=== PATIENT | female | born 1945 | race Native Hawaiian/Other Pacific Islander ===

== ENCOUNTER 2018-06-05 16:35 | Inpatient (IN) | payer MEDICARE, MEDICAID ==
[2018-06-05 16:35] VITALS: PULSE 109
--- NOTE | 2018-06-05 17:35 | ED PDOC ---
HPI: General Adult Time Seen by Provider: 06/05/18 17:33 Chief Complaint (Nursing): Upper Extremity Problem/Injury Chief Complaint (Provider): restless leg History Per: Patient Additional Complaint(s): 72 y/o female with history of left BKA presents with restless left leg ongoing for several days. Patient states she was told by her psychiatrist Dr. Villatoro to come to ED. Patient denies any trauma or injury, she denies fever or chills. PMD: Dr. Desire Catalan Past Medical History Reviewed: Historical Data, Nursing Documentation, Vital Signs Vital Signs: Last Vital Signs Temp 97.7 F 06/05/18 16:40 Pulse 98 H 06/05/18 16:40 Resp 19 06/05/18 16:40 BP 138/69 06/05/18 16:40 Pulse Ox 98 06/05/18 19:11 - Medical History PMH: Anxiety, Arthritis, Asthma, Atrial Fibrillation, Bronchitis, Cardia Arrhythmia (back in NSR), CHF, COPD, Depression, Diabetes, Gastritis, HTN, Hypercholesterolemia, Hypothyroidism, Paranoia, Post Traumatic Stress Disorder, Sleep Apnea - Surgical History Surgical History: Cholecystectomy - Family History Family History: States: No Known Family Hx - Living Arrangements Living Arrangements: Alone (has homemaker that comes to her home daily but does not live with her) - Social History Current smoker - smoking cessation education provided: No Alcohol: None Drugs: Denies - Home Medications Home Medications: Ambulatory Orders Medication Instructions Recorded Gabapentin [Neurontin] 800 mg PO TID 04/30/18 Levemir 8 unit SQ HS 04/30/18 Aspirin [Ecotrin] 81 mg PO DAILY tabec 05/11/18 Escitalopram [Lexapro] 5 mg PO DAILY 90 Days #90 tab 05/11/18 Furosemide [Lasix] 20 mg PO DAILY 30 Days #30 tab 05/11/18 Losartan [Cozaar] 50 mg PO DAILY tab 05/11/18 Rivaroxaban [Xarelto] 20 mg PO DAILY tab 05/11/18 ALPRAZolam [Xanax] 0.5 mg PO Q12 06/02/18 Ascorbic Acid [Vitamin C] 500 mg PO DAILY 06/02/18 Benztropine Mesylate 2 tab PO BID 06/02/18 Budesonide [Pulmicort Respules] 0.5 mg INH RQ12 PRN 06/02/18 Calcium Carbonate/Vitamin D3 1 each PO DAILY 06/02/18 [Calcium 500-Vit D3 400 Tablet] Digoxin 125 mcg PO DAILY@1800 06/02/18 Furosemide 40 mg PO MWF 06/02/18 Insulin Aspart Prot/Insuln Asp 0 unit SQ 5XD 06/02/18 [Novolog Mix 70-30 Vial] L.acid/L.casei/B.bif/B.kev/Fos 1 each PO DAILY 06/02/18 [Probiotic Blend Capsule] Magnesium Oxide [Magnesium] 400 mg PO DAILY 06/02/18 Mirtazapine 15 mg PO DAILY 06/02/18 Naproxen Sodium [Aleve] 220 mg PO TID PRN 06/02/18 Potassium Chloride [K-Dur 20] 20 meq PO DAILY 06/02/18 Zolpidem [Ambien] 10 mg PO HS PRN 06/02/18 - Allergies Allergies/Adverse Reactions: Allergies Allergy/AdvReac Type Severity Reaction Status Date / Time TUCKER Inhibitors Allergy Severe COUGH Verified 12/28/17 04:05 Thiazides Allergy RASH Verified 12/28/17 04:05 Review of Systems ROS Statement: Except As Marked, All Systems Reviewed And Found Negative Constitutional: Negative for: Fever Cardiovascular: Negative for: Chest Pain Respiratory: Negative for: Cough Gastrointestinal: Negative for: Nausea, Vomiting Musculoskeletal: Positive for: Other (left leg muscle spasms) Physical Exam - Reviewed Nursing Documentation Reviewed: Yes Vital Signs Reviewed: Yes - Physical Exam Appears: Positive for: Well, Non-toxic, No Acute Distress Skin: Positive for: Normal Color. Negative for: Rash Eye Exam: Positive for: Normal appearance Cardiovascular/Chest: Positive for: Regular Rate, Rhythm Respiratory: Positive for: Normal Breath Sounds. Negative for: Wheezing, Respiratory Distress Back: Positive for: Normal Inspection Extremity: Positive for: Other (Left BKA noted, involuntary muscle spasms noted to left thigh region) Neurologic/Psych: Positive for: Alert, Oriented - Laboratory Results Result Diagrams: 06/05/18 18:36 06/05/18 18:36 - ECG O2 Sat by Pulse Oximetry: 98 Pulse Ox Interpretation: Normal Medical Decision Making Medical Decision Makin72 year old with restless leg Plan: Crisis eval CBC CMP BAL UDS UA EKG CXR Case was discussed with Dr. Villatoro patient psychiatrist. He confirms that he did send patient to the ED for further evaluation and would like her to be admitted psychiatrically pending medical clearance. Crisis department is aware. Case was also d/w Dr. Catalan who called ED also stating patient should be admitted. As per Dr. Catalan, patient takes Levemir and Novolog 70/30 and he would like this continued while patient is admitted. Nurse made aware of this. Disposition - Clinical Impression Clinical Impression: Muscle spasms of lower extremity, Altered mental status - Patient ED Disposition Is Patient to be Admitted: Transfer of Care - Disposition Disposition: Transfer of Care Disposition Time: 20:00 Condition: FAIR Forms: [employer] (Cuban) Patient Signed Over To: Cali Garza Handoff Comments: Pending diagnostic testing results, crisis eval and final dispo
--- NOTE | 2018-06-05 18:32 | RAD ---
HISTORY: clearance COMPARISON: None available. TECHNIQUE: Chest, one view. FINDINGS: LUNGS: Evidence of bilateral calcified breast implants. Opacity involving the right mid to lower lobe may be related to this calcified implant however alternatives including infiltrates or neoplasm cannot be excluded. Please note that chest x-ray has limited sensitivity for the detection of pulmonary masses. PLEURA: No significant pleural effusion identified. No definite pneumothorax . CARDIOVASCULAR: Cardiomegaly. Dense atherosclerotic calcifications of the aorta. OSSEOUS STRUCTURES: Osseous demineralization. Degenerative changes. VISUALIZED UPPER ABDOMEN: Unremarkable. OTHER FINDINGS: None. IMPRESSION: Evidence of bilateral calcified breast implants. Opacity involving the right mid to lower lobe favored the results of calcified implant however alternatives including infiltrates or neoplasm cannot be excluded on the basis of this chest x-ray. Correlate clinically. Chest PA and lateral may be considered.
[2018-06-05 18:42] LABS: BASO # 0.1 K/uL (0.0-0.2); BASO % 1.4 % (0.0-2.0); EOS # 0.2 K/uL (0.0-0.7); EOS % 3.8 % (0.0-4.0); HEMOGLOBIN 12.5 g/dL (12.0-16.0); LYMPH # 2.1 K/uL (1.0-4.3); LYMPH % 32.7 % (20.0-40.0); MEAN CELL VOLUME 94.8 fl (81.0-99.0); MEAN CORPUSCULAR HEMOGLOBIN 31.2 pg (27.0-31.0); MEAN CORPUSCULAR HGB CONC 32.9 g/dL (33.0-37.0); MEAN PLATELET VOLUME 10.2 fl (7.2-11.7); MONO # 0.6 K/uL (0.0-0.8); MONO % 9.3 % (0.0-10.0); NEUT # 3.3 K/uL (1.8-7.0); NEUT % 52.8 % (50.0-75.0); RED CELL DISTRIBUTION WIDTH 15.7 % (11.5-14.5); WHITE BLOOD COUNT 6.3 K/uL (4.8-10.8)
[2018-06-05 18:58] LABS: ALBUMIN 3.2 g/dL (3.5-5.0); ALT/SGPT 32 U/L (9-52); AST/SGOT 34 U/L (14-36); BLOOD UREA NITROGEN 24 mg/dl (7-17); CALCIUM 8.7 mg/dL (8.4-10.2); GFR NON-AFRICAN AMERICAN > 60
[2018-06-05 19:36] LABS: INR 0.8
[2018-06-05 19:38] LABS: PROTHROMBIN TIME 9.2 Seconds (9.8-13.1)
[2018-06-05] MEDS ORDERED: Insulin Regular 100 units/ml SC STA (19:53)
[2018-06-05] MEDS ORDERED: Albuterol 0.042% Inhal Sol (1.25 mg/3 mL) UD INH STA (20:04)
[2018-06-05] MEDS ORDERED: Hum Prothrombin CPLX(PCC)4FACT 1 Unit Inj IV ONE (20:22)
--- NOTE | 2018-06-05 20:34 | ED PDOC ---
"- Laboratory Results Result Diagrams: 06/05/18 18:36 06/05/18 18:36 - ECG ECG: Positive for: Interpreted By Me ECG Rhythm: Positive for: Sinus Rhythm. Negative for: ST/T Changes O2 Sat by Pulse Oximetry: 98 - Radiology X-Ray: Read By Radiologist (CXR) X-Ray Interpretation: No Acute Disease - Progress ED Course And Treament: 1999 Case endorsed to me pending CT results and crisis eval. 2004 office technologist alerted me of possible ICH. On my initial evaluation, pt. states she fell out of her this afternoon but does not remember hitting her head. Denies headache, LOC, neck pain. AOx2 2013 CT head w/o contrast: 1. Intraparenchymal hyperattenuation conforming to the right lentiform nucleus, suggestive of acute intracranial hemorrhage. There is trace edema within the adjacent right external capsule. This may represent an early hypertensive hemorrhage. Recommend followup imaging in 6 hours. 2. Moderate cortical volume loss. 3. Sequela of chronic microvascular disease. SWAPNA MARSH | Preliminary Radiology Report FILE CLERK DATA ENTRY (QA) DISCREPANCY? If there is a discrepancy between the preliminary and final interpretation, please notify [facility] via [email or web address]. If you do not have access to our QA portal, call our QA team at [phone] CONFIDENTIALITY STATEMENT This report is intended only for the use of the referring physician, and only in accordance with law, If you received this in error, call [phone] Page 2 of 2 4. Small hyperattenuating focus in the right parotid gland, likely partially imaged intraparotid lymph node Dr. Miller made aware of results. Call placed to Dr. Nguyen. [facility] ordered. Case d/w Dr. Hernandez, pt.'s psychiatrist, and made aware of findings. States he will contact Dr. Reid tucker (pt.'s PMD) himself. Agrees with care. 2030 Case d/w Dr. Krueger, neurosurgery orthopedic nurse practitioner, and CT findings discussed who recommends calling neurology as this is a neurology case. Dr. Miller discussed case with Dr. Nichols and Dr. Puri and arrangements made for admission. Case d/w Dr. Fisher who agrees with care and states Kcentra is indicated. Also requests [address] w/o contrast tomorrow at 0100 and another one at 0600. Also states pt. should be started on Depakote 500mg PO BID. Disposition - Clinical Impression Clinical Impression: Intracranial hemorrhage - POA Present On Arrival: None - Disposition Disposition: Routine/Home Disposition Time: 20:30 Condition: FAIR"
[2018-06-05] MEDS ORDERED: Insulin Regular 100 units/ml ONE (21:06)
[2018-06-05] MEDS ORDERED: Albuterol 0.042% Inhal Sol (1.25 mg/3 mL) UD ONE (21:07)
--- NOTE | 2018-06-05 21:07 | CP.PCM.CON ---
"History of Present Illness - History of Present Illness History of Present Illness: CC/reason for ICU: ICH HPI: This is a 72 y/o female with MHx sig for A fib on Xarelto, CHF, COPD, DM2, HTN, and RLS. Apparently she had been put on a new medication for her RLS and that was making symptoms worse over past several days. She called her psychiatrist, and was told to come to the ER. Patient notes that she fell earlier today, but did not have LOC. Denies CP/SOB, denies f/c/n/v/d. ROS: 14 systems reviewed, negative other than HPI MHx: fib on Xarelto, CHF, COPD, DM2, HTN, RLS, depression/anxiety SHx: L BKA, cholecystectomy Allergies: TUCKER-i, Thiazides Medications: Per med rec Family Hx: Patient cannot provide Social Hx: Lives alone, but has home health for 8 hrs daily, no tobacco, no EtOH Surrogate: Patient cannot provide info at this time Past Patient History - Infectious Disease Hx of Infectious Diseases: None - Tetanus Immunizations Tetanus Immunization: Unknown - Past Medical History & Family History Past Medical History?: Yes - Past Social History Alcohol: None Drugs: Denies - CARDIAC Hx Atrial Fibrillation: Yes Hx Cardia Arrhythmia: Yes (back in NSR) Hx Congestive Heart Failure: Yes Hx Hypercholesterolemia: Yes Hx Hypertension: Yes - PULMONARY Hx Asthma: Yes Hx Bronchitis: Yes Hx Chronic Obstructive Pulmonary Disease (COPD): Yes Hx Sleep Apnea: Yes - HEENT Hx Difficulty Chewing: Yes - RENAL Hx Chronic Kidney Disease: No - ENDOCRINE/METABOLIC Hx Hypothyroidism: Yes - HEMATOLOGICAL/ONCOLOGICAL Hx Blood Disorders: No Hx Blood Transfusions: Yes - INTEGUMENTARY Hx Dermatological Problems: Yes Hx Cellulitis: Yes (current) Hx Eczema: Yes - MUSCULOSKELETAL/RHEUMATOLOGICAL Hx Arthritis: Yes - GASTROINTESTINAL Hx Gastritis: Yes - GENITOURINARY/GYNECOLOGICAL Hx Genitourinary Disorders: No - PSYCHIATRIC Hx Anxiety: Yes Hx Depression: Yes Hx Paranoia: Yes Hx Post Traumatic Stress Disorder: Yes - SURGICAL HISTORY Hx Cholecystectomy: Yes - ANESTHESIA Hx Anesthesia: Yes Hx Anesthesia Reactions: No Hx Malignant Hyperthermia: No Meds Allergies/Adverse Reactions: Allergies Allergy/AdvReac Type Severity Reaction Status Date / Time TUCKER Inhibitors Allergy Severe COUGH Verified 12/28/17 04:05 Thiazides Allergy RASH Verified 12/28/17 04:05 - Medications Medications: Current Medications Acetaminophen (Tylenol 325mg Tab) 650 mg PO Q6H PRN PRN Reason: Pain, Mild (1-3) Acetaminophen (Tylenol 325mg Tab) 650 mg PO Q6H PRN PRN Reason: Fever >100.4 F Benztropine Mesylate (Cogentin) 2 mg PO BID [facility] Budesonide (Pulmicort Respules) 0.5 mg INH RQ12 PRN PRN Reason: Shortness of Breath Digoxin (Digoxin) 0.125 mg PO DAILY@1800 [facility] Divalproex Sodium (Depakote Dr(*Bid*)) 500 mg PO BID [facility] Escitalopram Oxalate (Lexapro) 5 mg PO DAILY [facility] Furosemide (Lasix) 20 mg PO DAILY [facility] Home Med (Gabapentin [Neurontin]) 800 mg PO TID [facility] Home Med (Levemir) 8 unit SQ HS [facility] Insulin Human Lispro (Humalog) 0 units SC ACHS JULIETA PRN Reason: Protocol Losartan Potassium (Cozaar) 50 mg PO DAILY [facility] Ondansetron HCl (Zofran Inj) 4 mg IVP Q6H PRN PRN Reason: Nausea/Vomiting Prothrombin Complex Concent (Human) (Kcentra) 1,100 unit IV ONCE ONE Stop: 06/05/18 20:23 Physical Exam - Constitutional Appears: No Acute Distress - Head Exam Head Exam: ATRAUMATIC, NORMOCEPHALIC - Eye Exam Eye Exam: EOMI, PERRL - ENT Exam ENT Exam: Mucous Membranes Moist - Neck Exam Neck exam: Positive for: Full Rom - Respiratory Exam Respiratory Exam: Clear to Auscultation Bilateral, NORMAL BREATHING PATTERN - Cardiovascular Exam Cardiovascular Exam: REGULAR RHYTHM, +S1, +S2 - GI/Abdominal Exam GI & Abdominal Exam: Normal Bowel Sounds, Soft - Extremities Exam Extremities exam: Positive for: full ROM, normal inspection - Neurological Exam Neurological exam: Alert, CN II-XII Intact, Oriented x3 - Psychiatric Exam Additional comments: constricted affect - Skin Skin Exam: Dry, Warm Results - Vital Signs Recent Vital Signs: Last Vital Signs Temp 97.7 F 06/05/18 16:40 Pulse 98 H 06/05/18 16:40 Resp 19 06/05/18 16:40 BP 138/69 06/05/18 16:40 Pulse Ox 98 06/05/18 21:05 - Labs Result Diagrams: 06/05/18 18:36 06/05/18 18:36 Labs: Laboratory Results - last 24 hr 06/05/18 06/05/18 06/05/18 18:36 18:36 19:25 WBC 6.3 RBC 4.00 Hgb 12.5 Hct 37.9 MCV 94.8 MCH 31.2 H MCHC 32.9 L RDW 15.7 H Plt Count 266 MPV 10.2 Neut % (Auto) 52.8 Lymph % (Auto) 32.7 [place] % (Auto) 9.3 Eos % (Auto) 3.8 Baso % (Auto) 1.4 Neut # (Auto) 3.3 Lymph # (Auto) 2.1 [place] # (Auto) 0.6 Eos # (Auto) 0.2 Baso # (Auto) 0.1 PT 9.2 L INR 0.8 APTT 27.0 Sodium 138 Potassium 4.1 Chloride 108 H Carbon Dioxide 27 Anion Gap 7 L BUN 24 H Creatinine 0.9 Est GFR ( Amer) > 60 Est GFR (Non-Af Amer) > 60 POC Glucose (mg/dL) Random Glucose 293 H Calcium 8.7 Total Bilirubin 0.2 AST 34 ALT 32 Alkaline Phosphatase 86 Total Protein 6.4 Albumin 3.2 L Globulin 3.2 Albumin/Globulin Ratio 1.0 Alcohol, Quantitative < 10 06/05/18 19:45 WBC RBC Hgb Hct MCV MCH MCHC RDW Plt Count MPV Neut % (Auto) Lymph % (Auto) [place] % (Auto) Eos % (Auto) Baso % (Auto) Neut # (Auto) Lymph # (Auto) [place] # (Auto) Eos # (Auto) Baso # (Auto) PT INR APTT Sodium Potassium Chloride Carbon Dioxide Anion Gap BUN Creatinine Est GFR ( Amer) Est GFR (Non-Af Amer) POC Glucose (mg/dL) 300 H Random Glucose Calcium Total Bilirubin AST ALT Alkaline Phosphatase Total Protein Albumin Globulin Albumin/Globulin Ratio Alcohol, Quantitative - Imaging and Cardiology CT scan - head Status: Report reviewed by me Additional comment: CT head w/o contrast: 1. Intraparenchymal hyperattenuation conforming to the right lentiform nucleus, suggestive of acute intracranial hemorrhage. There is trace edema within the adjacent right external capsule. This may represent an early hypertensive hemorrhage. Recommend followup imaging in 6 hours. 2. Moderate cortical volume loss. 3. Sequela of chronic microvascular disease. SWAPNA MARSH | Preliminary Radiology Report MALL PLANT CARETAKER (QA) DISCREPANCY? If there is a discrepancy between the preliminary and final interpretation, please notify [facility] via [email or web address]. If you do not have access to our QA portal, call our QA team at [phone] CONFIDENTIALITY STATEMENT This report is intended only for the use of the referring physician, and only in accordance with law, If you received this in error, call [phone] Page 2 of 2 4. Small hyperattenuating focus in the right parotid gland, likely partially imaged intraparotid lymph node Assessment & Plan (1) Intracranial hemorrhage Assessment and Plan: 72 y/o female with ICH s/p fall in setting of being on Xarelto. Received Kcentra in ER. -Admit ICU -Repeat NCHCT q6h -q4h neuro checks -Control BP -Hold all antiplatelet agents and blood thinners -Neurology consult -Neurosurgery consult -- no surgery required per neurosurg after viewing images -Cont LA insulin, SSI, for DM2; accucheck ACHS -Cont home BP medications -Only SCDs for DVT PPx Status: Acute (2) Uncontrolled diabetes mellitus Status: Chronic Priority: Medium"
[2018-06-05] MEDS ORDERED: Insulin Detemir 100 Units/ml Inj SC SCH (22:00)
[2018-06-05] MEDS: Divalproex 500 mg DR(BID formulation) PO SCH (22:52)
[2018-06-05] MEDS ORDERED: Dextrose 50% SYRINGE Inj (50 ml) IVP ONE (23:42)
[2018-06-05] MEDS: Insulin Lispro (humaLOG) 100 Units/ml Inj SC SCH (23:52)
[2018-06-06 05:51] LABS: HEMOGLOBIN 11.8 g/dL (12.0-16.0); MEAN CELL VOLUME 94.6 fl (81.0-99.0); MEAN CORPUSCULAR HEMOGLOBIN 31.3 pg (27.0-31.0); MEAN CORPUSCULAR HGB CONC 33.1 g/dL (33.0-37.0); RBC 3.78 Mil/uL (3.80-5.20); RED CELL DISTRIBUTION WIDTH 15.5 % (11.5-14.5); WHITE BLOOD COUNT 7.9 K/uL (4.8-10.8)
[2018-06-06 06:06] LABS: BLOOD UREA NITROGEN 19 mg/dl (7-17); CALCIUM 8.8 mg/dL (8.4-10.2); GFR NON-AFRICAN AMERICAN > 60
--- NOTE | 2018-06-06 07:29 | CT ---
Date of service: 06/06/2018 PROCEDURE: CT HEAD WITHOUT CONTRAST. HISTORY: repeat [address] due to HTN ICH COMPARISON: 06/05/2018 TECHNIQUE: Axial computed tomography images were obtained through the head/brain without intravenous contrast. Radiation dose: Total exam DLP = mGy-cm. This CT exam was performed using one or more of the following dose reduction techniques: Automated exposure control, adjustment of the mA and/or kV according to patient size, and/or use of iterative reconstruction technique. FINDINGS: HEMORRHAGE: Evolving hyperdense parenchymal hemorrhage in the right lentiform nucleus with surrounding edema. No interval change. BRAIN: No mass effect or edema. No atrophy or chronic microvascular ischemic changes. VENTRICLES: Unremarkable. No hydrocephalus. CALVARIUM: Unremarkable. PARANASAL SINUSES: Unremarkable as visualized. No significant inflammatory changes. MASTOID AIR CELLS: Unremarkable as visualized. No inflammatory changes. OTHER FINDINGS: None. IMPRESSION: Evolving hyperdense parenchymal hemorrhage in the right lentiform nucleus with surrounding edema. No interval change.
--- NOTE | 2018-06-06 07:35 | CT ---
Date of service: 06/05/2018 PROCEDURE: CT HEAD WITHOUT CONTRAST. HISTORY: AMS COMPARISON: None available. TECHNIQUE: Axial computed tomography images were obtained through the head/brain without intravenous contrast. Radiation dose: Total exam DLP = mGy-cm. This CT exam was performed using one or more of the following dose reduction techniques: Automated exposure control, adjustment of the mA and/or kV according to patient size, and/or use of iterative reconstruction technique. FINDINGS: HEMORRHAGE: Intraparenchymal hyperdensity in the right lentiform nucleus possibly presenting intracranial hemorrhage. BRAIN: No mass effect or edema. Cortical volume loss and microvascular ischemic disease. VENTRICLES: Unremarkable. No hydrocephalus. CALVARIUM: Unremarkable. PARANASAL SINUSES: Unremarkable as visualized. No significant inflammatory changes. MASTOID AIR CELLS: Unremarkable as visualized. No inflammatory changes. OTHER FINDINGS: None. IMPRESSION: Intraparenchymal hyperdensity in the right lentiform nucleus possibly presenting intracranial hemorrhage. Cortical volume loss and microvascular ischemic disease.
--- NOTE | 2018-06-06 07:59 | CT ---
Date of service: 06/06/2018 PROCEDURE: CT HEAD WITHOUT CONTRAST. HISTORY: 2nd repeat CT head COMPARISON: 06/05/2018 TECHNIQUE: Axial computed tomography images were obtained through the head/brain without intravenous contrast. Radiation dose: Total exam DLP = mGy-cm. This CT exam was performed using one or more of the following dose reduction techniques: Automated exposure control, adjustment of the mA and/or kV according to patient size, and/or use of iterative reconstruction technique. FINDINGS: HEMORRHAGE: No intracranial hemorrhage. BRAIN: No mass effect or edema. Chronic white matter ischemic disease. Mild atrophy. VENTRICLES: Unremarkable. No hydrocephalus. CALVARIUM: Unremarkable. PARANASAL SINUSES: Unremarkable as visualized. No significant inflammatory changes. MASTOID AIR CELLS: Unremarkable as visualized. No inflammatory changes. OTHER FINDINGS: None. IMPRESSION: No change in hyperdense material in the right lentiform nucleus. This possibly represents petechial hemorrhage though calcification is also consideration.
--- NOTE | 2018-06-06 08:05 | RAD ---
Date of service: 06/05/2018 HISTORY: ecchymosis COMPARISON: No prior FINDINGS: BONES: Normal. No fracture. JOINTS: Normal. No osteoarthritis. SOFT TISSUE: Normal. OTHER FINDINGS: None . IMPRESSION: Normal Bone Xray.
[2018-06-06] MEDS: Divalproex 500 mg DR(BID formulation) PO SCH (08:26)
[2018-06-06] MEDS: Insulin Lispro (humaLOG) 100 Units/ml Inj SC SCH ×4 (08:27→22:07)
[2018-06-06] MEDS: Budesonide 0.5 mg/2 ml Inhal Susp UD INH PRN (08:46)
[2018-06-06] MEDS ORDERED: Patient's Own Med (Gabapentin [Neurontin] 800 MG) PO SCH (09:00)
--- NOTE | 2018-06-06 09:26 | CARD ---
APPROVED REPORT Date of service: 06/05/2018 EKG Measurement Heart [id number] <Conclusion> Sinus rhythm with premature supraventricular complexes Nonspecific ST abnormality Abnormal ECG
--- NOTE | 2018-06-06 10:44 | CP.PCM.PN ---
Subjective - Date & Time of Evaluation Date of Evaluation: 06/06/18 Time of Evaluation: 09:45 - Subjective Subjective: Patient well known to ICU team at [facility] and [facility]. Patient has been admitted multiple times at both hospitals. Patient admitted to [facility] for ICH while on AC 2nd A-fib. Today Patient denies any chest pain. Patient c/o left lower leg pain with myotonic movements Objective - Vital Signs/Intake and Output Vital Signs (last 24 hours): Temp Pulse Resp BP Pulse Ox 97.6 F 84 13 151/74 H 100 06/06/18 08:00 06/06/18 08:26 06/06/18 08:00 06/06/18 08:28 06/06/18 08:00 Intake and Output: 06/06/18 06/06/18 06:59 18:59 Intake Total 30 300 Output Total 350 Balance -320 300 - Medications Medications: Current Medications Acetaminophen (Tylenol 325mg Tab) 650 mg PO Q6H PRN PRN Reason: Pain, Mild (1-3) Acetaminophen (Tylenol 325mg Tab) 650 mg PO Q6H PRN PRN Reason: Fever >100.4 F Benztropine Mesylate (Cogentin) 2 mg PO BID [facility] Last Admin: 06/06/18 08:26 Dose: 2 mg Budesonide (Pulmicort Respules) 0.5 mg INH RBID PRN PRN Reason: Shortness of Breath Last Admin: 06/06/18 08:46 Dose: 0.5 mg Diltiazem HCl (Cardizem Cd) 180 mg PO DAILY [facility] Divalproex Sodium (Depakote Dr(*Bid*)) 750 mg PO BID [facility] Escitalopram Oxalate (Lexapro) 5 mg PO DAILY [facility] Last Admin: 06/06/18 08:28 Dose: 5 mg Furosemide (Lasix) 20 mg PO DAILY [facility] Last Admin: 06/06/18 08:28 Dose: 20 mg Gabapentin (Neurontin) 800 mg PO TID [facility] Last Admin: 06/06/18 08:28 Dose: 800 mg Insulin Human Lispro (Humalog) 0 units SC ACHS [facility] PRN Reason: Protocol Last Admin: 06/06/18 08:27 Dose: Not Given Losartan Potassium (Cozaar) 50 mg PO DAILY [facility] Last Admin: 06/06/18 08:26 Dose: 50 mg Ondansetron HCl (Zofran Inj) 4 mg IVP Q6H PRN PRN Reason: Nausea/Vomiting - Labs Labs: 06/06/18 04:45 06/06/18 04:45 PT 9.2 Seconds (9.8-13.1) L 06/05/18 19:25 INR 0.8 06/05/18 19:25 APTT 27.0 Seconds (25.6-37.1) 06/05/18 19:25 Assessment and Plan - Assessment and Plan (Free Text) Assessment: 72 yo F w/ PMHx of HTN, HLD, DM2, A.fib, COPD, CHF, diverticulitis, left BKA(2/ 2 to thrombosis) admitted to ICU with ICH while on NOAC -HTN/Chronic diastolic heart failure (EF >55%)/A-fib:HR controlled with oral Cardizem, not on AC 2nd ICH, no ASA 2nd ICH -COPD-in no acut distress, contineu LABA/spiriva -DM: was on levamir 10 untis and 3 unit premeals, continue diabetic diet -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 continue to monitor
[2018-06-06] MEDS: diltiaZEM 180 mg/24 Hours CD Cap PO SCH (12:46)
--- NOTE | 2018-06-06 14:26 | CP.PCM.CON ---
History of Present Illness - History of Present Illness History of Present Illness: Neurology Consultation Note: The patient is a 72-year-old woman with a past medical history of atrial fibrillation (on Xarelto), CHF, COPD, DM2, HTN, right BKA and RLS, who was brought in for tonic/clonic movements of her lower extremities and falling off the bed. She was initially confused, but seems to be back to baseline now. CT scan of the head showed a possible right basal ganglia hemorrhage. Xarelto was held. Repeat CT head showed stability. No mass effect. The patient is in the ICU and there were no acute events overnight. When she is asleep, there are no abnormal movements in her right stump, but when she is awake, she seems to be moving it ceaselessly. Review of Systems - Review of Systems All systems: reviewed and no additional remarkable complaints except Past Patient History - Infectious Disease Hx of Infectious Diseases: None - Tetanus Immunizations Tetanus Immunization: Unknown - Past Medical History & Family History Past Medical History?: Yes - Past Social History Smoking Status: Light Smoker < 10 Cigarettes Daily - CARDIAC Hx Atrial Fibrillation: Yes Hx Cardia Arrhythmia: Yes Hx Congestive Heart Failure: Yes Hx Hypercholesterolemia: Yes Hx Hypertension: Yes - PULMONARY Hx Asthma: Yes Hx Bronchitis: Yes Hx Chronic Obstructive Pulmonary Disease (COPD): Yes Hx Sleep Apnea: Yes - HEENT Hx Difficulty Chewing: Yes - RENAL Hx Chronic Kidney Disease: No Other/Comment: INCONTINENT - ENDOCRINE/METABOLIC Hx Diabetes Mellitus Type 2: Yes Hx Hypothyroidism: Yes - HEMATOLOGICAL/ONCOLOGICAL Hx Blood Disorders: No - INTEGUMENTARY Hx Eczema: Yes - MUSCULOSKELETAL/RHEUMATOLOGICAL Hx Falls: Yes - GASTROINTESTINAL Hx Gastritis: Yes - GENITOURINARY/GYNECOLOGICAL Hx Genitourinary Disorders: No - PSYCHIATRIC Hx Anxiety: Yes Hx Depression: Yes Hx Paranoia: Yes Hx Post Traumatic Stress Disorder: Yes Hx Substance Use: No - SURGICAL HISTORY Hx Cholecystectomy: Yes Other/Comment: LEFT BKA - ANESTHESIA Hx Anesthesia: Yes Hx Anesthesia Reactions: No Hx Malignant Hyperthermia: No Meds Allergies/Adverse Reactions: Allergies Allergy/AdvReac Type Severity Reaction Status Date / Time TUCKER Inhibitors Allergy Severe COUGH Verified 12/28/17 04:05 Thiazides Allergy RASH Verified 12/28/17 04:05 - Medications Medications: Current Medications Acetaminophen (Tylenol 325mg Tab) 650 mg PO Q6H PRN PRN Reason: Pain, Mild (1-3) Acetaminophen (Tylenol 325mg Tab) 650 mg PO Q6H PRN PRN Reason: Fever >100.4 F Acetaminophen/Codeine Phosphate (Tylenol/Codeine 300 Mg/30 Mg) 1 tab PO Q8 PRN PRN Reason: Pain, moderate (4-7) Atorvastatin Calcium (Lipitor) 20 mg PO DAILY [facility] Last Admin: 06/06/18 12:49 Dose: 20 mg Benztropine Mesylate (Cogentin) 2 mg PO BID [facility] Last Admin: 06/06/18 08:26 Dose: 2 mg Budesonide (Pulmicort Respules) 0.5 mg INH RBID PRN PRN Reason: Shortness of Breath Last Admin: 06/06/18 08:46 Dose: 0.5 mg Diltiazem HCl (Cardizem Cd) 180 mg PO DAILY [facility] Last Admin: 06/06/18 12:46 Dose: 180 mg Divalproex Sodium (Depakote Dr(*Bid*)) 750 mg PO BID [facility] Escitalopram Oxalate (Lexapro) 5 mg PO DAILY [facility] Last Admin: 06/06/18 08:28 Dose: 5 mg Furosemide (Lasix) 20 mg PO DAILY [facility] Last Admin: 06/06/18 08:28 Dose: 20 mg Gabapentin (Neurontin) 800 mg PO TID [facility] Last Admin: 06/06/18 12:49 Dose: 800 mg Insulin Human Lispro (Humalog) 0 units SC ACHS [facility] PRN Reason: Protocol Last Admin: 06/06/18 12:48 Dose: 4 units Losartan Potassium (Cozaar) 50 mg PO DAILY [facility] Last Admin: 06/06/18 08:26 Dose: 50 mg Metformin HCl (Glucophage) 500 mg PO BIDWM [facility] Ondansetron HCl (Zofran Inj) 4 mg IVP Q6H PRN PRN Reason: Nausea/Vomiting Sitagliptin Phosphate (Januvia) 100 mg PO DAILY [facility] Last Admin: 06/06/18 12:49 Dose: 100 mg Physical Exam - Neurological Exam Neurological exam: Alert, CN II-XII Intact, Oriented x3, Reflexes Normal Additional comments: CN 2-12 intact, strength is symmetrical, LLE BKA with constant non-rhythmic movement, sensation is intact, reflexes are normal. Results - Vital Signs Recent Vital Signs: Last Vital Signs Temp 97.6 F 06/06/18 08:00 Pulse 105 H 06/06/18 12:46 Resp 20 06/06/18 12:00 BP 134/66 06/06/18 12:46 Pulse Ox 98 06/06/18 12:00 - Labs Result Diagrams: 06/06/18 04:45 06/06/18 04:45 Labs: Laboratory Results - last 24 hr 06/05/18 06/05/18 06/05/18 18:36 18:36 19:25 WBC 6.3 RBC 4.00 Hgb 12.5 Hct 37.9 MCV 94.8 MCH 31.2 H MCHC 32.9 L RDW 15.7 H Plt Count 266 MPV 10.2 Neut % (Auto) 52.8 Lymph % (Auto) 32.7 [place] % (Auto) 9.3 Eos % (Auto) 3.8 Baso % (Auto) 1.4 Neut # (Auto) 3.3 Lymph # (Auto) 2.1 [place] # (Auto) 0.6 Eos # (Auto) 0.2 Baso # (Auto) 0.1 PT 9.2 L INR 0.8 APTT 27.0 Sodium 138 Potassium 4.1 Chloride 108 H Carbon Dioxide 27 Anion Gap 7 L BUN 24 H Creatinine 0.9 Est GFR ( Amer) > 60 Est GFR (Non-Af Amer) > 60 POC Glucose (mg/dL) Random Glucose 293 H Calcium 8.7 Total Bilirubin 0.2 AST 34 ALT 32 Alkaline Phosphatase 86 Total Protein 6.4 Albumin 3.2 L Globulin 3.2 Albumin/Globulin Ratio 1.0 Triglycerides Cholesterol LDL Cholesterol Direct HDL Cholesterol TSH 3rd Generation Alcohol, Quantitative < 10 06/05/18 06/05/18 06/06/18 19:45 23:39 00:34 WBC RBC Hgb Hct MCV MCH MCHC RDW Plt Count MPV Neut % (Auto) Lymph % (Auto) [place] % (Auto) Eos % (Auto) Baso % (Auto) Neut # (Auto) Lymph # (Auto) [place] # (Auto) Eos # (Auto) Baso # (Auto) PT INR APTT Sodium Potassium Chloride Carbon Dioxide Anion Gap BUN Creatinine Est GFR ( Amer) Est GFR (Non-Af Amer) POC Glucose (mg/dL) 300 H 41 L 99 Random Glucose Calcium Total Bilirubin AST ALT Alkaline Phosphatase Total Protein Albumin Globulin Albumin/Globulin Ratio Triglycerides Cholesterol LDL Cholesterol Direct HDL Cholesterol TSH 3rd Generation Alcohol, Quantitative 06/06/18 06/06/18 06/06/18 04:45 04:45 05:48 WBC 7.9 RBC 3.78 L Hgb 11.8 L Hct 35.7 MCV 94.6 MCH 31.3 H MCHC 33.1 RDW 15.5 H Plt Count 273 MPV Neut % (Auto) Lymph % (Auto) [place] % (Auto) Eos % (Auto) Baso % (Auto) Neut # (Auto) Lymph # (Auto) [place] # (Auto) Eos # (Auto) Baso # (Auto) PT INR APTT Sodium 139 Potassium 4.4 Chloride 114 H Carbon Dioxide 24 Anion Gap 5 L BUN 19 H Creatinine 0.7 Est GFR ( Amer) > 60 Est GFR (Non-Af Amer) > 60 POC Glucose (mg/dL) 141 H Random Glucose 166 H Calcium 8.8 Total Bilirubin AST ALT Alkaline Phosphatase Total Protein Albumin Globulin Albumin/Globulin Ratio Triglycerides Cholesterol LDL Cholesterol Direct HDL Cholesterol TSH 3rd Generation Alcohol, Quantitative 06/06/18 06/06/18 11:20 12:20 WBC RBC Hgb Hct MCV MCH MCHC RDW Plt Count MPV Neut % (Auto) Lymph % (Auto) [place] % (Auto) Eos % (Auto) Baso % (Auto) Neut # (Auto) Lymph # (Auto) [place] # (Auto) Eos # (Auto) Baso # (Auto) PT INR APTT Sodium Potassium Chloride Carbon Dioxide Anion Gap BUN Creatinine Est GFR ( Amer) Est GFR (Non-Af Amer) POC Glucose (mg/dL) 335 H Random Glucose Calcium Total Bilirubin AST ALT Alkaline Phosphatase Total Protein Albumin Globulin Albumin/Globulin Ratio Triglycerides 192 H Cholesterol 165 LDL Cholesterol Direct 63 HDL Cholesterol 63 TSH 3rd Generation 0.26 L Alcohol, Quantitative Assessment & Plan (1) Intracranial hemorrhage Assessment and Plan: Hold Xarelto for now. I recommend the followin. May transfer to telemetry 2. MRI brain without contrast 3. MRA head/neck without contrast 4. PT/OT eval and treatment 5. Keep HOB elevated to 30-40 degrees 6. Control BP for nomrotension 7. Fluids with NS at 100 mL/hr 8. EEG awake and drowsy for 30 mins 9. Will start neurontin 300 mg TID for abnormal movements/RLS 10. Case management consult Thank you. Status: Acute Priority: High
[2018-06-06] MEDS: Acetaminophen-Codeine 300/30 mg Tab PO PRN (16:29)
[2018-06-06] MEDS: Divalproex 250 mg DR(BID formulation) PO SCH (16:32)
[2018-06-06] MEDS ORDERED: Digoxin 125 mcg (0.125 mg) Tab PO SCH (18:00)
[2018-06-07 06:58] LABS: MEAN CORPUSCULAR HEMOGLOBIN 30.8 pg (27.0-31.0); MEAN CORPUSCULAR HGB CONC 32.5 g/dL (33.0-37.0); RBC 3.89 Mil/uL (3.80-5.20); RED CELL DISTRIBUTION WIDTH 15.7 % (11.5-14.5)
[2018-06-07 07:21] LABS: BLOOD UREA NITROGEN 26 mg/dl (7-17); CALCIUM 8.9 mg/dL (8.4-10.2); GFR NON-AFRICAN AMERICAN > 60
[2018-06-07] MEDS: diltiaZEM 180 mg/24 Hours CD Cap PO SCH (08:32)
[2018-06-07] MEDS: Divalproex 250 mg DR(BID formulation) PO SCH ×2 (08:33→17:29)
[2018-06-07] MEDS: Insulin Lispro (humaLOG) 100 Units/ml Inj SC SCH ×4 (08:34→23:00)
--- NOTE | 2018-06-07 09:19 | RAD ---
Date of service: 06/07/2018 PROCEDURE: CHEST RADIOGRAPH, 1 VIEW HISTORY: decreased breath sounds bilat COMPARISON: None available. FINDINGS: LUNGS: Question right lower lobe infiltrate versus overlying density from right breast implant. . PLEURA: No pneumothorax or pleural fluid seen. CARDIOVASCULAR: Normal. OSSEOUS STRUCTURES: No significant abnormalities. VISUALIZED UPPER ABDOMEN: Normal. OTHER FINDINGS: None. IMPRESSION: Question right lower lobe infiltrate versus overlying density from right breast implant. .
[2018-06-07] MEDS: Acetaminophen-Codeine 300/30 mg Tab PO PRN (12:10)
--- NOTE | 2018-06-07 13:14 | CP.PCM.PN ---
Subjective - Date & Time of Evaluation Date of Evaluation: 06/07/18 Time of Evaluation: 10:00 - Subjective Subjective: Patient feeling better. no dizzines, no blurry vision, no headaches Objective - Vital Signs/Intake and Output Vital Signs (last 24 hours): Temp Pulse Resp BP Pulse Ox 97.9 F 70 23 115/50 L 95 06/07/18 12:00 06/07/18 10:00 06/07/18 10:00 06/07/18 10:00 06/07/18 10:00 Intake and Output: 06/07/18 06/07/18 06:59 18:59 Intake Total 0 637 Output Total 0 100 Balance 0 537 - Medications Medications: Current Medications Acetaminophen (Tylenol 325mg Tab) 650 mg PO Q6H PRN PRN Reason: Pain, Mild (1-3) Acetaminophen (Tylenol 325mg Tab) 650 mg PO Q6H PRN PRN Reason: Fever >100.4 F Acetaminophen/Codeine Phosphate (Tylenol/Codeine 300 Mg/30 Mg) 1 tab PO Q8 PRN PRN Reason: Pain, moderate (4-7) Last Admin: 06/07/18 12:10 Dose: 1 tab Atorvastatin Calcium (Lipitor) 20 mg PO DAILY [facility] Last Admin: 06/07/18 08:35 Dose: 20 mg Benztropine Mesylate (Cogentin) 2 mg PO BID [facility] Last Admin: 06/07/18 08:32 Dose: 2 mg Budesonide (Pulmicort Respules) 0.5 mg INH RBID PRN PRN Reason: Shortness of Breath Last Admin: 06/06/18 08:46 Dose: 0.5 mg Clonidine HCl (Catapres) 0.1 mg PO BID [facility] Last Admin: 06/07/18 08:32 Dose: 0.1 mg Diltiazem HCl (Cardizem Cd) 180 mg PO DAILY [facility] Last Admin: 06/07/18 08:32 Dose: 180 mg Divalproex Sodium (Depakote Dr(*Bid*)) 750 mg PO BID [facility] Last Admin: 06/07/18 08:33 Dose: 750 mg Escitalopram Oxalate (Lexapro) 5 mg PO DAILY [facility] Last Admin: 06/06/18 08:28 Dose: 5 mg Furosemide (Lasix) 20 mg PO DAILY [facility] Last Admin: 06/07/18 08:34 Dose: 20 mg Gabapentin (Neurontin) 800 mg PO TID [facility] Last Admin: 06/07/18 12:11 Dose: 800 mg Glipizide (Glucotrol Xl) 5 mg PO BRK [facility] Insulin Human Lispro (Humalog) 0 units SC ACHS [facility] PRN Reason: Protocol Last Admin: 06/07/18 12:10 Dose: 4 units Losartan Potassium (Cozaar) 50 mg PO DAILY [facility] Last Admin: 06/07/18 08:33 Dose: 50 mg Metformin HCl (Glucophage) 500 mg PO BIDWM [facility] Last Admin: 06/07/18 08:33 Dose: 500 mg Ondansetron HCl (Zofran Inj) 4 mg IVP Q6H PRN PRN Reason: Nausea/Vomiting Sitagliptin Phosphate (Januvia) 100 mg PO DAILY [facility] Last Admin: 06/07/18 08:34 Dose: 100 mg - Labs Labs: 06/07/18 05:00 06/07/18 05:00 PT 9.2 Seconds (9.8-13.1) L 06/05/18 19:25 INR 0.8 06/05/18 19:25 APTT 27.0 Seconds (25.6-37.1) 06/05/18 19:25 - Head Exam Head Exam: ATRAUMATIC, NORMAL INSPECTION, NORMOCEPHALIC - Eye Exam Pupil Exam: NORMAL ACCOMODATION - Respiratory Exam Respiratory Exam: Clear to Ausculation Bilateral, NORMAL BREATHING PATTERN - Cardiovascular Exam Cardiovascular Exam: +S1, +S2, +S4 - GI/Abdominal Exam GI & Abdominal Exam: Normal Bowel Sounds - Extremities Exam Additional comments: amputation - Neurological Exam Neurological Exam: Alert, Awake, Oriented x3 - Psychiatric Exam Psychiatric exam: Normal Affect Assessment and Plan - Assessment and Plan (Free Text) Assessment: 72 yo F w/ PMHx of HTN, HLD, DM2, A.fib, COPD, CHF, diverticulitis, left 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
[2018-06-07] MEDS: Budesonide 0.5 mg/2 ml Inhal Susp UD INH PRN (15:36)
[2018-06-07] MEDS ORDERED: Albuterol-Ipratrop 3 mg / 0.5 (3 ml) UD INH STA (15:38)
[2018-06-07] MEDS: GlipiZIDE 5 mg SR Tab PO SCH (19:00)
[2018-06-07] MEDS: Albuterol-Ipratrop 3 mg / 0.5 (3 ml) UD INH SCH (19:07)
[2018-06-08] MEDS: Albuterol-Ipratrop 3 mg / 0.5 (3 ml) UD INH SCH ×4 (02:08→19:13)
[2018-06-08 05:35] LABS: BASO # 0.1 K/uL (0.0-0.2); BASO % 1.2 % (0.0-2.0); EOS # 0.1 K/uL (0.0-0.7); EOS % 2.4 % (0.0-4.0); HEMOGLOBIN 12.6 g/dL (12.0-16.0); LYMPH # 1.8 K/uL (1.0-4.3); LYMPH % 33.8 % (20.0-40.0); MEAN CELL VOLUME 94.3 fl (81.0-99.0); MEAN CORPUSCULAR HEMOGLOBIN 31.3 pg (27.0-31.0); MEAN CORPUSCULAR HGB CONC 33.2 g/dL (33.0-37.0); MEAN PLATELET VOLUME 10.9 fl (7.2-11.7); MONO # 0.4 K/uL (0.0-0.8); NEUT # 2.9 K/uL (1.8-7.0); NEUT % 55.6 % (50.0-75.0); NRBC % 0.1 % (0.0-0.0); RBC 4.02 Mil/uL (3.80-5.20); RED CELL DISTRIBUTION WIDTH 15.5 % (11.5-14.5); WHITE BLOOD COUNT 5.2 K/uL (4.8-10.8)
[2018-06-08 05:45] LABS: ALB/GLOB RATIO 0.9 (1.0-2.1); ALBUMIN 3.1 g/dL (3.5-5.0); ALT/SGPT 25 U/L (9-52); AST/SGOT 38 U/L (14-36); BLOOD UREA NITROGEN 25 mg/dl (7-17); CALCIUM 8.9 mg/dL (8.4-10.2); GFR NON-AFRICAN AMERICAN > 60
[2018-06-08] MEDS: Insulin Lispro (humaLOG) 100 Units/ml Inj SC SCH ×4 (06:31→23:04)
[2018-06-08] MEDS: diltiaZEM 180 mg/24 Hours CD Cap PO SCH (10:13)
[2018-06-08] MEDS: Divalproex 250 mg DR(BID formulation) PO SCH ×2 (10:36→17:12)
[2018-06-08] MEDS: GlipiZIDE 5 mg SR Tab PO SCH ×3 (10:37→19:55)
[2018-06-08] MEDS ORDERED: Albuterol-Ipratrop 3 mg / 0.5 (3 ml) UD INH STA (11:14)
[2018-06-08] MEDS: Budesonide 0.5 mg/2 ml Inhal Susp UD INH PRN (11:21)
[2018-06-08 11:37] LABS: ABG ALLEN TEST YES; ARTERIAL BLOOD GAS HCO3 25.3 mmol/L (21-28); ARTERIAL BLOOD GAS O2 SAT 96.5 % (95-98); ARTERIAL BLOOD GAS PCO2 47 mm/Hg (35-45); ARTERIAL BLOOD GAS PH 7.36 (7.35-7.45); ARTERIAL BLOOD GAS PO2 70 mm/Hg (80-100)
[2018-06-08] MEDS: Insulin Detemir 100 Units/ml Inj SC SCH (13:00)
--- NOTE | 2018-06-08 15:59 | CP.PCM.PN ---
Subjective - Date & Time of Evaluation Date of Evaluation: 06/08/18 Time of Evaluation: 15:57 - Subjective Subjective: Mrs. Arreaga was seen and examined today at bedside. She had no new complaints. There were no acute events overnight. The patient was taken to [facility] for the MRI, but the study was relatively non-diagnostic due to the patient's agitation and motion. Objective - Vital Signs/Intake and Output Vital Signs (last 24 hours): Temp Pulse Resp BP Pulse Ox 98.2 F 107 H 21 143/71 98 06/08/18 08:00 06/08/18 10:32 06/08/18 08:00 06/08/18 10:39 06/08/18 08:00 Intake and Output: 06/08/18 06/08/18 06:59 18:59 Intake Total 20 Balance 20 - Medications Medications: Current Medications Acetaminophen (Tylenol 325mg Tab) 650 mg PO Q6H PRN PRN Reason: Pain, Mild (1-3) Acetaminophen (Tylenol 325mg Tab) 650 mg PO Q6H PRN PRN Reason: Fever >100.4 F Albuterol/Ipratropium (Duoneb 3 Mg/0.5 Mg (3 Ml) Ud) 3 ml INH RQ6 [facility] Last Admin: 06/08/18 11:22 Dose: 3 ml Atorvastatin Calcium (Lipitor) 20 mg PO DAILY [facility] Last Admin: 06/08/18 10:40 Dose: 20 mg Benztropine Mesylate (Cogentin) 2 mg PO BID [facility] Last Admin: 06/08/18 10:31 Dose: 2 mg Budesonide (Pulmicort Respules) 0.5 mg INH RBID PRN PRN Reason: Shortness of Breath Last Admin: 06/08/18 11:21 Dose: 0.5 mg Clonidine HCl (Catapres) 0.1 mg PO BID [facility] Last Admin: 06/08/18 10:19 Dose: 0.1 mg Diltiazem HCl (Cardizem Cd) 180 mg PO DAILY [facility] Last Admin: 06/08/18 10:13 Dose: 180 mg Divalproex Sodium (Depakote Dr(*Bid*)) 750 mg PO BID [facility] Last Admin: 06/08/18 10:36 Dose: 750 mg Escitalopram Oxalate (Lexapro) 5 mg PO DAILY [facility] Last Admin: 06/06/18 08:28 Dose: 5 mg Furosemide (Lasix) 20 mg PO DAILY [facility] Last Admin: 06/08/18 10:39 Dose: 20 mg Gabapentin (Neurontin) 800 mg PO TID [facility] Last Admin: 06/08/18 15:25 Dose: 800 mg Glipizide (Glucotrol Xl) 5 mg PO BRK [facility] Last Admin: 06/08/18 10:37 Dose: 5 mg Insulin Detemir (Levemir) 8 units SC DAILY [facility] Insulin Human Lispro (Humalog) 0 units SC ACHS [facility] PRN Reason: Protocol Last Admin: 06/08/18 06:31 Dose: 1 units Losartan Potassium (Cozaar) 50 mg PO DAILY [facility] Last Admin: 06/08/18 10:32 Dose: 50 mg Metformin HCl (Glucophage) 500 mg PO BIDWM [facility] Last Admin: 06/08/18 10:37 Dose: 500 mg Ondansetron HCl (Zofran Inj) 4 mg IVP Q6H PRN PRN Reason: Nausea/Vomiting Sitagliptin Phosphate (Januvia) 100 mg PO DAILY [facility] Last Admin: 06/08/18 10:38 Dose: 100 mg Tramadol HCl (Ultram) 50 mg PO Q6H PRN PRN Reason: Pain, moderate (4-7) Last Admin: 06/08/18 10:32 Dose: 50 mg - Labs Labs: 06/08/18 04:30 06/08/18 04:30 PT 9.2 Seconds (9.8-13.1) L 06/05/18 19:25 INR 0.8 06/05/18 19:25 APTT 27.0 Seconds (25.6-37.1) 06/05/18 19:25 - Neurological Exam Additional comments: Neurologically unchanged compared to prior exam Assessment and Plan (1) Intracranial hemorrhage Assessment & Plan: This may be calcification or artifact. MRI of the brain would be helpful. Will attempt it tomorrow. The patient may be given Ativan 1 mg IV prior to the MRI. Status: Acute
--- NOTE | 2018-06-08 17:53 | CP.PCM.HP ---
History of Present Illness - History of Present Illness History of Present Illness: This is a 72 y/o female , admitted for restless leg sx and intracranial hemorrhage noted on CT scan of the brain. She has a hx of parox atrial fib and has been on xarelto, hx of HTN , DM 2, Hyperlipidemia, COPD, anxiety depression, RLS. She claims that she was recently started on Lexapro by her Psychiatrist and since then her sx of RLS has gotten worst. She was advised by Dr Beyer( Psychiatrist) to be evaluated at the ER. She denies having any headaches or other sx such as arthalgia, extremitiy weakness. Present on Admission - Present on Admission Any Indicators Present on Admission: No History of DVT/PE: No History of Uncontrolled Diabetes: Yes Urinary Catheter: No Decubitus Ulcer Present: No Review of Systems - Respiratory Respiratory: Cough, Dyspnea - Neurological Neurological: Dizziness, Paresthesias, Restless Legs Past Patient History - Infectious Disease Hx of Infectious Diseases: None - Tetanus Immunizations Tetanus Immunization: Unknown - Past Medical History & Family History Past Medical History?: Yes - Past Social History Smoking Status: Light Smoker < 10 Cigarettes Daily - CARDIAC Hx Atrial Fibrillation: Yes Hx Cardia Arrhythmia: Yes Hx Congestive Heart Failure: Yes Hx Hypercholesterolemia: Yes Hx Hypertension: Yes - PULMONARY Hx Asthma: Yes Hx Bronchitis: Yes Hx Chronic Obstructive Pulmonary Disease (COPD): Yes Hx Sleep Apnea: Yes - HEENT Hx Difficulty Chewing: Yes - RENAL Hx Chronic Kidney Disease: No Other/Comment: INCONTINENT - ENDOCRINE/METABOLIC Hx Diabetes Mellitus Type 2: Yes Hx Hypothyroidism: Yes - HEMATOLOGICAL/ONCOLOGICAL Hx Blood Disorders: No - INTEGUMENTARY Hx Eczema: Yes - MUSCULOSKELETAL/RHEUMATOLOGICAL Hx Falls: Yes - GASTROINTESTINAL Hx Gastritis: Yes - GENITOURINARY/GYNECOLOGICAL Hx Genitourinary Disorders: No - PSYCHIATRIC Hx Anxiety: Yes Hx Depression: Yes Hx Paranoia: Yes Hx Post Traumatic Stress Disorder: Yes Hx Substance Use: No - SURGICAL HISTORY Hx Cholecystectomy: Yes Other/Comment: LEFT BKA - ANESTHESIA Hx Anesthesia: Yes Hx Anesthesia Reactions: No Hx Malignant Hyperthermia: No Meds Allergies/Adverse Reactions: Allergies Allergy/AdvReac Type Severity Reaction Status Date / Time TUCKER Inhibitors Allergy Severe COUGH Verified 12/28/17 04:05 Thiazides Allergy RASH Verified 12/28/17 04:05 Physical Exam - Head Exam Head Exam: NORMAL INSPECTION - Eye Exam Eye Exam: Normal appearance - Respiratory Exam Respiratory Exam: Clear to Auscultation Bilateral - Cardiovascular Exam Cardiovascular Exam: REGULAR RHYTHM - GI/Abdominal Exam GI & Abdominal Exam: Normal Bowel Sounds - Neurological Exam Neurological exam: CN II-XII Intact Additional comments: uncontrollable involuntary movement of legs. - Psychiatric Exam Psychiatric exam: Anxious, Depressed Results - Vital Signs Recent Vital Signs: Last Vital Signs Temp 97.8 F 06/08/18 16:00 Pulse 75 06/08/18 16:00 Resp 14 06/08/18 16:00 BP 138/63 06/08/18 16:00 Pulse Ox 100 06/08/18 16:00 - Labs Result Diagrams: 06/08/18 04:30 06/08/18 04:30 Labs: Laboratory Results - last 24 hr 06/07/18 06/08/18 06/08/18 23:34 04:30 04:30 WBC 5.2 D RBC 4.02 Hgb 12.6 Hct 37.9 MCV 94.3 MCH 31.3 H MCHC 33.2 RDW 15.5 H Plt Count 230 MPV 10.9 Neut % (Auto) 55.6 Lymph % (Auto) 33.8 [place] % (Auto) 7.0 Eos % (Auto) 2.4 Baso % (Auto) 1.2 Neut # (Auto) 2.9 Lymph # (Auto) 1.8 [place] # (Auto) 0.4 Eos # (Auto) 0.1 Baso # (Auto) 0.1 pCO2 pO2 HCO3 ABG pH ABG Total CO2 ABG O2 Saturation ABG Base Excess Sincere Test ABG Potassium A-a O2 Difference Glucose Lactate FiO2 Sodium 138 Potassium 4.6 Chloride 109 H Carbon Dioxide 25 Anion Gap 9 L BUN 25 H Creatinine 0.9 Est GFR ( Amer) > 60 Est GFR (Non-Af Amer) > 60 POC Glucose (mg/dL) 115 H Random Glucose 173 H Calcium 8.9 Phosphorus 4.2 Magnesium 1.4 L Total Bilirubin 0.2 AST 38 H ALT 25 Alkaline Phosphatase 86 Total Protein 6.4 Albumin 3.1 L Globulin 3.3 Albumin/Globulin Ratio 0.9 L Arterial Blood Potassium 06/08/18 06/08/18 06/08/18 04:37 10:56 11:31 WBC RBC Hgb Hct MCV MCH MCHC RDW Plt Count MPV Neut % (Auto) Lymph % (Auto) [place] % (Auto) Eos % (Auto) Baso % (Auto) Neut # (Auto) Lymph # (Auto) [place] # (Auto) Eos # (Auto) Baso # (Auto) pCO2 47 H pO2 70 L HCO3 25.3 ABG pH 7.36 ABG Total CO2 28.0 ABG O2 Saturation 96.5 ABG Base Excess 0.6 Sincere Test Yes ABG Potassium 4.4 A-a O2 Difference 71.0 Glucose 360 H Lactate 1.8 FiO2 28.0 Sodium 135.0 Potassium Chloride 104.0 Carbon Dioxide Anion Gap BUN Creatinine Est GFR ( Amer) Est GFR (Non-Af Amer) POC Glucose (mg/dL) 174 H 296 H Random Glucose Calcium Phosphorus Magnesium Total Bilirubin AST ALT Alkaline Phosphatase Total Protein Albumin Globulin Albumin/Globulin Ratio Arterial Blood Potassium 4.4 06/08/18 16:55 WBC RBC Hgb Hct MCV MCH MCHC RDW Plt Count MPV Neut % (Auto) Lymph % (Auto) [place] % (Auto) Eos % (Auto) Baso % (Auto) Neut # (Auto) Lymph # (Auto) [place] # (Auto) Eos # (Auto) Baso # (Auto) pCO2 pO2 HCO3 ABG pH ABG Total CO2 ABG O2 Saturation ABG Base Excess Sincere Test ABG Potassium A-a O2 Difference Glucose Lactate FiO2 Sodium Potassium Chloride Carbon Dioxide Anion Gap BUN Creatinine Est GFR ( Amer) Est GFR (Non-Af Amer) POC Glucose (mg/dL) 209 H Random Glucose Calcium Phosphorus Magnesium Total Bilirubin AST ALT Alkaline Phosphatase Total Protein Albumin Globulin Albumin/Globulin Ratio Arterial Blood Potassium Assessment & Plan (1) Intracranial hemorrhage Status: Acute Priority: High (2) COPD (chronic obstructive pulmonary disease) Status: Acute (3) Restless leg syndrome Status: Acute (4) Diabetes mellitus type 2, uncontrolled Status: Chronic Priority: Medium (5) Hypertension Status: Chronic Priority: Medium (6) Atrial fibrillation Status: Resolved (7) Anxiety Status: Acute (8) Depression Status: Acute - Assessment and Plan (Free Text) Plan: Cont meds Cont tx ICu will order for MRI Neuro eval Neuro check. Cont all meds. Hold xarelto till MRI is available.
--- NOTE | 2018-06-08 18:11 | CP.PCM.PN ---
Subjective - Date & Time of Evaluation Date of Evaluation: 06/07/18 Time of Evaluation: 12:00 - Subjective Subjective: . Has no chest pain or SOB Continues to have episodes of RLS On divalproic Noted BP to be slightly low. Denies headaches. Objective - Vital Signs/Intake and Output Vital Signs (last 24 hours): Temp Pulse Resp BP Pulse Ox 97.8 F 75 14 138/63 100 06/08/18 16:00 06/08/18 16:00 06/08/18 16:00 06/08/18 16:00 06/08/18 16:00 Intake and Output: 06/08/18 06/08/18 06:59 18:59 Intake Total 20 360 Balance 20 360 - Medications Medications: Current Medications Acetaminophen (Tylenol 325mg Tab) 650 mg PO Q6H PRN PRN Reason: Pain, Mild (1-3) Acetaminophen (Tylenol 325mg Tab) 650 mg PO Q6H PRN PRN Reason: Fever >100.4 F Albuterol/Ipratropium (Duoneb 3 Mg/0.5 Mg (3 Ml) Ud) 3 ml INH RQ6 [facility] Last Admin: 06/08/18 11:22 Dose: 3 ml Atorvastatin Calcium (Lipitor) 20 mg PO DAILY [facility] Last Admin: 06/08/18 10:40 Dose: 20 mg Benztropine Mesylate (Cogentin) 2 mg PO BID [facility] Last Admin: 06/08/18 17:07 Dose: 2 mg Budesonide (Pulmicort Respules) 0.5 mg INH RBID PRN PRN Reason: Shortness of Breath Last Admin: 06/08/18 11:21 Dose: 0.5 mg Clonidine HCl (Catapres) 0.1 mg PO BID [facility] Last Admin: 06/08/18 10:19 Dose: 0.1 mg Diltiazem HCl (Cardizem Cd) 180 mg PO DAILY [facility] Last Admin: 06/08/18 10:13 Dose: 180 mg Divalproex Sodium (Depakote Dr(*Bid*)) 750 mg PO BID [facility] Last Admin: 06/08/18 17:12 Dose: 750 mg Escitalopram Oxalate (Lexapro) 5 mg PO DAILY [facility] Last Admin: 06/06/18 08:28 Dose: 5 mg Furosemide (Lasix) 20 mg PO DAILY [facility] Last Admin: 06/08/18 10:39 Dose: 20 mg Gabapentin (Neurontin) 800 mg PO TID [facility] Last Admin: 06/08/18 17:10 Dose: 800 mg Glipizide (Glucotrol Xl) 5 mg PO BRK [facility] Last Admin: 06/08/18 10:37 Dose: 5 mg Insulin Detemir (Levemir) 8 units SC DAILY [facility] Last Admin: 06/08/18 13:00 Dose: 8 unit Insulin Human Lispro (Humalog) 0 units SC ACHS [facility] PRN Reason: Protocol Last Admin: 06/08/18 17:09 Dose: 2 units Lorazepam (Ativan) 1 mg IVP ONCE PRN PRN Reason: Agitation Losartan Potassium (Cozaar) 50 mg PO DAILY [facility] Last Admin: 06/08/18 10:32 Dose: 50 mg Metformin HCl (Glucophage) 500 mg PO BIDWM [facility] Last Admin: 06/08/18 17:07 Dose: 500 mg Ondansetron HCl (Zofran Inj) 4 mg IVP Q6H PRN PRN Reason: Nausea/Vomiting Sitagliptin Phosphate (Januvia) 100 mg PO DAILY [facility] Last Admin: 06/08/18 10:38 Dose: 100 mg Tramadol HCl (Ultram) 50 mg PO Q6H PRN PRN Reason: Pain, moderate (4-7) Last Admin: 06/08/18 10:32 Dose: 50 mg - Labs Labs: 06/08/18 04:30 06/08/18 04:30 PT 9.2 Seconds (9.8-13.1) L 06/05/18 19:25 INR 0.8 06/05/18 19:25 APTT 27.0 Seconds (25.6-37.1) 06/05/18 19:25 - Head Exam Head Exam: NORMAL INSPECTION - Eye Exam Eye Exam: Normal appearance - ENT Exam ENT Exam: Mucous Membranes Moist - Respiratory Exam Respiratory Exam: Clear to Ausculation Bilateral, NORMAL BREATHING PATTERN - Cardiovascular Exam Cardiovascular Exam: REGULAR RHYTHM - GI/Abdominal Exam GI & Abdominal Exam: Normal Bowel Sounds - Neurological Exam Neurological Exam: Awake, Oriented x3 Additional comments: involuntary movement of lower ext Assessment and Plan (1) Intracranial hemorrhage Status: Acute (2) COPD (chronic obstructive pulmonary disease) Status: Acute (3) Restless leg syndrome Status: Acute (4) Diabetes mellitus type 2, uncontrolled Status: Chronic (5) Hypertension Status: Chronic (6) Atrial fibrillation Status: Resolved (7) Anxiety Status: Acute (8) Depression Status: Acute - Assessment and Plan (Free Text) Plan: Cont meds follow up MRI of the brain cont tx. phys therapy
--- NOTE | 2018-06-08 18:14 | CP.PCM.PN ---
Subjective - Date & Time of Evaluation Date of Evaluation: 06/08/18 Time of Evaluation: 11:30 - Subjective Subjective: Patient continues to do well. Still no MRI of the brain Has no headaches Accuchecks are elevated. Currently on januvia metformin and glipizide Objective - Vital Signs/Intake and Output Vital Signs (last 24 hours): Temp Pulse Resp BP Pulse Ox 97.8 F 75 14 138/63 100 06/08/18 16:00 06/08/18 16:00 06/08/18 16:00 06/08/18 16:00 06/08/18 16:00 Intake and Output: 06/08/18 06/08/18 06:59 18:59 Intake Total 20 360 Balance 20 360 - Medications Medications: Current Medications Acetaminophen (Tylenol 325mg Tab) 650 mg PO Q6H PRN PRN Reason: Pain, Mild (1-3) Acetaminophen (Tylenol 325mg Tab) 650 mg PO Q6H PRN PRN Reason: Fever >100.4 F Albuterol/Ipratropium (Duoneb 3 Mg/0.5 Mg (3 Ml) Ud) 3 ml INH RQ6 [facility] Last Admin: 06/08/18 11:22 Dose: 3 ml Atorvastatin Calcium (Lipitor) 20 mg PO DAILY [facility] Last Admin: 06/08/18 10:40 Dose: 20 mg Benztropine Mesylate (Cogentin) 2 mg PO BID [facility] Last Admin: 06/08/18 17:07 Dose: 2 mg Budesonide (Pulmicort Respules) 0.5 mg INH RBID PRN PRN Reason: Shortness of Breath Last Admin: 06/08/18 11:21 Dose: 0.5 mg Clonidine HCl (Catapres) 0.1 mg PO BID [facility] Last Admin: 06/08/18 10:19 Dose: 0.1 mg Diltiazem HCl (Cardizem Cd) 180 mg PO DAILY [facility] Last Admin: 06/08/18 10:13 Dose: 180 mg Divalproex Sodium (Depakote Dr(*Bid*)) 750 mg PO BID [facility] Last Admin: 06/08/18 17:12 Dose: 750 mg Escitalopram Oxalate (Lexapro) 5 mg PO DAILY [facility] Last Admin: 06/06/18 08:28 Dose: 5 mg Furosemide (Lasix) 20 mg PO DAILY [facility] Last Admin: 06/08/18 10:39 Dose: 20 mg Gabapentin (Neurontin) 800 mg PO TID [facility] Last Admin: 06/08/18 17:10 Dose: 800 mg Glipizide (Glucotrol Xl) 5 mg PO BRK [facility] Last Admin: 06/08/18 10:37 Dose: 5 mg Insulin Detemir (Levemir) 8 units SC DAILY [facility] Last Admin: 06/08/18 13:00 Dose: 8 unit Insulin Human Lispro (Humalog) 0 units SC ACHS [facility] PRN Reason: Protocol Last Admin: 06/08/18 17:09 Dose: 2 units Lorazepam (Ativan) 1 mg IVP ONCE PRN PRN Reason: Agitation Losartan Potassium (Cozaar) 50 mg PO DAILY [facility] Last Admin: 06/08/18 10:32 Dose: 50 mg Metformin HCl (Glucophage) 500 mg PO BIDWM [facility] Last Admin: 06/08/18 17:07 Dose: 500 mg Ondansetron HCl (Zofran Inj) 4 mg IVP Q6H PRN PRN Reason: Nausea/Vomiting Sitagliptin Phosphate (Januvia) 100 mg PO DAILY [facility] Last Admin: 06/08/18 10:38 Dose: 100 mg Tramadol HCl (Ultram) 50 mg PO Q6H PRN PRN Reason: Pain, moderate (4-7) Last Admin: 06/08/18 10:32 Dose: 50 mg - Labs Labs: 06/08/18 04:30 06/08/18 04:30 PT 9.2 Seconds (9.8-13.1) L 06/05/18 19:25 INR 0.8 06/05/18 19:25 APTT 27.0 Seconds (25.6-37.1) 06/05/18 19:25 - Head Exam Head Exam: NORMAL INSPECTION - Eye Exam Eye Exam: Normal appearance - Respiratory Exam Respiratory Exam: Clear to Ausculation Bilateral - Cardiovascular Exam Cardiovascular Exam: REGULAR RHYTHM - GI/Abdominal Exam GI & Abdominal Exam: Normal Bowel Sounds - Neurological Exam Neurological Exam: Awake, Oriented x3 Assessment and Plan (1) Intracranial hemorrhage Status: Acute (2) COPD (chronic obstructive pulmonary disease) Status: Acute (3) Restless leg syndrome Status: Acute (4) Diabetes mellitus type 2, uncontrolled Status: Chronic (5) Hypertension Status: Chronic (6) Atrial fibrillation Status: Resolved (7) Anxiety Status: Acute (8) Depression Status: Acute - Assessment and Plan (Free Text) Plan: Cont meds Cont tx adjust meds increase metformin and glipizide.
[2018-06-08] MEDS ORDERED: Dextrose 50% SYRINGE Inj (50 ml) IVP ONE (19:53)
[2018-06-08] MEDS: Sodium Chloride 0.9% 1,000 ML IV SCH ×3 (20:20→22:20)
[2018-06-08] MEDS ORDERED: Dextrose 50% SYRINGE Inj (50 ml) ONE (20:21)
[2018-06-08] MEDS ORDERED: Sodium Chloride 0.9% 1,000 ML IV SCH ×2 (21:00→22:15)
--- NOTE | 2018-06-08 21:53 | CP.PCM.PN ---
Subjective - Date & Time of Evaluation Date of Evaluation: 06/08/18 Time of Evaluation: 21:53 - Subjective Subjective: Called to evaluate this patient with BP 75/38mmHg and HR 60s The Blood Glucose 10minutes prior was <20mg/dl and the patient was ordered 2 Amps of D50(100mls) EXam: The patient is very lethargic , responding to painful stimuli. Resp: Clear lung franco CVS: S1 S2 regular No S3 S4 Abdomen: Soft, decreased bowel sound Ext: no Edema Neuro: Lethargic, responding to pain, no facial droop, Planter reflex is withdrawal. A&P #. Hypotension. Probably due to antihypertensive medication with patient being dehydrated - IV Fluids Normal Saline- Total of 3 liters boluses given in one hour Systolic Blood pressure increased to high 90s - IV NS continued at 125mls/hr - The Patient became more awake to be able to answer questions, an dmove all extremities - She remained on 2 liters of Oxygen with SpO2 98-100% Critical care time 65 minutes Tom Bey MD Objective - Vital Signs/Intake and Output Vital Signs (last 24 hours): Temp Pulse Resp BP Pulse Ox 97.8 F 85 17 116/58 L 99 06/08/18 16:00 06/08/18 18:42 06/08/18 18:00 06/08/18 18:42 06/08/18 18:00 Intake and Output: 06/08/18 06/09/18 18:59 06:59 Intake Total 460 Balance 460 - Medications Medications: Current Medications Acetaminophen (Tylenol 325mg Tab) 650 mg PO Q6H PRN PRN Reason: Pain, Mild (1-3) Acetaminophen (Tylenol 325mg Tab) 650 mg PO Q6H PRN PRN Reason: Fever >100.4 F Albuterol/Ipratropium (Duoneb 3 Mg/0.5 Mg (3 Ml) Ud) 3 ml INH RQ6 [facility] Last Admin: 06/08/18 19:13 Dose: 3 ml Atorvastatin Calcium (Lipitor) 20 mg PO DAILY [facility] Last Admin: 06/08/18 10:40 Dose: 20 mg Benztropine Mesylate (Cogentin) 2 mg PO BID [facility] Last Admin: 06/08/18 17:07 Dose: 2 mg Budesonide (Pulmicort Respules) 0.5 mg INH RBID PRN PRN Reason: Shortness of Breath Last Admin: 06/08/18 11:21 Dose: 0.5 mg Clonidine HCl (Catapres) 0.1 mg PO BID [facility] Last Admin: 06/08/18 18:42 Dose: 0.1 mg Diltiazem HCl (Cardizem Cd) 180 mg PO DAILY [facility] Last Admin: 06/08/18 10:13 Dose: 180 mg Divalproex Sodium (Depakote Dr(*Bid*)) 750 mg PO BID [facility] Last Admin: 06/08/18 17:12 Dose: 750 mg Escitalopram Oxalate (Lexapro) 5 mg PO DAILY [facility] Last Admin: 06/06/18 08:28 Dose: 5 mg Furosemide (Lasix) 20 mg PO DAILY [facility] Last Admin: 06/08/18 10:39 Dose: 20 mg Gabapentin (Neurontin) 800 mg PO TID [facility] Last Admin: 06/08/18 17:10 Dose: 800 mg Glipizide (Glucotrol Xl) 5 mg PO BID [facility] Last Admin: 06/08/18 19:55 Dose: Not Given Insulin Detemir (Levemir) 8 units SC DAILY [facility] Last Admin: 06/08/18 13:00 Dose: 8 unit Insulin Human Lispro (Humalog) 0 units SC ACHS [facility] PRN Reason: Protocol Last Admin: 06/08/18 17:09 Dose: 2 units Lorazepam (Ativan) 1 mg IVP ONCE PRN PRN Reason: Agitation Losartan Potassium (Cozaar) 50 mg PO DAILY [facility] Last Admin: 06/08/18 10:32 Dose: 50 mg Metformin HCl (Glucophage) 1,000 mg PO BIDWM [facility] Last Admin: 06/08/18 19:55 Dose: Not Given Ondansetron HCl (Zofran Inj) 4 mg IVP Q6H PRN PRN Reason: Nausea/Vomiting Sitagliptin Phosphate (Januvia) 100 mg PO DAILY [facility] Last Admin: 06/08/18 10:38 Dose: 100 mg Tramadol HCl (Ultram) 50 mg PO Q6H PRN PRN Reason: Pain, moderate (4-7) Last Admin: 06/08/18 19:44 Dose: 50 mg - Labs Labs: 06/08/18 04:30 06/08/18 04:30 PT 9.2 Seconds (9.8-13.1) L 06/05/18 19:25 INR 0.8 06/05/18 19:25 APTT 27.0 Seconds (25.6-37.1) 06/05/18 19:25
[2018-06-08] MEDS: Dextrose 5%/0.9% NS 1,000 ML IV SCH (23:04)
[2018-06-09] MEDS: Albuterol-Ipratrop 3 mg / 0.5 (3 ml) UD INH SCH ×4 (01:14→19:28)
[2018-06-09 02:52] LABS: BENZODIAZEPINES, UR NEGATIVE (NEGATIVE)
[2018-06-09 02:53] LABS: BARBITURATES, UR NEGATIVE (NEGATIVE); OPIATES, UR POSITIVE (NEGATIVE); PHENCYCLIDINE, UR NEGATIVE (NEGATIVE)
[2018-06-09 02:55] LABS: SQUAMOUS EPITHIAL < 1 /hpf (0-5); URINE BACTERIA RARE (<OCC); URINE BILIRUBIN NEGATIVE (NEGATIVE); URINE BLOOD SMALL (NEGATIVE); URINE CLARITY SLIGHTY-CLOUDY (Clear); URINE COLOR YELLOW (YELLOW); URINE GLUCOSE (UA) 150 mg/dL (Normal); URINE LEUKOCYTE ESTERASE NEG Leu/uL (Negative); URINE PROTEIN >=500 mg/dL (NEGATIVE); URINE UROBILINOGEN 0.2-1.0 mg/dL (0.2-1.0)
[2018-06-09] MEDS: Dextrose 5%/0.9% NS 1,000 ML IV SCH ×2 (04:40→13:00)
[2018-06-09 05:43] LABS: BASO % 0.7 % (0.0-2.0); EOS # 0.1 K/uL (0.0-0.7); EOS % 1.1 % (0.0-4.0); HEMOGLOBIN 10.1 g/dL (12.0-16.0); LYMPH # 1.5 K/uL (1.0-4.3); MEAN CELL VOLUME 95.5 fl (81.0-99.0); MEAN CORPUSCULAR HEMOGLOBIN 31.1 pg (27.0-31.0); MEAN CORPUSCULAR HGB CONC 32.5 g/dL (33.0-37.0); MEAN PLATELET VOLUME 10.6 fl (7.2-11.7); MONO # 0.4 K/uL (0.0-0.8); MONO % 8.3 % (0.0-10.0); NEUT # 2.9 K/uL (1.8-7.0); NEUT % 59.9 % (50.0-75.0); RBC 3.26 Mil/uL (3.80-5.20); RED CELL DISTRIBUTION WIDTH 15.5 % (11.5-14.5); WHITE BLOOD COUNT 4.9 K/uL (4.8-10.8)
[2018-06-09 06:03] LABS: ALB/GLOB RATIO 0.8 (1.0-2.1); ALBUMIN 2.2 g/dL (3.5-5.0); ALT/SGPT 20 U/L (9-52); AST/SGOT 30 U/L (14-36); BLOOD UREA NITROGEN 21 mg/dl (7-17); CALCIUM 7.6 mg/dL (8.4-10.2); GFR NON-AFRICAN AMERICAN > 60
[2018-06-09] MEDS: Insulin Lispro (humaLOG) 100 Units/ml Inj SC SCH ×4 (06:53→22:02)
--- NOTE | 2018-06-09 09:13 | CP.PCM.CON ---
History of Present Illness - History of Present Illness History of Present Illness: Psychiatry consult Beverage Server attempted to see patient, but patient unable to engage in interview due to acute sedation. Will attempt to reevaluate the patient tomorrow. Past Patient History - Infectious Disease Hx of Infectious Diseases: None - Tetanus Immunizations Tetanus Immunization: Unknown - Past Medical History & Family History Past Medical History?: Yes - Past Social History Smoking Status: Light Smoker < 10 Cigarettes Daily - CARDIAC Hx Atrial Fibrillation: Yes Hx Cardia Arrhythmia: Yes Hx Congestive Heart Failure: Yes Hx Hypercholesterolemia: Yes Hx Hypertension: Yes - PULMONARY Hx Asthma: Yes Hx Bronchitis: Yes Hx Chronic Obstructive Pulmonary Disease (COPD): Yes Hx Sleep Apnea: Yes - HEENT Hx Difficulty Chewing: Yes - RENAL Hx Chronic Kidney Disease: No Other/Comment: INCONTINENT - ENDOCRINE/METABOLIC Hx Diabetes Mellitus Type 2: Yes Hx Hypothyroidism: Yes - HEMATOLOGICAL/ONCOLOGICAL Hx Blood Disorders: No - INTEGUMENTARY Hx Eczema: Yes - MUSCULOSKELETAL/RHEUMATOLOGICAL Hx Falls: Yes - GASTROINTESTINAL Hx Gastritis: Yes - GENITOURINARY/GYNECOLOGICAL Hx Genitourinary Disorders: No - PSYCHIATRIC Hx Anxiety: Yes Hx Depression: Yes Hx Paranoia: Yes Hx Post Traumatic Stress Disorder: Yes Hx Substance Use: No - SURGICAL HISTORY Hx Cholecystectomy: Yes Other/Comment: LEFT BKA - ANESTHESIA Hx Anesthesia: Yes Hx Anesthesia Reactions: No Hx Malignant Hyperthermia: No Meds Allergies/Adverse Reactions: Allergies Allergy/AdvReac Type Severity Reaction Status Date / Time TUCKER Inhibitors Allergy Severe COUGH Verified 12/28/17 04:05 Thiazides Allergy RASH Verified 12/28/17 04:05 - Medications Medications: Current Medications Acetaminophen (Tylenol 325mg Tab) 650 mg PO Q6H PRN PRN Reason: Pain, Mild (1-3) Acetaminophen (Tylenol 325mg Tab) 650 mg PO Q6H PRN PRN Reason: Fever >100.4 F Albuterol/Ipratropium (Duoneb 3 Mg/0.5 Mg (3 Ml) Ud) 3 ml INH RQ6 [facility] Last Admin: 06/09/18 07:47 Dose: 3 ml Atorvastatin Calcium (Lipitor) 20 mg PO DAILY [facility] Last Admin: 06/08/18 10:40 Dose: 20 mg Benztropine Mesylate (Cogentin) 2 mg PO BID [facility] Last Admin: 06/08/18 17:07 Dose: 2 mg Budesonide (Pulmicort Respules) 0.5 mg INH RBID PRN PRN Reason: Shortness of Breath Last Admin: 06/08/18 11:21 Dose: 0.5 mg Clonidine HCl (Catapres) 0.1 mg PO BID [facility] Last Admin: 06/08/18 18:42 Dose: 0.1 mg Diltiazem HCl (Cardizem Cd) 180 mg PO DAILY [facility] Last Admin: 06/08/18 10:13 Dose: 180 mg Divalproex Sodium (Depakote Dr(*Bid*)) 750 mg PO BID [facility] Last Admin: 06/08/18 17:12 Dose: 750 mg Escitalopram Oxalate (Lexapro) 5 mg PO DAILY [facility] Last Admin: 06/06/18 08:28 Dose: 5 mg Furosemide (Lasix) 20 mg PO DAILY [facility] Last Admin: 06/08/18 10:39 Dose: 20 mg Gabapentin (Neurontin) 800 mg PO TID [facility] Last Admin: 06/08/18 17:10 Dose: 800 mg Glipizide (Glucotrol Xl) 5 mg PO BID [facility] Last Admin: 06/08/18 19:55 Dose: Not Given Dextrose/Sodium Chloride (Dextrose 5%/0.9% Ns 1000 Ml) 1,000 mls @ 150 mls/hr IV .Q6H40M [facility] Stop: 06/09/18 22:42 Last Admin: 06/09/18 04:40 Dose: 150 mls/hr Insulin Detemir (Levemir) 8 units SC DAILY [facility] Last Admin: 06/08/18 13:00 Dose: 8 unit Insulin Human Lispro (Humalog) 0 units SC ACHS [facility] PRN Reason: Protocol Last Admin: 06/09/18 06:53 Dose: Not Given Lorazepam (Ativan) 1 mg IVP ONCE PRN PRN Reason: Agitation Losartan Potassium (Cozaar) 50 mg PO DAILY [facility] Last Admin: 06/08/18 10:32 Dose: 50 mg Metformin HCl (Glucophage) 1,000 mg PO BIDWM [facility] Last Admin: 06/08/18 19:55 Dose: Not Given Ondansetron HCl (Zofran Inj) 4 mg IVP Q6H PRN PRN Reason: Nausea/Vomiting Sitagliptin Phosphate (Januvia) 100 mg PO DAILY [facility] Last Admin: 06/08/18 10:38 Dose: 100 mg Tramadol HCl (Ultram) 50 mg PO Q6H PRN PRN Reason: Pain, moderate (4-7) Last Admin: 06/08/18 19:44 Dose: 50 mg Results - Vital Signs Recent Vital Signs: Last Vital Signs Temp 97.7 F 06/09/18 08:00 Pulse 71 06/09/18 08:00 Resp 14 06/09/18 08:00 BP 123/61 06/09/18 08:00 Pulse Ox 100 06/09/18 08:00 - Labs Result Diagrams: 06/09/18 04:20 06/09/18 04:20 Labs: Laboratory Results - last 24 hr 06/08/18 06/08/18 06/08/18 10:56 11:31 16:55 WBC RBC Hgb Hct MCV MCH MCHC RDW Plt Count MPV Neut % (Auto) Lymph % (Auto) [place] % (Auto) Eos % (Auto) Baso % (Auto) Neut # (Auto) Lymph # (Auto) [place] # (Auto) Eos # (Auto) Baso # (Auto) pCO2 47 H pO2 70 L HCO3 25.3 ABG pH 7.36 ABG Total CO2 28.0 ABG O2 Saturation 96.5 ABG Base Excess 0.6 Sincere Test Yes ABG Potassium 4.4 A-a O2 Difference 71.0 Sodium 135.0 Chloride 104.0 Glucose 360 H Lactate 1.8 FiO2 28.0 Potassium Carbon Dioxide Anion Gap BUN Creatinine Est GFR ( Amer) Est GFR (Non-Af Amer) POC Glucose (mg/dL) 296 H 209 H Random Glucose Calcium Phosphorus Magnesium Total Bilirubin AST ALT Alkaline Phosphatase Total Protein Albumin Globulin Albumin/Globulin Ratio Arterial Blood Potassium 4.4 Urine Color Urine Clarity Urine pH Ur Specific [place] Urine Protein Urine Glucose (UA) Urine Ketones Urine Blood Urine Nitrate Urine Bilirubin Urine Urobilinogen Ur Leukocyte Esterase Urine RBC (Auto) Urine Microscopic WBC Ur Squamous Epith Cells Urine Bacteria Hyaline Casts Urine Yeast (Budding) Urine Opiates Screen Urine Methadone Screen Ur Barbiturates Screen Ur Phencyclidine Scrn Ur Amphetamines Screen U Benzodiazepines Scrn U Oth Cocaine Metabols U Cannabinoids Screen 06/08/18 06/08/18 06/08/18 19:49 19:51 20:19 WBC RBC Hgb Hct MCV MCH MCHC RDW Plt Count MPV Neut % (Auto) Lymph % (Auto) [place] % (Auto) Eos % (Auto) Baso % (Auto) Neut # (Auto) Lymph # (Auto) [place] # (Auto) Eos # (Auto) Baso # (Auto) pCO2 pO2 HCO3 ABG pH ABG Total CO2 ABG O2 Saturation ABG Base Excess Sincere Test ABG Potassium A-a O2 Difference Sodium Chloride Glucose Lactate FiO2 Potassium Carbon Dioxide Anion Gap BUN Creatinine Est GFR ( Amer) Est GFR (Non-Af Amer) POC Glucose (mg/dL) < 20 L* < 20 L* 157 H Random Glucose Calcium Phosphorus Magnesium Total Bilirubin AST ALT Alkaline Phosphatase Total Protein Albumin Globulin Albumin/Globulin Ratio Arterial Blood Potassium Urine Color Urine Clarity Urine pH Ur Specific [place] Urine Protein Urine Glucose (UA) Urine Ketones Urine Blood Urine Nitrate Urine Bilirubin Urine Urobilinogen Ur Leukocyte Esterase Urine RBC (Auto) Urine Microscopic WBC Ur Squamous Epith Cells Urine Bacteria Hyaline Casts Urine Yeast (Budding) Urine Opiates Screen Urine Methadone Screen Ur Barbiturates Screen Ur Phencyclidine Scrn Ur Amphetamines Screen U Benzodiazepines Scrn U Oth Cocaine Metabols U Cannabinoids Screen 06/08/18 06/08/18 06/08/18 20:45 21:24 22:18 WBC RBC Hgb Hct MCV MCH MCHC RDW Plt Count MPV Neut % (Auto) Lymph % (Auto) [place] % (Auto) Eos % (Auto) Baso % (Auto) Neut # (Auto) Lymph # (Auto) [place] # (Auto) Eos # (Auto) Baso # (Auto) pCO2 pO2 HCO3 ABG pH ABG Total CO2 ABG O2 Saturation ABG Base Excess Sincere Test ABG Potassium A-a O2 Difference Sodium Chloride Glucose Lactate FiO2 Potassium Carbon Dioxide Anion Gap BUN Creatinine Est GFR ( Amer) Est GFR (Non-Af Amer) POC Glucose (mg/dL) 272 H 159 H 132 H Random Glucose Calcium Phosphorus Magnesium Total Bilirubin AST ALT Alkaline Phosphatase Total Protein Albumin Globulin Albumin/Globulin Ratio Arterial Blood Potassium Urine Color Urine Clarity Urine pH Ur Specific [place] Urine Protein Urine Glucose (UA) Urine Ketones Urine Blood Urine Nitrate Urine Bilirubin Urine Urobilinogen Ur Leukocyte Esterase Urine RBC (Auto) Urine Microscopic WBC Ur Squamous Epith Cells Urine Bacteria Hyaline Casts Urine Yeast (Budding) Urine Opiates Screen Urine Methadone Screen Ur Barbiturates Screen Ur Phencyclidine Scrn Ur Amphetamines Screen U Benzodiazepines Scrn U Oth Cocaine Metabols U Cannabinoids Screen 06/08/18 06/09/18 06/09/18 23:01 00:01 01:00 WBC RBC Hgb Hct MCV MCH MCHC RDW Plt Count MPV Neut % (Auto) Lymph % (Auto) [place] % (Auto) Eos % (Auto) Baso % (Auto) Neut # (Auto) Lymph # (Auto) [place] # (Auto) Eos # (Auto) Baso # (Auto) pCO2 pO2 HCO3 ABG pH ABG Total CO2 ABG O2 Saturation ABG Base Excess Sincere Test ABG Potassium A-a O2 Difference Sodium Chloride Glucose Lactate FiO2 Potassium Carbon Dioxide Anion Gap BUN Creatinine Est GFR ( Amer) Est GFR (Non-Af Amer) POC Glucose (mg/dL) 128 H 139 H 130 H Random Glucose Calcium Phosphorus Magnesium Total Bilirubin AST ALT Alkaline Phosphatase Total Protein Albumin Globulin Albumin/Globulin Ratio Arterial Blood Potassium Urine Color Urine Clarity Urine pH Ur Specific [place] Urine Protein Urine Glucose (UA) Urine Ketones Urine Blood Urine Nitrate Urine Bilirubin Urine Urobilinogen Ur Leukocyte Esterase Urine RBC (Auto) Urine Microscopic WBC Ur Squamous Epith Cells Urine Bacteria Hyaline Casts Urine Yeast (Budding) Urine Opiates Screen Urine Methadone Screen Ur Barbiturates Screen Ur Phencyclidine Scrn Ur Amphetamines Screen U Benzodiazepines Scrn U Oth Cocaine Metabols U Cannabinoids Screen 06/09/18 06/09/18 06/09/18 02:32 02:32 04:20 WBC 4.9 RBC 3.26 L Hgb 10.1 L D Hct 31.2 L MCV 95.5 MCH 31.1 H MCHC 32.5 L RDW 15.5 H Plt Count 186 MPV 10.6 Neut % (Auto) 59.9 Lymph % (Auto) 30.0 [place] % (Auto) 8.3 Eos % (Auto) 1.1 Baso % (Auto) 0.7 Neut # (Auto) 2.9 Lymph # (Auto) 1.5 [place] # (Auto) 0.4 Eos # (Auto) 0.1 Baso # (Auto) 0.0 pCO2 pO2 HCO3 ABG pH ABG Total CO2 ABG O2 Saturation ABG Base Excess Sincere Test ABG Potassium A-a O2 Difference Sodium Chloride Glucose Lactate FiO2 Potassium Carbon Dioxide Anion Gap BUN Creatinine Est GFR ( Amer) Est GFR (Non-Af Amer) POC Glucose (mg/dL) Random Glucose Calcium Phosphorus Magnesium Total Bilirubin AST ALT Alkaline Phosphatase Total Protein Albumin Globulin Albumin/Globulin Ratio Arterial Blood Potassium Urine Color Yellow Urine Clarity Slighty-cloudy Urine pH 5.0 Ur Specific [place] 1.011 Urine Protein >=500 Urine Glucose (UA) 150 Urine Ketones Negative Urine Blood Small Urine Nitrate Negative Urine Bilirubin Negative Urine Urobilinogen 0.2-1.0 Ur Leukocyte Esterase Neg Urine RBC (Auto) 1 Urine Microscopic WBC 2 Ur Squamous Epith Cells < 1 Urine Bacteria Rare Hyaline Casts 6-10 H Urine Yeast (Budding) Occ H Urine Opiates Screen Positive H Urine Methadone Screen Negative Ur Barbiturates Screen Negative Ur Phencyclidine Scrn Negative Ur Amphetamines Screen Negative U Benzodiazepines Scrn Negative U Oth Cocaine Metabols Negative U Cannabinoids Screen Negative 06/09/18 04:20 WBC RBC Hgb Hct MCV MCH MCHC RDW Plt Count MPV Neut % (Auto) Lymph % (Auto) [place] % (Auto) Eos % (Auto) Baso % (Auto) Neut # (Auto) Lymph # (Auto) [place] # (Auto) Eos # (Auto) Baso # (Auto) pCO2 pO2 HCO3 ABG pH ABG Total CO2 ABG O2 Saturation ABG Base Excess Sincere Test ABG Potassium A-a O2 Difference Sodium 142 Chloride 113 H Glucose Lactate FiO2 Potassium 4.2 Carbon Dioxide 27 Anion Gap 6 L BUN 21 H Creatinine 0.7 Est GFR ( Amer) > 60 Est GFR (Non-Af Amer) > 60 POC Glucose (mg/dL) Random Glucose 144 H Calcium 7.6 L Phosphorus 3.8 Magnesium 1.2 L Total Bilirubin < 0.1 L AST 30 ALT 20 Alkaline Phosphatase 59 Total Protein 5.0 L Albumin 2.2 L D Globulin 2.8 Albumin/Globulin Ratio 0.8 L Arterial Blood Potassium Urine Color Urine Clarity Urine pH Ur Specific [place] Urine Protein Urine Glucose (UA) Urine Ketones Urine Blood Urine Nitrate Urine Bilirubin Urine Urobilinogen Ur Leukocyte Esterase Urine RBC (Auto) Urine Microscopic WBC Ur Squamous Epith Cells Urine Bacteria Hyaline Casts Urine Yeast (Budding) Urine Opiates Screen Urine Methadone Screen Ur Barbiturates Screen Ur Phencyclidine Scrn Ur Amphetamines Screen U Benzodiazepines Scrn U Oth Cocaine Metabols U Cannabinoids Screen
[2018-06-09] MEDS: diltiaZEM 180 mg/24 Hours CD Cap PO SCH (09:30)
[2018-06-09] MEDS: Divalproex 250 mg DR(BID formulation) PO SCH ×2 (09:34→17:04)
[2018-06-09] MEDS: GlipiZIDE 5 mg SR Tab PO SCH (09:36)
[2018-06-09] MEDS: Insulin Detemir 100 Units/ml Inj SC SCH ×3 (09:37→22:11)
--- NOTE | 2018-06-09 10:48 | CT ---
Date of service: 06/09/2018 PROCEDURE: CT HEAD WITHOUT CONTRAST. HISTORY: Worse change in mental status/Difficult to arouse COMPARISON: Noncontrast head CT performed 06/06/18 TECHNIQUE: Axial computed tomography images were obtained through the head/brain without intravenous contrast. Radiation dose: Total exam DLP = 796.41 mGy-cm. This CT exam was performed using one or more of the following dose reduction techniques: Automated exposure control, adjustment of the mA and/or kV according to patient size, and/or use of iterative reconstruction technique. FINDINGS: HEMORRHAGE: No intracranial hemorrhage. BRAIN: Diffuse atrophy with prominence of the ventricles and sulci noted. Persistent hyperdensity noted in the right basal ganglia similar to prior study. No mass effect or edema. Intracranial vascular calcifications. Scattered periventricular and subcortical white matter hypodensities, which are nonspecific, but often seen with chronic microvascular ischemic disease. Please note that MRI with diffusion imaging is more sensitive in the detection of acute ischemic event. VENTRICLES: No hydrocephalus. CALVARIUM: Unremarkable. PARANASAL SINUSES: Unremarkable as visualized. No significant inflammatory changes. MASTOID AIR CELLS: Unremarkable as visualized. No inflammatory changes. OTHER FINDINGS: None. IMPRESSION: Nonspecific white matter changes. Re- identified persistent hyperdensity within the right basal ganglia similar prior study, indeterminate. Preliminary impression was provided by virtual radiologic.
--- NOTE | 2018-06-09 13:52 | MRI ---
Date of service: 06/09/2018 PROCEDURE: MRI BRAIN WITHOUT CONTRAST HISTORY: Evaluate ICH COMPARISON: None available. TECHNIQUE: Limited axial diffusion sequences performed. Patient terminated the exam and the remaining sequences were not obtained. FINDINGS: HEMORRHAGE: Previously described hyperdense focus in the right lentiform nucleus is poorly seen on this exam DWI: Small acute left thalamic infarct BRAIN PARENCHYMA: Diffuse periventricular white matter ischemic changes of less well seen on diffusion imaging Previously described hyperdense focus right lentiform nucleus (questionable microcalcification -mineralization deposit) poorly seen on this exam. VENTRICLES: No gross obstructive hydrocephalus. CRANIUM: Poorly delineated ORBITS: Poorly delineated PARANASAL SINUSES/MASTOIDS: Poorly delineated VASCULAR SYSTEM: Not visualized OTHER FINDINGS: None. IMPRESSION: Limited study with incomplete diffusion imaging obtained. . Patient terminated the exam and no other sequences were performed Small acute left thalamic infarct. . Previously described hyperdense focus right lentiform nucleus (questionable microcalcification -mineralization deposit) poorly seen on this exam. Note these findings were discussed with Nurse Ruth
--- NOTE | 2018-06-09 16:24 | CP.CCUPN ---
CCU Subjective - Physician Review Events Since Last Encounter (Free Text): 06/09/18 18:26 The patient was Seen/interviewed and examined by me at the bedside during ICU round, Events reviewed Patient feeling better this morning. Altered mental status overnight due to hypoglycemia Scheduled for MRI of the brain today Denies headaches, dizziness, blurry vision CCU Objective - Vital Signs / Intake & Output Vital Signs (Last 4 hours): Vital Signs Temp Pulse Resp BP Pulse Ox 06/09/18 16:00 97.7 F 71 16 127/59 L 100 Intake and Output (Last 8hrs): Intake & Output 06/09/18 06/09/18 06/09/18 06:59 14:59 22:59 Intake Total 2050 500 Output Total 600 Balance 1450 500 Weight 93 lb 12.8 oz Intake: IV 1050 300 Intake, Piggyback 1000 Oral 200 Output: Urine 600 Urethral (Suggs) 600 - Physical Exam Physical Exam Limitations: Positive for: Altered Mental Status Head: Positive for: Atraumatic, Normocephalic Pupils: Positive for: PERRL Extroacular Muscles: Positive for: EOMI Conjunctiva: Positive for: Normal Mouth: Positive for: Moist Mucous Membranes Nose (Internal): Positive for: Normal Inspection Neck: Positive for: Normal Range of Motion, Trachea Midline. Negative for: Meningeal Signs, MIDLINE TENDERNESS, Paraspinal Tenderness, JVD, Lymphadenopathy , Bruit, Other Respiratory/Chest: Positive for: Clear to Auscultation, Good Air Exchange. Negative for: Respiratory Distress, Accessory Muscle Use Cardiovascular: Positive for: Regular Rate and Rhythm, Normal S1, S2, Peripheal Pulses Present Abdomen: Positive for: Normal Bowel Sounds. Negative for: Tenderness, Distention Upper Extremity: Positive for: Normal Inspection Lower Extremity: Positive for: Normal Inspection Psychiatric: Positive for: Alert, Oriented x 3 - Medications Active Medications: Active Medications Generic Name Dose Route Start Last Admin Trade Name Freq PRN Reason Stop Dose Admin Acetaminophen 650 mg 06/05/18 21:00 Tylenol 325mg Tab PO Q6H PRN Pain, Mild (1-3) Acetaminophen 650 mg 06/05/18 21:00 Tylenol 325mg Tab PO Q6H PRN Fever >100.4 F Albuterol/Ipratropium 3 ml 06/07/18 20:00 06/09/18 13:18 Duoneb 3 Mg/0.5 Mg (3 Ml) Ud INH 3 ml RQ6 JULIETA Administration Atorvastatin Calcium 20 mg 06/06/18 11:30 06/09/18 15:28 Lipitor PO Not Given DAILY JULIETA Benztropine Mesylate 2 mg 06/06/18 09:00 06/09/18 09:31 Cogentin PO 2 mg BID JULIETA Administration Budesonide 0.5 mg 06/05/18 20:56 06/08/18 11:21 Pulmicort Respules INH 0.5 mg RBID PRN Administration Shortness of Breath Clonidine HCl 0.1 mg 06/06/18 17:00 06/09/18 09:31 Catapres PO Not Given BID JULIETA Diltiazem HCl 180 mg 06/06/18 09:00 06/09/18 09:30 Cardizem Cd PO Not Given DAILY JULIETA Divalproex Sodium 750 mg 06/06/18 10:39 06/09/18 09:[address](*Bid*) PO 750 mg BID JULIETA Administration Escitalopram Oxalate 5 mg 06/06/18 09:00 06/06/18 08:28 Lexapro PO 5 mg DAILY JULIETA Administration Furosemide 20 mg 06/06/18 09:00 06/09/18 09:36 Lasix PO 20 mg DAILY JULIETA Administration Gabapentin 800 mg 06/06/18 09:00 06/09/18 15:27 Neurontin PO Not Given TID JULIETA Dextrose/Sodium Chloride 1,000 mls @ 150 mls/hr 06/08/18 22:45 06/09/18 13:00 Dextrose 5%/0.9% Ns 1000 Ml IV 06/09/18 22:42 150 mls/hr .[id number] JULIETA Administration Insulin Detemir 5 units 06/09/18 22:00 Levemir SC HS JULIETA Insulin Human Lispro 0 units 06/05/18 22:00 06/09/18 12:10 Humalog SC Not Given ACHS [facility] Protocol Lorazepam 1 mg 06/08/18 15:58 06/09/18 10:00 Ativan IVP 1 mg ONCE PRN Administration Agitation Losartan Potassium 50 mg 06/06/18 09:00 06/09/18 09:34 Cozaar PO Not Given DAILY JULIETA Metformin HCl 1,000 mg 06/08/18 18:30 06/09/18 09:16 Glucophage PO Not Given BIDWM JULIETA Ondansetron HCl 4 mg 06/05/18 21:00 Zofran Inj IVP Q6H PRN Nausea/Vomiting Sitagliptin Phosphate 100 mg 06/06/18 11:30 06/09/18 09:36 Januvia PO Not Given DAILY JULIETA Tramadol HCl 50 mg 06/07/18 15:28 06/08/18 19:44 Ultram PO 50 mg Q6H PRN Administration Pain, moderate (4-7) - Patient Studies Lab Studies: Lab Studies 06/09/18 06/09/18 06/09/18 Range/Units 12:38 06:33 04:20 WBC (4.8-10.8) K/uL RBC (3.80-5.20) Mil/uL Hgb (12.0-16.0) g/dL Hct (34.0-47.0) % MCV (81.0-99.0) fl MCH (27.0-31.0) pg MCHC (33.0-37.0) g/dL RDW (11.5-14.5) % Plt Count (130-400) K/uL MPV (7.2-11.7) fl Neut % (Auto) (50.0-75.0) % Lymph % (Auto) (20.0-40.0) % Hubbard % (Auto) (0.0-10.0) % Eos % (Auto) (0.0-4.0) % Baso % (Auto) (0.0-2.0) % Neut # (Auto) (1.8-7.0) K/uL Lymph # (Auto) (1.0-4.3) K/uL Hubbard # (Auto) (0.0-0.8) K/uL Eos # (Auto) (0.0-0.7) K/uL Baso # (Auto) (0.0-0.2) K/uL Sodium 142 (132-148) mmol/l Potassium 4.2 (3.6-5.0) MMOL/L Chloride 113 H (98-107) mmol/L Carbon Dioxide 27 (22-30) mmol/L Anion Gap 6 L (10-20) BUN 21 H (7-17) mg/dl Creatinine 0.7 (0.7-1.2) mg/dl Est GFR ( Amer) > 60 Est GFR (Non-Af Amer) > 60 POC Glucose (mg/dL) 244 H 172 H (65-110) mg/dL Random Glucose 144 H (65-105) mg/dL Calcium 7.6 L (8.4-10.2) mg/dL Phosphorus 3.8 (2.5-4.5) mg/dl Magnesium 1.2 L (1.6-2.3) MG/DL Total Bilirubin < 0.1 L (0.2-1.3) mg/dl AST 30 (14-36) U/L ALT 20 (9-52) U/L Alkaline Phosphatase 59 (38-126) U/L Total Protein 5.0 L (6.3-8.2) G/DL Albumin 2.2 L D (3.5-5.0) g/dL Globulin 2.8 (2.2-3.9) gm/dL Albumin/Globulin Ratio 0.8 L (1.0-2.1) Urine Color (YELLOW) Urine Clarity (Clear) Urine pH (5.0-8.0) Ur Specific [place] (1.003-1.030) Urine Protein (NEGATIVE) mg/dL Urine Glucose (UA) (Normal) mg/dL Urine Ketones (NEGATIVE) mg/dL Urine Blood (NEGATIVE) Urine Nitrate (NEGATIVE) Urine Bilirubin (NEGATIVE) Urine Urobilinogen (0.2-1.0) mg/dL Ur Leukocyte Esterase (Negative) Aundrea/uL Urine RBC (Auto) (0-3) /hpf Urine Microscopic WBC (0-5) /hpf Ur Squamous Epith Cells (0-5) /hpf Urine Bacteria (<OCC) Hyaline Casts (0-2) /hpf Urine Yeast (Budding) (NEGATIVE) /hpf Urine Opiates Screen (NEGATIVE) Urine Methadone Screen (NEGATIVE) Ur Barbiturates Screen (NEGATIVE) Ur Phencyclidine Scrn (NEGATIVE) Ur Amphetamines Screen (NEGATIVE) U Benzodiazepines Scrn (NEGATIVE) U Oth Cocaine Metabols (NEGATIVE) U Cannabinoids Screen (NEGATIVE) 06/09/18 06/09/18 06/09/18 Range/Units 04:20 04:01 03:13 WBC 4.9 (4.8-10.8) K/uL RBC 3.26 L (3.80-5.20) Mil/uL Hgb 10.1 L D (12.0-16.0) g/dL Hct 31.2 L (34.0-47.0) % MCV 95.5 (81.0-99.0) fl MCH 31.1 H (27.0-31.0) pg MCHC 32.5 L (33.0-37.0) g/dL RDW 15.5 H (11.5-14.5) % Plt Count 186 (130-400) K/uL MPV 10.6 (7.2-11.7) fl Neut % (Auto) 59.9 (50.0-75.0) % Lymph % (Auto) 30.0 (20.0-40.0) % Hubbard % (Auto) 8.3 (0.0-10.0) % Eos % (Auto) 1.1 (0.0-4.0) % Baso % (Auto) 0.7 (0.0-2.0) % Neut # (Auto) 2.9 (1.8-7.0) K/uL Lymph # (Auto) 1.5 (1.0-4.3) K/uL Hubbard # (Auto) 0.4 (0.0-0.8) K/uL Eos # (Auto) 0.1 (0.0-0.7) K/uL Baso # (Auto) 0.0 (0.0-0.2) K/uL Sodium (132-148) mmol/l Potassium (3.6-5.0) MMOL/L Chloride (98-107) mmol/L Carbon Dioxide (22-30) mmol/L Anion Gap (10-20) BUN (7-17) mg/dl Creatinine (0.7-1.2) mg/dl Est GFR ( Amer) Est GFR (Non-Af Amer) POC Glucose (mg/dL) 152 H 142 H (65-110) mg/dL Random Glucose (65-105) mg/dL Calcium (8.4-10.2) mg/dL Phosphorus (2.5-4.5) mg/dl Magnesium (1.6-2.3) MG/DL Total Bilirubin (0.2-1.3) mg/dl AST (14-36) U/L ALT (9-52) U/L Alkaline Phosphatase (38-126) U/L Total Protein (6.3-8.2) G/DL Albumin (3.5-5.0) g/dL Globulin (2.2-3.9) gm/dL Albumin/Globulin Ratio (1.0-2.1) Urine Color (YELLOW) Urine Clarity (Clear) Urine pH (5.0-8.0) Ur Specific [place] (1.003-1.030) Urine Protein (NEGATIVE) mg/dL Urine Glucose (UA) (Normal) mg/dL Urine Ketones (NEGATIVE) mg/dL Urine Blood (NEGATIVE) Urine Nitrate (NEGATIVE) Urine Bilirubin (NEGATIVE) Urine Urobilinogen (0.2-1.0) mg/dL Ur Leukocyte Esterase (Negative) Aundrea/uL Urine RBC (Auto) (0-3) /hpf Urine Microscopic WBC (0-5) /hpf Ur Squamous Epith Cells (0-5) /hpf Urine Bacteria (<OCC) Hyaline Casts (0-2) /hpf Urine Yeast (Budding) (NEGATIVE) /hpf Urine Opiates Screen (NEGATIVE) Urine Methadone Screen (NEGATIVE) Ur Barbiturates Screen (NEGATIVE) Ur Phencyclidine Scrn (NEGATIVE) Ur Amphetamines Screen (NEGATIVE) U Benzodiazepines Scrn (NEGATIVE) U Oth Cocaine Metabols (NEGATIVE) U Cannabinoids Screen (NEGATIVE) 06/09/18 06/09/18 06/09/18 Range/Units 02:32 02:32 01:00 WBC (4.8-10.8) K/uL RBC (3.80-5.20) Mil/uL Hgb (12.0-16.0) g/dL Hct (34.0-47.0) % MCV (81.0-99.0) fl MCH (27.0-31.0) pg MCHC (33.0-37.0) g/dL RDW (11.5-14.5) % Plt Count (130-400) K/uL MPV (7.2-11.7) fl Neut % (Auto) (50.0-75.0) % Lymph % (Auto) (20.0-40.0) % Hubbard % (Auto) (0.0-10.0) % Eos % (Auto) (0.0-4.0) % Baso % (Auto) (0.0-2.0) % Neut # (Auto) (1.8-7.0) K/uL Lymph # (Auto) (1.0-4.3) K/uL Hubbard # (Auto) (0.0-0.8) K/uL Eos # (Auto) (0.0-0.7) K/uL Baso # (Auto) (0.0-0.2) K/uL Sodium (132-148) mmol/l Potassium (3.6-5.0) MMOL/L Chloride (98-107) mmol/L Carbon Dioxide (22-30) mmol/L Anion Gap (10-20) BUN (7-17) mg/dl Creatinine (0.7-1.2) mg/dl Est GFR ( Amer) Est GFR (Non-Af Amer) POC Glucose (mg/dL) 130 H (65-110) mg/dL Random Glucose (65-105) mg/dL Calcium (8.4-10.2) mg/dL Phosphorus (2.5-4.5) mg/dl Magnesium (1.6-2.3) MG/DL Total Bilirubin (0.2-1.3) mg/dl AST (14-36) U/L ALT (9-52) U/L Alkaline Phosphatase (38-126) U/L Total Protein (6.3-8.2) G/DL Albumin (3.5-5.0) g/dL Globulin (2.2-3.9) gm/dL Albumin/Globulin Ratio (1.0-2.1) Urine Color Yellow (YELLOW) Urine Clarity Slighty-cloudy (Clear) Urine pH 5.0 (5.0-8.0) Ur Specific [place] 1.011 (1.003-1.030) Urine Protein >=500 (NEGATIVE) mg/dL Urine Glucose (UA) 150 (Normal) mg/dL Urine Ketones Negative (NEGATIVE) mg/dL Urine Blood Small (NEGATIVE) Urine Nitrate Negative (NEGATIVE) Urine Bilirubin Negative (NEGATIVE) Urine Urobilinogen 0.2-1.0 (0.2-1.0) mg/dL Ur Leukocyte Esterase Neg (Negative) Aundrea/uL Urine RBC (Auto) 1 (0-3) /hpf Urine Microscopic WBC 2 (0-5) /hpf Ur Squamous Epith Cells < 1 (0-5) /hpf Urine Bacteria Rare (<OCC) Hyaline Casts 6-10 H (0-2) /hpf Urine Yeast (Budding) Occ H (NEGATIVE) /hpf Urine Opiates Screen Positive H (NEGATIVE) Urine Methadone Screen Negative (NEGATIVE) Ur Barbiturates Screen Negative (NEGATIVE) Ur Phencyclidine Scrn Negative (NEGATIVE) Ur Amphetamines Screen Negative (NEGATIVE) U Benzodiazepines Scrn Negative (NEGATIVE) U Oth Cocaine Metabols Negative (NEGATIVE) U Cannabinoids Screen Negative (NEGATIVE) 06/09/18 06/08/18 06/08/18 Range/Units 00:01 23:01 22:18 WBC (4.8-10.8) K/uL RBC (3.80-5.20) Mil/uL Hgb (12.0-16.0) g/dL Hct (34.0-47.0) % MCV (81.0-99.0) fl MCH (27.0-31.0) pg MCHC (33.0-37.0) g/dL RDW (11.5-14.5) % Plt Count (130-400) K/uL MPV (7.2-11.7) fl Neut % (Auto) (50.0-75.0) % Lymph % (Auto) (20.0-40.0) % Hubbard % (Auto) (0.0-10.0) % Eos % (Auto) (0.0-4.0) % Baso % (Auto) (0.0-2.0) % Neut # (Auto) (1.8-7.0) K/uL Lymph # (Auto) (1.0-4.3) K/uL [place] # (Auto) (0.0-0.8) K/uL Eos # (Auto) (0.0-0.7) K/uL Baso # (Auto) (0.0-0.2) K/uL Sodium (132-148) mmol/l Potassium (3.6-5.0) MMOL/L Chloride (98-107) mmol/L Carbon Dioxide (22-30) mmol/L Anion Gap (10-20) BUN (7-17) mg/dl Creatinine (0.7-1.2) mg/dl Est GFR ( Amer) Est GFR (Non-Af Amer) POC Glucose (mg/dL) 139 H 128 H 132 H (65-110) mg/dL Random Glucose (65-105) mg/dL Calcium (8.4-10.2) mg/dL Phosphorus (2.5-4.5) mg/dl Magnesium (1.6-2.3) MG/DL Total Bilirubin (0.2-1.3) mg/dl AST (14-36) U/L ALT (9-52) U/L Alkaline Phosphatase (38-126) U/L Total Protein (6.3-8.2) G/DL Albumin (3.5-5.0) g/dL Globulin (2.2-3.9) gm/dL Albumin/Globulin Ratio (1.0-2.1) Urine Color (YELLOW) Urine Clarity (Clear) Urine pH (5.0-8.0) Ur Specific [place] (1.003-1.030) Urine Protein (NEGATIVE) mg/dL Urine Glucose (UA) (Normal) mg/dL Urine Ketones (NEGATIVE) mg/dL Urine Blood (NEGATIVE) Urine Nitrate (NEGATIVE) Urine Bilirubin (NEGATIVE) Urine Urobilinogen (0.2-1.0) mg/dL Ur Leukocyte Esterase (Negative) Aundrea/uL Urine RBC (Auto) (0-3) /hpf Urine Microscopic WBC (0-5) /hpf Ur Squamous Epith Cells (0-5) /hpf Urine Bacteria (<OCC) Hyaline Casts (0-2) /hpf Urine Yeast (Budding) (NEGATIVE) /hpf Urine Opiates Screen (NEGATIVE) Urine Methadone Screen (NEGATIVE) Ur Barbiturates Screen (NEGATIVE) Ur Phencyclidine Scrn (NEGATIVE) Ur Amphetamines Screen (NEGATIVE) U Benzodiazepines Scrn (NEGATIVE) U Oth Cocaine Metabols (NEGATIVE) U Cannabinoids Screen (NEGATIVE) 06/08/18 06/08/18 06/08/18 Range/Units 21:24 20:45 20:19 WBC (4.8-10.8) K/uL RBC (3.80-5.20) Mil/uL Hgb (12.0-16.0) g/dL Hct (34.0-47.0) % MCV (81.0-99.0) fl MCH (27.0-31.0) pg MCHC (33.0-37.0) g/dL RDW (11.5-14.5) % Plt Count (130-400) K/uL MPV (7.2-11.7) fl Neut % (Auto) (50.0-75.0) % Lymph % (Auto) (20.0-40.0) % [place] % (Auto) (0.0-10.0) % Eos % (Auto) (0.0-4.0) % Baso % (Auto) (0.0-2.0) % Neut # (Auto) (1.8-7.0) K/uL Lymph # (Auto) (1.0-4.3) K/uL [place] # (Auto) (0.0-0.8) K/uL Eos # (Auto) (0.0-0.7) K/uL Baso # (Auto) (0.0-0.2) K/uL Sodium (132-148) mmol/l Potassium (3.6-5.0) MMOL/L Chloride (98-107) mmol/L Carbon Dioxide (22-30) mmol/L Anion Gap (10-20) BUN (7-17) mg/dl Creatinine (0.7-1.2) mg/dl Est GFR ( Amer) Est GFR (Non-Af Amer) POC Glucose (mg/dL) 159 H 272 H 157 H (65-110) mg/dL Random Glucose (65-105) mg/dL Calcium (8.4-10.2) mg/dL Phosphorus (2.5-4.5) mg/dl Magnesium (1.6-2.3) MG/DL Total Bilirubin (0.2-1.3) mg/dl AST (14-36) U/L ALT (9-52) U/L Alkaline Phosphatase (38-126) U/L Total Protein (6.3-8.2) G/DL Albumin (3.5-5.0) g/dL Globulin (2.2-3.9) gm/dL Albumin/Globulin Ratio (1.0-2.1) Urine Color (YELLOW) Urine Clarity (Clear) Urine pH (5.0-8.0) Ur Specific [place] (1.003-1.030) Urine Protein (NEGATIVE) mg/dL Urine Glucose (UA) (Normal) mg/dL Urine Ketones (NEGATIVE) mg/dL Urine Blood (NEGATIVE) Urine Nitrate (NEGATIVE) Urine Bilirubin (NEGATIVE) Urine Urobilinogen (0.2-1.0) mg/dL Ur Leukocyte Esterase (Negative) Aundrea/uL Urine RBC (Auto) (0-3) /hpf Urine Microscopic WBC (0-5) /hpf Ur Squamous Epith Cells (0-5) /hpf Urine Bacteria (<OCC) Hyaline Casts (0-2) /hpf Urine Yeast (Budding) (NEGATIVE) /hpf Urine Opiates Screen (NEGATIVE) Urine Methadone Screen (NEGATIVE) Ur Barbiturates Screen (NEGATIVE) Ur Phencyclidine Scrn (NEGATIVE) Ur Amphetamines Screen (NEGATIVE) U Benzodiazepines Scrn (NEGATIVE) U Oth Cocaine Metabols (NEGATIVE) U Cannabinoids Screen (NEGATIVE) 06/08/18 06/08/18 06/08/18 Range/Units 19:51 19:49 16:55 WBC (4.8-10.8) K/uL RBC (3.80-5.20) Mil/uL Hgb (12.0-16.0) g/dL Hct (34.0-47.0) % MCV (81.0-99.0) fl MCH (27.0-31.0) pg MCHC (33.0-37.0) g/dL RDW (11.5-14.5) % Plt Count (130-400) K/uL MPV (7.2-11.7) fl Neut % (Auto) (50.0-75.0) % Lymph % (Auto) (20.0-40.0) % [place] % (Auto) (0.0-10.0) % Eos % (Auto) (0.0-4.0) % Baso % (Auto) (0.0-2.0) % Neut # (Auto) (1.8-7.0) K/uL Lymph # (Auto) (1.0-4.3) K/uL [place] # (Auto) (0.0-0.8) K/uL Eos # (Auto) (0.0-0.7) K/uL Baso # (Auto) (0.0-0.2) K/uL Sodium (132-148) mmol/l Potassium (3.6-5.0) MMOL/L Chloride (98-107) mmol/L Carbon Dioxide (22-30) mmol/L Anion Gap (10-20) BUN (7-17) mg/dl Creatinine (0.7-1.2) mg/dl Est GFR ( Amer) Est GFR (Non-Af Amer) POC Glucose (mg/dL) < 20 L* < 20 L* 209 H (65-110) mg/dL Random Glucose (65-105) mg/dL Calcium (8.4-10.2) mg/dL Phosphorus (2.5-4.5) mg/dl Magnesium (1.6-2.3) MG/DL Total Bilirubin (0.2-1.3) mg/dl AST (14-36) U/L ALT (9-52) U/L Alkaline Phosphatase (38-126) U/L Total Protein (6.3-8.2) G/DL Albumin (3.5-5.0) g/dL Globulin (2.2-3.9) gm/dL Albumin/Globulin Ratio (1.0-2.1) Urine Color (YELLOW) Urine Clarity (Clear) Urine pH (5.0-8.0) Ur Specific [place] (1.003-1.030) Urine Protein (NEGATIVE) mg/dL Urine Glucose (UA) (Normal) mg/dL Urine Ketones (NEGATIVE) mg/dL Urine Blood (NEGATIVE) Urine Nitrate (NEGATIVE) Urine Bilirubin (NEGATIVE) Urine Urobilinogen (0.2-1.0) mg/dL Ur Leukocyte Esterase (Negative) Aundrea/uL Urine RBC (Auto) (0-3) /hpf Urine Microscopic WBC (0-5) /hpf Ur Squamous Epith Cells (0-5) /hpf Urine Bacteria (<OCC) Hyaline Casts (0-2) /hpf Urine Yeast (Budding) (NEGATIVE) /hpf Urine Opiates Screen (NEGATIVE) Urine Methadone Screen (NEGATIVE) Ur Barbiturates Screen (NEGATIVE) Ur Phencyclidine Scrn (NEGATIVE) Ur Amphetamines Screen (NEGATIVE) U Benzodiazepines Scrn (NEGATIVE) U Oth Cocaine Metabols (NEGATIVE) U Cannabinoids Screen (NEGATIVE) 06/08/18 Range/Units 10:56 WBC (4.8-10.8) K/uL RBC (3.80-5.20) Mil/uL Hgb (12.0-16.0) g/dL Hct (34.0-47.0) % MCV (81.0-99.0) fl MCH (27.0-31.0) pg MCHC (33.0-37.0) g/dL RDW (11.5-14.5) % Plt Count (130-400) K/uL MPV (7.2-11.7) fl Neut % (Auto) (50.0-75.0) % Lymph % (Auto) (20.0-40.0) % [place] % (Auto) (0.0-10.0) % Eos % (Auto) (0.0-4.0) % Baso % (Auto) (0.0-2.0) % Neut # (Auto) (1.8-7.0) K/uL Lymph # (Auto) (1.0-4.3) K/uL [place] # (Auto) (0.0-0.8) K/uL Eos # (Auto) (0.0-0.7) K/uL Baso # (Auto) (0.0-0.2) K/uL Sodium (132-148) mmol/l Potassium (3.6-5.0) MMOL/L Chloride (98-107) mmol/L Carbon Dioxide (22-30) mmol/L Anion Gap (10-20) BUN (7-17) mg/dl Creatinine (0.7-1.2) mg/dl Est GFR ( Amer) Est GFR (Non-Af Amer) POC Glucose (mg/dL) 296 H (65-110) mg/dL Random Glucose (65-105) mg/dL Calcium (8.4-10.2) mg/dL Phosphorus (2.5-4.5) mg/dl Magnesium (1.6-2.3) MG/DL Total Bilirubin (0.2-1.3) mg/dl AST (14-36) U/L ALT (9-52) U/L Alkaline Phosphatase (38-126) U/L Total Protein (6.3-8.2) G/DL Albumin (3.5-5.0) g/dL Globulin (2.2-3.9) gm/dL Albumin/Globulin Ratio (1.0-2.1) Urine Color (YELLOW) Urine Clarity (Clear) Urine pH (5.0-8.0) Ur Specific [place] (1.003-1.030) Urine Protein (NEGATIVE) mg/dL Urine Glucose (UA) (Normal) mg/dL Urine Ketones (NEGATIVE) mg/dL Urine Blood (NEGATIVE) Urine Nitrate (NEGATIVE) Urine Bilirubin (NEGATIVE) Urine Urobilinogen (0.2-1.0) mg/dL Ur Leukocyte Esterase (Negative) Aundrea/uL Urine RBC (Auto) (0-3) /hpf Urine Microscopic WBC (0-5) /hpf Ur Squamous Epith Cells (0-5) /hpf Urine Bacteria (<OCC) Hyaline Casts (0-2) /hpf Urine Yeast (Budding) (NEGATIVE) /hpf Urine Opiates Screen (NEGATIVE) Urine Methadone Screen (NEGATIVE) Ur Barbiturates Screen (NEGATIVE) Ur Phencyclidine Scrn (NEGATIVE) Ur Amphetamines Screen (NEGATIVE) U Benzodiazepines Scrn (NEGATIVE) U Oth Cocaine Metabols (NEGATIVE) U Cannabinoids Screen (NEGATIVE) Laboratory Results - last 24 hr 06/08/18 06/08/18 06/08/18 10:56 16:55 19:49 WBC RBC Hgb Hct MCV MCH MCHC RDW Plt Count MPV Neut % (Auto) Lymph % (Auto) [place] % (Auto) Eos % (Auto) Baso % (Auto) Neut # (Auto) Lymph # (Auto) [place] # (Auto) Eos # (Auto) Baso # (Auto) Sodium Potassium Chloride Carbon Dioxide Anion Gap BUN Creatinine Est GFR ( Amer) Est GFR (Non-Af Amer) POC Glucose (mg/dL) 296 H 209 H < 20 L* Random Glucose Calcium Phosphorus Magnesium Total Bilirubin AST ALT Alkaline Phosphatase Total Protein Albumin Globulin Albumin/Globulin Ratio Urine Color Urine Clarity Urine pH Ur Specific [place] Urine Protein Urine Glucose (UA) Urine Ketones Urine Blood Urine Nitrate Urine Bilirubin Urine Urobilinogen Ur Leukocyte Esterase Urine RBC (Auto) Urine Microscopic WBC Ur Squamous Epith Cells Urine Bacteria Hyaline Casts Urine Yeast (Budding) Urine Opiates Screen Urine Methadone Screen Ur Barbiturates Screen Ur Phencyclidine Scrn Ur Amphetamines Screen U Benzodiazepines Scrn U Oth Cocaine Metabols U Cannabinoids Screen 06/08/18 06/08/18 06/08/18 19:51 20:19 20:45 WBC RBC Hgb Hct MCV MCH MCHC RDW Plt Count MPV Neut % (Auto) Lymph % (Auto) [place] % (Auto) Eos % (Auto) Baso % (Auto) Neut # (Auto) Lymph # (Auto) Hubbard # (Auto) Eos # (Auto) Baso # (Auto) Sodium Potassium Chloride Carbon Dioxide Anion Gap BUN Creatinine Est GFR ( Amer) Est GFR (Non-Af Amer) POC Glucose (mg/dL) < 20 L* 157 H 272 H Random Glucose Calcium Phosphorus Magnesium Total Bilirubin AST ALT Alkaline Phosphatase Total Protein Albumin Globulin Albumin/Globulin Ratio Urine Color Urine Clarity Urine pH Ur Specific [place] Urine Protein Urine Glucose (UA) Urine Ketones Urine Blood Urine Nitrate Urine Bilirubin Urine Urobilinogen Ur Leukocyte Esterase Urine RBC (Auto) Urine Microscopic WBC Ur Squamous Epith Cells Urine Bacteria Hyaline Casts Urine Yeast (Budding) Urine Opiates Screen Urine Methadone Screen Ur Barbiturates Screen Ur Phencyclidine Scrn Ur Amphetamines Screen U Benzodiazepines Scrn U Oth Cocaine Metabols U Cannabinoids Screen 06/08/18 06/08/18 06/08/18 21:24 22:18 23:01 WBC RBC Hgb Hct MCV MCH MCHC RDW Plt Count MPV Neut % (Auto) Lymph % (Auto) [place] % (Auto) Eos % (Auto) Baso % (Auto) Neut # (Auto) Lymph # (Auto) [place] # (Auto) Eos # (Auto) Baso # (Auto) Sodium Potassium Chloride Carbon Dioxide Anion Gap BUN Creatinine Est GFR ( Amer) Est GFR (Non-Af Amer) POC Glucose (mg/dL) 159 H 132 H 128 H Random Glucose Calcium Phosphorus Magnesium Total Bilirubin AST ALT Alkaline Phosphatase Total Protein Albumin Globulin Albumin/Globulin Ratio Urine Color Urine Clarity Urine pH Ur Specific [place] Urine Protein Urine Glucose (UA) Urine Ketones Urine Blood Urine Nitrate Urine Bilirubin Urine Urobilinogen Ur Leukocyte Esterase Urine RBC (Auto) Urine Microscopic WBC Ur Squamous Epith Cells Urine Bacteria Hyaline Casts Urine Yeast (Budding) Urine Opiates Screen Urine Methadone Screen Ur Barbiturates Screen Ur Phencyclidine Scrn Ur Amphetamines Screen U Benzodiazepines Scrn U Oth Cocaine Metabols U Cannabinoids Screen 06/09/18 06/09/18 06/09/18 00:01 01:00 02:32 WBC RBC Hgb Hct MCV MCH MCHC RDW Plt Count MPV Neut % (Auto) Lymph % (Auto) [place] % (Auto) Eos % (Auto) Baso % (Auto) Neut # (Auto) Lymph # (Auto) [place] # (Auto) Eos # (Auto) Baso # (Auto) Sodium Potassium Chloride Carbon Dioxide Anion Gap BUN Creatinine Est GFR ( Amer) Est GFR (Non-Af Amer) POC Glucose (mg/dL) 139 H 130 H Random Glucose Calcium Phosphorus Magnesium Total Bilirubin AST ALT Alkaline Phosphatase Total Protein Albumin Globulin Albumin/Globulin Ratio Urine Color Urine Clarity Urine pH Ur Specific [place] Urine Protein Urine Glucose (UA) Urine Ketones Urine Blood Urine Nitrate Urine Bilirubin Urine Urobilinogen Ur Leukocyte Esterase Urine RBC (Auto) Urine Microscopic WBC Ur Squamous Epith Cells Urine Bacteria Hyaline Casts Urine Yeast (Budding) Urine Opiates Screen Positive H Urine Methadone Screen Negative Ur Barbiturates Screen Negative Ur Phencyclidine Scrn Negative Ur Amphetamines Screen Negative U Benzodiazepines Scrn Negative U Oth Cocaine Metabols Negative U Cannabinoids Screen Negative 06/09/18 06/09/18 06/09/18 02:32 03:13 04:01 WBC RBC Hgb Hct MCV MCH MCHC RDW Plt Count MPV Neut % (Auto) Lymph % (Auto) [place] % (Auto) Eos % (Auto) Baso % (Auto) Neut # (Auto) Lymph # (Auto) [place] # (Auto) Eos # (Auto) Baso # (Auto) Sodium Potassium Chloride Carbon Dioxide Anion Gap BUN Creatinine Est GFR ( Amer) Est GFR (Non-Af Amer) POC Glucose (mg/dL) 142 H 152 H Random Glucose Calcium Phosphorus Magnesium Total Bilirubin AST ALT Alkaline Phosphatase Total Protein Albumin Globulin Albumin/Globulin Ratio Urine Color Yellow Urine Clarity Slighty-cloudy Urine pH 5.0 Ur Specific [place] 1.011 Urine Protein >=500 Urine Glucose (UA) 150 Urine Ketones Negative Urine Blood Small Urine Nitrate Negative Urine Bilirubin Negative Urine Urobilinogen 0.2-1.0 Ur Leukocyte Esterase Neg Urine RBC (Auto) 1 Urine Microscopic WBC 2 Ur Squamous Epith Cells < 1 Urine Bacteria Rare Hyaline Casts 6-10 H Urine Yeast (Budding) Occ H Urine Opiates Screen Urine Methadone Screen Ur Barbiturates Screen Ur Phencyclidine Scrn Ur Amphetamines Screen U Benzodiazepines Scrn U Oth Cocaine Metabols U Cannabinoids Screen 06/09/18 06/09/1818 04:20 04:20 06:33 WBC 4.9 RBC 3.26 L Hgb 10.1 L D Hct 31.2 L MCV 95.5 MCH 31.1 H MCHC 32.5 L RDW 15.5 H Plt Count 186 MPV 10.6 Neut % (Auto) 59.9 Lymph % (Auto) 30.0 [place] % (Auto) 8.3 Eos % (Auto) 1.1 Baso % (Auto) 0.7 Neut # (Auto) 2.9 Lymph # (Auto) 1.5 [place] # (Auto) 0.4 Eos # (Auto) 0.1 Baso # (Auto) 0.0 Sodium 142 Potassium 4.2 Chloride 113 H Carbon Dioxide 27 Anion Gap 6 L BUN 21 H Creatinine 0.7 Est GFR ( Amer) > 60 Est GFR (Non-Af Amer) > 60 POC Glucose (mg/dL) 172 H Random Glucose 144 H Calcium 7.6 L Phosphorus 3.8 Magnesium 1.2 L Total Bilirubin < 0.1 L AST 30 ALT 20 Alkaline Phosphatase 59 Total Protein 5.0 L Albumin 2.2 L D Globulin 2.8 Albumin/Globulin Ratio 0.8 L Urine Color Urine Clarity Urine pH Ur Specific [place] Urine Protein Urine Glucose (UA) Urine Ketones Urine Blood Urine Nitrate Urine Bilirubin Urine Urobilinogen Ur Leukocyte Esterase Urine RBC (Auto) Urine Microscopic WBC Ur Squamous Epith Cells Urine Bacteria Hyaline Casts Urine Yeast (Budding) Urine Opiates Screen Urine Methadone Screen Ur Barbiturates Screen Ur Phencyclidine Scrn Ur Amphetamines Screen U Benzodiazepines Scrn U Oth Cocaine Metabols U Cannabinoids Screen 06/09/18 12:38 WBC RBC Hgb Hct MCV MCH MCHC RDW Plt Count MPV Neut % (Auto) Lymph % (Auto) [place] % (Auto) Eos % (Auto) Baso % (Auto) Neut # (Auto) Lymph # (Auto) [place] # (Auto) Eos # (Auto) Baso # (Auto) Sodium Potassium Chloride Carbon Dioxide Anion Gap BUN Creatinine Est GFR ( Amer) Est GFR (Non-Af Amer) POC Glucose (mg/dL) 244 H Random Glucose Calcium Phosphorus Magnesium Total Bilirubin AST ALT Alkaline Phosphatase Total Protein Albumin Globulin Albumin/Globulin Ratio Urine Color Urine Clarity Urine pH Ur Specific [place] Urine Protein Urine Glucose (UA) Urine Ketones Urine Blood Urine Nitrate Urine Bilirubin Urine Urobilinogen Ur Leukocyte Esterase Urine RBC (Auto) Urine Microscopic WBC Ur Squamous Epith Cells Urine Bacteria Hyaline Casts Urine Yeast (Budding) Urine Opiates Screen Urine Methadone Screen Ur Barbiturates Screen Ur Phencyclidine Scrn Ur Amphetamines Screen U Benzodiazepines Scrn U Oth Cocaine Metabols U Cannabinoids Screen Fingerstick Blood Sugar Results: 244 Review of Systems - Constitutional Constitutional: absent: Fever, Chills - Cardiovascular Cardiovascular: absent: Chest Pain, Chest Pain at Rest, Chest Pain with Activity - Respiratory Respiratory: absent: Cough, Dyspnea, Hemoptysis, Dyspnea on Exertion, Wheezing Critical Care Progress Note - Extremities/Vascular Does the Patient have a Central Venous Catheter?: No Does the Patient need a Central Venous Catheter?: No Does the Patient have a Suggs Catheter?: No Does the Patient need a Suggs Catheter?: No - Nutrition Nutrition: Nutrition Category Date Time Status Consistent Carbohydrate [DIET] Diets 06/05/18 Breakfast Active Assessment/Plan (1) Intracranial hemorrhage Current Visit: Yes Status: Acute Priority: High Comment: MRI of the brain today (2) Altered mental status Current Visit: Yes Status: Acute Comment: frequent acchu check monitoring (3) COPD (chronic obstructive pulmonary disease) Current Visit: Yes Status: Acute Priority: Medium Comment: Continue bronchodilators q6hr (4) CHF (congestive heart failure) Current Visit: Yes Status: Chronic Priority: Medium Comment: Chronic diastolic heart failure (EF >55%) A-Fib HR controlled with oral Cardizem, not on AC or ASA sec to ICH. Pt allergic to ACEI
[2018-06-09] MEDS ORDERED: Dextrose 5%/0.9% NS 1,000 ML IV SCH (20:40)
--- NOTE | 2018-06-09 22:41 | CP.PCM.PN ---
Subjective - Date & Time of Evaluation Date of Evaluation: 06/09/18 Time of Evaluation: 11:45 - Subjective Subjective: Patient had an episode of hypoglycemia last night and became very lethargic. On glipizide and levemir. No headaches No chest pain or SOB. Objective - Vital Signs/Intake and Output Vital Signs (last 24 hours): Temp Pulse Resp BP Pulse Ox 97.7 F 73 16 124/55 L 100 06/09/18 16:00 06/09/18 20:00 06/09/18 20:00 06/09/18 20:00 06/09/18 20:00 Intake and Output: 06/09/18 06/10/18 18:59 06:59 Intake Total 2290 100 Output Total 400 Balance 1890 100 - Medications Medications: Current Medications Acetaminophen (Tylenol 325mg Tab) 650 mg PO Q6H PRN PRN Reason: Pain, Mild (1-3) Acetaminophen (Tylenol 325mg Tab) 650 mg PO Q6H PRN PRN Reason: Fever >100.4 F Albuterol/Ipratropium (Duoneb 3 Mg/0.5 Mg (3 Ml) Ud) 3 ml INH RQ6 [facility] Last Admin: 06/09/18 19:28 Dose: 3 ml Aspirin (Aspirin Chewable) 81 mg PO DAILY [facility] Atorvastatin Calcium (Lipitor) 20 mg PO DAILY [facility] Last Admin: 06/09/18 15:28 Dose: Not Given Benztropine Mesylate (Cogentin) 2 mg PO BID [facility] Last Admin: 06/09/18 17:20 Dose: Not Given Budesonide (Pulmicort Respules) 0.5 mg INH RBID PRN PRN Reason: Shortness of Breath Last Admin: 06/08/18 11:21 Dose: 0.5 mg Clonidine HCl (Catapres) 0.1 mg PO BID [facility] Last Admin: 06/09/18 17:03 Dose: Not Given Diltiazem HCl (Cardizem Cd) 180 mg PO DAILY [facility] Last Admin: 06/09/18 09:30 Dose: Not Given Divalproex Sodium (Depakote Dr(*Bid*)) 750 mg PO BID [facility] Last Admin: 06/09/18 17:04 Dose: 750 mg Escitalopram Oxalate (Lexapro) 5 mg PO DAILY [facility] Last Admin: 06/06/18 08:28 Dose: 5 mg Furosemide (Lasix) 20 mg PO DAILY [facility] Last Admin: 06/09/18 09:36 Dose: 20 mg Gabapentin (Neurontin) 800 mg PO TID [facility] Last Admin: 06/09/18 17:19 Dose: Not Given Dextrose/Sodium Chloride (Dextrose 5%/0.9% Ns 1000 Ml) 1,000 mls @ 100 mls/hr IV .Q10H [facility] Stop: 06/09/18 22:42 Last Admin: 06/09/18 22:00 Dose: 100 mls/hr Insulin Detemir (Levemir) 5 units SC HS [facility] Last Admin: 06/09/18 22:11 Dose: Not Given Insulin Human Lispro (Humalog) 0 units SC [facility] PRN Reason: Protocol Last Admin: 06/09/18 22:02 Dose: Not Given Lorazepam (Ativan) 1 mg IVP ONCE PRN PRN Reason: Agitation Last Admin: 06/09/18 10:00 Dose: 1 mg Losartan Potassium (Cozaar) 50 mg PO DAILY [facility] Last Admin: 06/09/18 09:34 Dose: Not Given Metformin HCl (Glucophage) 1,000 mg PO BIDWM [facility] Last Admin: 06/09/18 17:05 Dose: Not Given Ondansetron HCl (Zofran Inj) 4 mg IVP Q6H PRN PRN Reason: Nausea/Vomiting Sitagliptin Phosphate (Januvia) 100 mg PO DAILY [facility] Last Admin: 06/09/18 09:36 Dose: Not Given Tramadol HCl (Ultram) 50 mg PO Q6H PRN PRN Reason: Pain, moderate (4-7) Last Admin: 06/08/18 19:44 Dose: 50 mg - Labs Labs: 06/09/18 04:20 06/09/18 04:20 PT 9.2 Seconds (9.8-13.1) L 06/05/18 19:25 INR 0.8 06/05/18 19:25 APTT 27.0 Seconds (25.6-37.1) 06/05/18 19:25 - Head Exam Head Exam: NORMAL INSPECTION - Eye Exam Eye Exam: Normal appearance - Respiratory Exam Respiratory Exam: Clear to Ausculation Bilateral - Cardiovascular Exam Cardiovascular Exam: Irregular Rhythm - GI/Abdominal Exam GI & Abdominal Exam: Normal Bowel Sounds - Neurological Exam Neurological Exam: Awake, Oriented x3 Assessment and Plan (1) Intracranial hemorrhage Status: Acute (2) COPD (chronic obstructive pulmonary disease) Status: Acute (3) Restless leg syndrome Status: Acute (4) Diabetes mellitus type 2, uncontrolled Status: Chronic (5) Hypertension Status: Chronic (6) Atrial fibrillation Status: Resolved (7) Anxiety Status: Acute (8) Depression Status: Acute (9) Hypoglycemia Status: Acute - Assessment and Plan (Free Text) Plan: Dc Glipizide decrease levemir continue Januvia and metformin For MRI Cont all meds Phys therapy
[2018-06-10] MEDS: Albuterol-Ipratrop 3 mg / 0.5 (3 ml) UD INH SCH ×4 (01:10→19:38)
[2018-06-10 05:22] LABS: HEMOGLOBIN 12.4 g/dL (12.0-16.0); MEAN CORPUSCULAR HEMOGLOBIN 30.8 pg (27.0-31.0); MEAN CORPUSCULAR HGB CONC 32.4 g/dL (33.0-37.0); RBC 4.01 Mil/uL (3.80-5.20); RED CELL DISTRIBUTION WIDTH 16.4 % (11.5-14.5); WHITE BLOOD COUNT 11.9 K/uL (4.8-10.8)
[2018-06-10 05:39] LABS: ALB/GLOB RATIO 0.9 (1.0-2.1); ALT/SGPT 23 U/L (9-52); AST/SGOT 31 U/L (14-36); BLOOD UREA NITROGEN 16 mg/dl (7-17); CALCIUM 8.4 mg/dL (8.4-10.2); GFR NON-AFRICAN AMERICAN > 60
[2018-06-10] MEDS: Insulin Lispro (humaLOG) 100 Units/ml Inj SC SCH ×4 (06:42→22:42)
--- NOTE | 2018-06-10 08:36 | RAD ---
Date of service: 06/10/2018 HISTORY: rule olut cva COMPARISON: 06/07/2018 an 06/05/2018 FINDINGS: LUNGS: No active pulmonary disease. No consolidation. PLEURA: No significant pleural effusion identified, no pneumothorax apparent. CARDIOVASCULAR: No cardiomegaly. Atherosclerotic vascular calcifications present. OSSEOUS STRUCTURES: Generalized osteopenia. Bilateral shoulder arthrosis VISUALIZED UPPER ABDOMEN: Normal. OTHER FINDINGS: Bilateral breast implants heavily calcified. -similar IMPRESSION: No active disease. Other findings as above.
[2018-06-10] MEDS: Divalproex 250 mg DR(BID formulation) PO SCH ×2 (08:43→16:31)
[2018-06-10] MEDS: diltiaZEM 180 mg/24 Hours CD Cap PO SCH (10:09)
--- NOTE | 2018-06-10 11:04 | CP.PCM.PN ---
Subjective - Date & Time of Evaluation Date of Evaluation: 06/10/18 Time of Evaluation: 11:03 - Subjective Subjective: Ms. Arreaga was seen and examined at the bedside in ICU. She is awake, conversant , but unable to state place, person, and time. She denies any headache, dizziness, restless in bed especially her left BKA. She has excellent PO intake. Pupils equal both reactive to light , skin warm and dry, sinus tachycardia. She is able to follow commands. Repeat CYH yesterday showed Nonspecific white matter changes. Re- identified persistent hyperdensity within the right basal ganglia similar prior study, indeterminate. Objective - Vital Signs/Intake and Output Vital Signs (last 24 hours): Temp Pulse Resp BP Pulse Ox 98.3 F 117 H 20 188/89 H 96 06/10/18 08:00 06/10/18 10:52 06/10/18 10:00 06/10/18 10:52 06/10/18 10:00 Intake and Output: 06/10/18 06/10/18 06:59 18:59 Intake Total 785 120 Output Total 550 Balance 235 120 - Medications Medications: Current Medications Acetaminophen (Tylenol 325mg Tab) 650 mg PO Q6H PRN PRN Reason: Pain, Mild (1-3) Acetaminophen (Tylenol 325mg Tab) 650 mg PO Q6H PRN PRN Reason: Fever >100.4 F Albuterol/Ipratropium (Duoneb 3 Mg/0.5 Mg (3 Ml) Ud) 3 ml INH RQ6 [facility] Last Admin: 06/10/18 07:52 Dose: 3 ml Aspirin (Aspirin Chewable) 81 mg PO DAILY [facility] Last Admin: 06/10/18 08:42 Dose: 81 mg Atorvastatin Calcium (Lipitor) 20 mg PO HS [facility] Benztropine Mesylate (Cogentin) 2 mg PO BID [facility] Last Admin: 06/10/18 08:41 Dose: 2 mg Budesonide (Pulmicort Respules) 0.5 mg INH RBID PRN PRN Reason: Shortness of Breath Last Admin: 06/08/18 11:21 Dose: 0.5 mg Clonidine HCl (Catapres) 0.1 mg PO BID [facility] Last Admin: 06/10/18 08:40 Dose: 0.1 mg Diltiazem HCl (Cardizem Cd) 180 mg PO DAILY [facility] Last Admin: 06/10/18 10:09 Dose: 180 mg Divalproex Sodium (Depakote Dr(*Bid*)) 750 mg PO BID [facility] Last Admin: 06/10/18 08:43 Dose: 750 mg Furosemide (Lasix) 20 mg PO DAILY [facility] Last Admin: 06/10/18 10:09 Dose: 20 mg Gabapentin (Neurontin) 800 mg PO TID [facility] Last Admin: 06/10/18 08:39 Dose: 800 mg Insulin Detemir (Levemir) 10 units SC [facility] Insulin Human Lispro (Humalog) [address] [facility] PRN Reason: Protocol Last Admin: 06/10/18 06:42 Dose: 2 units Lorazepam (Ativan) 1 mg IVP ONCE PRN PRN Reason: Agitation Last Admin: 06/09/18 10:00 Dose: 1 mg Losartan Potassium (Cozaar) 50 mg PO DAILY [facility] Last Admin: 06/10/18 08:41 Dose: 50 mg Metformin HCl (Glucophage) 1,000 mg PO BIDWM [facility] Last Admin: 06/10/18 08:41 Dose: 1,000 mg Metoprolol Tartrate (Lopressor) 25 mg PO Q12 [facility] Last Admin: 06/10/18 10:52 Dose: 25 mg Ondansetron HCl (Zofran Inj) 4 mg IVP Q6H PRN PRN Reason: Nausea/Vomiting Sitagliptin Phosphate (Januvia) 100 mg PO DAILY [facility] Last Admin: 06/10/18 08:42 Dose: 100 mg Tramadol HCl (Ultram) 50 mg PO Q6H PRN PRN Reason: Pain, moderate (4-7) Last Admin: 06/10/18 02:24 Dose: 50 mg - Labs Labs: 06/10/18 04:20 06/10/18 04:20 PT 9.2 Seconds (9.8-13.1) L 06/05/18 19:25 INR 0.8 06/05/18 19:25 APTT 27.0 Seconds (25.6-37.1) 06/05/18 19:25 - Constitutional Appears: No Acute Distress - Head Exam Head Exam: NORMAL INSPECTION - Eye Exam Pupil Exam: PERRL - Neurological Exam Neurological Exam: Awake Neuro motor strength exam: Left Upper Extremity: 4, Right Upper Extremity: 3, Left Lower Extremity: 4, Right Lower Extremity: 3 Additional comments: awake, follows commands, with episode of restlessness, sensation is intact. Assessment and Plan (1) Intracranial hemorrhage Assessment & Plan: Continue all current medical regimen. Recommend blood pressure and glycemic control, keep head of bed elevated at least 30 degrees, repeat CTH without contrast in am to monitor bleeding. Status: Acute
--- NOTE | 2018-06-10 11:42 | CP.CCUPN ---
CCU Subjective - Physician Review Subjective (Free Text): Under 1:1 supervision for patients safety. Confused and disoriented to place and time, no other distress noted. Denies any dizziness, headaches, nor new focal weakness. Off BiPAP now. Other vitals and I/O's reviewed. Urine output approx. 600ml total, PEG output 200ml, and overall fluid balance positive at 3.9L. Afebrile, BP 140-80, HR 112 , sinus, RR 19, SPO2 99% on nasal cannula oxygen. ROS: No other pertinent negs or positives on 10+ system review. PMSFH: All other Nursing and physician documentation reviewed to date; no new pertinent info noted relevant to current medical problems. EXAM- HEENT: no icterus, no gaze preference, pupils equal and reactive NECK: No JVD visible, supple, carotids equal upstroke bilat/no bruits CHEST: decreased BS bases, no wheezes audible HEART: regular, distant, Tachy S1S2, no rubs ABD: soft, no increased distention, no tympany, no focal tenderness, BS hypoactive, no rebound. EXT: no peripheral/ digital cyanosis, no calf tenderness or palpable cords, distal pulses intact and symmetrical. Left BKA intact, stump wound well healed. NEURO: increased tone present in LUE only. SKIN: fungal rash perineal and bilat inframammary areas; otherwise warm and dry. LABS: WBC= 11.9 HGB= 12.4 PLTs= 203K Im=724 K= 4.0 CL= 116 HCO3= 21 BUN/Cr= 16/0.7 BS= 254 CXR: mild bibasilar interstitial/possibly congestive changes. No gross consolidation (my interp). CT Brain reviewed: possible increased hyperdensity tissue changes R >> L. MRI Brain: no hemorrhage, +Acute Left thalamic CVA, no midline shift. IMPRESSION / MAJOR PROBLEMS NOW: 1. Acute Stroke, L Thalamic area. 2. Acute resp insuff 2 Acute Pulm edema 3. Mild Delirium- unclear mental status baseline. 4. Chronic A Fib on AC with Xarelto 5. DM II-uncontrolled PLAN: 1. AC on hold. 2. ECHO (Diastolic Dysfx) vs neurogenic etiology, 3. Hold on BiPAP for now, stable on nasal cannula oxygen therapy. 4. Lasix IV PRN, off IVFs now. 5. Maintain normoglycemia. 6. Get OOB to chair as tolerated, PT/OT eval and assistance. CCU Objective - Vital Signs / Intake & Output Vital Signs (Last 4 hours): Vital Signs Temp Pulse Resp BP Pulse Ox 06/10/18 10:52 117 H 188/89 H 06/10/18 10:09 117 H 148/86 06/10/18 10:00 127 H 20 148/86 96 06/10/18 08:41 115 H 141/87 06/10/18 08:40 115 H 141/87 06/10/18 08:00 98.3 F 113 H 17 166/32 H 100 Intake and Output (Last 8hrs): Intake & Output 06/09/18 06/10/18 06/10/18 22:59 06:59 14:59 Intake Total 1140 485 120 Output Total 400 550 Balance 740 -65 120 Weight 99 lb 6.4 oz Intake: IV 900 400 Oral 240 85 120 Output: Urine 400 550 Urethral (Suggs) 400 550 Other: # Bowel Movements 1
--- NOTE | 2018-06-10 13:13 | CP.PCM.CON ---
History of Present Illness - History of Present Illness History of Present Illness: Psychiatry consult note CC: Restlessness/AMS HPI: 72 yo female w/ acute stroke, Afib, DMII, current A + O x 1; alert, but unable to appropriately engage in interview. Denies feeling acutely depressed/ anxious/AH/VH, but patient is a poor historian. CXR: mild bibasilar interstitial/possibly congestive changes. No gross consolidation (my interp). CT Brain reviewed: possible increased hyperdensity tissue changes R >> L. MRI Brain: no hemorrhage, +Acute Left thalamic CVA, no midline shift. Impression: 72 yo female w/ acute stroke, Afib, DMII, w/ acute delirium secondary to acute medical issues and likely chronic dementia. -Recommend to avoid benzos as they are likely to cause increase confusion and agitation -If not medically contraindicated; can give Haldol 0.5 mg PO/IM Q8HR PRN agitation or Risperdal 0.25 mg PO Q12 hr PRN agitation Past Patient History - Infectious Disease Hx of Infectious Diseases: None - Tetanus Immunizations Tetanus Immunization: Unknown - Past Medical History & Family History Past Medical History?: Yes - Past Social History Smoking Status: Light Smoker < 10 Cigarettes Daily - CARDIAC Hx Atrial Fibrillation: Yes Hx Cardia Arrhythmia: Yes Hx Congestive Heart Failure: Yes Hx Hypercholesterolemia: Yes Hx Hypertension: Yes - PULMONARY Hx Asthma: Yes Hx Bronchitis: Yes Hx Chronic Obstructive Pulmonary Disease (COPD): Yes Hx Sleep Apnea: Yes - HEENT Hx Difficulty Chewing: Yes - RENAL Hx Chronic Kidney Disease: No Other/Comment: INCONTINENT - ENDOCRINE/METABOLIC Hx Diabetes Mellitus Type 2: Yes Hx Hypothyroidism: Yes - HEMATOLOGICAL/ONCOLOGICAL Hx Blood Disorders: No - INTEGUMENTARY Hx Eczema: Yes - MUSCULOSKELETAL/RHEUMATOLOGICAL Hx Falls: Yes - GASTROINTESTINAL Hx Gastritis: Yes - GENITOURINARY/GYNECOLOGICAL Hx Genitourinary Disorders: No - PSYCHIATRIC Hx Anxiety: Yes Hx Depression: Yes Hx Paranoia: Yes Hx Post Traumatic Stress Disorder: Yes Hx Substance Use: No - SURGICAL HISTORY Hx Cholecystectomy: Yes Other/Comment: LEFT BKA - ANESTHESIA Hx Anesthesia: Yes Hx Anesthesia Reactions: No Hx Malignant Hyperthermia: No Meds Allergies/Adverse Reactions: Allergies Allergy/AdvReac Type Severity Reaction Status Date / Time TUCKER Inhibitors Allergy Severe COUGH Verified 12/28/17 04:05 Thiazides Allergy RASH Verified 12/28/17 04:05 - Medications Medications: Current Medications Acetaminophen (Tylenol 325mg Tab) 650 mg PO Q6H PRN PRN Reason: Pain, Mild (1-3) Acetaminophen (Tylenol 325mg Tab) 650 mg PO Q6H PRN PRN Reason: Fever >100.4 F Albuterol/Ipratropium (Duoneb 3 Mg/0.5 Mg (3 Ml) Ud) 3 ml INH RQ6 [facility] Last Admin: 06/10/18 07:52 Dose: 3 ml Aspirin (Aspirin Chewable) 81 mg PO DAILY [facility] Last Admin: 06/10/18 08:42 Dose: 81 mg Atorvastatin Calcium (Lipitor) 20 mg PO HS [facility] Benztropine Mesylate (Cogentin) 2 mg PO BID [facility] Last Admin: 06/10/18 08:41 Dose: 2 mg Budesonide (Pulmicort Respules) 0.5 mg INH RBID PRN PRN Reason: Shortness of Breath Last Admin: 06/08/18 11:21 Dose: 0.5 mg Clonidine HCl (Catapres) 0.1 mg PO BID [facility] Last Admin: 06/10/18 08:40 Dose: 0.1 mg Diltiazem HCl (Cardizem Cd) 180 mg PO DAILY [facility] Last Admin: 06/10/18 10:09 Dose: 180 mg Divalproex Sodium (Depakote Dr(*Bid*)) 750 mg PO BID [facility] Last Admin: 06/10/18 08:43 Dose: 750 mg Furosemide (Lasix) 20 mg PO DAILY [facility] Last Admin: 06/10/18 10:09 Dose: 20 mg Gabapentin (Neurontin) 800 mg PO TID [facility] Last Admin: 06/10/18 12:10 Dose: 800 mg Insulin Detemir (Levemir) 10 units SC HS [facility] Insulin Human Lispro (Humalog) 0 units SC [facility] PRN Reason: Protocol Last Admin: 06/10/18 11:55 Dose: 2 units Lorazepam (Ativan) 1 mg IVP ONCE PRN PRN Reason: Agitation Last Admin: 06/09/18 10:00 Dose: 1 mg Losartan Potassium (Cozaar) 50 mg PO DAILY [facility] Last Admin: 06/10/18 08:41 Dose: 50 mg Metformin HCl (Glucophage) 1,000 mg PO BIDWM [facility] Last Admin: 06/10/18 08:41 Dose: 1,000 mg Metoprolol Tartrate (Lopressor) 25 mg PO Q12 [facility] Last Admin: 06/10/18 10:52 Dose: 25 mg Nystatin (Nystop Topical Powder) 1 applic TOP TID [facility] Last Admin: 06/10/18 12:09 Dose: 1 applic Ondansetron HCl (Zofran Inj) 4 mg IVP Q6H PRN PRN Reason: Nausea/Vomiting Sitagliptin Phosphate (Januvia) 100 mg PO DAILY [facility] Last Admin: 06/10/18 08:42 Dose: 100 mg Tramadol HCl (Ultram) 50 mg PO Q6H PRN PRN Reason: Pain, moderate (4-7) Last Admin: 06/10/18 02:24 Dose: 50 mg Results - Vital Signs Recent Vital Signs: Last Vital Signs Temp 98.3 F 06/10/18 08:00 Pulse 117 H 06/10/18 10:52 Resp 20 06/10/18 10:00 BP 188/89 H 06/10/18 10:52 Pulse Ox 96 06/10/18 10:00 - Labs Result Diagrams: 06/10/18 04:20 06/10/18 04:20 Labs: Laboratory Results - last 24 hr 06/09/18 06/09/18 06/10/18 16:29 20:53 03:52 WBC RBC Hgb Hct MCV MCH MCHC RDW Plt Count Sodium Potassium Chloride Carbon Dioxide Anion Gap BUN Creatinine Est GFR ( Amer) Est GFR (Non-Af Amer) POC Glucose (mg/dL) 303 H 148 H 200 H Random Glucose Calcium Total Bilirubin AST ALT Alkaline Phosphatase Total Protein Albumin Globulin Albumin/Globulin Ratio 06/10/18 06/10/18 06/10/18 04:20 04:20 11:20 WBC 11.9 H D RBC 4.01 Hgb 12.4 D Hct 38.1 MCV 95.0 MCH 30.8 MCHC 32.4 L RDW 16.4 H Plt Count 203 Sodium 142 Potassium 4.0 Chloride 116 H Carbon Dioxide 21 L Anion Gap 9 L BUN 16 Creatinine 0.7 Est GFR ( Amer) > 60 Est GFR (Non-Af Amer) > 60 POC Glucose (mg/dL) 242 H Random Glucose 254 H Calcium 8.4 Total Bilirubin 0.2 AST 31 ALT 23 Alkaline Phosphatase 88 Total Protein 6.2 L Albumin 3.0 L D Globulin 3.2 Albumin/Globulin Ratio 0.9 L
[2018-06-10] MEDS ORDERED: Insulin Detemir 100 Units/ml Inj SC SCH (22:00)
[2018-06-11] MEDS: Albuterol-Ipratrop 3 mg / 0.5 (3 ml) UD INH SCH ×4 (01:00→19:06)
[2018-06-11 06:03] LABS: HEMOGLOBIN 12.9 g/dL (12.0-16.0); MEAN CELL VOLUME 93.6 fl (81.0-99.0); MEAN CORPUSCULAR HEMOGLOBIN 31.5 pg (27.0-31.0); MEAN CORPUSCULAR HGB CONC 33.7 g/dL (33.0-37.0); RBC 4.08 Mil/uL (3.80-5.20); RED CELL DISTRIBUTION WIDTH 16.1 % (11.5-14.5); WHITE BLOOD COUNT 7.3 K/uL (4.8-10.8)
[2018-06-11] MEDS ORDERED: Dextrose 50% SYRINGE Inj (50 ml) ONE ×3 (06:39→12:11)
[2018-06-11] MEDS ORDERED: Dextrose 50% SYRINGE Inj (50 ml) IVP ONE ×3 (06:43→12:11)
[2018-06-11 06:53] LABS: BLOOD UREA NITROGEN 15 mg/dl (7-17); CALCIUM 9.4 mg/dL (8.4-10.2); GFR NON-AFRICAN AMERICAN > 60
[2018-06-11] MEDS: Insulin Lispro (humaLOG) 100 Units/ml Inj SC SCH ×4 (07:02→21:59)
[2018-06-11] MEDS: Divalproex 250 mg DR(BID formulation) PO SCH ×2 (08:27→18:47)
[2018-06-11] MEDS: diltiaZEM 180 mg/24 Hours CD Cap PO SCH (08:29)
--- NOTE | 2018-06-11 09:13 | CP.PCM.PN ---
Subjective - Date & Time of Evaluation Date of Evaluation: 06/11/18 Time of Evaluation: 09:10 - Subjective Subjective: Ms. Arreaga was seen and examined at the bedside in ICU. She is lethargic, unable to keep her eyes open, no mumbling of words noted which is a deterioration from yesterday. Her pupils are mydriatic, sluggish to react with 5 mm in size, bradycardic, and blood pressure is in the low 100's. She remains with episode of restlessness especially with her left BKA. According to staff, she is able to tolerate breakfast and medication this am. She has also an episode of hypoglycemia BS< 20, Dextrose 50 was given. Currently her BS- 116, remains bradycardic, heart rate in the 40-50's. Objective - Vital Signs/Intake and Output Vital Signs (last 24 hours): Temp Pulse Resp BP Pulse Ox 98.3 F 52 L 12 102/48 L 100 06/10/18 20:00 06/11/18 08:35 06/10/18 22:00 06/11/18 08:35 06/10/18 22:00 Intake and Output: 06/11/18 06/11/18 06:59 18:59 Intake Total 50 Balance 50 - Medications Medications: Current Medications Acetaminophen (Tylenol 325mg Tab) 650 mg PO Q6H PRN PRN Reason: Pain, Mild (1-3) Acetaminophen (Tylenol 325mg Tab) 650 mg PO Q6H PRN PRN Reason: Fever >100.4 F Albuterol/Ipratropium (Duoneb 3 Mg/0.5 Mg (3 Ml) Ud) 3 ml INH RQ6 [facility]A Last Admin: 06/11/18 07:58 Dose: 3 ml Aspirin (Aspirin Chewable) 81 mg PO DAILY [facility] Last Admin: 06/11/18 08:27 Dose: 81 mg Atorvastatin Calcium (Lipitor) 20 mg PO HS [facility] Last Admin: 06/10/18 22:43 Dose: 20 mg Benztropine Mesylate (Cogentin) 2 mg PO BID [facility] Last Admin: 06/11/18 08:27 Dose: 2 mg Budesonide (Pulmicort Respules) 0.5 mg INH RBID PRN PRN Reason: Shortness of Breath Last Admin: 06/08/18 11:21 Dose: 0.5 mg Clonidine HCl (Catapres) 0.1 mg PO BID [facility] Last Admin: 06/10/18 16:31 Dose: 0.1 mg Diltiazem HCl (Cardizem Cd) 180 mg PO DAILY [facility] Last Admin: 06/11/18 08:29 Dose: Not Given Divalproex Sodium (Depakote Dr(*Bid*)) 750 mg PO BID [facility] Last Admin: 06/11/18 08:27 Dose: 750 mg Furosemide (Lasix) 20 mg PO DAILY [facility] Last Admin: 06/10/18 10:09 Dose: 20 mg Gabapentin (Neurontin) 800 mg PO TID [facility] Last Admin: 06/10/18 16:32 Dose: 800 mg Sodium Chloride (Sodium Chloride 0.9%) 1,000 mls @ 100 mls/hr IV .Q10H [facility] Stop: 06/12/18 09:04 Insulin Detemir (Levemir) [address] [facility] Last Admin: 06/10/18 22:41 Dose: 10 units Insulin Human Lispro (Humalog) 0 units SC [facility] PRN Reason: Protocol Last Admin: 06/11/18 07:02 Dose: Not Given Lorazepam (Ativan) 1 mg IVP ONCE PRN PRN Reason: Agitation Last Admin: 06/09/18 10:00 Dose: 1 mg Losartan Potassium (Cozaar) 50 mg PO DAILY [facility] Last Admin: 06/11/18 08:35 Dose: Not Given Metformin HCl (Glucophage) 1,000 mg PO BIDWM [facility] Last Admin: 06/11/18 08:27 Dose: Not Given Metoprolol Tartrate (Lopressor) 25 mg PO Q12 [facility] Last Admin: 06/10/18 20:20 Dose: 25 mg Nicotine (Nicoderm Cq) 1 patch TD DAILY [facility] Nystatin (Nystop Topical Powder) 1 applic TOP TID [facility] Last Admin: 06/10/18 16:31 Dose: 1 applic Ondansetron HCl (Zofran Inj) 4 mg IVP Q6H PRN PRN Reason: Nausea/Vomiting Sitagliptin Phosphate (Januvia) 100 mg PO DAILY [facility] Last Admin: 06/11/18 08:28 Dose: Not Given Tramadol HCl (Ultram) 50 mg PO Q6H PRN PRN Reason: Pain, moderate (4-7) Last Admin: 06/10/18 02:24 Dose: 50 mg - Labs Labs: 06/11/18 04:20 06/11/18 04:20 PT 9.2 Seconds (9.8-13.1) L 06/05/18 19:25 INR 0.8 06/05/18 19:25 APTT 27.0 Seconds (25.6-37.1) 06/05/18 19:25 - Constitutional Appears: Confused - Eye Exam Pupil Exam: Mydriatic Additional comments: 5 mm - Neurological Exam Neuro motor strength exam: Left Upper Extremity: 2/1, Right Upper Extremity: 2/1 , Left Lower Extremity: 3, Right Lower Extremity: 2/1 Additional comments: mental state declined from previous examination, pupils mydriatic, lethargic, but with episode of restlessness in bed. Assessment and Plan (1) Intracranial hemorrhage Assessment & Plan: Continue all current medical regimen. Recommend stat CT of the head without contrast, IVF normal saline 100 ml/hr, keep head of bed elevated at least 30 degrees, monitor blood sugar, re-evaluation of swallowing, treat any electrolyte abnormalities. Status: Acute
[2018-06-11] MEDS ORDERED: Sodium Chloride 0.9% 1,000 ML IV SCH (09:15)
--- NOTE | 2018-06-11 10:13 | CT ---
Date of service: 06/11/2018 PROCEDURE: CT HEAD WITHOUT CONTRAST. HISTORY: change of mental status COMPARISON: None available. TECHNIQUE: Axial computed tomography images were obtained through the head/brain without intravenous contrast. Radiation dose: Total exam DLP = mGy-cm. This CT exam was performed using one or more of the following dose reduction techniques: Automated exposure control, adjustment of the mA and/or kV according to patient size, and/or use of iterative reconstruction technique. FINDINGS: HEMORRHAGE: No intracranial hemorrhage. BRAIN: Diffuse cerebral atrophy chronic microangiopathy pattern is reiterated and remains [id number] severity but age-appropriate. No mass effect or acute intracranial hemorrhage is appreciable. Chronic lacune is seen the left thalamus/ posterior limb internal triangle. No cortical lucency appreciated. A tiny chronic lacune is seen at the left cerebellar base. VENTRICLES: Unremarkable. No hydrocephalus. CALVARIUM: Unremarkable. PARANASAL SINUSES: Unremarkable as visualized. No significant inflammatory changes. MASTOID AIR CELLS: Unremarkable as visualized. No inflammatory changes. OTHER FINDINGS: None. IMPRESSION: Stable age related neuro degenerative changes as well as chronic lacunes left thalamus and left cerebellum. No definite acute intracranial findings by standard CT criteria. Follow-up CT or MRI are available if clinically warranted.
--- NOTE | 2018-06-11 10:45 | CP.CCUPN ---
CCU Subjective - Physician Review Subjective (Free Text): Has not required return to BiPAP support, nor should she if she had developed any resp distress due to occasional lethargy, most likely due to hypoglycemia this AM with BS below 20, and given 2 amps of D50W. More responsive now and tolerated PO feeding assistance. Otherwise, SPO2 99% on nasal cannula oxygen 3 LPM. Bradycardia noted as well on tele monitoring with HR as low as 49/min in sinus. No effect on BP level noted. Other vitals and I/O's reviewed. ROS: No other pertinent negs or positives on 10+ system review. PMSFH: All other Nursing and physician documentation reviewed to date; no new pertinent info noted relevant to current medical problems. EXAM- HEENT: no icterus, no gaze preference, pupils equal and reactive NECK: No JVD visible, supple, carotids equal upstroke bilat/no bruits CHEST: decreased BS bases, no wheezes audible HEART: regular, distant, Tachy S1S2, no rubs ABD: soft, no increased distention, no tympany, no focal tenderness, BS hypoactive, no rebound. EXT: no peripheral/ digital cyanosis, no calf tenderness or palpable cords, distal pulses intact and symmetrical. Left BKA intact, stump wound well healed. NEURO: increased tone present in LUE only. SKIN: fungal rash perineal and bilat inframammary areas; otherwise warm and dry. LABS: WBC= 7.3 HGB= 12.9 PLTs= 202K Rk=233 K= 3.6 CL= 110 HCO3= 30 BUN/Cr= 15/0.6 BS= below 20 IMPRESSION / MAJOR PROBLEMS NOW: 1. Acute Stroke, L Thalamic area. 2. Acute resp insuff 2 Acute Pulm edema 3. Mild Delirium- unclear mental status baseline. 4. Chronic A Fib on AC with Xarelto 5. DM II-uncontrolled PLAN: 1. Metformin and Januvia on hold. Consoder resuming after observing BS trends with current PO intake. 2. Hold Gabapentin and Clonidine. 3. Neurology has ordere repeat CT Brain for today. 4. Lasix IV prn, has been off IVFs. If hypoglycemia persists, may need low rate supplemental IV dextrose infusion. 5. Get OOB to chair as tolerated, PT/OT eval and assistance. CCU Objective - Vital Signs / Intake & Output Vital Signs (Last 4 hours): Vital Signs Temp Pulse Resp BP Pulse Ox 06/11/18 08:35 52 L 102/48 L 06/11/18 08:29 53 L 102/49 L 06/11/18 08:00 93.9 F L 45 L 19 95/46 L 100 Intake and Output (Last 8hrs): Intake & Output 06/10/18 06/11/18 06/11/18 22:59 06:59 14:59 Intake Total 290 Output Total 1800 Balance -1510 Intake: IV 0 Oral 290 Output: Urine 1800 Urethral (Suggs) 1800
[2018-06-11] MEDS ORDERED: Dextrose 5%/0.9% NS 1,000 ML IV SCH (12:15)
[2018-06-11 17:46] LABS: ABG ALLEN TEST YES; ARTERIAL BLOOD GAS HCO3 25.5 mmol/L (21-28); ARTERIAL BLOOD GAS O2 SAT 97.9 % (95-98); ARTERIAL BLOOD GAS PCO2 39 mm/Hg (35-45); ARTERIAL BLOOD GAS PH 7.42 (7.35-7.45); ARTERIAL BLOOD GAS PO2 84 mm/Hg (80-100); ARTERIAL BLOOD GAS TCO2 26.5 mmol/L (22-28)
[2018-06-11] MEDS ORDERED: Chlorhexidine Gluconate 1 APPL/PKT TP ONE (22:32)
[2018-06-12] MEDS: Albuterol-Ipratrop 3 mg / 0.5 (3 ml) UD INH SCH ×4 (01:58→19:17)
--- NOTE | 2018-06-12 01:59 | CON ---
DATE: 06/11/2018 ENDOCRINOLOGY CONSULTATION LOCATION: Room 425, ICU. HISTORY OF PRESENT ILLNESS: This is a 72-year-old female with known history of type 2 insulin-requiring diabetes, presenting here with adverse reactions to her recent medications given for restless legs syndrome and is now being referred for diabetic evaluation because of supervening marked hypoglycemic episodes, currently on dextrose infusion as given thereof. PAST MEDICAL HISTORY: History of type 2 insulin-requiring diabetes, on a combination of NovoLog 70/30 given as 14 units before breakfast and 10 units before dinner with Levemir given at a variable dose of 6-10 units at bedtime; history of hypertensive cardiovascular disease and dyslipidemia; history of diabetic retinopathy, polyneuropathy and also significant history of coronary artery disease with cardiac tachyarrhythmias and chronic atrial fibrillation, currently on Xarelto medication as given; history of peripheral arterial disease and vasculopathy with a previous left below-knee amputation as noted; history of history of generalized anxiety and depression, currently on psychotropic medications, being followed closely by a psychiatry, Dr. Matthew Rodríguez; history of chronic obstructive lung disease and obstructive sleep apnea, using a CPAP at home; history of previous admissions for congestive heart failure as noted. History of hypothyroidism, currently off thyroid medications at this time. History of a recent syncopal and near syncopal episodes with generalized tonic-clonic movements of her lower extremities to be adverse reactions to the medications given for restless legs syndrome. History of recent intracranial hemorrhage noted by CT scan of brain localized in the right basal ganglia as noted. FAMILY HISTORY: Positive for diabetes and hypertension. SOCIAL HISTORY: The patient is a and lives alone with adequate home health support and care for about 8 hours a day as noted. She smokes half a pack a day for many years now. REVIEW OF SYSTEMS: As mentioned above, admits to generalized body weakness with easy fatigability and tiredness and suboptimal energy level. Also admits to episodic bouts of dizziness and lightheadedness with frequent near syncopal and syncopal episodes, worse in the last week or so prior to admission. No chest pains, palpitations, or PNDs. Her oral intake has been variable with nausea, dyspepsia, and suboptimal meal portions at this time. Also admits to habitual constipation. Moreover admits to lower extremity paresthesias, especially nocturnally. PHYSICAL EXAMINATION: GENERAL: This is an average-built female in no apparent distress. VITAL SIGNS: With a blood pressure of 150/90, pulse of 70 beats per minute and regular, temperature 98, respirations 20. Height is 5 feet 4 inches. Weight is 99 pounds. HEENT: Head is normocephalic. Eyes anicteric with pink conjunctivae. Funduscopy is not possible at this time. Ears, nose, and throat otherwise normal. NECK: Supple. Thyroid gland is normal in size. No carotid bruits or cervical adenopathy. CARDIOPULMONARY: Adynamic precordium. S1, S2 are rapid and regular. LUNGS: Clear to auscultation. ABDOMEN: Flat, soft with positive bowel sounds. EXTREMITIES: No peripheral edema. Pulses are +2 bilaterally. Her left below-knee amputation stump healed with no active ulceration for dermatosis noted. LABORATORY DATA: Her chemistry showed a BUN of 15, sodium 142, potassium 3.6, chloride 110, CO2 of 30, glucose less than 20 and creatinine 0.6. Her subsequent glucose levels have ranged from 57 and 113 mg/dL. ASSESSMENT: This is a 72-year-old female with uncontrolled and decompensated type 2 insulin-requiring diabetes, presenting here with apparent generalized tonic-clonic movements with near syncopal and syncopal episodes and currently undergoing neurological workup at this time. She also has recent symptomatic hypoglycemia with overt hyperadrenergic and neuroglycopenic manifestations of the same. She also has diabetic microvascular complications of retinopathy and polyneuropathy with diabetic macrovascular complications of coronary artery disease and peripheral arterial disease and vasculopathy with a previous left below-knee amputation as noted. PLAN OF MANAGEMENT: As discussed with the patient and staff, we will modify her current insulin coverage to obviate hypoglycemia and detailed orders have been given. We will obtain serial chemistries and supplement accordingly as needed. We will follow. We will obtain a hemoglobin A1c to confirm her prior glycemic control and baseline thyroid function studies will be ordered. We will follow and advise accordingly. Nevin Chen MD
[2018-06-12 06:20] LABS: BLOOD UREA NITROGEN 19 mg/dl (7-17); CALCIUM 9.3 mg/dL (8.4-10.2); GFR NON-AFRICAN AMERICAN > 60
[2018-06-12 06:21] LABS: ALB/GLOB RATIO 0.9 (1.0-2.1); ALT/SGPT 30 U/L (9-52); AST/SGOT 59 U/L (14-36)
[2018-06-12 06:22] LABS: T4 7.17 ug/dl (5.5-11.0)
[2018-06-12] MEDS: Insulin Lispro (humaLOG) 100 Units/ml Inj SC SCH ×4 (07:36→21:11)
[2018-06-12] MEDS: diltiaZEM 180 mg/24 Hours CD Cap PO SCH (08:18)
[2018-06-12] MEDS: Divalproex 250 mg DR(BID formulation) PO SCH ×2 (08:20→16:00)
--- NOTE | 2018-06-12 08:46 | RAD ---
Date of service: 06/11/2018 HISTORY: SOB COMPARISON: Frontal chest radiograph 06/10/2018. FINDINGS: LUNGS: Linear Risser fibrosis again seen at the medial left base. No alveolitis bilaterally. PLEURA: No significant pleural effusion identified, no pneumothorax apparent. CARDIOVASCULAR: Normal. OSSEOUS STRUCTURES: No significant abnormalities. VISUALIZED UPPER ABDOMEN: Normal. OTHER FINDINGS: Bilateral breast implantation reiterated. IMPRESSION: No interval acute cardiopulmonary is with fibrosis or linear atelectasis medial left base and remaining lung franco clear. No pulmonary vascular congestion.
--- NOTE | 2018-06-12 09:59 | CP.PCM.PN ---
Subjective - Date & Time of Evaluation Date of Evaluation: 06/12/18 Time of Evaluation: 09:53 - Subjective Subjective: Ms. Arreaga was seen and examined at the bedside in ICU. She is more alert, able to answer some questions, but confused to time and place. She is able to state what she consume breakfast. She is SOB with exertion with Nasal cannula on saturating at 94%, but with restless leg syndrome. She remains on 1:1 sitter for patient safety. Repeat CTH showed Stable age related neuro degenerative changes as well as chronic lacunes left thalamus and left cerebellum. No definite acute intracranial findings by standard CT criteria. There was no untoward events overnight. Objective - Vital Signs/Intake and Output Vital Signs (last 24 hours): Temp Pulse Resp BP Pulse Ox 98.7 F 113 H 28 H 147/49 L 100 06/12/18 08:00 06/12/18 08:18 06/12/18 08:00 06/12/18 08:19 06/12/18 08:00 Intake and Output: 06/12/18 06/12/18 06:59 18:59 Intake Total 0 0 Output Total 1000 Balance -1000 0 - Medications Medications: Current Medications Acetaminophen (Tylenol 325mg Tab) 650 mg PO Q6H PRN PRN Reason: Pain, Mild (1-3) Acetaminophen (Tylenol 325mg Tab) 650 mg PO Q6H PRN PRN Reason: Fever >100.4 F Albuterol/Ipratropium (Duoneb 3 Mg/0.5 Mg (3 Ml) Ud) 3 ml INH RQ6 [facility] Last Admin: 06/12/18 07:25 Dose: 3 ml Aspirin (Aspirin Chewable) 81 mg PO DAILY [facility] Last Admin: 06/12/18 08:18 Dose: 81 mg Atorvastatin Calcium (Lipitor) 20 mg PO HS [facility] Last Admin: 06/11/18 21:06 Dose: 20 mg Benztropine Mesylate (Cogentin) 2 mg PO BID [facility] Last Admin: 06/12/18 08:19 Dose: 2 mg Budesonide (Pulmicort Respules) 0.5 mg INH RBID PRN PRN Reason: Shortness of Breath Last Admin: 06/08/18 11:21 Dose: 0.5 mg Clonidine HCl (Catapres) 0.1 mg PO BID [facility] Last Admin: 06/10/18 16:31 Dose: 0.1 mg Diltiazem HCl (Cardizem Cd) 180 mg PO DAILY [facility] Last Admin: 06/12/18 08:18 Dose: 180 mg Divalproex Sodium (Depakote Dr(*Bid*)) 750 mg PO BID [facility] Last Admin: 06/12/18 08:20 Dose: 750 mg Gabapentin (Neurontin) 800 mg PO TID [facility] Last Admin: 06/10/18 16:32 Dose: 800 mg Haloperidol (Haldol) 1 mg PO TID [facility] Last Admin: 06/12/18 08:55 Dose: 1 mg Dextrose/Sodium Chloride (Dextrose 5%/0.9% Ns 1000 Ml) 1,000 mls @ 75 mls/hr IV .[id number] [facility] Stop: 06/12/18 12:10 Last Admin: 06/11/18 12:26 Dose: 75 mls/hr Insulin Human Lispro (Humalog) 0 units SC [facility] PRN Reason: Protocol Last Admin: 06/12/18 07:36 Dose: Not Given Losartan Potassium (Cozaar) 50 mg PO DAILY [facility] Last Admin: 06/12/18 08:19 Dose: 50 mg Metformin HCl (Glucophage) 1,000 mg PO BIDWM [facility] Last Admin: 06/11/18 08:27 Dose: Not Given Metoprolol Tartrate (Lopressor) 25 mg PO Q12 [facility] Last Admin: 06/10/18 20:20 Dose: 25 mg Nicotine (Nicoderm Cq) 1 patch TD DAILY [facility] Last Admin: 06/12/18 08:20 Dose: 1 patch Nystatin (Nystop Topical Powder) 1 applic TOP TID [facility] Last Admin: 06/12/18 08:20 Dose: 1 applic Ondansetron HCl (Zofran Inj) 4 mg IVP Q6H PRN PRN Reason: Nausea/Vomiting Sitagliptin Phosphate (Januvia) 100 mg PO DAILY [facility] Last Admin: 06/11/18 08:28 Dose: Not Given - Labs Labs: 06/11/18 04:20 06/12/18 04:20 PT 9.2 Seconds (9.8-13.1) L 06/05/18 19:25 INR 0.8 06/05/18 19:25 APTT 27.0 Seconds (25.6-37.1) 06/05/18 19:25 - Constitutional Appears: No Acute Distress - Head Exam Head Exam: NORMAL INSPECTION - Eye Exam Pupil Exam: Mydriatic Additional comments: 4 mm sluggish - Neurological Exam Neurological Exam: Alert, Awake Neuro motor strength exam: Left Upper Extremity: 5, Right Upper Extremity: 5, Left Lower Extremity: 5, Right Lower Extremity: 3 Additional comments: neurological improved from previous examination. She is awake, participates in a conversation.moves all extremities. Assessment and Plan (1) Intracranial hemorrhage Assessment & Plan: Continue all current medical regimen. Recommend keep head of bed elevated at least 30 degrees, monitor blood sugar, treat any electrolyte abnormalities. Status: Acute
--- NOTE | 2018-06-12 16:53 | CP.CCUPN ---
CCU Subjective - Physician Review Subjective (Free Text): Extremely agitated today, more so than yesterday, moving and swinging LLE in bed and against the bed railings, taking ventimask off, but no real desaturation. No other distress noted. Empiric Haldol given this Am without appreciable effect, but no increase in agitation nor abnormal movements noted. Outpatient / home meds re-reviewed and possible BZDP withdrawal given consideration. Xanax ordered, but other antipsychotics not resumed which include Lexapro and Remeron. No further bradycardic episodes noted, nor hypoglycemia as evident yesterday. Other vitals and I/O's reviewed. ROS: No other pertinent negs or positives on 10+ system review. PMSFH: All other Nursing and physician documentation reviewed to date; no new pertinent info noted relevant to current medical problems. EXAM- HEENT: no icterus, no gaze preference, pupils equal and reactive NECK: No JVD visible, supple, carotids equal upstroke bilat/no bruits CHEST: decreased BS bases, no wheezes audible HEART: regular, distant, Tachy S1S2, no rubs ABD: soft, no increased distention, no tympany, no focal tenderness, BS hypoactive, no rebound. EXT: no peripheral/ digital cyanosis, no calf tenderness or palpable cords, distal pulses intact and symmetrical. Left BKA intact, stump wound well healed. NEURO: increased tone present in LUE only. SKIN: fungal rash perineal and bilat inframammary areas; otherwise warm and dry. LABS: Yesterdays WBC= 7.3 HGB= 12.9 PLTs= 202K Od=502 K= 4.3 CL= 108 HCO3= 26 BUN/Cr= 19/0.8 BS= 173 IMPRESSION / MAJOR PROBLEMS NOW: 1. Acute Stroke, L Thalamic area. 2. Acute resp insuff 2 Acute Pulm edema 3. Mild Delirium- unclear mental status baseline. 4. Chronic A Fib on AC with Xarelto 5. DM II-uncontrolled PLAN: 1. Xanax resumed, will reserve Ativan IV prn for severe agitation, still on 1: 1 supervision, 2. Consider alternative therapy ofr restless leg syndrome. 3. Gabapentin and Clonidine remain on hold for now. 4. Repeat CT Brain done yesterday as per Neuro shows no new acute changes. 5. Lasix IV prn, has been off IVFs. 6. Get OOB to chair as tolerated, PT/OT eval and assistance. CCU Objective - Vital Signs / Intake & Output Vital Signs (Last 4 hours): Vital Signs Temp Pulse Resp BP Pulse Ox 06/12/18 16:00 98.3 F 98 H 25 H 140/72 97 06/12/18 14:03 100 H 97 06/12/18 14:00 97 H 22 138/72 99 Intake and Output (Last 8hrs): Intake & Output 06/12/18 06/12/18 06/12/18 06:59 14:59 22:59 Intake Total 0 195 0 Output Total 1000 Balance -1000 195 0 Weight 98 lb Intake: IV 0 Oral 195 0 Output: Urine 1000 Urethral (Suggs) 1000 Other: # Bowel Movements 1
[2018-06-13] MEDS: Albuterol-Ipratrop 3 mg / 0.5 (3 ml) UD INH SCH ×4 (01:00→19:08)
--- NOTE | 2018-06-13 01:44 | PN ---
DATE: 06/12/2018 ENDO FOLLOWUP NOTE LOCATION: In ICU, room 425. SUBJECTIVE: This is a 72-year-old female with recent acute CVA and also with extremes of glycemic fluctuations and is now being followed closely for metabolic management. She was quite agitated last night as noted and has not received her full insulin regimen, which is being given on the outpatient at this time. Her oral intake is quite variable with need for feeding assistance thereof. Her glycemic levels today have are fluctuating, but improved and have ranged from 197 to 236 mg/dL. LABORATORY DATA: Her latest chemistry showed a BUN of 19, sodium 141, potassium 4.3, chloride 108, CO2 of 26, glucose 173, and creatinine 0.3. Her thyroid studies showed a T4 of 7.17 with a TSH of 0.36 and a free T4 of 1.13. ASSESSMENT: This is a 72-year-old female with uncontrolled and decompensated type 2 insulin-requiring diabetes with extremes of glycemic fluctuations ranging from extremes of symptomatic hypoglycemia to supervening marked hyperglycemic accelerations as noted thereof. She also has diabetic microvascular complications of retinopathy, polyneuropathy and nephropathy with overt proteinuria. Moreover, she also has diabetic macrovascular complications of cerebrovascular disease with coronary artery disease and peripheral arterial disease and vasculopathy with a previous left below-knee amputation as noted thereof. PLAN OF MANAGEMENT: We will restart a very low dose of her premixed insulin regimen at this time with NovoLog 70/30 to be given as 6 units before breakfast and 4 units before dinner to start today. We will titrate incrementally as indicated to optimize metabolic control. We will obtain serial chemistries and supplement accordingly as needed. We will follow. Nevin Chen MD
[2018-06-13 06:13] LABS: HEMOGLOBIN 11.8 g/dL (12.0-16.0); MEAN CORPUSCULAR HEMOGLOBIN 31.2 pg (27.0-31.0); MEAN CORPUSCULAR HGB CONC 33.2 g/dL (33.0-37.0); RBC 3.78 Mil/uL (3.80-5.20); WHITE BLOOD COUNT 4.2 K/uL (4.8-10.8)
[2018-06-13 06:54] LABS: ALB/GLOB RATIO 0.8 (1.0-2.1); ALBUMIN 2.5 g/dL (3.5-5.0); ALT/SGPT 35 U/L (9-52); AST/SGOT 57 U/L (14-36); BLOOD UREA NITROGEN 24 mg/dl (7-17); CALCIUM 8.7 mg/dL (8.4-10.2); GFR NON-AFRICAN AMERICAN > 60
[2018-06-13] MEDS: Insulin Lispro (humaLOG) 100 Units/ml Inj SC SCH ×4 (07:02→21:28)
[2018-06-13] MEDS: diltiaZEM 180 mg/24 Hours CD Cap PO SCH (08:55)
[2018-06-13] MEDS: Divalproex 250 mg DR(BID formulation) PO SCH ×2 (08:56→16:16)
--- NOTE | 2018-06-13 19:35 | PN ---
DATE: 06/12/2018 LOCATION: Room 425, ICU. SUBJECTIVE: This is a 72-year-old female with recent uncontrolled type 2 insulin-requiring diabetes, initially presenting with hyperglycemic accelerations with supervening symptomatic hypoglycemia and has now improved clinically and metabolically as noted thereof. She also presented here with an acute CVA with an initial CAT scan showing an intraparenchymal bleed and subsequent MRI testing showed a left thalamic infarct as noted thereof. She has ongoing close hemodynamic monitoring and neurological workup at this time. Her glycemic levels, however, are fluctuating but much improved, also with the variability of her oral intake as noted. Her glucose levels today have ranged from 168 to 172 mg/dL. Her latest chemistry showed a BUN of 24, sodium 143, potassium 3.6, chloride 108, CO2 of 32, glucose 175, and creatinine is 0.7. ASSESSMENT AND PLAN: At this time, the patient actually has been restarted back on metformin 1 g b.i.d. by the primary physician but because of the very undernourished and asystemic and very frail physique of the patient, we will discontinue the metformin which will promote further weight loss and neurasthenia at this point in time, especially that her weight is only 98 pounds as noted. We will switch over to Januvia at 50 mg once daily as ordered to start today. We will continue the low-dose correction scale using Humalog insulin as ordered. We will obtain serial chemistries and supplement accordingly as needed. We will follow. Nevin Chen MD
[2018-06-14] MEDS: Albuterol-Ipratrop 3 mg / 0.5 (3 ml) UD INH SCH ×4 (01:00→19:09)
[2018-06-14] MEDS ORDERED: Insulin Lispro Mix 75/25 100 units/ml (HumaLog) 10ml SC SCH ×2 (07:30→16:30)
[2018-06-14] MEDS: Insulin Lispro (humaLOG) 100 Units/ml Inj SC SCH ×3 (08:30→16:00)
[2018-06-14] MEDS: Divalproex 250 mg DR(BID formulation) PO SCH ×2 (08:39→16:24)
[2018-06-14] MEDS: diltiaZEM 180 mg/24 Hours CD Cap PO SCH (08:40)
--- NOTE | 2018-06-14 11:09 | PN ---
DATE: 06/14/2018 LOCATION: Room 416 SUBJECTIVE: This is a 72-year-old female with recent uncontrolled type 2 insulin-requiring diabetes being evaluated here for a recent intracranial hemorrhage and is being followed closely by Neurology and also from the metabolic view point is being followed closely for recent glycemic fluctuations as noted thereof. Her oral intake has been variable and needs feeding assistance at this time as noted. Her glucose levels are fluctuating as noted overnight and have ranged from 238 to 291 and 334 mg/dL. Her latest chemistry showed a BUN of 24, sodium 1143, potassium 3.6, chloride 108, CO2 of 32, glucose 175, and creatinine 0.7. PLAN OF MANAGEMENT: At this time, we have decided to resume her premixed insulin regimen which she was actually using on the outpatient for over 20 years now as noted. We will restart her on a lower dose of the Humalog 75/25 given as 12 units before breakfast and 8 units before dinner to start today. We will titrate incrementally as indicated to optimize metabolic control. We will follow and advise accordingly. Nevin Chen MD
[2018-06-14] MEDS ORDERED: Dextrose 50% SYRINGE Inj (50 ml) ONE ×2 (15:46→15:49)
[2018-06-14] MEDS ORDERED: Dextrose 50% SYRINGE Inj (50 ml) IVP ONE ×2 (15:48)
--- NOTE | 2018-06-14 15:49 | CP.PCM.PN ---
Subjective - Date & Time of Evaluation Date of Evaluation: 06/14/18 Time of Evaluation: 11:00 - Subjective Subjective: patient seen and examined at bedside. Patient had restless night, currently sleeping. as per supply chain director, patient has trouble swallowing liquids at times. no other complaints offered at this time. Objective - Vital Signs/Intake and Output Vital Signs (last 24 hours): Temp Pulse Resp BP Pulse Ox 98.2 F 50 L 18 93/48 L 96 06/14/18 12:19 06/14/18 12:19 06/14/18 12:19 06/14/18 12:19 06/14/18 12:19 Intake and Output: 06/14/18 06/14/18 06:59 18:59 Intake Total 150 Output Total 150 Balance 0 - Medications Medications: Current Medications Acetaminophen (Tylenol 325mg Tab) 650 mg PO Q6H PRN PRN Reason: Pain, Mild (1-3) Acetaminophen (Tylenol 325mg Tab) 650 mg PO Q6H PRN PRN Reason: Fever >100.4 F Albuterol/Ipratropium (Duoneb 3 Mg/0.5 Mg (3 Ml) Ud) 3 ml INH RQ6 [facility] Last Admin: 06/14/18 14:00 Dose: Not Given Alprazolam (Xanax) 0.25 mg PO Q12 PRN PRN Reason: Agitation Stop: 06/19/18 12:09 Last Admin: 06/12/18 12:17 Dose: 0.25 mg Aspirin (Aspirin Chewable) 81 mg PO DAILY [facility] Last Admin: 06/14/18 08:39 Dose: 81 mg Atorvastatin Calcium (Lipitor) 20 mg PO HS [facility] Last Admin: 06/13/18 21:28 Dose: 20 mg Benztropine Mesylate (Cogentin) 2 mg PO BID [facility] Last Admin: 06/14/18 08:39 Dose: 2 mg Clonidine HCl (Catapres) 0.1 mg PO BID [facility] Last Admin: 06/10/18 16:31 Dose: 0.1 mg Diltiazem HCl (Cardizem Cd) 120 mg PO DAILY [facility] Divalproex Sodium (Depakote Dr(*Bid*)) 750 mg PO BID [facility] Last Admin: 06/14/18 08:39 Dose: 750 mg Gabapentin (Neurontin) 800 mg PO TID [facility] Last Admin: 06/10/18 16:32 Dose: 800 mg Gabapentin (Neurontin) 600 mg PO HS [facility] Last Admin: 06/13/18 21:28 Dose: 600 mg Haloperidol Lactate (Haldol) 3 mg IVP Q6 PRN PRN Reason: Agitation Last Admin: 06/12/18 10:10 Dose: 3 mg Insulin Human Lispro (Humalog) 0 units SC ACHS [facility] PRN Reason: Protocol Last Admin: 06/14/18 12:41 Dose: Not Given Insulin Lispro Protam/Lispro Human (Humalog Mix 75/25) 12 units SC ACB [facility] Last Admin: 06/14/18 08:41 Dose: 12 units Insulin Lispro Protam/Lispro Human (Humalog Mix 75/25) 8 units SC ACD [facility] Losartan Potassium (Cozaar) 50 mg PO DAILY [facility] Last Admin: 06/14/18 08:41 Dose: 50 mg Metoprolol Tartrate (Lopressor) 25 mg PO Q12 [facility] Nicotine (Nicoderm Cq) 1 patch TD DAILY [facility] Last Admin: 06/14/18 08:42 Dose: 1 patch Nystatin (Nystop Topical Powder) 1 applic TOP TID [facility] Last Admin: 06/14/18 08:43 Dose: 1 applic Ondansetron HCl (Zofran Inj) 4 mg IVP Q6H PRN PRN Reason: Nausea/Vomiting Quetiapine Fumarate (Seroquel) 25 mg PO [facility] Last Admin: 06/13/18 21:28 Dose: 25 mg Sitagliptin Phosphate (Januvia) 50 mg PO DAILY [facility] Last Admin: 06/14/18 08:39 Dose: 50 mg - Labs Labs: 06/13/18 05:30 06/13/18 05:30 PT 9.2 Seconds (9.8-13.1) L 06/05/18 19:25 INR 0.8 06/05/18 19:25 APTT 27.0 Seconds (25.6-37.1) 06/05/18 19:25 - Constitutional Appears: Non-toxic, No Acute Distress - Head Exam Head Exam: ATRAUMATIC, NORMAL INSPECTION, NORMOCEPHALIC - Neck Exam Neck Exam: Normal Inspection - Respiratory Exam Respiratory Exam: Clear to Ausculation Bilateral, NORMAL BREATHING PATTERN - Cardiovascular Exam Cardiovascular Exam: REGULAR RHYTHM, +S1, +S2. absent: Murmur - GI/Abdominal Exam GI & Abdominal Exam: Soft - Extremities Exam Extremities Exam: Normal Inspection - Back Exam Back Exam: NORMAL INSPECTION - Skin Skin Exam: Dry, Intact, Normal Color, Warm Assessment and Plan - Assessment and Plan (Free Text) Assessment: 72 yo female admitted due to cva, L thalamic area continues to be agitated at times with restless leg syndrome LLE plan swallow eval ordered c/w meds as prescribed avoid overly sedating medications if possible patient was transferred from ICU to telemetry unit yesterday continues to be 1:1 for patient safety
[2018-06-14] MEDS ORDERED: Dextrose 50% SYRINGE Inj (50 ml) IV PRN (15:52)
[2018-06-14] MEDS ORDERED: Glucagon Recombinant 1 mg Inj IM PRN ×2 (15:52→22:30)
[2018-06-14] MEDS ORDERED: Sodium Chloride 0.45% 1,000 ML IV SCH ×2 (16:00→22:30)
[2018-06-14 16:10] LABS: ABG ALLEN TEST YES; ARTERIAL BLOOD GAS HCO3 31.6 mmol/L (21-28); ARTERIAL BLOOD GAS O2 SAT 99.5 % (95-98); ARTERIAL BLOOD GAS PCO2 57 mm/Hg (35-45); ARTERIAL BLOOD GAS PO2 149 mm/Hg (80-100)
--- NOTE | 2018-06-14 16:27 | PCM.RRT ---
[employer] Nurse Assessment - Situation [employer] Responder Arrival Time: 15:41 Location: 4 Telemetry [employer] Reason for Call: Change in Mental Status - IV IV Inserted during [employer]?: Yes IV Fluids Initiated During [employer]?: 0.45 NS @ 80 mls - Respiratory Oxygen Delivery Method: Nasal Cannula (3L), BiPAP - Ventilator Settings FIO2 (% Oxygen): 35 - Stat Labs Ordered [employer] Stat Labs Ordered: ABG [employer] Other Labs Ordered: D50 (x2), Valrpoic Acid level - Vital Signs Vital Signs: -Accucheck: 20 -BP: 110/53 -HR: 53 -RR: 16 -T: 97.3 -SPO2 97% (O2 NC @ 3L) - Vital Signs at end of [employer] Vital Signs at end of [employer]: -Accucheck: 303 -BP: 101/56 -HR: 53 -RR 18 -T98 -O2 Sat 99% - Recommendations [employer] Level of Care Recommendations: Remain in current setting Notifications: Attending Physician (Martin) I.Reason for [employer] - A) Acute Change in Patient: (Select all that apply): Acute change in mental status (Accucheck 20) Subjective: [employer] was called for 72 year old female with PMH of acute stroke, Afib and DMII for an alteration in mental status likely secondary to hypoglycemia (Accucheck 20). Upon arrival patient was unresponsive to verbal stimuli (responsive to tactile). - Neurological Status (Select all that apply): Lethargic (unable to arouse ) - Respiratory Oxygen Delivery Method: Nasal Cannula @L/min Oxygen Flow Rate: 3 - Constitutional Appears: Non-toxic, Cachectic - Head Head Exam: ATRAUMATIC - Eyes Additional Comments: pupils bilaterally dilated - Respiratory Exam Respiratory Exam: NORMAL BREATHING PATTERN - Cardiovascular Exam Cardiovascular Exam: REGULAR RHYTHM - Neurological Exam Neurological Exam: absent: Alert, Awake Plan - Assessment of Findings&Treatment Plan Location: Telemetry Room: [facility] Reason for [employer]: AMS/hypoglycemia (Accucheck 20) Time at start of [employer]: 15:41 Time at end of [employer]: 16:04 Vitals at start of [employer]: -Accucheck: 20 -BP: 110/53 -HR: 53 -RR: 16 -T: 97.3 -SPO2 97% (O2 NC @ 3L) Stat meds given: D50 (2 ampules), 0.45NS @ 80 mls, trial of BiPAP (09/10, rate 14 , 35% FiO2) Medications held: Insulin premix 75/25 12 units before breakfast, insulin premix 75/25 8 units before dinner Labs ordered: ABG, Valproic Acid Level Vitals at end of [employer]: -Accucheck: 303 -BP: 101/56 -HR: 53 -RR 18 -T98 -O2 Sat 99% [employer] was called by nurse for a 72 year old female with PMH of acute stroke, Afib and DMII for an alteration in mental status likely secondary to hypoglycemia ( Accucheck 20). Patient was unresponsive to verbal stimuli (responsive to tactile ) upon arrival and immediately given 2 ampules of D50 and started on IVF (0.45 NS @ 80 mls). Bedside glucose reading status-post D50 (x2) was 303, however patient remained lethargic. Insulin orders held for now (premix 75/25 12 units before breakfast, premix 75/25 8 units before dinner). ABG and valproic acid levels ordered. ABG warranted a trial of BiPAP (09/09, rate 14, 35% FiO2) due to hypercapnia (pCO2 57) and ABG ordered for one hour after BiPAP was started. Patient remained lethargic, PCP (Dr. Salazar) notified.
[2018-06-14 17:36] LABS: ABG ALLEN TEST YES; ARTERIAL BLOOD GAS HCO3 31.5 mmol/L (21-28); ARTERIAL BLOOD GAS O2 SAT 97.3 % (95-98); ARTERIAL BLOOD GAS PCO2 52 mm/Hg (35-45); ARTERIAL BLOOD GAS PH 7.43 (7.35-7.45); ARTERIAL BLOOD GAS PO2 75 mm/Hg (80-100); ARTERIAL BLOOD GAS TCO2 36.1 mmol/L (22-28)
[2018-06-14 20:53] LABS: ABG ALLEN TEST YES; ARTERIAL BLOOD GAS HCO3 31.7 mmol/L (21-28); ARTERIAL BLOOD GAS O2 CAPACITY 17.7 mL/dL (16-24); ARTERIAL BLOOD GAS O2 CONTENT 17.2 ML/dL (15-23); ARTERIAL BLOOD GAS O2 SAT 97.1 % (95-98); ARTERIAL BLOOD GAS PCO2 54 mm/Hg (35-45); ARTERIAL BLOOD GAS PH 7.42 (7.35-7.45); ARTERIAL BLOOD GAS PO2 75 mm/Hg (80-100); ARTERIAL BLOOD GAS TCO2 36.7 mmol/L (22-28)
--- NOTE | 2018-06-14 21:52 | CP.PCM.PN ---
Subjective - Date & Time of Evaluation Date of Evaluation: 06/10/18 Time of Evaluation: 11:00 - Subjective Subjective: Patient has episodes of confusion. Had an episode of hypoglycemia the other day MRI showed acute left thalamic infarct. Continues to have uncontrollable left lower ext involuntary movements. Objective - Vital Signs/Intake and Output Vital Signs (last 24 hours): Temp Pulse Resp BP Pulse Ox 97.6 F 49 L 16 118/58 L 95 06/14/18 19:54 06/14/18 19:54 06/14/18 19:54 06/14/18 19:54 06/14/18 19:54 Intake and Output: 06/14/18 06/15/18 18:59 06:59 Intake Total 450 Output Total 250 Balance 200 - Medications Medications: Current Medications Acetaminophen (Tylenol 325mg Tab) 650 mg PO Q6H PRN PRN Reason: Pain, Mild (1-3) Acetaminophen (Tylenol 325mg Tab) 650 mg PO Q6H PRN PRN Reason: Fever >100.4 F Albuterol/Ipratropium (Duoneb 3 Mg/0.5 Mg (3 Ml) Ud) 3 ml INH RQ6 [facility] Last Admin: 06/14/18 19:09 Dose: 3 ml Aspirin (Aspirin Chewable) 81 mg PO DAILY [facility] Last Admin: 06/14/18 08:39 Dose: 81 mg Atorvastatin Calcium (Lipitor) 20 mg PO HS [facility] Last Admin: 06/13/18 21:28 Dose: 20 mg Benztropine Mesylate (Cogentin) 2 mg PO BID [facility] Last Admin: 06/14/18 16:24 Dose: Not Given Clonidine HCl (Catapres) 0.1 mg PO BID [facility] Last Admin: 06/10/18 16:31 Dose: 0.1 mg Dextrose (Dextrose 50% Inj) 0 ml IV STAT PRN; Protocol PRN Reason: Hypoglycemia Protocol Dextrose (Glutose 15) 0 gm PO ONCE PRN; Protocol PRN Reason: Hypoglycemia Protocol Diltiazem HCl (Cardizem Cd) 120 mg PO DAILY [facility] Divalproex Sodium (Depakote Dr(*Bid*)) 750 mg PO BID [facility] Last Admin: 06/14/18 16:24 Dose: Not Given Gabapentin (Neurontin) 800 mg PO TID [facility] Last Admin: 06/10/18 16:32 Dose: 800 mg Gabapentin (Neurontin) 600 mg PO HS [facility] Last Admin: 06/13/18 21:28 Dose: 600 mg Glucagon (Glucagen Diagnostic Kit) 0 mg IM STAT PRN; Protocol PRN Reason: Hypoglycemia Protocol Haloperidol Lactate (Haldol) 3 mg IVP Q6 PRN PRN Reason: Agitation Last Admin: 06/12/18 10:10 Dose: 3 mg Sodium Chloride (Sodium Chloride 0.45%) 1,000 mls @ 80 mls/hr IV .[id number] [facility] Stop: 06/15/18 15:59 Last Admin: 06/14/18 16:19 Dose: 80 mls/hr Insulin Human Lispro (Humalog) 0 units SC ACHS [facility] PRN Reason: Protocol Last Admin: 06/14/18 16:00 Dose: Not Given Losartan Potassium (Cozaar) 50 mg PO DAILY [facility] Last Admin: 06/14/18 08:41 Dose: 50 mg Metoprolol Tartrate (Lopressor) 12.5 mg PO Q12 [facility] Nicotine (Nicoderm Cq) 1 patch TD DAILY [facility] Last Admin: 06/14/18 08:42 Dose: 1 patch Nystatin (Nystop Topical Powder) 1 applic TOP TID [facility] Last Admin: 06/14/18 16:23 Dose: 1 applic Ondansetron HCl (Zofran Inj) 4 mg IVP Q6H PRN PRN Reason: Nausea/Vomiting Quetiapine Fumarate (Seroquel) 25 mg PO HS [facility] Last Admin: 06/13/18 21:28 Dose: 25 mg Sitagliptin Phosphate (Januvia) 50 mg PO DAILY [facility] Last Admin: 06/14/18 08:39 Dose: 50 mg - Labs Labs: 06/13/18 05:30 06/13/18 05:30 PT 9.2 Seconds (9.8-13.1) L 06/05/18 19:25 INR 0.8 06/05/18 19:25 APTT 27.0 Seconds (25.6-37.1) 06/05/18 19:25 - Head Exam Head Exam: NORMAL INSPECTION - Eye Exam Eye Exam: Normal appearance - ENT Exam ENT Exam: Mucous Membranes Moist - Respiratory Exam Respiratory Exam: Clear to Ausculation Bilateral - Cardiovascular Exam Cardiovascular Exam: Irregular Rhythm - GI/Abdominal Exam GI & Abdominal Exam: Normal Bowel Sounds - Neurological Exam Neurological Exam: Awake Assessment and Plan (1) COPD (chronic obstructive pulmonary disease) Status: Acute (2) Restless leg syndrome Status: Acute (3) Diabetes mellitus type 2, uncontrolled Status: Chronic (4) Hypertension Status: Chronic (5) Atrial fibrillation Status: Resolved (6) Anxiety Status: Acute (7) Depression Status: Acute (8) Hypoglycemia Status: Acute (9) Thalamic infarct, acute Status: Acute - Assessment and Plan (Free Text) Plan: Cont meds Cont tx Cont PT Follow up with Neuro
--- NOTE | 2018-06-14 21:59 | CP.PCM.PN ---
Subjective - Date & Time of Evaluation Date of Evaluation: 06/11/18 Time of Evaluation: 11:00 - Subjective Subjective: Patient continues to exhibit severe restless leg left lower leg Has no fever Has episodes of confusion. Objective - Vital Signs/Intake and Output Vital Signs (last 24 hours): Temp Pulse Resp BP Pulse Ox 97.6 F 49 L 16 118/58 L 95 06/14/18 19:54 06/14/18 19:54 06/14/18 19:54 06/14/18 19:54 06/14/18 19:54 Intake and Output: 06/14/18 06/15/18 18:59 06:59 Intake Total 450 Output Total 250 Balance 200 - Medications Medications: Current Medications Acetaminophen (Tylenol 325mg Tab) 650 mg PO Q6H PRN PRN Reason: Pain, Mild (1-3) Acetaminophen (Tylenol 325mg Tab) 650 mg PO Q6H PRN PRN Reason: Fever >100.4 F Albuterol/Ipratropium (Duoneb 3 Mg/0.5 Mg (3 Ml) Ud) 3 ml INH RQ6 [facility] Last Admin: 06/14/18 19:09 Dose: 3 ml Aspirin (Aspirin Chewable) 81 mg PO DAILY [facility] Last Admin: 06/14/18 08:39 Dose: 81 mg Atorvastatin Calcium (Lipitor) 20 mg PO HS [facility] Last Admin: 06/13/18 21:28 Dose: 20 mg Benztropine Mesylate (Cogentin) 2 mg PO BID [facility] Last Admin: 06/14/18 16:24 Dose: Not Given Clonidine HCl (Catapres) 0.1 mg PO BID [facility] Last Admin: 06/10/18 16:31 Dose: 0.1 mg Dextrose (Dextrose 50% Inj) 0 ml IV STAT PRN; Protocol PRN Reason: Hypoglycemia Protocol Dextrose (Glutose 15) 0 gm PO ONCE PRN; Protocol PRN Reason: Hypoglycemia Protocol Diltiazem HCl (Cardizem Cd) 120 mg PO DAILY [facility] Divalproex Sodium (Depakote Dr(*Bid*)) 750 mg PO BID [facility] Last Admin: 06/14/18 16:24 Dose: Not Given Gabapentin (Neurontin) 800 mg PO TID [facility] Last Admin: 06/10/18 16:32 Dose: 800 mg Gabapentin (Neurontin) 600 mg PO HS [facility] Last Admin: 06/13/18 21:28 Dose: 600 mg Glucagon (Glucagen Diagnostic Kit) 0 mg IM STAT PRN; Protocol PRN Reason: Hypoglycemia Protocol Haloperidol Lactate (Haldol) 3 mg IVP Q6 PRN PRN Reason: Agitation Last Admin: 06/12/18 10:10 Dose: 3 mg Sodium Chloride (Sodium Chloride 0.45%) 1,000 mls @ 80 mls/hr IV .[id number] [facility] Stop: 06/15/18 15:59 Last Admin: 06/14/18 16:19 Dose: 80 mls/hr Insulin Human Lispro (Humalog) 0 units SC ACHS [facility] PRN Reason: Protocol Last Admin: 06/14/18 16:00 Dose: Not Given Losartan Potassium (Cozaar) 50 mg PO DAILY [facility] Last Admin: 06/14/18 08:41 Dose: 50 mg Metoprolol Tartrate (Lopressor) 12.5 mg PO Q12 [facility] Nicotine (Nicoderm Cq) 1 patch TD DAILY [facility] Last Admin: 06/14/18 08:42 Dose: 1 patch Nystatin (Nystop Topical Powder) 1 applic TOP TID [facility] Last Admin: 06/14/18 16:23 Dose: 1 applic Ondansetron HCl (Zofran Inj) 4 mg IVP Q6H PRN PRN Reason: Nausea/Vomiting Quetiapine Fumarate (Seroquel) 25 mg PO HS [facility] Last Admin: 06/13/18 21:28 Dose: 25 mg Sitagliptin Phosphate (Januvia) 50 mg PO DAILY [facility] Last Admin: 06/14/18 08:39 Dose: 50 mg - Labs Labs: 06/13/18 05:30 06/13/18 05:30 PT 9.2 Seconds (9.8-13.1) L 06/05/18 19:25 INR 0.8 06/05/18 19:25 APTT 27.0 Seconds (25.6-37.1) 06/05/18 19:25 - Head Exam Head Exam: NORMAL INSPECTION - Eye Exam Eye Exam: Normal appearance - Respiratory Exam Respiratory Exam: Clear to Ausculation Bilateral - Cardiovascular Exam Cardiovascular Exam: Irregular Rhythm - GI/Abdominal Exam GI & Abdominal Exam: Normal Bowel Sounds - Neurological Exam Neurological Exam: Awake - Psychiatric Exam Psychiatric exam: Anxious, Depressed Assessment and Plan (1) COPD (chronic obstructive pulmonary disease) Status: Acute (2) Restless leg syndrome Status: Acute (3) Diabetes mellitus type 2, uncontrolled Status: Chronic (4) Hypertension Status: Chronic (5) Atrial fibrillation Status: Resolved (6) Anxiety Status: Acute (7) Depression Status: Acute (8) Hypoglycemia Status: Acute (9) Thalamic infarct, acute Status: Acute - Assessment and Plan (Free Text) Plan: Cont meds Cont tx Cont PT will try to add requip
--- NOTE | 2018-06-14 22:08 | CP.PCM.PN ---
Subjective - Date & Time of Evaluation Date of Evaluation: 06/12/18 Time of Evaluation: 11:00 - Subjective Subjective: Patient continues to have excessive restless leg left lower ext Has no fever has episodes of increased anxiety. at times gets confused. Objective - Vital Signs/Intake and Output Vital Signs (last 24 hours): Temp Pulse Resp BP Pulse Ox 97.6 F 49 L 16 118/58 L 95 06/14/18 19:54 06/14/18 19:54 06/14/18 19:54 06/14/18 19:54 06/14/18 19:54 Intake and Output: 06/14/18 06/15/18 18:59 06:59 Intake Total 450 Output Total 250 Balance 200 - Medications Medications: Current Medications Acetaminophen (Tylenol 325mg Tab) 650 mg PO Q6H PRN PRN Reason: Pain, Mild (1-3) Acetaminophen (Tylenol 325mg Tab) 650 mg PO Q6H PRN PRN Reason: Fever >100.4 F Albuterol/Ipratropium (Duoneb 3 Mg/0.5 Mg (3 Ml) Ud) 3 ml INH RQ6 [facility] Last Admin: 06/14/18 19:09 Dose: 3 ml Aspirin (Aspirin Chewable) 81 mg PO DAILY [facility] Last Admin: 06/14/18 08:39 Dose: 81 mg Atorvastatin Calcium (Lipitor) 20 mg PO HS [facility] Last Admin: 06/13/18 21:28 Dose: 20 mg Benztropine Mesylate (Cogentin) 2 mg PO BID [facility] Last Admin: 06/14/18 16:24 Dose: Not Given Clonidine HCl (Catapres) 0.1 mg PO BID [facility] Last Admin: 06/10/18 16:31 Dose: 0.1 mg Dextrose (Dextrose 50% Inj) 0 ml IV STAT PRN; Protocol PRN Reason: Hypoglycemia Protocol Dextrose (Glutose 15) 0 gm PO ONCE PRN; Protocol PRN Reason: Hypoglycemia Protocol Diltiazem HCl (Cardizem Cd) 120 mg PO DAILY [facility] Divalproex Sodium (Depakote Dr(*Bid*)) 750 mg PO BID [facility] Last Admin: 06/14/18 16:24 Dose: Not Given Gabapentin (Neurontin) 800 mg PO TID [facility] Last Admin: 06/10/18 16:32 Dose: 800 mg Gabapentin (Neurontin) 600 mg PO HS [facility] Last Admin: 06/13/18 21:28 Dose: 600 mg Glucagon (Glucagen Diagnostic Kit) 0 mg IM STAT PRN; Protocol PRN Reason: Hypoglycemia Protocol Haloperidol Lactate (Haldol) 3 mg IVP Q6 PRN PRN Reason: Agitation Last Admin: 06/12/18 10:10 Dose: 3 mg Sodium Chloride (Sodium Chloride 0.45%) 1,000 mls @ 80 mls/hr IV .[id number] [facility] Stop: 06/15/18 15:59 Last Admin: 06/14/18 16:19 Dose: 80 mls/hr Insulin Human Lispro (Humalog) 0 units SC ACHS [facility] PRN Reason: Protocol Last Admin: 06/14/18 16:00 Dose: Not Given Losartan Potassium (Cozaar) 50 mg PO DAILY [facility] Last Admin: 06/14/18 08:41 Dose: 50 mg Metoprolol Tartrate (Lopressor) 12.5 mg PO Q12 [facility] Nicotine (Nicoderm Cq) 1 patch TD DAILY [facility] Last Admin: 06/14/18 08:42 Dose: 1 patch Nystatin (Nystop Topical Powder) 1 applic TOP TID [facility] Last Admin: 06/14/18 16:23 Dose: 1 applic Ondansetron HCl (Zofran Inj) 4 mg IVP Q6H PRN PRN Reason: Nausea/Vomiting Quetiapine Fumarate (Seroquel) 25 mg PO HS [facility] Last Admin: 06/13/18 21:28 Dose: 25 mg Sitagliptin Phosphate (Januvia) 50 mg PO DAILY [facility] Last Admin: 06/14/18 08:39 Dose: 50 mg - Labs Labs: 06/13/18 05:30 06/13/18 05:30 PT 9.2 Seconds (9.8-13.1) L 06/05/18 19:25 INR 0.8 06/05/18 19:25 APTT 27.0 Seconds (25.6-37.1) 06/05/18 19:25 - Head Exam Head Exam: NORMAL INSPECTION - Eye Exam Eye Exam: Normal appearance - ENT Exam ENT Exam: Mucous Membranes Moist - Respiratory Exam Respiratory Exam: Clear to Ausculation Bilateral - Cardiovascular Exam Cardiovascular Exam: Irregular Rhythm - GI/Abdominal Exam GI & Abdominal Exam: Normal Bowel Sounds - Psychiatric Exam Psychiatric exam: Anxious Assessment and Plan (1) COPD (chronic obstructive pulmonary disease) Status: Acute (2) Restless leg syndrome Status: Acute (3) Diabetes mellitus type 2, uncontrolled Status: Chronic (4) Hypertension Status: Chronic (5) Atrial fibrillation Status: Resolved (6) Anxiety Status: Acute (7) Depression Status: Acute (8) Hypoglycemia Status: Acute (9) Thalamic infarct, acute Status: Acute - Assessment and Plan (Free Text) Plan: Cont meds Cont tx Cont PT suggest LT[facility] admission
[2018-06-14] MEDS ORDERED: Propofol 10 mg/ml 1,000 MG/100 ML VIAL ONE (22:12)
--- NOTE | 2018-06-14 22:13 | CP.PCM.PN ---
Subjective - Date & Time of Evaluation Date of Evaluation: 06/13/18 Time of Evaluation: 10:00 - Subjective Subjective: Patient had not had any sleep for the past two days due to restless leg. Has no fever Has poor intake Objective - Vital Signs/Intake and Output Vital Signs (last 24 hours): Temp Pulse Resp BP Pulse Ox 97.6 F 49 L 16 118/58 L 95 06/14/18 19:54 06/14/18 19:54 06/14/18 19:54 06/14/18 19:54 06/14/18 19:54 Intake and Output: 06/14/18 06/15/18 18:59 06:59 Intake Total 450 Output Total 250 Balance 200 - Medications Medications: Current Medications Acetaminophen (Tylenol 325mg Tab) 650 mg PO Q6H PRN PRN Reason: Pain, Mild (1-3) Acetaminophen (Tylenol 325mg Tab) 650 mg PO Q6H PRN PRN Reason: Fever >100.4 F Albuterol/Ipratropium (Duoneb 3 Mg/0.5 Mg (3 Ml) Ud) 3 ml INH RQ6 [facility] Last Admin: 06/14/18 19:09 Dose: 3 ml Aspirin (Aspirin Chewable) 81 mg PO DAILY [facility] Last Admin: 06/14/18 08:39 Dose: 81 mg Atorvastatin Calcium (Lipitor) 20 mg PO HS [facility] Last Admin: 06/13/18 21:28 Dose: 20 mg Benztropine Mesylate (Cogentin) 2 mg PO BID [facility] Last Admin: 06/14/18 16:24 Dose: Not Given Clonidine HCl (Catapres) 0.1 mg PO BID [facility] Last Admin: 06/10/18 16:31 Dose: 0.1 mg Dextrose (Dextrose 50% Inj) 0 ml IV STAT PRN; Protocol PRN Reason: Hypoglycemia Protocol Dextrose (Glutose 15) 0 gm PO ONCE PRN; Protocol PRN Reason: Hypoglycemia Protocol Diltiazem HCl (Cardizem Cd) 120 mg PO DAILY [facility] Divalproex Sodium (Depakote Dr(*Bid*)) 750 mg PO BID [facility] Last Admin: 06/14/18 16:24 Dose: Not Given Gabapentin (Neurontin) 800 mg PO TID [facility] Last Admin: 06/10/18 16:32 Dose: 800 mg Gabapentin (Neurontin) 600 mg PO HS [facility] Last Admin: 06/13/18 21:28 Dose: 600 mg Glucagon (Glucagen Diagnostic Kit) 0 mg IM STAT PRN; Protocol PRN Reason: Hypoglycemia Protocol Haloperidol Lactate (Haldol) 3 mg IVP Q6 PRN PRN Reason: Agitation Last Admin: 06/12/18 10:10 Dose: 3 mg Sodium Chloride (Sodium Chloride 0.45%) 1,000 mls @ 80 mls/hr IV .[id number] [facility] Stop: 06/15/18 15:59 Last Admin: 06/14/18 16:19 Dose: 80 mls/hr Insulin Human Lispro (Humalog) 0 units SC ACHS JULIETA PRN Reason: Protocol Last Admin: 06/14/18 16:00 Dose: Not Given Losartan Potassium (Cozaar) 50 mg PO DAILY [facility] Last Admin: 06/14/18 08:41 Dose: 50 mg Metoprolol Tartrate (Lopressor) 12.5 mg PO Q12 [facility] Nicotine (Nicoderm Cq) 1 patch TD DAILY [facility] Last Admin: 06/14/18 08:42 Dose: 1 patch Nystatin (Nystop Topical Powder) 1 applic TOP TID [facility] Last Admin: 06/14/18 16:23 Dose: 1 applic Ondansetron HCl (Zofran Inj) 4 mg IVP Q6H PRN PRN Reason: Nausea/Vomiting Quetiapine Fumarate (Seroquel) 25 mg PO HS [facility] Last Admin: 06/13/18 21:28 Dose: 25 mg Sitagliptin Phosphate (Januvia) 50 mg PO DAILY [facility] Last Admin: 06/14/18 08:39 Dose: 50 mg - Labs Labs: 06/13/18 05:30 06/13/18 05:30 PT 9.2 Seconds (9.8-13.1) L 06/05/18 19:25 INR 0.8 06/05/18 19:25 APTT 27.0 Seconds (25.6-37.1) 06/05/18 19:25 - Head Exam Head Exam: NORMAL INSPECTION - ENT Exam ENT Exam: Mucous Membranes Moist - Respiratory Exam Respiratory Exam: Clear to Ausculation Bilateral - Cardiovascular Exam Cardiovascular Exam: Irregular Rhythm - GI/Abdominal Exam GI & Abdominal Exam: Normal Bowel Sounds - Neurological Exam Neurological Exam: Awake Assessment and Plan (1) COPD (chronic obstructive pulmonary disease) Status: Acute (2) Restless leg syndrome Status: Acute (3) Diabetes mellitus type 2, uncontrolled Status: Chronic (4) Hypertension Status: Chronic (5) Atrial fibrillation Status: Resolved (6) Anxiety Status: Acute (7) Depression Status: Acute (8) Hypoglycemia Status: Acute (9) Thalamic infarct, acute Status: Acute - Assessment and Plan (Free Text) Plan: Cont meds Cont tx Cont PT suggest subacute or LTAC hospitalization.
--- NOTE | 2018-06-14 22:41 | PCM.ANES ---
Anesthesia Emergent Intubation - Diagnosis Working Diagnosis:: decreased mental status - Consult Reason for Consult:: need intubation - Intubation Attempts Previous Number of Intubation Attempts:: 0 - Pre-Intubation Vital Signs Oxygen Delivery Method: Face Mask Level Of Consciousness: Lethargic, Somnolent Intubation Meds Given: Propofol (100mg) - Method of Intubation Intubation Method: Oral ETT ETT Size: 7.5 - Intubation Devices [place] Scope Used: Yes - Placement Confirmation Positive EtCO2: Yes Recommendations: Ventilator - Post-Intubation Vital Signs Blood Pressure: 126/71
--- NOTE | 2018-06-14 22:48 | CP.PCM.PCO ---
Physician Communication Note - Physician Communication Note Physician Communication Note: informed by prior team and nurse:pt remains somnolent Assessment/Plan - Assessment and Plan (Free Text) Assessment: Patient seen and examined at bedside. Not awake/alert or oriented. Minimally responsive to sternal rub. Repeat ABG done at 20:41 showed worsened CO2 retention of 54 s/p BIPAP setting adjustment. -repeat CT head: no acute intracranial hemorrhage, no change from prior -patient was transferred to ICU and intubated -stat CXR ordered -patient son Joseph Arreaga was contacted; informed of above. Son states he will come tomorrow at 12pm and would speak to the team at that rtime about cide status. - Date & Time Date: 06/14/18 Time: 22:38
[2018-06-14] MEDS ORDERED: Sodium Chloride 3% for Inhalation 4 ML VIAL.NEB IH PRN (23:34)
[2018-06-14] MEDS ORDERED: Dextrose 5%/0.45% NS 1,000 ML IV SCH (23:45)
[2018-06-15] MEDS: Albuterol-Ipratrop 3 mg / 0.5 (3 ml) UD INH SCH ×4 (01:33→19:14)
[2018-06-15 01:50] LABS: ABG ALLEN TEST YES; ARTERIAL BLOOD GAS HCO3 32.4 mmol/L (21-28); ARTERIAL BLOOD GAS O2 CAPACITY 16.5 mL/dL (16-24); ARTERIAL BLOOD GAS O2 CONTENT 16.3 ML/dL (15-23); ARTERIAL BLOOD GAS PCO2 46 mm/Hg (35-45); ARTERIAL BLOOD GAS PH 7.48 (7.35-7.45); ARTERIAL BLOOD GAS PO2 99 mm/Hg (80-100); ARTERIAL BLOOD GAS TCO2 35.7 mmol/L (22-28)
[2018-06-15] MEDS ORDERED: Dextrose 50% SYRINGE Inj (50 ml) IVP ONE (02:24)
[2018-06-15 05:50] LABS: BASO % 0.4 % (0.0-2.0); HEMOGLOBIN 12.5 g/dL (12.0-16.0); LYMPH # 1.1 K/uL (1.0-4.3); LYMPH % 9.4 % (20.0-40.0); MEAN CELL VOLUME 95.8 fl (81.0-99.0); MEAN CORPUSCULAR HEMOGLOBIN 31.6 pg (27.0-31.0); MEAN PLATELET VOLUME 11.2 fl (7.2-11.7); MONO # 0.8 K/uL (0.0-0.8); MONO % 6.3 % (0.0-10.0); NEUT # 10.2 K/uL (1.8-7.0); NEUT % 83.9 % (50.0-75.0); PLATELET COUNT 113 K/uL (130-400); RBC 3.95 Mil/uL (3.80-5.20); RED CELL DISTRIBUTION WIDTH 16.4 % (11.5-14.5); WHITE BLOOD COUNT 12.1 K/uL (4.8-10.8)
[2018-06-15 06:29] LABS: ALB/GLOB RATIO 0.8 (1.0-2.1); ALBUMIN 2.5 g/dL (3.5-5.0); ALT/SGPT 32 U/L (9-52); AST/SGOT 31 U/L (14-36); BLOOD UREA NITROGEN 37 mg/dl (7-17); CALCIUM 8.3 mg/dL (8.4-10.2); GFR NON-AFRICAN AMERICAN > 60
--- NOTE | 2018-06-15 08:02 | CP.CCUPN ---
CCU Subjective - Physician Review Events Since Last Encounter (Free Text): 06/15/18 The patient was Seen and examined by me at the bedside during ICU round, Medical records reviewed and Management issues were discussed and formulated with the house staff. Events reviewed 72 Years old Female with PMHx of HTN, Hypercholesterolemia, Diabetes, left BKA, Anxiety, Arthritis, Asthma, Sleep Apnea, Bronchitis, chronic Atrial Fibrillation , CHF, COPD, Depression, Gastritis, Hypothyroidism, Paranoia, depression and Post-Traumatic Stress Disorder Patient presents to the Emergency department 06/05 with restless left leg ongoing for several days, Patient states she had been put on a new medication for her RLS and that was making symptoms worse over past several days, She called her psychiatrist Dr. Villatoro, and was told to come to the ER. Pt. also states she fell out this afternoon but does not remember hitting her head. Denies headache, LOC, neck pain. She was admitted to the ICU with Intraparenchymal hyperattenuation conforming to the right lentiform nucleus, suggestive of acute intracranial hemorrhage. Also management of left thalamic stroke Condition stabilized and was transferred out of ICU. Patient returned back to ICU yesterday 05/14 after [employer] called for altered mental , unresponsive and accucheck 20 (2 amp of D50 given) BP 110/53 Hr 53 RR 16 t 96.3 o2Sat 97 5 on 3 L O2 via NC ABG showed PCO2 57 PO 149 ph 7.4 HCO3 31 on 3 L O2 via NC Placed on BIPAP 12/5/35%/14 and ordered repeat ABG in 1 hour On the telemetry, she was noted with worsening mental status, continued to be lethargic after dextrose administration, So she was transferred to the ICU and orally intuibated. This morning she is comfortable, NAD Orally intubated and started on fentanyl drip for sedation Afebrile, NSR on the monitor Last 24H I&O 530/250 CXR revealed Left LL infilterate/effusion, I will start patient on Emperic coverage with IV Vanco and zosyn BG better today, S/P hypoglycemic episode Conrtinue Dextrose 5%/0.45% Ns @ 80 mls/hr All insulin orders held for now (premix 75/25 12 units before breakfast, premix 75/25 8 units before dinner) Critical Care Time Spent (in minutes): 45 CCU Objective - Vital Signs / Intake & Output Vital Signs (Last 4 hours): Vital Signs Pulse Resp BP Pulse Ox 06/15/18 06:00 64 14 126/57 L 100 Intake and Output (Last 8hrs): Intake & Output 06/14/18 06/15/18 06/15/18 22:59 06:59 14:59 Intake Total 530 Output Total 250 Balance 280 Intake: IV 380 Oral 150 Output: Urine 250 Urine, Voided 250 Other: # Bowel Movements 1 - Physical Exam Physical Exam Limitations: Positive for: Clinical Condition Head: Positive for: Atraumatic, Normocephalic Pupils: Positive for: PERRL Extroacular Muscles: Positive for: EOMI Conjunctiva: Positive for: Normal Mouth: Positive for: Moist Mucous Membranes Nose (Internal): Positive for: Normal Inspection Neck: Positive for: Normal Range of Motion, Trachea Midline. Negative for: Meningeal Signs, MIDLINE TENDERNESS, Paraspinal Tenderness, JVD, Lymphadenopathy , Bruit, Other Respiratory/Chest: Positive for: Clear to Auscultation, Good Air Exchange. Negative for: Respiratory Distress, Accessory Muscle Use Cardiovascular: Positive for: Regular Rate and Rhythm, Normal S1, S2, Peripheal Pulses Present Abdomen: Positive for: Normal Bowel Sounds. Negative for: Tenderness, Distention Upper Extremity: Positive for: Normal Inspection Lower Extremity: Positive for: Normal Inspection Psychiatric: Positive for: Alert, Oriented x 3 - Medications Active Medications: Active Medications Generic Name Dose Route Start Last Admin Trade Name Freq PRN Reason Stop Dose Admin Acetaminophen 650 mg 06/14/18 22:30 Tylenol 325mg Tab PO Q6H PRN Pain, Mild (1-3) Acetaminophen 650 mg 06/14/18 22:30 Tylenol 325mg Tab PO Q6H PRN Fever >100.4 F Albuterol/Ipratropium 3 ml 06/15/18 02:00 06/15/18 01:33 Duoneb 3 Mg/0.5 Mg (3 Ml) Ud INH 3 ml RQ6 JULIETA Administration Aspirin 81 mg 06/15/18 09:00 Aspirin Chewable PO DAILY [facility] Atorvastatin Calcium 20 mg 06/15/18 22:00 Lipitor PO HS JULIETA Benztropine Mesylate 2 mg 06/15/18 09:00 Cogentin PO BID [facility] Clonidine HCl 0.1 mg 06/15/18 09:00 Catapres PO BID [facility] Dextrose 0 ml 06/14/18 22:30 Dextrose 50% Inj IV STAT PRN Hypoglycemia Protocol Protocol Dextrose 0 gm 06/14/18 22:30 Glutose 15 PO ONCE PRN Hypoglycemia Protocol Protocol Diltiazem HCl 120 mg 06/15/18 09:00 Cardizem Cd PO DAILY [facility] Divalproex Sodium 750 mg 06/15/18 09:00 Rodo Santana(*Bid*) PO BID JULIETA Gabapentin 800 mg 06/15/18 09:00 Neurontin PO TID JUILETA Gabapentin 600 mg 06/15/18 22:00 Neurontin PO HS JULIETA Glucagon 0 mg 06/14/18 22:30 Glucagen Diagnostic Kit IM STAT PRN Hypoglycemia Protocol Protocol Haloperidol Lactate 3 mg 06/14/18 22:30 Haldol IVP Q6 PRN Agitation Dextrose/Sodium Chloride 1,000 mls @ 80 mls/hr 06/14/18 23:45 06/15/18 00:06 Dextrose 5%/0.45% Ns 1000 Ml IV 06/15/18 23:46 80 mls/hr .[id number] JULIETA Administration Insulin Human Lispro 0 units 06/15/18 07:30 Humalog SC ACHS [facility] Protocol Losartan Potassium 50 mg 06/15/18 09:00 Cozaar PO DAILY [facility] Metoprolol Tartrate 12.5 mg 06/15/18 09:00 Lopressor PO Q12 [facility] Morphine Sulfate 2 mg 06/14/18 22:52 06/14/18 23:11 Morphine IVP 2 mg Q4 PRN Administration Pain, moderate (4-7) Nicotine 1 patch 06/15/18 09:00 Nicoderm Cq TD DAILY [facility] Nystatin 1 applic 06/15/18 09:00 Nystop Topical Powder TOP TID [facility] Ondansetron HCl 4 mg 06/14/18 22:30 Zofran Inj IVP Q6H PRN Nausea/Vomiting Quetiapine Fumarate 25 mg 06/15/18 22:00 Seroquel PO [facility] - Patient Studies Lab Studies: Microbiology Studies 06/13/18 15:20 MRSA Culture (Admit) - Final Nose MRSA NOT DETECTED Lab Studies 06/15/18 06/15/18 06/15/18 Range/Units 06:00 05:40 05:40 WBC 12.1 H D (4.8-10.8) K/uL RBC 3.95 (3.80-5.20) Mil/uL Hgb 12.5 (12.0-16.0) g/dL Hct 37.9 (34.0-47.0) % MCV 95.8 (81.0-99.0) fl MCH 31.6 H (27.0-31.0) pg MCHC 33.0 (33.0-37.0) g/dL RDW 16.4 H (11.5-14.5) % Plt Count 113 L (130-400) K/uL MPV 11.2 (7.2-11.7) fl Neut % (Auto) 83.9 H (50.0-75.0) % Lymph % (Auto) 9.4 L (20.0-40.0) % [place] % (Auto) 6.3 (0.0-10.0) % Eos % (Auto) 0.0 (0.0-4.0) % Baso % (Auto) 0.4 (0.0-2.0) % Neut # (Auto) 10.2 H (1.8-7.0) K/uL Lymph # (Auto) 1.1 (1.0-4.3) K/uL [place] # (Auto) 0.8 (0.0-0.8) K/uL Eos # (Auto) 0.0 (0.0-0.7) K/uL Baso # (Auto) 0.0 (0.0-0.2) K/uL pCO2 (35-45) mm/Hg pO2 (80-100) mm/Hg HCO3 (21-28) mmol/L ABG pH (7.35-7.45) ABG Total CO2 (22-28) mmol/L ABG O2 Saturation (95-98) % ABG O2 Content (15-23) ML/dL ABG Base Excess (-2.0-3.0) mmol/L ABG Hemoglobin (11.7-17.4) g/dL ABG Carboxyhemoglobin (0.5-1.5) % POC ABG HHb (Measured) (0.0-5.0) % ABG Methemoglobin (0.0-3.0) % ABG O2 Capacity (16-24) mL/dL Sincere Test ABG Potassium (3.6-5.2) mmol/L A-a O2 Difference mm/Hg Hgb O2 Saturation (95.0-98.0) % Sodium 143 (132-148) mmol/L Chloride 111 H (98-107) mmol/L Glucose (65-105) mg/dL Lactate (0.7-2.1) mmol/L Vent Mode Mechanical Rate FiO2 % Tidal Volume PEEP Inspiratory BiPAP Expiratory BiPAP Potassium 4.0 (3.6-5.0) MMOL/L Carbon Dioxide 31 H (22-30) mmol/L Anion Gap 5 L (10-20) BUN 37 H (7-17) mg/dl Creatinine 0.8 (0.7-1.2) mg/dl Est GFR ( Amer) > 60 Est GFR (Non-Af Amer) > 60 POC Glucose (mg/dL) 220 H (65-110) mg/dL Random Glucose 303 H (65-105) mg/dL Calcium 8.3 L (8.4-10.2) mg/dL Total Bilirubin 0.3 (0.2-1.3) mg/dl AST 31 (14-36) U/L ALT 32 (9-52) U/L Alkaline Phosphatase 76 (38-126) U/L Total Protein 5.7 L (6.3-8.2) G/DL Albumin 2.5 L (3.5-5.0) g/dL Globulin 3.2 (2.2-3.9) gm/dL Albumin/Globulin Ratio 0.8 L (1.0-2.1) Arterial Blood Potassium (3.6-5.2) mmol/L Valproic Acid (50.0-100.0) ug/mL 06/15/18 06/15/18 06/14/18 Range/Units 02:13 01:45 21:18 WBC (4.8-10.8) K/uL RBC (3.80-5.20) Mil/uL Hgb (12.0-16.0) g/dL Hct (34.0-47.0) % MCV (81.0-99.0) fl MCH (27.0-31.0) pg MCHC (33.0-37.0) g/dL RDW (11.5-14.5) % Plt Count (130-400) K/uL MPV (7.2-11.7) fl Neut % (Auto) (50.0-75.0) % Lymph % (Auto) (20.0-40.0) % [place] % (Auto) (0.0-10.0) % Eos % (Auto) (0.0-4.0) % Baso % (Auto) (0.0-2.0) % Neut # (Auto) (1.8-7.0) K/uL Lymph # (Auto) (1.0-4.3) K/uL [place] # (Auto) (0.0-0.8) K/uL Eos # (Auto) (0.0-0.7) K/uL Baso # (Auto) (0.0-0.2) K/uL pCO2 46 H (35-45) mm/Hg pO2 99 (80-100) mm/Hg HCO3 32.4 H (21-28) mmol/L ABG pH 7.48 H (7.35-7.45) ABG Total CO2 35.7 H (22-28) mmol/L ABG O2 Saturation 99.0 H (95-98) % ABG O2 Content 16.3 (15-23) ML/dL ABG Base Excess 9.6 H (-2.0-3.0) mmol/L ABG Hemoglobin 12.0 (11.7-17.4) g/dL ABG Carboxyhemoglobin 1.6 H (0.5-1.5) % POC ABG HHb (Measured) 1.0 (0.0-5.0) % ABG Methemoglobin 1.4 (0.0-3.0) % ABG O2 Capacity 16.5 (16-24) mL/dL Sincere Test Yes ABG Potassium (3.6-5.2) mmol/L A-a O2 Difference 200.0 mm/Hg Hgb O2 Saturation 96.0 (95.0-98.0) % Sodium (132-148) mmol/L Chloride (98-107) mmol/L Glucose (65-105) mg/dL Lactate (0.7-2.1) mmol/L Vent Mode A/c Mechanical Rate 14 FiO2 50.0 % Tidal Volume 400 PEEP 5 Inspiratory BiPAP Expiratory BiPAP Potassium (3.6-5.0) MMOL/L Carbon Dioxide (22-30) mmol/L Anion Gap (10-20) BUN (7-17) mg/dl Creatinine (0.7-1.2) mg/dl Est GFR ( Amer) Est GFR (Non-Af Amer) POC Glucose (mg/dL) 65 148 H (65-110) mg/dL Random Glucose (65-105) mg/dL Calcium (8.4-10.2) mg/dL Total Bilirubin (0.2-1.3) mg/dl AST (14-36) U/L ALT (9-52) U/L Alkaline Phosphatase (38-126) U/L Total Protein (6.3-8.2) G/DL Albumin (3.5-5.0) g/dL Globulin (2.2-3.9) gm/dL Albumin/Globulin Ratio (1.0-2.1) Arterial Blood Potassium (3.6-5.2) mmol/L Valproic Acid (50.0-100.0) ug/mL 06/14/18 06/14/18 06/14/18 Range/Units 20:41 17:33 17:02 WBC (4.8-10.8) K/uL RBC (3.80-5.20) Mil/uL Hgb (12.0-16.0) g/dL Hct (34.0-47.0) % MCV (81.0-99.0) fl MCH (27.0-31.0) pg MCHC (33.0-37.0) g/dL RDW (11.5-14.5) % Plt Count (130-400) K/uL MPV (7.2-11.7) fl Neut % (Auto) (50.0-75.0) % Lymph % (Auto) (20.0-40.0) % [place] % (Auto) (0.0-10.0) % Eos % (Auto) (0.0-4.0) % Baso % (Auto) (0.0-2.0) % Neut # (Auto) (1.8-7.0) K/uL Lymph # (Auto) (1.0-4.3) K/uL [place] # (Auto) (0.0-0.8) K/uL Eos # (Auto) (0.0-0.7) K/uL Baso # (Auto) (0.0-0.2) K/uL pCO2 54 H 52 H (35-45) mm/Hg pO2 75 L 75 L (80-100) mm/Hg HCO3 31.7 H 31.5 H (21-28) mmol/L ABG pH 7.42 7.43 (7.35-7.45) ABG Total CO2 36.7 H 36.1 H (22-28) mmol/L ABG O2 Saturation 97.1 97.3 (95-98) % ABG O2 Content 17.2 (15-23) ML/dL ABG Base Excess 8.8 H 8.5 H (-2.0-3.0) mmol/L ABG Hemoglobin 13.0 (11.7-17.4) g/dL ABG Carboxyhemoglobin 1.7 H (0.5-1.5) % POC ABG HHb (Measured) 2.8 (0.0-5.0) % ABG Methemoglobin 1.5 (0.0-3.0) % ABG O2 Capacity 17.7 (16-24) mL/dL Sincere Test Yes Yes ABG Potassium 3.4 L (3.6-5.2) mmol/L A-a O2 Difference 214.0 110.0 mm/Hg Hgb O2 Saturation 93.9 L (95.0-98.0) % Sodium 147.0 (132-148) mmol/L Chloride 113.0 H (98-107) mmol/L Glucose 152 H (65-105) mg/dL Lactate 1.7 (0.7-2.1) mmol/L Vent Mode Bipap Bipap Mechanical Rate 14 14 FiO2 50.0 35.0 % Tidal Volume PEEP Inspiratory BiPAP 12 12 Expiratory BiPAP 5 5 Potassium (3.6-5.0) MMOL/L Carbon Dioxide (22-30) mmol/L Anion Gap (10-20) BUN (7-17) mg/dl Creatinine (0.7-1.2) mg/dl Est GFR ( Amer) Est GFR (Non-Af Amer) POC Glucose (mg/dL) (65-110) mg/dL Random Glucose (65-105) mg/dL Calcium (8.4-10.2) mg/dL Total Bilirubin (0.2-1.3) mg/dl AST (14-36) U/L ALT (9-52) U/L Alkaline Phosphatase (38-126) U/L Total Protein (6.3-8.2) G/DL Albumin (3.5-5.0) g/dL Globulin (2.2-3.9) gm/dL Albumin/Globulin Ratio (1.0-2.1) Arterial Blood Potassium 3.4 L (3.6-5.2) mmol/L Valproic Acid 73.2 (50.0-100.0) ug/mL 06/14/18 06/14/18 06/14/18 Range/Units 16:07 15:55 15:42 WBC (4.8-10.8) K/uL RBC (3.80-5.20) Mil/uL Hgb (12.0-16.0) g/dL Hct (34.0-47.0) % MCV (81.0-99.0) fl MCH (27.0-31.0) pg MCHC (33.0-37.0) g/dL RDW (11.5-14.5) % Plt Count (130-400) K/uL MPV (7.2-11.7) fl Neut % (Auto) (50.0-75.0) % Lymph % (Auto) (20.0-40.0) % [place] % (Auto) (0.0-10.0) % Eos % (Auto) (0.0-4.0) % Baso % (Auto) (0.0-2.0) % Neut # (Auto) (1.8-7.0) K/uL Lymph # (Auto) (1.0-4.3) K/uL [place] # (Auto) (0.0-0.8) K/uL Eos # (Auto) (0.0-0.7) K/uL Baso # (Auto) (0.0-0.2) K/uL pCO2 57 H (35-45) mm/Hg pO2 149 H (80-100) mm/Hg HCO3 31.6 H (21-28) mmol/L ABG pH 7.40 (7.35-7.45) ABG Total CO2 37.0 H (22-28) mmol/L ABG O2 Saturation 99.5 H (95-98) % ABG O2 Content (15-23) ML/dL ABG Base Excess 8.5 H (-2.0-3.0) mmol/L ABG Hemoglobin (11.7-17.4) g/dL ABG Carboxyhemoglobin (0.5-1.5) % POC ABG HHb (Measured) (0.0-5.0) % ABG Methemoglobin (0.0-3.0) % ABG O2 Capacity (16-24) mL/dL Sincere Test Yes ABG Potassium 3.4 L (3.6-5.2) mmol/L A-a O2 Difference 36.0 mm/Hg Hgb O2 Saturation (95.0-98.0) % Sodium 146.0 (132-148) mmol/L Chloride 112.0 H (98-107) mmol/L Glucose 300 H (65-105) mg/dL Lactate 1.5 (0.7-2.1) mmol/L Vent Mode N/c Mechanical Rate FiO2 36.0 % Tidal Volume PEEP Inspiratory BiPAP Expiratory BiPAP Potassium (3.6-5.0) MMOL/L Carbon Dioxide (22-30) mmol/L Anion Gap (10-20) BUN (7-17) mg/dl Creatinine (0.7-1.2) mg/dl Est GFR ( Amer) Est GFR (Non-Af Amer) POC Glucose (mg/dL) 303 H 20 L* (65-110) mg/dL Random Glucose (65-105) mg/dL Calcium (8.4-10.2) mg/dL Total Bilirubin (0.2-1.3) mg/dl AST (14-36) U/L ALT (9-52) U/L Alkaline Phosphatase (38-126) U/L Total Protein (6.3-8.2) G/DL Albumin (3.5-5.0) g/dL Globulin (2.2-3.9) gm/dL Albumin/Globulin Ratio (1.0-2.1) Arterial Blood Potassium 3.4 L (3.6-5.2) mmol/L Valproic Acid (50.0-100.0) ug/mL 06/14/18 06/14/18 Range/Units 11:29 04:58 WBC (4.8-10.8) K/uL RBC (3.80-5.20) Mil/uL Hgb (12.0-16.0) g/dL Hct (34.0-47.0) % MCV (81.0-99.0) fl MCH (27.0-31.0) pg MCHC (33.0-37.0) g/dL RDW (11.5-14.5) % Plt Count (130-400) K/uL MPV (7.2-11.7) fl Neut % (Auto) (50.0-75.0) % Lymph % (Auto) (20.0-40.0) % [place] % (Auto) (0.0-10.0) % Eos % (Auto) (0.0-4.0) % Baso % (Auto) (0.0-2.0) % Neut # (Auto) (1.8-7.0) K/uL Lymph # (Auto) (1.0-4.3) K/uL [place] # (Auto) (0.0-0.8) K/uL Eos # (Auto) (0.0-0.7) K/uL Baso # (Auto) (0.0-0.2) K/uL pCO2 (35-45) mm/Hg pO2 (80-100) mm/Hg HCO3 (21-28) mmol/L ABG pH (7.35-7.45) ABG Total CO2 (22-28) mmol/L ABG O2 Saturation (95-98) % ABG O2 Content (15-23) ML/dL ABG Base Excess (-2.0-3.0) mmol/L ABG Hemoglobin (11.7-17.4) g/dL ABG Carboxyhemoglobin (0.5-1.5) % POC ABG HHb (Measured) (0.0-5.0) % ABG Methemoglobin (0.0-3.0) % ABG O2 Capacity (16-24) mL/dL Sincere Test ABG Potassium (3.6-5.2) mmol/L A-a O2 Difference mm/Hg Hgb O2 Saturation (95.0-98.0) % Sodium (132-148) mmol/L Chloride (98-107) mmol/L Glucose (65-105) mg/dL Lactate (0.7-2.1) mmol/L Vent Mode Mechanical Rate FiO2 % Tidal Volume PEEP Inspiratory BiPAP Expiratory BiPAP Potassium (3.6-5.0) MMOL/L Carbon Dioxide (22-30) mmol/L Anion Gap (10-20) BUN (7-17) mg/dl Creatinine (0.7-1.2) mg/dl Est GFR ( Amer) Est GFR (Non-Af Amer) POC Glucose (mg/dL) 147 H 291 H (65-110) mg/dL Random Glucose (65-105) mg/dL Calcium (8.4-10.2) mg/dL Total Bilirubin (0.2-1.3) mg/dl AST (14-36) U/L ALT (9-52) U/L Alkaline Phosphatase (38-126) U/L Total Protein (6.3-8.2) G/DL Albumin (3.5-5.0) g/dL Globulin (2.2-3.9) gm/dL Albumin/Globulin Ratio (1.0-2.1) Arterial Blood Potassium (3.6-5.2) mmol/L Valproic Acid (50.0-100.0) ug/mL Laboratory Results - last 24 hr 06/14/18 06/14/18 06/14/18 04:58 11:29 15:42 WBC RBC Hgb Hct MCV MCH MCHC RDW Plt Count MPV Neut % (Auto) Lymph % (Auto) [place] % (Auto) Eos % (Auto) Baso % (Auto) Neut # (Auto) Lymph # (Auto) [place] # (Auto) Eos # (Auto) Baso # (Auto) pCO2 pO2 HCO3 ABG pH ABG Total CO2 ABG O2 Saturation ABG O2 Content ABG Base Excess ABG Hemoglobin ABG Carboxyhemoglobin POC ABG HHb (Measured) ABG Methemoglobin ABG O2 Capacity Sincere Test ABG Potassium A-a O2 Difference Hgb O2 Saturation Sodium Chloride Glucose Lactate Vent Mode Mechanical Rate FiO2 Tidal Volume PEEP Inspiratory BiPAP Expiratory BiPAP Potassium Carbon Dioxide Anion Gap BUN Creatinine Est GFR ( Amer) Est GFR (Non-Af Amer) POC Glucose (mg/dL) 291 H 147 H 20 L* Random Glucose Calcium Total Bilirubin AST ALT Alkaline Phosphatase Total Protein Albumin Globulin Albumin/Globulin Ratio Arterial Blood Potassium Valproic Acid 06/14/18 06/14/18 06/14/18 15:55 16:07 17:02 WBC RBC Hgb Hct MCV MCH MCHC RDW Plt Count MPV Neut % (Auto) Lymph % (Auto) [place] % (Auto) Eos % (Auto) Baso % (Auto) Neut # (Auto) Lymph # (Auto) [place] # (Auto) Eos # (Auto) Baso # (Auto) pCO2 57 H pO2 149 H HCO3 31.6 H ABG pH 7.40 ABG Total CO2 37.0 H ABG O2 Saturation 99.5 H ABG O2 Content ABG Base Excess 8.5 H ABG Hemoglobin ABG Carboxyhemoglobin POC ABG HHb (Measured) ABG Methemoglobin ABG O2 Capacity Sincere Test Yes ABG Potassium 3.4 L A-a O2 Difference 36.0 Hgb O2 Saturation Sodium 146.0 Chloride 112.0 H Glucose 300 H Lactate 1.5 Vent Mode N/c Mechanical Rate FiO2 36.0 Tidal Volume PEEP Inspiratory BiPAP Expiratory BiPAP Potassium Carbon Dioxide Anion Gap BUN Creatinine Est GFR ( Amer) Est GFR (Non-Af Amer) POC Glucose (mg/dL) 303 H Random Glucose Calcium Total Bilirubin AST ALT Alkaline Phosphatase Total Protein Albumin Globulin Albumin/Globulin Ratio Arterial Blood Potassium 3.4 L Valproic Acid 73.2 06/14/18 06/14/18 06/14/18 17:33 20:41 21:18 WBC RBC Hgb Hct MCV MCH MCHC RDW Plt Count MPV Neut % (Auto) Lymph % (Auto) [place] % (Auto) Eos % (Auto) Baso % (Auto) Neut # (Auto) Lymph # (Auto) [place] # (Auto) Eos # (Auto) Baso # (Auto) pCO2 52 H 54 H pO2 75 L 75 L HCO3 31.5 H 31.7 H ABG pH 7.43 7.42 ABG Total CO2 36.1 H 36.7 H ABG O2 Saturation 97.3 97.1 ABG O2 Content 17.2 ABG Base Excess 8.5 H 8.8 H ABG Hemoglobin 13.0 ABG Carboxyhemoglobin 1.7 H POC ABG HHb (Measured) 2.8 ABG Methemoglobin 1.5 ABG O2 Capacity 17.7 Sincere Test Yes Yes ABG Potassium 3.4 L A-a O2 Difference 110.0 214.0 Hgb O2 Saturation 93.9 L Sodium 147.0 Chloride 113.0 H Glucose 152 H Lactate 1.7 Vent Mode Bipap Bipap Mechanical Rate 14 14 FiO2 35.0 50.0 Tidal Volume PEEP Inspiratory BiPAP 12 12 Expiratory BiPAP 5 5 Potassium Carbon Dioxide Anion Gap BUN Creatinine Est GFR ( Amer) Est GFR (Non-Af Amer) POC Glucose (mg/dL) 148 H Random Glucose Calcium Total Bilirubin AST ALT Alkaline Phosphatase Total Protein Albumin Globulin Albumin/Globulin Ratio Arterial Blood Potassium 3.4 L Valproic Acid 06/15/18 06/15/18 06/15/18 01:45 02:13 05:40 WBC 12.1 H D RBC 3.95 Hgb 12.5 Hct 37.9 MCV 95.8 MCH 31.6 H MCHC 33.0 RDW 16.4 H Plt Count 113 L MPV 11.2 Neut % (Auto) 83.9 H Lymph % (Auto) 9.4 L [place] % (Auto) 6.3 Eos % (Auto) 0.0 Baso % (Auto) 0.4 Neut # (Auto) 10.2 H Lymph # (Auto) 1.1 [place] # (Auto) 0.8 Eos # (Auto) 0.0 Baso # (Auto) 0.0 pCO2 46 H pO2 99 HCO3 32.4 H ABG pH 7.48 H ABG Total CO2 35.7 H ABG O2 Saturation 99.0 H ABG O2 Content 16.3 ABG Base Excess 9.6 H ABG Hemoglobin 12.0 ABG Carboxyhemoglobin 1.6 H POC ABG HHb (Measured) 1.0 ABG Methemoglobin 1.4 ABG O2 Capacity 16.5 Sincere Test Yes ABG Potassium A-a O2 Difference 200.0 Hgb O2 Saturation 96.0 Sodium Chloride Glucose Lactate Vent Mode A/c Mechanical Rate 14 FiO2 50.0 Tidal Volume 400 PEEP 5 Inspiratory BiPAP Expiratory BiPAP Potassium Carbon Dioxide Anion Gap BUN Creatinine Est GFR ( Amer) Est GFR (Non-Af Amer) POC Glucose (mg/dL) 65 Random Glucose Calcium Total Bilirubin AST ALT Alkaline Phosphatase Total Protein Albumin Globulin Albumin/Globulin Ratio Arterial Blood Potassium Valproic Acid 06/15/18 06/15/18 05:40 06:00 WBC RBC Hgb Hct MCV MCH MCHC RDW Plt Count MPV Neut % (Auto) Lymph % (Auto) [place] % (Auto) Eos % (Auto) Baso % (Auto) Neut # (Auto) Lymph # (Auto) [place] # (Auto) Eos # (Auto) Baso # (Auto) pCO2 pO2 HCO3 ABG pH ABG Total CO2 ABG O2 Saturation ABG O2 Content ABG Base Excess ABG Hemoglobin ABG Carboxyhemoglobin POC ABG HHb (Measured) ABG Methemoglobin ABG O2 Capacity Sincere Test ABG Potassium A-a O2 Difference Hgb O2 Saturation Sodium 143 Chloride 111 H Glucose Lactate Vent Mode Mechanical Rate FiO2 Tidal Volume PEEP Inspiratory BiPAP Expiratory BiPAP Potassium 4.0 Carbon Dioxide 31 H Anion Gap 5 L BUN 37 H Creatinine 0.8 Est GFR ( Amer) > 60 Est GFR (Non-Af Amer) > 60 POC Glucose (mg/dL) 220 H Random Glucose 303 H Calcium 8.3 L Total Bilirubin 0.3 AST 31 ALT 32 Alkaline Phosphatase 76 Total Protein 5.7 L Albumin 2.5 L Globulin 3.2 Albumin/Globulin Ratio 0.8 L Arterial Blood Potassium Valproic Acid Fingerstick Blood Sugar Results: 148 Critical Care Progress Note - Ventilator Checklist Head of Bed 30 Degrees: Yes Daily Sedation Vacation: Yes Daily Assessment of Readiness to Wean: Yes Daily Spontaneous Breathing Trial: Yes PUD Prophalyxis: Yes DVT Prophylaxis: Yes Oral Care with Chlorhexidine Gluconate {CHG}: Yes - Extremities/Vascular Does the Patient have a Central Venous Catheter?: No Does the Patient need a Central Venous Catheter?: No Does the Patient have a Suggs Catheter?: No Does the Patient need a Suggs Catheter?: No - Nutrition Nutrition: Nutrition Category Date Time Status Dysphagia/Modified Consistency Diet [DIET] Diets 06/11/18 Dinner Active Assessment/Plan (1) Acute respiratory failure with hypoxia Current Visit: Yes Status: Acute Priority: High Comment: CXR revealed Left LL infilterate/effusion, I will start patient on Emperic coverage with IV Vanco and zosyn Aggressive pulmonary toilet, chest PT, suctioning Vent weaning in progress Daily CAT/SBT IV antibiotics Albuterol/Ipratropium (Duoneb) INH RQ6 JULIETA (2) Intracranial hemorrhage Current Visit: Yes Status: Acute Priority: High Comment: Stable on repeat CT Brain 06/11 (3) Altered mental status Current Visit: Yes Status: Acute Priority: High Comment: S/P hypoglycemic episode Conrtinue Dextrose 5%/0.45% Ns @ 80 mls/hr All insulin orders held for now (premix 75/25 12 units before breakfast, premix 75/25 8 units before dinner) frequent acchu check monitoring Wean of sedation, neurocheck (4) COPD (chronic obstructive pulmonary disease) Current Visit: Yes Status: Acute Priority: Medium Comment: Continue bronchodilators q6hr Nicotine (Nicoderm Cq) 1 patch TD DAILY JULIETA (5) CHF (congestive heart failure) Current Visit: Yes Status: Chronic Priority: Medium Comment: Chronic diastolic heart failure (EF >55%), Pt allergic to ACEI A-Fib HR, B controlled with oral Cardizem, Clonidine Not on AC or ASA sec to ICH.
[2018-06-15] MEDS ORDERED: Fentanyl Citrate 2,500 MCG in Dextrose 5% In Water 200 ML IV SCH (08:45)
--- NOTE | 2018-06-15 08:50 | CT ---
Date of service: 06/14/2018 PROCEDURE: CT HEAD WITHOUT CONTRAST. HISTORY: lethargic COMPARISON: Noncontrast head CT's 06/11/2018 06/05/2018. TECHNIQUE: Axial computed tomography images were obtained through the head/brain without intravenous contrast. Radiation dose: Total exam DLP = 1519.96 mGy-cm. This CT exam was performed using one or more of the following dose reduction techniques: Automated exposure control, adjustment of the mA and/or kV according to patient size, and/or use of iterative reconstruction technique. FINDINGS: HEMORRHAGE: No intracranial hemorrhage. BRAIN: Small infarction evolution appears somewhat more cystic at the left posterior limb internal capsule/thalamus with hyperdensity at the right lentiform nucleus diminished suspicious for limited hemorrhagic degradation products at this time. No mass-effect is appreciated and motion artifacts limit this exam somewhat. Mild diffuse cerebral atrophy chronic microangiopathy are reiterated the posterior fossa contents stable. . VENTRICLES: Unremarkable. No hydrocephalus. CALVARIUM: Unremarkable. PARANASAL SINUSES: Unremarkable as visualized. No significant inflammatory changes. MASTOID AIR CELLS: Unremarkable as visualized. No inflammatory changes. OTHER FINDINGS: None. 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 No significant mass effect. No new area of suspected infarction. Bandlike hyperdensity at the right lentiform lunate nucleus is diminishing in density and may reflect hemorrhagic product degradation. Age related neuro degenerative changes reiterated. Continued clinical and CT monitoring are advised.
--- NOTE | 2018-06-15 08:53 | RAD ---
Date of service: 06/15/2018 HISTORY: intubation COMPARISON: Portable chest 06/14/201807/1937 p.m.. FINDINGS: LUNGS: Endotracheal and nasogastric tubes do not appear significantly changed in position. No definite acute infiltrate bilaterally in the interval. PLEURA: Right changes versus trace of pleural effusion unchanged. Left breast implant obscures left base evaluation somewhat. No right pleural effusion. No pneumothorax bilaterally. CARDIOVASCULAR: Normal. OSSEOUS STRUCTURES: No significant abnormalities. VISUALIZED UPPER ABDOMEN: Normal. OTHER FINDINGS: None. IMPRESSION: Stable radiography of the chest including limited fibrosis or trace of pleural effusion at the left costophrenic sulcus. No suspicious interval acute cardiopulmonary findings.
[2018-06-15] MEDS: Divalproex 250 mg DR(BID formulation) PO SCH ×2 (08:58→16:00)
[2018-06-15] MEDS ORDERED: diltiaZEM 120 mg/24 Hours CD Cap PO SCH ×2 (09:00)
[2018-06-15] MEDS: Insulin Lispro (humaLOG) 100 Units/ml Inj SC SCH ×2 (09:08→13:34)
--- NOTE | 2018-06-15 09:20 | RAD ---
Date of service: 06/14/2018 HISTORY: intubation COMPARISON: Portable chest 06/11/2018. FINDINGS: LUNGS: Endotracheal tube in position terminating prostate 5 cm above the filemon. Nasogastric tube is in placed entering into left upper quadrant abdomen with the tip off the inferior margins of the image. Trace left pleural effusion is identified. No right pleural effusion. No pneumothorax bilaterally. PLEURA: No significant pleural effusion identified, no pneumothorax apparent. CARDIOVASCULAR: Normal. OSSEOUS STRUCTURES: No significant abnormalities. VISUALIZED UPPER ABDOMEN: Normal. OTHER FINDINGS: Bilateral breast implantation identified once again. IMPRESSION: ET tube and nasogastric tube now identified in position as described above. Trace left pleural effusion evident. No interval infiltrate bilaterally.
--- NOTE | 2018-06-15 09:20 | CP.PCM.PN ---
Subjective - Date & Time of Evaluation Date of Evaluation: 06/15/18 Time of Evaluation: 09:20 - Subjective Subjective: Ms. Arreaga is examined at the bedside in ICU. She is awake, however in the middle of the assessment patient went to sleep,on mechanically intubated on a PRVC mode, pupils sluggishly reactive to light accommodation, + gag reflex, breathes over the vent rate settings, moves extremities spontaneously, with episode of restlessness, on bilateral wrist restraint. She receive Morphine sulfate this am, but remains restless. She was transferred to the telemetry unity over the weekend, but had change of mental status and for airway protection. CT scan of the head done yesterday showed Small infarct in evolution the left internal capsule/ thalamus as discussed above. No significant mass effect. No new area of suspected infarction. Bandlike hyperdensity at the right lentiform lunate nucleus is diminishing in density and may reflect hemorrhagic product degradation.Age related neuro degenerative changes reiterated. Objective - Vital Signs/Intake and Output Vital Signs (last 24 hours): Temp Pulse Resp BP Pulse Ox 98.1 F 62 15 127/56 L 100 06/15/18 08:00 06/15/18 08:00 06/15/18 08:00 06/15/18 08:00 06/15/18 08:00 Intake and Output: 06/15/18 06/15/18 06:59 18:59 Intake Total 80 Balance 80 - Medications Medications: Current Medications Acetaminophen (Tylenol 325mg Tab) 650 mg PO Q6H PRN PRN Reason: Pain, Mild (1-3) Acetaminophen (Tylenol 325mg Tab) 650 mg PO Q6H PRN PRN Reason: Fever >100.4 F Albuterol/Ipratropium (Duoneb 3 Mg/0.5 Mg (3 Ml) Ud) 3 ml INH RQ6 [facility] Last Admin: 06/15/18 08:22 Dose: 3 ml Aspirin (Aspirin Chewable) 81 mg PO DAILY [facility] Last Admin: 06/15/18 08:58 Dose: 81 mg Atorvastatin Calcium (Lipitor) 20 mg PO HS [facility] Benztropine Mesylate (Cogentin) 2 mg PO BID [facility] Last Admin: 06/15/18 08:58 Dose: 2 mg Clonidine HCl (Catapres) 0.1 mg PO BID [facility] Dextrose (Dextrose 50% Inj) 0 ml IV STAT PRN; Protocol PRN Reason: Hypoglycemia Protocol Dextrose (Glutose 15) 0 gm PO ONCE PRN; Protocol PRN Reason: Hypoglycemia Protocol Diltiazem HCl (Cardizem Cd) 120 mg PO DAILY [facility] Divalproex Sodium (Depakote Dr(*Bid*)) 750 mg PO BID [facility] Last Admin: 06/15/18 08:58 Dose: 750 mg Gabapentin (Neurontin) 800 mg PO TID [facility] Gabapentin (Neurontin) 600 mg PO HS [facility] Glucagon (Glucagen Diagnostic Kit) 0 mg IM STAT PRN; Protocol PRN Reason: Hypoglycemia Protocol Haloperidol Lactate (Haldol) 3 mg IVP Q6 PRN PRN Reason: Agitation Dextrose/Sodium Chloride (Dextrose 5%/0.45% Ns 1000 Ml) 1,000 mls @ 80 mls/hr IV .[id number] [facility] Stop: 06/15/18 23:46 Last Admin: 06/15/18 00:06 Dose: 80 mls/hr Fentanyl Citrate 2,500 mcg/ (Dextrose) 250 mls @ 4.44 mls/hr IV .Q24H [facility]; 1 MCG/KG/HR PRN Reason: Protocol Insulin Human Lispro (Humalog) 0 units SC ACHS [facility] PRN Reason: Protocol Last Admin: 06/15/18 09:08 Dose: Not Given Morphine Sulfate (Morphine) 2 mg IVP Q4 PRN PRN Reason: Pain, moderate (4-7) Last Admin: 06/15/18 08:04 Dose: 2 mg Nicotine (Nicoderm Cq) 1 patch TD DAILY [facility] Last Admin: 06/15/18 08:59 Dose: 1 patch Nystatin (Nystop Topical Powder) 1 applic TOP TID [facility] Last Admin: 06/15/18 08:59 Dose: 1 applic Ondansetron HCl (Zofran Inj) 4 mg IVP Q6H PRN PRN Reason: Nausea/Vomiting Quetiapine Fumarate (Seroquel) 25 mg PO HS [facility] - Labs Labs: 06/15/18 05:40 06/15/18 05:40 PT 9.2 Seconds (9.8-13.1) L 06/05/18 19:25 INR 0.8 06/05/18 19:25 APTT 27.0 Seconds (25.6-37.1) 06/05/18 19:25 - Constitutional Appears: No Acute Distress - Eye Exam Pupil Exam: Miosis, PERRL Additional comments: 2 mm sluggish - Neurological Exam Neurological Exam: Awake Neuro motor strength exam: Left Upper Extremity: 4, Right Upper Extremity: 4, Left Lower Extremity: 4, Right Lower Extremity: 2/1 Additional comments: on mechanically ventilator on PRVC mode, opens her eyes spontaneously, restless Assessment and Plan (1) Intracranial hemorrhage Assessment & Plan: Continue all current medical regimen including ICU team management of ventilator and sedation. Recommend keep of the bed elevated at least 30 degrees , normothermia, blood pressure and glycemic control. Status: Acute
[2018-06-15 10:22] LABS: BANDS 1 % (0-2); LYMPHOCYTE 10 % (20-50); MONOCYTE 6 % (0-10); MYELOCYTE 1 % (0-0); NEUTROPHIL 82 % (42-75); TOTAL CELLS COUNTED 100
[2018-06-15 10:23] LABS: ANISOCYTOSIS SLIGHT; PLATELET ESTIMATE DECREASED (NORMAL)
[2018-06-15 10:29] LABS: LARGE PLATELETS PRESENT
--- NOTE | 2018-06-15 11:56 | CP.PCM.PN ---
Subjective - Date & Time of Evaluation Date of Evaluation: 06/15/18 Time of Evaluation: 10:53 - Subjective Subjective: patient seen and examined at bedside. interval events noted. patient now intubated in ICU spoke with nursing staff. reviewed chart Objective - Vital Signs/Intake and Output Vital Signs (last 24 hours): Temp Pulse Resp BP Pulse Ox 98.1 F 64 14 129/60 100 06/15/18 08:00 06/15/18 11:00 06/15/18 11:00 06/15/18 11:00 06/15/18 11:00 Intake and Output: 06/15/18 06/15/18 06:59 18:59 Intake Total 80 160 Balance 80 160 - Medications Medications: Current Medications Acetaminophen (Tylenol 325mg Tab) 650 mg PO Q6H PRN PRN Reason: Pain, Mild (1-3) Acetaminophen (Tylenol 325mg Tab) 650 mg PO Q6H PRN PRN Reason: Fever >100.4 F Albuterol/Ipratropium (Duoneb 3 Mg/0.5 Mg (3 Ml) Ud) 3 ml INH RQ6 [facility] Last Admin: 06/15/18 08:22 Dose: 3 ml Aspirin (Aspirin Chewable) 81 mg PO DAILY [facility] Last Admin: 06/15/18 08:58 Dose: 81 mg Atorvastatin Calcium (Lipitor) 20 mg PO HS [facility] Benztropine Mesylate (Cogentin) 2 mg PO BID [facility] Last Admin: 06/15/18 08:58 Dose: 2 mg Clonidine HCl (Catapres) 0.1 mg PO BID [facility] Dextrose (Dextrose 50% Inj) 0 ml IV STAT PRN; Protocol PRN Reason: Hypoglycemia Protocol Dextrose (Glutose 15) 0 gm PO ONCE PRN; Protocol PRN Reason: Hypoglycemia Protocol Diltiazem HCl (Cardizem Cd) 120 mg PO DAILY [facility] Divalproex Sodium (Depakote Dr(*Bid*)) 750 mg PO BID [facility] Last Admin: 06/15/18 08:58 Dose: 750 mg Gabapentin (Neurontin) 800 mg PO TID [facility] Gabapentin (Neurontin) 600 mg PO HS [facility] Glucagon (Glucagen Diagnostic Kit) 0 mg IM STAT PRN; Protocol PRN Reason: Hypoglycemia Protocol Haloperidol Lactate (Haldol) 3 mg IVP Q6 PRN PRN Reason: Agitation Dextrose/Sodium Chloride (Dextrose 5%/0.45% Ns 1000 Ml) 1,000 mls @ 80 mls/hr IV .[id number] [facility] Stop: 06/15/18 23:46 Last Admin: 06/15/18 00:06 Dose: 80 mls/hr Fentanyl Citrate 2,500 mcg/ (Dextrose) 250 mls @ 4.44 mls/hr IV .Q24H [facility]; 1 MCG/KG/HR PRN Reason: Protocol Last Admin: 06/15/18 10:13 Dose: 1 mcg/kg/hr, 4.44 mls/hr Insulin Human Lispro (Humalog) 0 units SC ACHS [facility] PRN Reason: Protocol Last Admin: 06/15/18 09:08 Dose: Not Given Morphine Sulfate (Morphine) 2 mg IVP Q4 PRN PRN Reason: Pain, moderate (4-7) Last Admin: 06/15/18 08:04 Dose: 2 mg Nicotine (Nicoderm Cq) 1 patch TD DAILY [facility] Last Admin: 06/15/18 08:59 Dose: 1 patch Nystatin (Nystop Topical Powder) 1 applic TOP TID [facility] Last Admin: 06/15/18 08:59 Dose: 1 applic Ondansetron HCl (Zofran Inj) 4 mg IVP Q6H PRN PRN Reason: Nausea/Vomiting Quetiapine Fumarate (Seroquel) 25 mg PO HS [facility] - Labs Labs: 06/15/18 05:40 06/15/18 05:40 PT 9.2 Seconds (9.8-13.1) L 06/05/18 19:25 INR 0.8 06/05/18 19:25 APTT 27.0 Seconds (25.6-37.1) 06/05/18 19:25 - Constitutional Appears: Chronically Ill - Head Exam Head Exam: NORMAL INSPECTION - Respiratory Exam Respiratory Exam: Clear to Ausculation Bilateral, NORMAL BREATHING PATTERN - Cardiovascular Exam Cardiovascular Exam: REGULAR RHYTHM, +S1, +S2 - GI/Abdominal Exam GI & Abdominal Exam: Soft, Normal Bowel Sounds - Extremities Exam Extremities Exam: Normal Inspection Additional comments: left bka - Skin Skin Exam: Normal Color, Warm Assessment and Plan - Assessment and Plan (Free Text) Assessment: 72 yo female admitted due to cva, L thalamic area continues to be agitated at times with restless leg syndrome LLE. Now intubated due to CO2 retention. plan continue with management as per federal law clerk in ICU adjust meds due to hypoglycemia yesterday continue with current medications neuro following
[2018-06-15] MEDS: Insulin Regular 100 units/ml SC SCH (18:56)
--- NOTE | 2018-06-15 20:38 | PN ---
DATE: 06/15/2018 ENDO FOLLOWUP NOTE LOCATION: Room 422, ICU. SUBJECTIVE: This is a 72-year-old female with recent uncontrolled type 2 insulin-requiring diabetes with extremes of glycemic fluctuations related to the variability of her oral intake with extremely suboptimal meal portions even with feeding assistants by the nursing staff. Her glucose levels overnight have ranged from 65 early this morning to 148 at bedtime last night as noted. Today's glucose levels are fluctuating and have ranged from 220 to 244 and 284 mg/dL. LABORATORY DATA: Her latest chemistry showed a BUN of 37, sodium 143, potassium 4, chloride 111, CO2 of 31, glucose 303, and creatinine 0.8. So at this time, we will restart once again the very low dose basal insulin with Levemir given as 6 units subcu at bedtime daily to start tonight. We will also add a small dose of oral hypoglycemic therapy with Glucotrol 10 mg b.i.d. before meals as well as . We will continue the low dose correction scale with Humalog insulin as given. We will also add glipizide given as 10 mg b.i.d. before meals as ordered together with a very low dose basal insulin given as Levemir at 6 units subcu at bedtime daily as given. We will titrate incrementally as indicated to optimize metabolic control. We will follow and advised accordingly. Nevin Chen MD
[2018-06-15] MEDS: Piperacillin/Tazobact 3.375 GM in Sodium Chloride 0.9% 100 ML IVPB SCH (21:02)
[2018-06-15] MEDS ORDERED: Insulin Detemir 100 Units/ml Inj SC SCH (22:00)
[2018-06-15] MEDS: Insulin Detemir 100 Units/ml Inj SC SCH (22:40)
[2018-06-16] MEDS: Insulin Regular 100 units/ml SC SCH ×4 (00:16→17:54)
[2018-06-16] MEDS: Albuterol-Ipratrop 3 mg / 0.5 (3 ml) UD INH SCH ×4 (01:07→19:10)
[2018-06-16] MEDS: Piperacillin/Tazobact 3.375 GM in Sodium Chloride 0.9% 100 ML IVPB SCH ×4 (04:04→22:23)
[2018-06-16] MEDS ORDERED: Dextrose 5%/0.45% NS 1,000 ML IV SCH ×2 (04:30→14:00)
[2018-06-16 04:39] LABS: ABG ALLEN TEST YES; ARTERIAL BLOOD GAS HCO3 28.9 mmol/L (21-28); ARTERIAL BLOOD GAS HEMOGLOBIN 11.4 g/dL (11.7-17.4); ARTERIAL BLOOD GAS O2 CAPACITY 15.7 mL/dL (16-24); ARTERIAL BLOOD GAS O2 CONTENT 15.7 ML/dL (15-23); ARTERIAL BLOOD GAS O2 SAT 99.7 % (95-98); ARTERIAL BLOOD GAS PCO2 53 mm/Hg (35-45); ARTERIAL BLOOD GAS PH 7.38 (7.35-7.45); ARTERIAL BLOOD GAS PO2 121 mm/Hg (80-100)
[2018-06-16 05:29] LABS: BLOOD UREA NITROGEN 42 mg/dl (7-17); CALCIUM 8.2 mg/dL (8.4-10.2); GFR NON-AFRICAN AMERICAN 55
[2018-06-16 07:08] LABS: HEMOGLOBIN 11.7 g/dL (12.0-16.0); MEAN CELL VOLUME 94.2 fl (81.0-99.0); MEAN CORPUSCULAR HEMOGLOBIN 31.1 pg (27.0-31.0); RBC 3.77 Mil/uL (3.80-5.20); RED CELL DISTRIBUTION WIDTH 16.2 % (11.5-14.5); WHITE BLOOD COUNT 12.2 K/uL (4.8-10.8)
--- NOTE | 2018-06-16 07:51 | RAD ---
Date of service: 06/16/2018 HISTORY: ETT placement COMPARISON: Portable chest 06/15/2018. FINDINGS: LUNGS: Endotracheal and nasogastric tubes do not appear significantly changed in position. No interval acute airspace disease appreciated bilaterally. PLEURA: No significant pleural effusion identified, no pneumothorax apparent. CARDIOVASCULAR: Normal. OSSEOUS STRUCTURES: No significant abnormalities. VISUALIZED UPPER ABDOMEN: Normal. OTHER FINDINGS: Bilateral breast implants reiterated. IMPRESSION: Apparent resolution of prior left pleural effusion. No airspace disease or acute cardiovascular changes appreciated bilaterally.
[2018-06-16] MEDS: Divalproex 250 mg DR(BID formulation) PO SCH ×2 (08:43→16:34)
[2018-06-16] MEDS: Dextrose 50% SYRINGE Inj (50 ml) IV PRN ×2 (10:47→17:08)
[2018-06-16] MEDS: Insulin Detemir 100 Units/ml Inj SC SCH (10:56)
--- NOTE | 2018-06-16 11:39 | CP.CCUPN ---
CCU Subjective - Physician Review Subjective (Free Text): 06/16/18 11:21 The patient was Seen and examined by me at the bedside during ICU round, Medical records reviewed and Management issues were discussed and formulated with the house staff. Events reviewed 72 Years old Female with PMHx of HTN, Hypercholesterolemia, Diabetes, left BKA, Anxiety, Arthritis, COPD, Asthma, Sleep Apnea, Bronchitis, chronic Atrial Fibrillation, CHF, COPD, Depression, Gastritis, Hypothyroidism, Paranoia, depression and Post-Traumatic Stress Disorder Patient Initially presents to the Emergency department 06/05 with restless left leg ongoing for several days, Patient states she had been put on a new medication for her RLS and that was making symptoms worse over past several days, She called her psychiatrist Dr. Villatoro, and was told to come to the ER. Pt. also states she fell out this afternoon but does not remember hitting her head. Denies headache, LOC, neck pain. She was admitted to the ICU with Intraparenchymal hyperattenuation conforming to the right lentiform nucleus, suggestive of acute intracranial hemorrhage. Also management of left thalamic stroke Her Condition stabilized and was transferred out of ICU to telemetry. Patient returned back to ICU on 05/14 after RN INTERN called for altered mental status , she was found unresponsive and accucheck 20 (2 amp of D50 given) BP 110/53 Hr 53 RR 16 t 96.3 o2Sat 97 5 on 3 L O2 via NC ABG showed PCO2 57 PO 149 ph 7.4 HCO3 31 on 3 L O2 via NC Placed on BIPAP 12/5/35%/14 and ordered repeat ABG in 1 hour On the telemetry, she was noted with worsening mental status, continued to be lethargic after dextrose administration, So she was transferred to the ICU and orally intubated. CXR revealed Left LL infilterate/effusion, and she was started on Emperic coverage with IV Vanco and zosyn This morning she is comfortable, NAD Orally intubated and sedated on fentanyl drip Afebrile, NSR on the monitor Last 24H I&O 2231/150 BG better today, S/P second hypoglycemic episode in iCU with BG Conrtinue Dextrose 5%/0.45% Ns @ 80 mls/hr All insulin orders held for now (premix 75/25 12 units before breakfast, premix 75/25 8 units before dinner) Bilateral venodyne boots intact. This morning CXR revealed improved Left LL infilterate/effusion This morning labs revealed persistant Leucocytosis to K12, slight worsening renal function BUN/Cr up to 42/1.0 Will increase IV fluids Critical Care Time Spent (in minutes): 44 CCU Objective - Vital Signs / Intake & Output Vital Signs (Last 4 hours): Vital Signs Temp Pulse Resp BP Pulse Ox 06/16/18 11:00 70 14 90/45 L 100 06/16/18 10:00 78 14 96/57 L 100 06/16/18 09:00 80 14 90/47 L 100 06/16/18 08:00 97.9 F 82 14 115/52 L 100 Intake and Output (Last 8hrs): Intake & Output 06/15/18 06/16/18 06/16/18 22:59 06:59 14:59 Intake Total 328 644 100.5 Output Total 150 Balance 328 494 100.5 Intake: IV 328 294 0.5 Intake, Piggyback 350 100 Output: Urine 150 Urethral (Suggs) 150 - Physical Exam Head: Positive for: Atraumatic, Normocephalic Pupils: Positive for: PERRL Extroacular Muscles: Positive for: EOMI Conjunctiva: Positive for: Normal Mouth: Positive for: Moist Mucous Membranes Nose (Internal): Positive for: Normal Inspection Neck: Positive for: Normal Range of Motion, Trachea Midline. Negative for: Meningeal Signs, MIDLINE TENDERNESS, Paraspinal Tenderness, JVD, Lymphadenopathy , Bruit, Other Respiratory/Chest: Positive for: Clear to Auscultation, Good Air Exchange. Negative for: Respiratory Distress, Accessory Muscle Use Cardiovascular: Positive for: Regular Rate and Rhythm, Normal S1, S2, Peripheal Pulses Present Abdomen: Positive for: Normal Bowel Sounds. Negative for: Tenderness, Distention Upper Extremity: Positive for: Normal Inspection Lower Extremity: Positive for: Normal Inspection Psychiatric: Positive for: Alert - Medications Active Medications: Active Medications Generic Name Dose Route Start Last Admin Trade Name Freq PRN Reason Stop Dose Admin Acetaminophen 650 mg 06/14/18 22:30 Tylenol 325mg Tab PO Q6H PRN Pain, Mild (1-3) Acetaminophen 650 mg 06/14/18 22:30 Tylenol 325mg Tab PO Q6H PRN Fever >100.4 F Albuterol/Ipratropium 3 ml 06/15/18 02:00 06/16/18 07:54 Duoneb 3 Mg/0.5 Mg (3 Ml) Ud INH 3 ml RQ6 JULIETA Administration Aspirin 81 mg 06/15/18 09:00 06/16/18 08:40 Aspirin Chewable PO 81 mg DAILY JULIETA Administration Atorvastatin Calcium 20 mg 06/15/18 22:00 06/15/18 22:41 Lipitor PO 20 mg HS JULIETA Administration Benztropine Mesylate 2 mg 06/15/18 09:00 06/16/18 08:40 Cogentin PO 2 mg BID JULIETA Administration Clonidine HCl 0.1 mg 06/15/18 09:00 Catapres PO BID JULIETA Dextrose 0 ml 06/14/18 22:30 06/16/18 10:47 Dextrose 50% Inj IV 50 ml STAT PRN Administration Hypoglycemia Protocol Protocol Dextrose 0 gm 06/14/18 22:30 Glutose 15 PO ONCE PRN Hypoglycemia Protocol Protocol Diltiazem HCl 120 mg 06/15/18 09:00 Cardizem Cd PO DAILY JULIETA Divalproex Sodium 750 mg 06/15/18 09:00 06/16/18 08:43 Deppasquale Santana(*Bid*) PO 750 mg BID JULIETA Administration Gabapentin 800 mg 06/15/18 09:00 Neurontin PO TID JULIETA Gabapentin 600 mg 06/15/18 22:00 Neurontin PO HS JULIETA Glucagon 0 mg 06/14/18 22:30 Glucagen Diagnostic Kit IM STAT PRN Hypoglycemia Protocol Protocol Haloperidol Lactate 3 mg 06/14/18 22:30 Haldol IVP Q6 PRN Agitation Fentanyl Citrate 2,500 mcg/ 250 mls @ 4.44 mls/hr 06/15/18 08:45 06/16/18 08: 39 Dextrose IV 0.5 mcg/kg/hr .Q24H JULIETA 2.22 mls/hr Protocol Titration 1 MCG/KG/HR Piperacillin Sod/Tazobactam 100 mls @ 100 mls/hr 06/15/18 22:00 06/16/18 09: 30 Sod 3.375 gm/ Sodium Chloride IVPB 100 mls/hr Q6 JULIETA Administration Protocol Vancomycin HCl 750 mg/ Sodium 250 mls @ 250 mls/hr 06/16/18 04:15 06/16/18 04 :11 Chloride IVPB 250 mls/hr Q12H JULIETA Administration Protocol Dextrose/Sodium Chloride 1,000 mls @ 80 mls/hr 06/16/18 04:30 06/16/18 04:31 Dextrose 5%/0.45% Ns 1000 Ml IV 06/17/18 04:27 80 mls/hr .[id number] JULIETA Administration Insulin Human Regular 0 units 06/15/18 18:00 06/16/18 08:35 Humulin R SC Not Given Q6H JULIETA Morphine Sulfate 2 mg 06/14/18 22:52 06/15/18 08:04 Morphine IVP 2 mg Q4 PRN Administration Pain, moderate (4-7) Nicotine 1 patch 06/15/18 09:00 06/16/18 08:40 Nicoderm Cq TD 1 patch DAILY JULIETA Administration Nystatin 1 applic 06/15/18 09:00 06/16/18 08:40 Nystop Topical Powder TOP 1 applic TID JULIETA Administration Ondansetron HCl 4 mg 06/14/18 22:30 Zofran Inj IVP Q6H PRN Nausea/Vomiting Quetiapine Fumarate 25 mg 06/15/18 22:00 Seroquel PO HS JULIETA - Patient Studies Lab Studies: Microbiology Studies 06/14/18 10:10 Gram Stain - Final Trachasp Lab Studies 06/16/18 06/16/18 06/16/18 Range/Units 11:09 10:44 07:00 WBC 12.2 H (4.8-10.8) K/uL RBC 3.77 L (3.80-5.20) Mil/uL Hgb 11.7 L (12.0-16.0) g/dL Hct 35.5 (34.0-47.0) % MCV 94.2 (81.0-99.0) fl MCH 31.1 H (27.0-31.0) pg MCHC 33.0 (33.0-37.0) g/dL RDW 16.2 H (11.5-14.5) % Plt Count 111 L (130-400) K/uL pCO2 (35-45) mm/Hg pO2 (80-100) mm/Hg HCO3 (21-28) mmol/L ABG pH (7.35-7.45) ABG Total CO2 (22-28) mmol/L ABG O2 Saturation (95-98) % ABG O2 Content (15-23) ML/dL ABG Base Excess (-2.0-3.0) mmol/L ABG Hemoglobin (11.7-17.4) g/dL ABG Carboxyhemoglobin (0.5-1.5) % POC ABG HHb (Measured) (0.0-5.0) % ABG Methemoglobin (0.0-3.0) % ABG O2 Capacity (16-24) mL/dL Sincere Test A-a O2 Difference mm/Hg Hgb O2 Saturation (95.0-98.0) % Vent Mode Mechanical Rate FiO2 % Tidal Volume PEEP Sodium (132-148) mmol/l Potassium (3.6-5.0) MMOL/L Chloride (98-107) mmol/L Carbon Dioxide (22-30) mmol/L Anion Gap (10-20) BUN (7-17) mg/dl Creatinine (0.7-1.2) mg/dl Est GFR ( Amer) Est GFR (Non-Af Amer) POC Glucose (mg/dL) 143 H < 20 L* (65-110) mg/dL Random Glucose (65-105) mg/dL Calcium (8.4-10.2) mg/dL 06/16/18 06/16/18 06/16/18 Range/Units 06:05 04:38 04:35 WBC (4.8-10.8) K/uL RBC (3.80-5.20) Mil/uL Hgb (12.0-16.0) g/dL Hct (34.0-47.0) % MCV (81.0-99.0) fl MCH (27.0-31.0) pg MCHC (33.0-37.0) g/dL RDW (11.5-14.5) % Plt Count (130-400) K/uL pCO2 53 H (35-45) mm/Hg pO2 121 H (80-100) mm/Hg HCO3 28.9 H (21-28) mmol/L ABG pH 7.38 (7.35-7.45) ABG Total CO2 33.0 H (22-28) mmol/L ABG O2 Saturation 99.7 H (95-98) % ABG O2 Content 15.7 (15-23) ML/dL ABG Base Excess 5.1 H (-2.0-3.0) mmol/L ABG Hemoglobin 11.4 L (11.7-17.4) g/dL ABG Carboxyhemoglobin 1.6 H (0.5-1.5) % POC ABG HHb (Measured) 0.3 (0.0-5.0) % ABG Methemoglobin 1.4 (0.0-3.0) % ABG O2 Capacity 15.7 L (16-24) mL/dL Sincere Test Yes A-a O2 Difference 98.0 mm/Hg Hgb O2 Saturation 96.7 (95.0-98.0) % Vent Mode A/c Mechanical Rate 14 FiO2 40.0 % Tidal Volume 400 PEEP 5 Sodium 143 (132-148) mmol/l Potassium 4.5 (3.6-5.0) MMOL/L Chloride 111 H (98-107) mmol/L Carbon Dioxide 26 (22-30) mmol/L Anion Gap 11 (10-20) BUN 42 H (7-17) mg/dl Creatinine 1.0 (0.7-1.2) mg/dl Est GFR ( Amer) > 60 Est GFR (Non-Af Amer) 55 POC Glucose (mg/dL) 126 H (65-110) mg/dL Random Glucose 180 H (65-105) mg/dL Calcium 8.2 L (8.4-10.2) mg/dL 06/15/18 06/15/18 06/15/18 Range/Units 22:08 18:35 18:26 WBC (4.8-10.8) K/uL RBC (3.80-5.20) Mil/uL Hgb (12.0-16.0) g/dL Hct (34.0-47.0) % MCV (81.0-99.0) fl MCH (27.0-31.0) pg MCHC (33.0-37.0) g/dL RDW (11.5-14.5) % Plt Count (130-400) K/uL pCO2 (35-45) mm/Hg pO2 (80-100) mm/Hg HCO3 (21-28) mmol/L ABG pH (7.35-7.45) ABG Total CO2 (22-28) mmol/L ABG O2 Saturation (95-98) % ABG O2 Content (15-23) ML/dL ABG Base Excess (-2.0-3.0) mmol/L ABG Hemoglobin (11.7-17.4) g/dL ABG Carboxyhemoglobin (0.5-1.5) % POC ABG HHb (Measured) (0.0-5.0) % ABG Methemoglobin (0.0-3.0) % ABG O2 Capacity (16-24) mL/dL Sincere Test A-a O2 Difference mm/Hg Hgb O2 Saturation (95.0-98.0) % Vent Mode Mechanical Rate FiO2 % Tidal Volume PEEP Sodium (132-148) mmol/l Potassium (3.6-5.0) MMOL/L Chloride (98-107) mmol/L Carbon Dioxide (22-30) mmol/L Anion Gap (10-20) BUN (7-17) mg/dl Creatinine (0.7-1.2) mg/dl Est GFR ( Amer) Est GFR (Non-Af Amer) POC Glucose (mg/dL) 275 H 361 H 356 H (65-110) mg/dL Random Glucose (65-105) mg/dL Calcium (8.4-10.2) mg/dL 06/15/18 Range/Units 13:26 WBC (4.8-10.8) K/uL RBC (3.80-5.20) Mil/uL Hgb (12.0-16.0) g/dL Hct (34.0-47.0) % MCV (81.0-99.0) fl MCH (27.0-31.0) pg MCHC (33.0-37.0) g/dL RDW (11.5-14.5) % Plt Count (130-400) K/uL pCO2 (35-45) mm/Hg pO2 (80-100) mm/Hg HCO3 (21-28) mmol/L ABG pH (7.35-7.45) ABG Total CO2 (22-28) mmol/L ABG O2 Saturation (95-98) % ABG O2 Content (15-23) ML/dL ABG Base Excess (-2.0-3.0) mmol/L ABG Hemoglobin (11.7-17.4) g/dL ABG Carboxyhemoglobin (0.5-1.5) % POC ABG HHb (Measured) (0.0-5.0) % ABG Methemoglobin (0.0-3.0) % ABG O2 Capacity (16-24) mL/dL Sincere Test A-a O2 Difference mm/Hg Hgb O2 Saturation (95.0-98.0) % Vent Mode Mechanical Rate FiO2 % Tidal Volume PEEP Sodium (132-148) mmol/l Potassium (3.6-5.0) MMOL/L Chloride (98-107) mmol/L Carbon Dioxide (22-30) mmol/L Anion Gap (10-20) BUN (7-17) mg/dl Creatinine (0.7-1.2) mg/dl Est GFR ( Amer) Est GFR (Non-Af Amer) POC Glucose (mg/dL) 284 H (65-110) mg/dL Random Glucose (65-105) mg/dL Calcium (8.4-10.2) mg/dL Laboratory Results - last 24 hr 06/15/18 06/15/18 06/15/18 13:26 18:26 18:35 WBC RBC Hgb Hct MCV MCH MCHC RDW Plt Count pCO2 pO2 HCO3 ABG pH ABG Total CO2 ABG O2 Saturation ABG O2 Content ABG Base Excess ABG Hemoglobin ABG Carboxyhemoglobin POC ABG HHb (Measured) ABG Methemoglobin ABG O2 Capacity Sincere Test A-a O2 Difference Hgb O2 Saturation Vent Mode Mechanical Rate FiO2 Tidal Volume PEEP Sodium Potassium Chloride Carbon Dioxide Anion Gap BUN Creatinine Est GFR ( Amer) Est GFR (Non-Af Amer) POC Glucose (mg/dL) 284 H 356 H 361 H Random Glucose Calcium 06/15/18 06/16/18 06/16/18 22:08 04:35 04:38 WBC RBC Hgb Hct MCV MCH MCHC RDW Plt Count pCO2 53 H pO2 121 H HCO3 28.9 H ABG pH 7.38 ABG Total CO2 33.0 H ABG O2 Saturation 99.7 H ABG O2 Content 15.7 ABG Base Excess 5.1 H ABG Hemoglobin 11.4 L ABG Carboxyhemoglobin 1.6 H POC ABG HHb (Measured) 0.3 ABG Methemoglobin 1.4 ABG O2 Capacity 15.7 L Sincere Test Yes A-a O2 Difference 98.0 Hgb O2 Saturation 96.7 Vent Mode A/c Mechanical Rate 14 FiO2 40.0 Tidal Volume 400 PEEP 5 Sodium 143 Potassium 4.5 Chloride 111 H Carbon Dioxide 26 Anion Gap 11 BUN 42 H Creatinine 1.0 Est GFR ( Amer) > 60 Est GFR (Non-Af Amer) 55 POC Glucose (mg/dL) 275 H Random Glucose 180 H Calcium 8.2 L 06/16/18 06/16/18 06/16/18 06:05 07:00 10:44 WBC 12.2 H RBC 3.77 L Hgb 11.7 L Hct 35.5 MCV 94.2 MCH 31.1 H MCHC 33.0 RDW 16.2 H Plt Count 111 L pCO2 pO2 HCO3 ABG pH ABG Total CO2 ABG O2 Saturation ABG O2 Content ABG Base Excess ABG Hemoglobin ABG Carboxyhemoglobin POC ABG HHb (Measured) ABG Methemoglobin ABG O2 Capacity Sincere Test A-a O2 Difference Hgb O2 Saturation Vent Mode Mechanical Rate FiO2 Tidal Volume PEEP Sodium Potassium Chloride Carbon Dioxide Anion Gap BUN Creatinine Est GFR ( Amer) Est GFR (Non-Af Amer) POC Glucose (mg/dL) 126 H < 20 L* Random Glucose Calcium 06/16/18 11:09 WBC RBC Hgb Hct MCV MCH MCHC RDW Plt Count pCO2 pO2 HCO3 ABG pH ABG Total CO2 ABG O2 Saturation ABG O2 Content ABG Base Excess ABG Hemoglobin ABG Carboxyhemoglobin POC ABG HHb (Measured) ABG Methemoglobin ABG O2 Capacity Sincere Test A-a O2 Difference Hgb O2 Saturation Vent Mode Mechanical Rate FiO2 Tidal Volume PEEP Sodium Potassium Chloride Carbon Dioxide Anion Gap BUN Creatinine Est GFR ( Amer) Est GFR (Non-Af Amer) POC Glucose (mg/dL) 143 H Random Glucose Calcium Fingerstick Blood Sugar Results: 20 Critical Care Progress Note - Ventilator Checklist Head of Bed 30 Degrees: Yes Daily Sedation Vacation: Yes Daily Assessment of Readiness to Wean: Yes Daily Spontaneous Breathing Trial: Yes PUD Prophalyxis: Yes DVT Prophylaxis: Yes Oral Care with Chlorhexidine Gluconate {CHG}: Yes - Extremities/Vascular Does the Patient have a Central Venous Catheter?: No Does the Patient need a Central Venous Catheter?: No Does the Patient have a Suggs Catheter?: Yes Does the Patient need a Suggs Catheter?: Yes Assessment/Plan (1) Acute respiratory failure with hypoxia Current Visit: Yes Status: Acute Priority: High Comment: CXR revealed Left LL infilterate/effusion, Pt was start patient on Emperic coverage with IV Vanco and zosyn Aggressive pulmonary toilet, chest PT, suctioning Sedation vacation today, will D/C fentanyl Vent weaning in progress Daily CAT/SBT IV antibiotics Albuterol/Ipratropium (Duoneb) INH RQ6 JULIETA (2) Intracranial hemorrhage Current Visit: Yes Status: Acute Priority: High Comment: Stable on repeat CT Brain 06/11 (3) Altered mental status Current Visit: Yes Status: Acute Priority: High Comment: S/P hypoglycemic episode Conrtinue Dextrose 5%/0.45% Ns @ 80 mls/hr All insulin orders held for now (premix 75/25 12 units before breakfast, premix 75/25 8 units before dinner) frequent acchu check monitoring Wean of sedation, neurocheck (4) COPD (chronic obstructive pulmonary disease) Current Visit: Yes Status: Acute Priority: Medium Comment: Continue bronchodilators q6hr Nicotine (Nicoderm Cq) 1 patch TD DAILY JULIETA (5) CHF (congestive heart failure) Current Visit: Yes Status: Chronic Priority: Medium Comment: Chronic diastolic heart failure (EF >55%), Pt allergic to ACEI A-Fib HR, B controlled with oral Cardizem, Clonidine Not on AC or ASA sec to ICH.
--- NOTE | 2018-06-16 11:48 | CP.PCM.PN ---
<Regis Núñez - Last Filed: 06/16/18 19:54> Subjective - Date & Time of Evaluation Date of Evaluation: 06/16/18 Time of Evaluation: 11:00 - Subjective Subjective: Pt seen and examined at bedside with Dr. Nichols Monitoring for hypoglycemia overnight. pt continues to present with restless L leg. Intubated Objective - Vital Signs/Intake and Output Vital Signs (last 24 hours): Temp Pulse Resp BP Pulse Ox 97.9 F 70 14 90/45 L 100 06/16/18 08:00 06/16/18 11:00 06/16/18 11:00 06/16/18 11:00 06/16/18 11:00 Intake and Output: 06/16/18 06/16/18 06:59 18:59 Intake Total 972 100.5 Output Total 150 Balance 822 100.5 - Medications Medications: Current Medications Acetaminophen (Tylenol 325mg Tab) 650 mg PO Q6H PRN PRN Reason: Pain, Mild (1-3) Acetaminophen (Tylenol 325mg Tab) 650 mg PO Q6H PRN PRN Reason: Fever >100.4 F Albuterol/Ipratropium (Duoneb 3 Mg/0.5 Mg (3 Ml) Ud) 3 ml INH RQ6 JULIETA Last Admin: 06/16/18 07:54 Dose: 3 ml Aspirin (Aspirin Chewable) 81 mg PO DAILY [facility] Last Admin: 06/16/18 08:40 Dose: 81 mg Atorvastatin Calcium (Lipitor) 20 mg PO HS [facility] Last Admin: 06/15/18 22:41 Dose: 20 mg Benztropine Mesylate (Cogentin) 2 mg PO BID [facility] Last Admin: 06/16/18 08:40 Dose: 2 mg Clonidine HCl (Catapres) 0.1 mg PO BID [facility] Dextrose (Dextrose 50% Inj) 0 ml IV STAT PRN; Protocol PRN Reason: Hypoglycemia Protocol Last Admin: 06/16/18 10:47 Dose: 50 ml Dextrose (Glutose 15) 0 gm PO ONCE PRN; Protocol PRN Reason: Hypoglycemia Protocol Diltiazem HCl (Cardizem Cd) 120 mg PO DAILY [facility] Divalproex Sodium (Depakote Dr(*Bid*)) 750 mg PO BID [facility] Last Admin: 06/16/18 08:43 Dose: 750 mg Gabapentin (Neurontin) 800 mg PO TID [facility] Gabapentin (Neurontin) 600 mg PO HS [facility] Glucagon (Glucagen Diagnostic Kit) 0 mg IM STAT PRN; Protocol PRN Reason: Hypoglycemia Protocol Haloperidol Lactate (Haldol) 3 mg IVP Q6 PRN PRN Reason: Agitation Fentanyl Citrate 2,500 mcg/ (Dextrose) 250 mls @ 4.44 mls/hr IV .Q24H JULIETA; 1 MCG/KG/HR PRN Reason: Protocol Last Titration: 06/16/18 08:39 Dose: 0.5 mcg/kg/hr, 2.22 mls/hr Piperacillin Sod/Tazobactam (Sod 3.375 gm/ Sodium Chloride) 100 mls @ 100 mls/ hr IVPB Q6 JULIETA PRN Reason: Protocol Last Admin: 06/16/18 09:30 Dose: 100 mls/hr Vancomycin HCl 750 mg/ Sodium (Chloride) 250 mls @ 250 mls/hr IVPB Q12H JULIETA PRN Reason: Protocol Last Admin: 06/16/18 04:11 Dose: 250 mls/hr Dextrose/Sodium Chloride (Dextrose 5%/0.45% Ns 1000 Ml) 1,000 mls @ 80 mls/hr IV .[id number] [facility] Stop: 06/17/18 04:27 Last Admin: 06/16/18 04:31 Dose: 80 mls/hr Insulin Human Regular (Humulin R) 0 units SC Q6H [facility] Last Admin: 06/16/18 08:35 Dose: Not Given Morphine Sulfate (Morphine) 2 mg IVP Q4 PRN PRN Reason: Pain, moderate (4-7) Last Admin: 06/15/18 08:04 Dose: 2 mg Nicotine (Nicoderm Cq) 1 patch TD DAILY [facility] Last Admin: 06/16/18 08:40 Dose: 1 patch Nystatin (Nystop Topical Powder) 1 applic TOP TID [facility] Last Admin: 06/16/18 08:40 Dose: 1 applic Ondansetron HCl (Zofran Inj) 4 mg IVP Q6H PRN PRN Reason: Nausea/Vomiting Quetiapine Fumarate (Seroquel) 25 mg PO HS [facility] - Labs Labs: 06/16/18 07:00 06/16/18 04:35 PT 9.2 Seconds (9.8-13.1) L 06/05/18 19:25 INR 0.8 06/05/18 19:25 APTT 27.0 Seconds (25.6-37.1) 06/05/18 19:25 - Eye Exam Eye Exam: EOMI - Respiratory Exam Additional comments: Intubated - Cardiovascular Exam Cardiovascular Exam: +S1, +S2 - GI/Abdominal Exam GI & Abdominal Exam: Normal Bowel Sounds Assessment and Plan - Assessment and Plan (Free Text) Plan: Care per Hospital Staff Pharmacist team: further recommendations appreciated Continue with treatment/care as ordered Dr. Chen, Dr. Cuellar on board: further recommendations appreciated PT/OT as tolerated Case dw Dr. Simone Núñez MD PGY2 <Eran Nichols - Last Filed: 06/18/18 14:49> Objective - Vital Signs/Intake and Output Vital Signs (last 24 hours): Temp Pulse Resp BP Pulse Ox 98.6 F 81 14 122/57 L 100 06/18/18 12:00 06/18/18 14:00 06/18/18 14:00 06/18/18 14:00 06/18/18 14:00 Intake and Output: 06/18/18 06/18/18 06:59 18:59 Intake Total 1180 515 Output Total 250 210 Balance 930 305 - Medications Medications: Current Medications Acetaminophen (Tylenol 325mg Tab) 650 mg PO Q6H PRN PRN Reason: Pain, Mild (1-3) Acetaminophen (Tylenol 325mg Tab) 650 mg PO Q6H PRN PRN Reason: Fever >100.4 F Albuterol/Ipratropium (Duoneb 3 Mg/0.5 Mg (3 Ml) Ud) 3 ml INH RQ6 JULIETA Last Admin: 06/18/18 13:15 Dose: 3 ml Aspirin (Aspirin Chewable) 81 mg PO DAILY J[facility]ETA Last Admin: 06/18/18 08:06 Dose: 81 mg Atorvastatin Calcium (Lipitor) 20 mg PO HS J[facility]IETA Last Admin: 06/17/18 21:15 Dose: 20 mg Benztropine Mesylate (Cogentin) 2 mg PO BID [facility]A Last Admin: 06/18/18 08:06 Dose: 2 mg Clonidine HCl (Catapres) 0.1 mg PO BID [facility] Dextrose (Dextrose 50% Inj) 0 ml IV STAT PRN; Protocol PRN Reason: Hypoglycemia Protocol Last Admin: 06/16/18 17:08 Dose: 50 ml Dextrose (Glutose 15) 0 gm PO ONCE PRN; Protocol PRN Reason: Hypoglycemia Protocol Diltiazem HCl (Cardizem Cd) 120 mg PO DAILY [facility] Divalproex Sodium (Depakote Dr(*Bid*)) 750 mg PO BID [facility] Last Admin: 06/18/18 08:06 Dose: 750 mg Gabapentin (Neurontin) 800 mg PO TID [facility] Gabapentin (Neurontin) 600 mg PO HS [facility] Glucagon (Glucagen Diagnostic Kit) 0 mg IM STAT PRN; Protocol PRN Reason: Hypoglycemia Protocol Haloperidol Lactate (Haldol) 3 mg IVP Q6 PRN PRN Reason: Agitation Piperacillin Sod/Tazobactam (Sod 3.375 gm/ Sodium Chloride) 100 mls @ 100 mls/ hr IVPB Q6 [facility] PRN Reason: Protocol Last Admin: 06/18/18 09:52 Dose: 100 mls/hr Vancomycin HCl 750 mg/ Sodium (Chloride) 250 mls @ 250 mls/hr IVPB Q12H [facility] PRN Reason: Protocol Last Admin: 06/18/18 03:58 Dose: 250 mls/hr Sodium Chloride (Sodium Chloride 0.9%) 500 mls @ 999 mls/hr IV .Q31M [facility] Last Admin: 06/16/18 16:41 Dose: 999 mls/hr Insulin Human Regular (Humulin R) 0 units SC Q6H [facility] Last Admin: 06/18/18 11:27 Dose: Not Given Lorazepam (Ativan) 1 mg IVP Q4 PRN PRN Reason: Agitation Last Admin: 06/18/18 13:46 Dose: 1 mg Nicotine (Nicoderm Cq) 1 patch TD DAILY [facility] Last Admin: 06/18/18 08:06 Dose: 1 patch Nystatin (Nystop Topical Powder) 1 applic TOP TID [facility] Last Admin: 06/18/18 12:06 Dose: 1 applic Ondansetron HCl (Zofran Inj) 4 mg IVP Q6H PRN PRN Reason: Nausea/Vomiting Quetiapine Fumarate (Seroquel) 25 mg PO HS [facility] - Labs Labs: 06/18/18 04:20 06/18/18 04:20 PT 9.2 Seconds (9.8-13.1) L 06/05/18 19:25 INR 0.8 06/05/18 19:25 APTT 27.0 Seconds (25.6-37.1) 06/05/18 19:25 Assessment and Plan (1) COPD (chronic obstructive pulmonary disease) Status: Acute (2) Restless leg syndrome Status: Acute (3) Diabetes mellitus type 2, uncontrolled Status: Chronic (4) Hypertension Status: Chronic (5) Atrial fibrillation Status: Resolved (6) Anxiety Status: Acute (7) Depression Status: Acute (8) Hypoglycemia Status: Acute (9) Thalamic infarct, acute Status: Acute - Assessment and Plan (Free Text) Plan: I was present during evaluation and discussed with Dr Salazar re plans of care and mgt. Eran Nichols M.D.
[2018-06-16] MEDS ORDERED: Sodium Chloride 0.9% 500 ML IV ONE ×2 (11:52)
[2018-06-16 12:49] LABS: CALCIUM 7.6 mg/dL (8.4-10.2)
[2018-06-16] MEDS ORDERED: Sodium Chloride 0.9% 500 ML IV SCH (15:45)
--- NOTE | 2018-06-16 21:02 | PN ---
DATE: 06/16/2018 ENDO FOLLOWUP NOTE LOCATION: In room 422 ICU. SUBJECTIVE: This is a 72-year-old female with recent uncontrolled type 2 insulin-requiring diabetes, transferred here to ICU because of supervening agitation and respiratory distress and evaluated for sudden acute respiratory failure and is currently endotracheally intubated at this time, and is being followed closely for metabolic management. LABORATORY DATA: Her glycemic levels actually were low this morning as there is still no initiation of nutritional supplementation is noted. Her latest glucose level is now 143 mg/dL and the latest chemistry showed the BUN of 43, sodium 142, potassium 3.4, chloride 111, CO2 of 27, glucose 91, and creatinine 1.1. Her calcium level is 7.6 and albumin is actually 9.1 mg/dL. ASSESSMENT AND PLAN: So at this time, we will discontinue the basal insulin for now and observe her glycemic fluctuations once they initiate nutritional supplementation as noted. She clearly needs nutritional supplementation because she is extremely hypercatabolic with the intercurrent physical stressors and the hypoalbuminemia as noted. We will continue the low dose correction scale using Humalog insulin as given. We will obtain serial chemistries and supplement accordingly as needed. We will follow. Nevin Chen MD
[2018-06-17] MEDS: Insulin Regular 100 units/ml SC SCH ×4 (00:52→17:29)
[2018-06-17] MEDS: Albuterol-Ipratrop 3 mg / 0.5 (3 ml) UD INH SCH ×4 (01:28→19:12)
[2018-06-17] MEDS: Piperacillin/Tazobact 3.375 GM in Sodium Chloride 0.9% 100 ML IVPB SCH ×4 (04:11→21:15)
[2018-06-17 05:20] LABS: ABG ALLEN TEST YES; ARTERIAL BLOOD GAS HCO3 25.8 mmol/L (21-28); ARTERIAL BLOOD GAS HEMOGLOBIN 11.6 g/dL (11.7-17.4); ARTERIAL BLOOD GAS O2 CAPACITY 16.2 mL/dL (16-24); ARTERIAL BLOOD GAS O2 CONTENT 16.1 ML/dL (15-23); ARTERIAL BLOOD GAS O2 SAT 99.6 % (95-98); ARTERIAL BLOOD GAS PCO2 48 mm/Hg (35-45); ARTERIAL BLOOD GAS PH 7.36 (7.35-7.45); ARTERIAL BLOOD GAS PO2 142 mm/Hg (80-100); ARTERIAL BLOOD GAS TCO2 28.6 mmol/L (22-28)
[2018-06-17 06:17] LABS: BLOOD UREA NITROGEN 39 mg/dl (7-17); CALCIUM 7.8 mg/dL (8.4-10.2); GFR NON-AFRICAN AMERICAN 55
[2018-06-17 06:55] LABS: MEAN CELL VOLUME 96.4 fl (81.0-99.0); MEAN CORPUSCULAR HEMOGLOBIN 31.9 pg (27.0-31.0); RBC 3.78 Mil/uL (3.80-5.20); RED CELL DISTRIBUTION WIDTH 16.5 % (11.5-14.5); WHITE BLOOD COUNT 11.6 K/uL (4.8-10.8)
[2018-06-17] MEDS: Divalproex 250 mg DR(BID formulation) PO SCH ×2 (08:13→17:29)
--- NOTE | 2018-06-17 10:17 | CP.CCUPN ---
CCU Subjective - Physician Review Subjective (Free Text): Remains intermittently agitated, no overt distress, breathing 16 on AC 14, 100% SPO2 on 40% oxygen. I do not see Fentanyl infusion. Tolerating OGT feeds with Glucerna, off oral hypoglycemics. Other vitals and I/O's reviewed. No fever spikes last 24H. ROS: No other pertinent negs or positives on 10+ system review. PMSFH: All other Nursing and physician documentation reviewed to date; no new pertinent info noted relevant to current medical problems. EXAM- HEENT: no icterus, no gaze preference, pupils equal and reactive NECK: No JVD visible, supple, carotids equal upstroke bilat/no bruits CHEST: decreased BS bases, no wheezes audible HEART: regular, distant, Tachy S1S2, no rubs ABD: soft, no increased distention, no tympany, no focal tenderness, BS hypoactive, no rebound. EXT: no peripheral/ digital cyanosis, no calf tenderness or palpable cords, distal pulses intact and symmetrical. Left BKA intact, stump wound well healed. NEURO: increased tone present in LUE only. SKIN: fungal rash perineal and bilat inframammary areas; otherwise warm and dry. LABS: WBC= 11.6 HGB= 12.0 PLTs= 72K Zo=109 K= 4.3 CL= 110 HCO3= 22 BUN/Cr= 39/1.0 BS= 269 CXR (my interp): ETT position OK abve filemon, no new consolidation IMPRESSION / MAJOR PROBLEMS NOW: 1. Acute Stroke, L Thalamic area. 2. s/p Acute resp insuff 2 Acute Pulm edema; intubated on 06/14 for mild hypercarbia 3. Mild Delirium- unclear mental status baseline. 4. Chronic A Fib on AC with Xarelto 5. DM II-uncontrolled PLAN: 1. BZDPs resumed, on Morphine prn for analgo-sedation purposes. Cogentin, Valproate, Haldol remain, but outpatient psychotropic meds including Lexapro, and Mirtazapine have not been resumed. 2. SBTs today as tolerated. 3. Decrease FiO2 to 35%. 4. Empiric Zosyn / Vanco noted. 5. Watch Plt counts, likely due to Zosyn. Check Fibrinogen levels. 6. Needs PICC line. 7. Remains off Levemir. CCU Objective - Vital Signs / Intake & Output Vital Signs (Last 4 hours): Vital Signs Temp Pulse Resp BP Pulse Ox 06/17/18 08:00 97.8 F 92 H 15 142/72 100 Intake and Output (Last 8hrs): Intake & Output 06/16/18 06/17/18 06/17/18 22:59 06:59 14:59 Intake Total 2140 890 Output Total 100 250 Balance 2040 640 Intake: IV 1520 250 Intake, Piggyback 350 350 Tube Feeding 170 190 Free Water Flush 100 100 Output: Urine 100 250 Urethral (Suggs) 100 250
--- NOTE | 2018-06-17 12:17 | RAD ---
Date of service: 06/17/2018 HISTORY: ETT placement COMPARISON: 06/16/2018 FINDINGS: Endotracheal tube terminates 4.5 cm proximal to the filemon. The nasogastric tube terminates in the stomach. LUNGS: The lungs are well inflated and clear. PLEURA: No significant pleural effusion identified, no pneumothorax apparent. CARDIOVASCULAR: Normal. OSSEOUS STRUCTURES: No significant abnormalities. VISUALIZED UPPER ABDOMEN: Normal. OTHER FINDINGS: Bilateral rim calcified breast implants. IMPRESSION: No acute findings. Stable position of support tubes.
[2018-06-17] MEDS ORDERED: Lidocaine 1% 5ml Abboject ONE (15:27)
--- NOTE | 2018-06-17 16:04 | PCM.SURG1 ---
Surgeon's Initial Post Op Note - Surgeon's Notes Surgeon: Solo Uriarte MD Belt Lacer: NONE Type of Anesthesia: Local Pre-Operative Diagnosis: Poor venous access Operative Findings: US showed a patent right basilic vein. Post-Operative Diagnosis: Poor venous access Operation Performed: Single lumen picc placement right basilic vein, 37 cm. Tip is in the SVC. Specimen/Specimens Removed: NONE Estimated Blood Loss: EBL {In ML}: 4 Blood Products Given: N/A Drains Used: No Drains Post-Op Condition: Poor Date of Surgery/Procedure: 06/17/18 Time of Surgery/Procedure: 16:00
[2018-06-17] MEDS: Insulin Detemir 100 Units/ml Inj SC SCH (17:44)
--- NOTE | 2018-06-17 21:21 | PN ---
DATE: 06/17/2018 ENDOCRINOLOGY FOLLOWUP NOTE LOCATION: Room 422, ICU. SUBJECTIVE: This is a 72-year-old female with recent uncontrolled type 2 insulin-requiring diabetes presenting here with extremes of glycemic fluctuations and developed supervening acute respiratory failure with an intracranial hemorrhage and is now being followed closely for metabolic management. Her glycemic levels are fluctuating as noted, and today's glucose values have ranged from 255 to 321 mg/dL. It was 155 at bedtime last night. The latest chemistry showed a BUN of 39, sodium 139, potassium 4.3, chloride 110, CO2 of 22, glucose 269, and creatinine 1. So at this time, we will modify once again, her current regimen, and resume and restart her basal insulin given as Levemir at 8 units subcu at 10 a.m. and 10 p.m. daily as given. We will continue the low-dose correction scale using Humalog insulin as ordered. We will titrate incremental as indicated to optimize metabolic control. We will follow and advise accordingly. Nevin Chen MD
[2018-06-18] MEDS: Albuterol-Ipratrop 3 mg / 0.5 (3 ml) UD INH SCH ×4 (01:10→19:09)
[2018-06-18] MEDS ORDERED: Dextrose 50% SYRINGE Inj (50 ml) IVP STA (01:39)
[2018-06-18] MEDS: Insulin Regular 100 units/ml SC SCH ×4 (01:41→17:06)
[2018-06-18] MEDS: Piperacillin/Tazobact 3.375 GM in Sodium Chloride 0.9% 100 ML IVPB SCH ×4 (03:58→22:00)
[2018-06-18] MEDS: Insulin Detemir 100 Units/ml Inj SC SCH (04:14)
[2018-06-18 05:15] LABS: ABG ALLEN TEST YES; ARTERIAL BLOOD GAS HCO3 28.7 mmol/L (21-28); ARTERIAL BLOOD GAS O2 CAPACITY 15.5 mL/dL (16-24); ARTERIAL BLOOD GAS O2 CONTENT 15.5 ML/dL (15-23); ARTERIAL BLOOD GAS O2 SAT 99.7 % (95-98); ARTERIAL BLOOD GAS PCO2 35 mm/Hg (35-45); ARTERIAL BLOOD GAS PH 7.51 (7.35-7.45); ARTERIAL BLOOD GAS PO2 181 mm/Hg (80-100)
[2018-06-18 05:50] LABS: HEMOGLOBIN 10.9 g/dL (12.0-16.0); MEAN CELL VOLUME 95.3 fl (81.0-99.0); MEAN CORPUSCULAR HEMOGLOBIN 31.8 pg (27.0-31.0); MEAN CORPUSCULAR HGB CONC 33.4 g/dL (33.0-37.0); RBC 3.42 Mil/uL (3.80-5.20); RED CELL DISTRIBUTION WIDTH 15.9 % (11.5-14.5); WHITE BLOOD COUNT 8.2 K/uL (4.8-10.8)
[2018-06-18] MEDS ORDERED: Glucagon Recombinant 1 mg Inj IM ONE (06:06)
[2018-06-18] MEDS ORDERED: Dextrose 50% SYRINGE Inj (50 ml) IVP ONE (06:06)
[2018-06-18 06:17] LABS: BLOOD UREA NITROGEN 33 mg/dl (7-17); CALCIUM 8.2 mg/dL (8.4-10.2); GFR NON-AFRICAN AMERICAN > 60
[2018-06-18] MEDS: Divalproex 250 mg DR(BID formulation) PO SCH ×2 (08:06→16:04)
--- NOTE | 2018-06-18 09:12 | RAD ---
Date of service: 06/18/2018 HISTORY: intubated COMPARISON: 06/17/2018. FINDINGS: Endotracheal tube terminates 2.7 cm proximal to the filemon. The nasogastric tube terminates in the stomach. The right PICC line terminates at the cavoatrial junction. LUNGS: The lungs are well inflated and clear. PLEURA: No significant pleural effusion identified, no pneumothorax apparent. CARDIOVASCULAR: Normal. OSSEOUS STRUCTURES: No significant abnormalities. VISUALIZED UPPER ABDOMEN: Normal. OTHER FINDINGS: None. IMPRESSION: No acute findings. Right PICC line terminates at the cavoatrial junction. Stable position of endotracheal and nasogastric tubes.
--- NOTE | 2018-06-18 09:53 | CP.CCUPN ---
CCU Subjective - Physician Review Subjective (Free Text): Remains intermittently agitated, no overt distress, breathing 19 on AC 14, 100% SPO2 on 40% oxygen. Tolerated only a short , brief CPAP PS, culminating in RR up to 32, RSBI= 143; then returned back to PRVC AC mode. Tolerating OGT feeds with Glucerna up to 45 ml/hr, on Q12H Levemir as per Endocrine. Other vitals and I/O's reviewed. No fever spikes last 24H. ROS: No other pertinent negs or positives on 10+ system review. PMSFH: All other Nursing and physician documentation reviewed to date; no new pertinent info noted relevant to current medical problems. EXAM- HEENT: no icterus, no gaze preference, pupils equal and reactive NECK: No JVD visible, supple, carotids equal upstroke bilat/no bruits CHEST: decreased BS bases, no wheezes audible HEART: regular, distant, Tachy S1S2, no rubs ABD: soft, no increased distention, no tympany, no focal tenderness, BS hypoactive, no rebound. EXT: no peripheral/ digital cyanosis, no calf tenderness or palpable cords, distal pulses intact and symmetrical. Left BKA intact, stump wound well healed. NEURO: no gross focal motor deficits. SKIN: fungal rash perineal and bilat inframammary areas; otherwise warm and dry. LABS: WBC= 8.2 HGB= 10.9 PLTs= 78K Sh=090 K= 3.6 CL= 110 HCO3= 29 BUN/Cr= 33/0.9 BS= 89 CXR (my interp): ETT position near filemon, no new consolidation. IMPRESSION / MAJOR PROBLEMS NOW: 1. Acute Stroke, L Thalamic area. 2. s/p Acute resp insuff 2 Acute Pulm edema; intubated on 06/14 for mild hypercarbia 3. Mild Delirium- unclear mental status baseline. 4. Chronic A Fib on AC with Xarelto 5. DM II-uncontrolled PLAN: 1. BZDPs resumed, on Morphine prn for analgo-sedation purposes. Cogentin, Valproate, Haldol remain, but outpatient psychotropic meds including Lexapro, and Mirtazapine have not been resumed. 2. SBTs today as tolerated. 3. Decrease FiO2 to 35%. 4. Empiric Zosyn / Vanco noted. 5. Watch Plt counts, no active bleeding, Hgb stable. 6. Decrease and or hold Levemir and follow BS trends, has been more hypoglycemic. CCU Objective - Vital Signs / Intake & Output Vital Signs (Last 4 hours): Vital Signs Temp Pulse Resp BP Pulse Ox 06/18/18 08:00 98.5 F 94 H 17 155/66 H 100 06/18/18 06:21 91 H 18 149/81 100 Intake and Output (Last 8hrs): Intake & Output 06/17/18 06/18/18 06/18/18 22:59 06:59 14:59 Intake Total 1325 945 245 Output Total 400 250 50 Balance 925 695 195 Intake: Intake, Piggyback 450 450 100 Tube Feeding 675 395 45 Free Water Flush 200 100 100 Output: Urine 400 250 50 Urethral (Suggs) 400 50 Urine, Voided 250 Other: # Bowel Movements 0 0
--- NOTE | 2018-06-18 13:00 | VASCULAR ---
PROCEDURE: Date of procedure: 06/17/2018 Procedure: 1. Placement of a right arm PICC with ultrasound and fluoroscopic guidance, CPT 01014 2. PICC tip confirmation with spot radiograph and is in the superior vena cava Medications: 1 percent lidocaine Total Fluoro time: 36.9 seconds Radiation: 1.77 MGy EBL: 2 cc HISTORY: Infection requiring long-term IV antibiotics TECHNIQUE: Following informed consent and procedure time-out, the patient was placed supine on the interventional table and the right arm prepped and draped in the usual sterile fashion. Ultrasound showed a patent and compressible right basilic vein. After the skin was anesthetized with lidocaine, the basilic vein was accessed with micro micropuncture technique using ultrasound guidance. A guidewire was then advanced under fluoroscopic guidance into the superior vena cava. An image documenting ultrasound guidance for vascular access was permanently saved. The length of the single-lumen 4 [place] PICC was trimmed to 37 centimeters and advanced through a peel-away sheath. The PICC was position with tip of PICC confirm a spot radiograph the superior vena cava. The PICC was secured to the patient's skin. The PICC was flushed. A biopatch and sterile dressing was applied. IMPRESSION: Placement of a single-lumen 4 [place] PICC trimmed to 37 centimeters via right basilic vein. The tip of the PICC is confirmed with spot radiograph and is in the superior vena cava.
--- NOTE | 2018-06-18 13:35 | CP.PCM.PN ---
<Regis Núñez - Last Filed: 06/18/18 17:45> Subjective - Date & Time of Evaluation Date of Evaluation: 06/18/18 Time of Evaluation: 10:00 - Subjective Subjective: Pt seen and examined at bedside with Dr. Nichols. Pt seen resting in bed. Had hypoglycemic episode overnight picc placed yesterday Objective - Vital Signs/Intake and Output Vital Signs (last 24 hours): Temp Pulse Resp BP Pulse Ox 98.6 F 90 20 161/61 H 100 06/18/18 12:00 06/18/18 12:00 06/18/18 12:00 06/18/18 12:00 06/18/18 12:00 Intake and Output: 06/18/18 06/18/18 06:59 18:59 Intake Total 1180 425 Output Total 250 160 Balance 930 265 - Medications Medications: Current Medications Acetaminophen (Tylenol 325mg Tab) 650 mg PO Q6H PRN PRN Reason: Pain, Mild (1-3) Acetaminophen (Tylenol 325mg Tab) 650 mg PO Q6H PRN PRN Reason: Fever >100.4 F Albuterol/Ipratropium (Duoneb 3 Mg/0.5 Mg (3 Ml) Ud) 3 ml INH RQ6 [facility] Last Admin: 06/18/18 13:15 Dose: 3 ml Aspirin (Aspirin Chewable) 81 mg PO DAILY [facility] Last Admin: 06/18/18 08:06 Dose: 81 mg Atorvastatin Calcium (Lipitor) 20 mg PO HS [facility] Last Admin: 06/17/18 21:15 Dose: 20 mg Benztropine Mesylate (Cogentin) 2 mg PO BID [facility] Last Admin: 06/18/18 08:06 Dose: 2 mg Clonidine HCl (Catapres) 0.1 mg PO BID [facility] Dextrose (Dextrose 50% Inj) 0 ml IV STAT PRN; Protocol PRN Reason: Hypoglycemia Protocol Last Admin: 06/16/18 17:08 Dose: 50 ml Dextrose (Glutose 15) 0 gm PO ONCE PRN; Protocol PRN Reason: Hypoglycemia Protocol Diltiazem HCl (Cardizem Cd) 120 mg PO DAILY [facility] Divalproex Sodium (Depakote Dr(*Bid*)) 750 mg PO BID [facility] Last Admin: 06/18/18 08:06 Dose: 750 mg Gabapentin (Neurontin) 800 mg PO TID [facility] Gabapentin (Neurontin) 600 mg PO HS [facility] Glucagon (Glucagen Diagnostic Kit) 0 mg IM STAT PRN; Protocol PRN Reason: Hypoglycemia Protocol Haloperidol Lactate (Haldol) 3 mg IVP Q6 PRN PRN Reason: Agitation Piperacillin Sod/Tazobactam (Sod 3.375 gm/ Sodium Chloride) 100 mls @ 100 mls/ hr IVPB Q6 [facility] PRN Reason: Protocol Last Admin: 06/18/18 09:52 Dose: 100 mls/hr Vancomycin HCl 750 mg/ Sodium (Chloride) 250 mls @ 250 mls/hr IVPB Q12H [facility] PRN Reason: Protocol Last Admin: 06/18/18 03:58 Dose: 250 mls/hr Sodium Chloride (Sodium Chloride 0.9%) 500 mls @ 999 mls/hr IV .Q31M [facility] Last Admin: 06/16/18 16:41 Dose: 999 mls/hr Insulin Human Regular (Humulin R) 0 units SC Q6H [facility] Last Admin: 06/18/18 11:27 Dose: Not Given Lorazepam (Ativan) 1 mg IVP Q4 PRN PRN Reason: Agitation Last Admin: 06/17/18 01:29 Dose: 1 mg Nicotine (Nicoderm Cq) 1 patch TD DAILY [facility] Last Admin: 06/18/18 08:06 Dose: 1 patch Nystatin (Nystop Topical Powder) 1 applic TOP TID [facility] Last Admin: 06/18/18 12:06 Dose: 1 applic Ondansetron HCl (Zofran Inj) 4 mg IVP Q6H PRN PRN Reason: Nausea/Vomiting Quetiapine Fumarate (Seroquel) 25 mg PO HS [facility] - Labs Labs: 06/18/18 04:20 06/18/18 04:20 PT 9.2 Seconds (9.8-13.1) L 06/05/18 19:25 INR 0.8 06/05/18 19:25 APTT 27.0 Seconds (25.6-37.1) 06/05/18 19:25 - Constitutional Appears: Cachectic - Eye Exam Eye Exam: EOMI - Cardiovascular Exam Cardiovascular Exam: +S1, +S2 - GI/Abdominal Exam GI & Abdominal Exam: Soft - Neurological Exam Neurological Exam: Altered Assessment and Plan - Assessment and Plan (Free Text) Plan: Continue with treatment per Clinical Sales Consultant: Dr. Eduardo Fung discontinued; on SSI low dose with accuchecks; confirmed with Dr. Chen empiric abx PICC in place case dw Dr. Simone núñez md pgy2 <Eran Nichols - Last Filed: 06/22/18 07:45> Objective - Vital Signs/Intake and Output Vital Signs (last 24 hours): Temp Pulse Resp BP Pulse Ox 99.5 F 104 H 15 109/60 99 06/22/18 04:26 06/22/18 06:00 06/22/18 06:00 06/22/18 06:00 06/22/18 06:00 Intake and Output: 06/22/18 06/22/18 06:59 18:59 Intake Total 1200 Output Total 200 Balance 1000 - Medications Medications: Current Medications Acetaminophen (Tylenol 325mg Tab) 650 mg PO Q6H PRN PRN Reason: Pain, Mild (1-3) Acetaminophen (Tylenol 325mg Tab) 650 mg PO Q6H PRN PRN Reason: Fever >100.4 F Albuterol/Ipratropium (Duoneb 3 Mg/0.5 Mg (3 Ml) Ud) 3 ml INH RQ6 PRN PRN Reason: Shortness of Breath Aspirin (Aspirin Chewable) 81 mg PO DAILY [facility] Last Admin: 06/21/18 08:00 Dose: 81 mg Atorvastatin Calcium (Lipitor) 20 mg PO HS [facility] Last Admin: 06/21/18 21:49 Dose: 20 mg Benztropine Mesylate (Cogentin) 2 mg PO BID [facility] Last Admin: 06/21/18 16:15 Dose: 2 mg Clonidine HCl (Catapres) 0.1 mg PO BID [facility] Dextrose (Dextrose 50% Inj) 0 ml IV STAT PRN; Protocol PRN Reason: Hypoglycemia Protocol Last Admin: 06/16/18 17:08 Dose: 50 ml Dextrose (Glutose 15) 0 gm PO ONCE PRN; Protocol PRN Reason: Hypoglycemia Protocol Diltiazem HCl (Cardizem Cd) 120 mg PO DAILY [facility] Dimethicone (Proshield Plus Skin Protectant) 1 applic TOP Q8 [facility] Last Admin: 06/21/18 16:15 Dose: 1 applic Divalproex Sodium (Depakote Dr(*Bid*)) 750 mg PO BID [facility] Last Admin: 06/19/18 08:12 Dose: 750 mg Gabapentin (Neurontin) 800 mg PO TID [facility] Gabapentin (Neurontin) 600 mg PO HS [facility] Glucagon (Glucagen Diagnostic Kit) 0 mg IM STAT PRN; Protocol PRN Reason: Hypoglycemia Protocol Vancomycin HCl 750 mg/ Sodium (Chloride) 250 mls @ 250 mls/hr IVPB Q12H [facility] PRN Reason: Protocol Last Admin: 06/21/18 23:04 Dose: 250 mls/hr Piperacillin Sod/Tazobactam (Sod 3.375 gm/ Sodium Chloride) 100 mls @ 100 mls/ hr IVPB Q6 [facility] PRN Reason: Protocol Last Admin: 06/22/18 03:38 Dose: 100 mls/hr Insulin Human Regular (Humulin R) 0 units SC Q6H [facility] Last Admin: 06/22/18 06:57 Dose: Not Given Lorazepam (Ativan) 1 mg IVP Q6 PRN PRN Reason: Agitation Last Admin: 06/22/18 04:25 Dose: 1 mg Nystatin (Nystop Topical Powder) 1 applic TOP TID [facility] Last Admin: 06/21/18 16:15 Dose: 1 applic Quetiapine Fumarate (Seroquel) 25 mg PO HS [facility] - Labs Labs: 06/22/18 04:20 06/22/18 04:20 PT 9.2 Seconds (9.8-13.1) L 06/05/18 19:25 INR 0.8 06/05/18 19:25 APTT 27.0 Seconds (25.6-37.1) 06/05/18 19:25 Assessment and Plan (1) COPD (chronic obstructive pulmonary disease) Status: Acute (2) Restless leg syndrome Status: Acute (3) Diabetes mellitus type 2, uncontrolled Status: Chronic (4) Hypertension Status: Chronic (5) Atrial fibrillation Status: Resolved (6) Anxiety Status: Acute (7) Depression Status: Acute (8) Hypoglycemia Status: Acute (9) Thalamic infarct, acute Status: Acute (10) Acute respiratory failure with hypoxia Status: Acute (11) Altered mental status Status: Acute (12) [id number] syndrome Status: Acute - Assessment and Plan (Free Text) Plan: I was present during evaluation and discussed with Dr Niya tirado plans of care and tx Eran Nichols M.D.
--- NOTE | 2018-06-18 14:52 | CP.PCM.PN ---
Subjective - Date & Time of Evaluation Date of Evaluation: 06/17/18 Time of Evaluation: 11:00 - Subjective Subjective: Patient remains intubated Still with episodes of hypoglycemia Has no chest pain or SOB. Objective - Vital Signs/Intake and Output Vital Signs (last 24 hours): Temp Pulse Resp BP Pulse Ox 98.6 F 81 14 122/57 L 100 06/18/18 12:00 06/18/18 14:00 06/18/18 14:00 06/18/18 14:00 06/18/18 14:00 Intake and Output: 06/18/18 06/18/18 06:59 18:59 Intake Total 1180 515 Output Total 250 210 Balance 930 305 - Medications Medications: Current Medications Acetaminophen (Tylenol 325mg Tab) 650 mg PO Q6H PRN PRN Reason: Pain, Mild (1-3) Acetaminophen (Tylenol 325mg Tab) 650 mg PO Q6H PRN PRN Reason: Fever >100.4 F Albuterol/Ipratropium (Duoneb 3 Mg/0.5 Mg (3 Ml) Ud) 3 ml INH RQ6 [facility] Last Admin: 06/18/18 13:15 Dose: 3 ml Aspirin (Aspirin Chewable) 81 mg PO DAILY [facility] Last Admin: 06/18/18 08:06 Dose: 81 mg Atorvastatin Calcium (Lipitor) 20 mg PO HS [facility] Last Admin: 06/17/18 21:15 Dose: 20 mg Benztropine Mesylate (Cogentin) 2 mg PO BID [facility] Last Admin: 06/18/18 08:06 Dose: 2 mg Clonidine HCl (Catapres) 0.1 mg PO BID [facility] Dextrose (Dextrose 50% Inj) 0 ml IV STAT PRN; Protocol PRN Reason: Hypoglycemia Protocol Last Admin: 06/16/18 17:08 Dose: 50 ml Dextrose (Glutose 15) 0 gm PO ONCE PRN; Protocol PRN Reason: Hypoglycemia Protocol Diltiazem HCl (Cardizem Cd) 120 mg PO DAILY [facility] Divalproex Sodium (Depakote Dr(*Bid*)) 750 mg PO BID [facility] Last Admin: 06/18/18 08:06 Dose: 750 mg Gabapentin (Neurontin) 800 mg PO TID [facility] Gabapentin (Neurontin) 600 mg PO HS [facility] Glucagon (Glucagen Diagnostic Kit) 0 mg IM STAT PRN; Protocol PRN Reason: Hypoglycemia Protocol Haloperidol Lactate (Haldol) 3 mg IVP Q6 PRN PRN Reason: Agitation Piperacillin Sod/Tazobactam (Sod 3.375 gm/ Sodium Chloride) 100 mls @ 100 mls/ hr IVPB Q6 [facility] PRN Reason: Protocol Last Admin: 06/18/18 09:52 Dose: 100 mls/hr Vancomycin HCl 750 mg/ Sodium (Chloride) 250 mls @ 250 mls/hr IVPB Q12H [facility] PRN Reason: Protocol Last Admin: 06/18/18 03:58 Dose: 250 mls/hr Sodium Chloride (Sodium Chloride 0.9%) 500 mls @ 999 mls/hr IV .Q31M [facility] Last Admin: 06/16/18 16:41 Dose: 999 mls/hr Insulin Human Regular (Humulin R) 0 units SC Q6H [facility] Last Admin: 06/18/18 11:27 Dose: Not Given Lorazepam (Ativan) 1 mg IVP Q4 PRN PRN Reason: Agitation Last Admin: 06/18/18 13:46 Dose: 1 mg Nicotine (Nicoderm Cq) 1 patch TD DAILY [facility] Last Admin: 06/18/18 08:06 Dose: 1 patch Nystatin (Nystop Topical Powder) 1 applic TOP TID [facility] Last Admin: 06/18/18 12:06 Dose: 1 applic Ondansetron HCl (Zofran Inj) 4 mg IVP Q6H PRN PRN Reason: Nausea/Vomiting Quetiapine Fumarate (Seroquel) 25 mg PO HS [facility] - Labs Labs: 06/18/18 04:20 06/18/18 04:20 PT 9.2 Seconds (9.8-13.1) L 06/05/18 19:25 INR 0.8 06/05/18 19:25 APTT 27.0 Seconds (25.6-37.1) 06/05/18 19:25 - Head Exam Head Exam: NORMAL INSPECTION - Eye Exam Eye Exam: Normal appearance - Respiratory Exam Respiratory Exam: NORMAL BREATHING PATTERN - Cardiovascular Exam Cardiovascular Exam: Tachycardia - GI/Abdominal Exam GI & Abdominal Exam: Normal Bowel Sounds - Neurological Exam Neurological Exam: Altered Assessment and Plan (1) COPD (chronic obstructive pulmonary disease) Status: Acute (2) Restless leg syndrome Status: Acute (3) Diabetes mellitus type 2, uncontrolled Status: Chronic (4) Hypertension Status: Chronic (5) Atrial fibrillation Status: Resolved (6) Anxiety Status: Acute (7) Depression Status: Acute (8) Hypoglycemia Status: Acute (9) Thalamic infarct, acute Status: Acute (10) Acute respiratory failure with hypoxia Status: Acute (11) Altered mental status Status: Acute (12) Ozktxr-sj-majucnusl syndrome Status: Acute - Assessment and Plan (Free Text) Plan: Cont med Cont resp support accucheck cont all meds very bad prognosis.
--- NOTE | 2018-06-18 15:39 | PQF ---
PROVIDER RESPONSE TEXT: This patient ended up having an ischemic stroke. The MRI did not show hemorrhage, but there was a sig nificant amount of artifact. REVIEWER QUERY TEXT: Documentation Clarification Your help is requested in clarifying the following clinical documentation, if you can please further specify in the medical record and discharge summary. Intracranial Hemorrhage : Non- Traumatic or Traumatic , Other explanation AFTER workup complete. The patient's Clinical Indicators include: Patient with a history of atrial fibrillation who is on Xarelto and had a fall from the bed presents to the ER. CT #1) Intraparenchymal hyperdensity in the right lentiform nucleus possibly presenting intracranial hemorrhage. Cortical volume loss and microvascular ischemic disease. CT #2) : Evolving hyperdense parenchymal hemorrhage in the right lentiform nucleus with surrounding edema. CT #3) No change in hyperdense material in the right lentiform nucleus. This possibly represents marck chial hemorrhage though calcification is also consideration. Pending MRI Thank you. Query created by: Dolores Benoit on 06/09/2018 9:03 AM Electronically signed by: Ovidio Fisher MD 06/18/2018 3:36 PM
--- NOTE | 2018-06-18 18:38 | PN ---
DATE: 06/18/2018 ENDO FOLLOWUP NOTE LOCATION: In 422 ICU. SUBJECTIVE: This is a 72-year-old female with recent intracranial hemorrhage and is now being developed acute respiratory failure, currently endotracheally intubated and is now being followed closely for metabolic management. Her glycemic levels have been extremely fluctuating and overnight had low normal glycemic episodes despite the ongoing tube feedings as given. Her glucose values today have ranged from 63 to 164 and 177 mg/dL. LABORATORY DATA: Her latest chemistry showed a BUN of 33, sodium 144, potassium 3.6, chloride 110, CO2 of 29, glucose 89, and creatinine 0.9. ASSESSMENT AND PLAN: So at this time, we will discontinue the basal insulin given as Levemir at 80 units subcutaneously every 12 hours as ordered. We will continue the low-dose correction scale using Humalog insulin as given every 6 hours. We will obtain serial chemistries and supplement accordingly as needed. We will follow and advise accordingly. We will also continue her tube feedings and consult our dietitian to optimize her caloric and metabolic requirements as she remains extremely hypercatabolic at this time with increased caloric and protein requirements as noted. We will follow. Nevin Chen MD
[2018-06-19] MEDS: Albuterol-Ipratrop 3 mg / 0.5 (3 ml) UD INH SCH ×4 (01:19→19:16)
[2018-06-19] MEDS: Piperacillin/Tazobact 3.375 GM in Sodium Chloride 0.9% 100 ML IVPB SCH ×4 (03:15→21:35)
[2018-06-19 05:12] LABS: HEMOGLOBIN 10.8 g/dL (12.0-16.0); MEAN CELL VOLUME 95.3 fl (81.0-99.0); MEAN CORPUSCULAR HEMOGLOBIN 31.5 pg (27.0-31.0); RBC 3.43 Mil/uL (3.80-5.20); RED CELL DISTRIBUTION WIDTH 15.7 % (11.5-14.5); WHITE BLOOD COUNT 7.8 K/uL (4.8-10.8)
[2018-06-19 05:16] LABS: ABG ALLEN TEST YES; ARTERIAL BLOOD GAS HCO3 29.1 mmol/L (21-28); ARTERIAL BLOOD GAS HEMOGLOBIN 10.8 g/dL (11.7-17.4); ARTERIAL BLOOD GAS O2 CAPACITY 14.9 mL/dL (16-24); ARTERIAL BLOOD GAS O2 CONTENT 14.9 ML/dL (15-23); ARTERIAL BLOOD GAS O2 SAT 99.7 % (95-98); ARTERIAL BLOOD GAS PCO2 43 mm/Hg (35-45); ARTERIAL BLOOD GAS PH 7.45 (7.35-7.45); ARTERIAL BLOOD GAS PO2 133 mm/Hg (80-100); ARTERIAL BLOOD GAS TCO2 31.2 mmol/L (22-28)
[2018-06-19 05:24] LABS: ALB/GLOB RATIO 0.7 (1.0-2.1); ALBUMIN 2.2 g/dL (3.5-5.0); ALT/SGPT 26 U/L (9-52); AST/SGOT 37 U/L (14-36); BLOOD UREA NITROGEN 32 mg/dl (7-17); CALCIUM 8.2 mg/dL (8.4-10.2); GFR NON-AFRICAN AMERICAN > 60
[2018-06-19] MEDS: Insulin Regular 100 units/ml SC SCH ×4 (05:51→17:19)
--- NOTE | 2018-06-19 08:07 | RAD ---
Date of service: 06/19/2018 HISTORY: intubated COMPARISON: Portable chest 06/18/2018. FINDINGS: LUNGS: Endotracheal and nasogastric tubes do not appear significantly changed in position as well as right PICC. No acute infiltrate bilaterally. PLEURA: No significant pleural effusion identified, no pneumothorax apparent. CARDIOVASCULAR: Normal. OSSEOUS STRUCTURES: No significant abnormalities. VISUALIZED UPPER ABDOMEN: Normal. OTHER FINDINGS: None. IMPRESSION: Nonacute chest radiograph with no significant interval change.
[2018-06-19] MEDS: Divalproex 250 mg DR(BID formulation) PO SCH (08:12)
--- NOTE | 2018-06-19 10:49 | CP.CCUPN ---
CCU Subjective - Physician Review Subjective (Free Text): Eyes open but not following commands, trial SBTs performed: did not tolerate low level CPAP PS 5/8, PS increased to 20 with RR and TV improving. Decision made to keep on this current level of CPAP 5, PS 20 for now and wean down later if no fatigue noted. Other vitals and I/O's reviewed. No fever spikes last 24H. ROS: No other pertinent negs or positives on 10+ system review. PMSFH: All other Nursing and physician documentation reviewed to date; no new pertinent info noted relevant to current medical problems. EXAM- HEENT: no icterus, no gaze preference, pupils equal and reactive NECK: No JVD visible, supple, carotids equal upstroke bilat/no bruits CHEST: decreased BS bases, no wheezes audible HEART: regular, distant, Tachy S1S2, no rubs ABD: soft, no increased distention, no tympany, no focal tenderness, BS hypoactive, no rebound. EXT: no peripheral/ digital cyanosis, no calf tenderness or palpable cords, distal pulses intact and symmetrical. Left BKA intact, stump wound well healed. NEURO: no gross focal motor deficits. SKIN: fungal rash perineal and bilat inframammary areas; otherwise warm and dry. LABS: WBC= 7.8 HGB= 10.8 PLTs= 81K Fe=470 K= 4.0 CL= 111 HCO3= 31 BUN/Cr= 32/0.9 BS= 237 CXR (my interp): ETT position near filemon, no new consolidation. IMPRESSION / MAJOR PROBLEMS NOW: 1. Acute Stroke, L Thalamic area. 2. s/p Acute resp insuff 2 Acute Pulm edema; intubated on 06/14 for mild hypercarbia 3. Mild Delirium- unclear mental status baseline. 4. Chronic A Fib on AC with Xarelto 5. DM II-uncontrolled PLAN: 1. Overall lethargy is more than expected; medications re-reviewed, will make changes: see orders- Decreased Cogentin, Holding Depakote, drug level ordered, decrease Nicotine patch dose, Hold Ativan (last dose yesterday afternoon), will stop Haldol ( though none given last several days), Neurontin and Seroquel will be placed on hold for now. Consider repeat CT Brain imaging if no overall improvement in neuromental status after medication changes. 2. SBTs As tolerated if she awakens more and follows commands. 3. Decrease FiO2 to 35%. 4. Empiric Zosyn / Vanco noted. 5. Watch Plt counts, no active bleeding, Hgb stable. CCU Objective - Vital Signs / Intake & Output Vital Signs (Last 4 hours): Vital Signs Temp Pulse Resp BP Pulse Ox 06/19/18 10:00 83 15 169/79 H 100 06/19/18 08:00 98.6 F 77 19 157/51 H 100 Intake and Output (Last 8hrs): Intake & Output 06/18/18 06/19/18 06/19/18 22:59 06:59 14:59 Intake Total 965 810 380 Output Total 120 Balance 845 810 380 Intake: Intake, Piggyback 450 350 100 Oral 45 Tube Feeding 270 360 180 Free Water Flush 200 100 100 Output: Urine 120 Urethral (Suggs) 120 Other: # Voids Urethral (Suggs) 200 # Bowel Movements 0
[2018-06-19] MEDS: Proshield Plus GEL TOP SCH ×2 (13:05→16:18)
--- NOTE | 2018-06-19 18:29 | CP.PCM.PN ---
<Regis Núñez - Last Filed: 06/19/18 18:27> Subjective - Date & Time of Evaluation Date of Evaluation: 06/19/18 Time of Evaluation: 10:10 - Subjective Subjective: Pt seen and examined at bedside with Dr. Nichols Pt resting comforably in bed. CPAP support. Objective - Vital Signs/Intake and Output Vital Signs (last 24 hours): Temp Pulse Resp BP Pulse Ox 98.6 F 76 19 136/65 100 06/19/18 16:00 06/19/18 18:00 06/19/18 18:00 06/19/18 18:00 06/19/18 18:00 Intake and Output: 06/19/18 06/19/18 06:59 18:59 Intake Total 1145 1240 Output Total 650 Balance 1145 590 - Medications Medications: Current Medications Acetaminophen (Tylenol 325mg Tab) 650 mg PO Q6H PRN PRN Reason: Pain, Mild (1-3) Acetaminophen (Tylenol 325mg Tab) 650 mg PO Q6H PRN PRN Reason: Fever >100.4 F Albuterol/Ipratropium (Duoneb 3 Mg/0.5 Mg (3 Ml) Ud) 3 ml INH RQ6 [facility] Last Admin: 06/19/18 13:25 Dose: 3 ml Aspirin (Aspirin Chewable) 81 mg PO DAILY [facility] Last Admin: 06/19/18 08:12 Dose: 81 mg Atorvastatin Calcium (Lipitor) 20 mg PO HS [facility] Last Admin: 06/18/18 21:02 Dose: 20 mg Benztropine Mesylate (Cogentin) 2 mg PO BID [facility] Last Admin: 06/19/18 16:18 Dose: 2 mg Clonidine HCl (Catapres) 0.1 mg PO BID [facility] Dextrose (Dextrose 50% Inj) 0 ml IV STAT PRN; Protocol PRN Reason: Hypoglycemia Protocol Last Admin: 06/16/18 17:08 Dose: 50 ml Dextrose (Glutose 15) 0 gm PO ONCE PRN; Protocol PRN Reason: Hypoglycemia Protocol Diltiazem HCl (Cardizem Cd) 120 mg PO DAILY [facility] Dimethicone (Proshield Plus Skin Protectant) 1 applic TOP Q8 [facility] Last Admin: 06/19/18 16:18 Dose: 1 applic Divalproex Sodium (Depakote Dr(*Bid*)) 750 mg PO BID [facility] Last Admin: 06/19/18 08:12 Dose: 750 mg Gabapentin (Neurontin) 800 mg PO TID [facility] Gabapentin (Neurontin) 600 mg PO HS [facility] Glucagon (Glucagen Diagnostic Kit) 0 mg IM STAT PRN; Protocol PRN Reason: Hypoglycemia Protocol Piperacillin Sod/Tazobactam (Sod 3.375 gm/ Sodium Chloride) 100 mls @ 100 mls/ hr IVPB Q6 [facility] PRN Reason: Protocol Last Admin: 06/19/18 15:14 Dose: 100 mls/hr Vancomycin HCl 750 mg/ Sodium (Chloride) 250 mls @ 250 mls/hr IVPB Q12H [facility] PRN Reason: Protocol Last Admin: 06/19/18 15:14 Dose: 250 mls/hr Insulin Human Regular (Humulin R) 0 units SC Q6H [facility] Last Admin: 06/19/18 17:19 Dose: Not Given Lorazepam (Ativan) 1 mg IVP Q6 PRN PRN Reason: Agitation Last Admin: 06/19/18 18:01 Dose: 1 mg Nystatin (Nystop Topical Powder) 1 applic TOP TID [facility] Last Admin: 06/19/18 16:18 Dose: 1 applic Quetiapine Fumarate (Seroquel) 25 mg PO HS [facility] - Labs Labs: 06/19/18 04:20 06/19/18 04:20 PT 9.2 Seconds (9.8-13.1) L 06/05/18 19:25 INR 0.8 06/05/18 19:25 APTT 27.0 Seconds (25.6-37.1) 06/05/18 19:25 - Constitutional Appears: Chronically Ill - Eye Exam Eye Exam: EOMI - Respiratory Exam Additional comments: cpap - Cardiovascular Exam Cardiovascular Exam: +S1, +S2 Assessment and Plan - Assessment and Plan (Free Text) Plan: Continue with current treatment/care plan per [employer] Dr. Clark Neurology on board Will continue to monitor progress. Off levamir; monitor blood glucose. Case dw Dr. Simone Núñez MD PGY2 <Eran Nichols - Last Filed: 06/22/18 07:46> Objective - Vital Signs/Intake and Output Vital Signs (last 24 hours): Temp Pulse Resp BP Pulse Ox 99.5 F 104 H 15 109/60 99 06/22/18 04:26 06/22/18 06:00 06/22/18 06:00 06/22/18 06:00 06/22/18 06:00 Intake and Output: 06/22/18 06/22/18 06:59 18:59 Intake Total 1200 Output Total 200 Balance 1000 - Medications Medications: Current Medications Acetaminophen (Tylenol 325mg Tab) 650 mg PO Q6H PRN PRN Reason: Pain, Mild (1-3) Acetaminophen (Tylenol 325mg Tab) 650 mg PO Q6H PRN PRN Reason: Fever >100.4 F Albuterol/Ipratropium (Duoneb 3 Mg/0.5 Mg (3 Ml) Ud) 3 ml INH RQ6 PRN PRN Reason: Shortness of Breath Aspirin (Aspirin Chewable) 81 mg PO DAILY [facility] Last Admin: 06/21/18 08:00 Dose: 81 mg Atorvastatin Calcium (Lipitor) 20 mg PO HS [facility] Last Admin: 06/21/18 21:49 Dose: 20 mg Benztropine Mesylate (Cogentin) 2 mg PO BID [facility] Last Admin: 06/21/18 16:15 Dose: 2 mg Clonidine HCl (Catapres) 0.1 mg PO BID [facility] Dextrose (Dextrose 50% Inj) 0 ml IV STAT PRN; Protocol PRN Reason: Hypoglycemia Protocol Last Admin: 06/16/18 17:08 Dose: 50 ml Dextrose (Glutose 15) 0 gm PO ONCE PRN; Protocol PRN Reason: Hypoglycemia Protocol Diltiazem HCl (Cardizem Cd) 120 mg PO DAILY [facility] Dimethicone (Proshield Plus Skin Protectant) 1 applic TOP Q8 [facility] Last Admin: 06/21/18 16:15 Dose: 1 applic Divalproex Sodium (Depakote Dr(*Bid*)) 750 mg PO BID [facility] Last Admin: 06/19/18 08:12 Dose: 750 mg Gabapentin (Neurontin) 800 mg PO TID [facility] Gabapentin (Neurontin) 600 mg PO HS [facility] Glucagon (Glucagen Diagnostic Kit) 0 mg IM STAT PRN; Protocol PRN Reason: Hypoglycemia Protocol Vancomycin HCl 750 mg/ Sodium (Chloride) 250 mls @ 250 mls/hr IVPB Q12H [facility] PRN Reason: Protocol Last Admin: 06/21/18 23:04 Dose: 250 mls/hr Piperacillin Sod/Tazobactam (Sod 3.375 gm/ Sodium Chloride) 100 mls @ 100 mls/ hr IVPB Q6 [facility] PRN Reason: Protocol Last Admin: 06/22/18 03:38 Dose: 100 mls/hr Insulin Human Regular (Humulin R) 0 units SC Q6H [facility] Last Admin: 06/22/18 06:57 Dose: Not Given Lorazepam (Ativan) 1 mg IVP Q6 PRN PRN Reason: Agitation Last Admin: 06/22/18 04:25 Dose: 1 mg Nystatin (Nystop Topical Powder) 1 applic TOP TID [facility] Last Admin: 06/21/18 16:15 Dose: 1 applic Quetiapine Fumarate (Seroquel) 25 mg PO HS [facility] - Labs Labs: 06/22/18 04:20 06/22/18 04:20 PT 9.2 Seconds (9.8-13.1) L 06/05/18 19:25 INR 0.8 06/05/18 19:25 APTT 27.0 Seconds (25.6-37.1) 06/05/18 19:25 Assessment and Plan (1) COPD (chronic obstructive pulmonary disease) Status: Acute (2) Restless leg syndrome Status: Acute (3) Diabetes mellitus type 2, uncontrolled Status: Chronic (4) Hypertension Status: Chronic (5) Atrial fibrillation Status: Resolved (6) Anxiety Status: Acute (7) Depression Status: Acute (8) Hypoglycemia Status: Acute (9) Thalamic infarct, acute Status: Acute (10) Acute respiratory failure with hypoxia Status: Acute (11) Altered mental status Status: Acute (12) [id number] syndrome Status: Acute - Assessment and Plan (Free Text) Plan: I was present during evaluation and discussed with Dr Niya tirado plans of care and tx. Eran Nichols M.D.
--- NOTE | 2018-06-19 21:09 | PN ---
DATE: 06/19/2018 ENDO FOLLOWUP NOTE LOCATION: In room 422 ICU. SUBJECTIVE: This is a 72-year-old female with recent uncontrolled type 2 insulin-requiring diabetes, now being followed closely for metabolic management. She developed recent acute respiratory failure and remains currently endotracheally intubated at this time. Her glycemic levels are fluctuating and have ranged from 237 to 267 mg/dL today as noted. LABORATORY DATA: Her chemistry showed a BUN of 32, sodium 145, potassium 4, chloride 111, CO2 of 31, glucose 237, and creatinine 0.9. ASSESSMENT AND PLAN: We will consider the resumption of the very low-dose basal insulin by tomorrow if hyperglycemic levels persist accordingly. For now, we will continue only the low-dose correction scale using regular insulin given every 6 hours as ordered. We will obtain serial chemistries and supplement accordingly as needed. We will also continue the same tube feedings to optimize her caloric and protein requirements. We will follow. Nevin Chen MD
[2018-06-20] MEDS: Insulin Regular 100 units/ml SC SCH ×4 (00:24→17:54)
[2018-06-20] MEDS: Proshield Plus GEL TOP SCH ×3 (01:20→16:23)
[2018-06-20] MEDS: Albuterol-Ipratrop 3 mg / 0.5 (3 ml) UD INH SCH ×4 (02:40→19:09)
[2018-06-20] MEDS: Piperacillin/Tazobact 3.375 GM in Sodium Chloride 0.9% 100 ML IVPB SCH ×4 (03:13→22:03)
[2018-06-20 05:23] LABS: ABG ALLEN TEST YES; ARTERIAL BLOOD GAS HCO3 30.6 mmol/L (21-28); ARTERIAL BLOOD GAS HEMOGLOBIN 10.4 g/dL (11.7-17.4); ARTERIAL BLOOD GAS O2 CAPACITY 14.5 mL/dL (16-24); ARTERIAL BLOOD GAS O2 CONTENT 14.5 ML/dL (15-23); ARTERIAL BLOOD GAS PCO2 45 mm/Hg (35-45); ARTERIAL BLOOD GAS PH 7.46 (7.35-7.45); ARTERIAL BLOOD GAS PO2 140 mm/Hg (80-100); ARTERIAL BLOOD GAS TCO2 33.4 mmol/L (22-28)
[2018-06-20 06:28] LABS: HEMOGLOBIN 9.9 g/dL (12.0-16.0); MEAN CELL VOLUME 95.1 fl (81.0-99.0); MEAN CORPUSCULAR HEMOGLOBIN 31.2 pg (27.0-31.0); MEAN CORPUSCULAR HGB CONC 32.8 g/dL (33.0-37.0); RBC 3.16 Mil/uL (3.80-5.20); RED CELL DISTRIBUTION WIDTH 15.8 % (11.5-14.5)
[2018-06-20 06:36] LABS: ALB/GLOB RATIO 0.7 (1.0-2.1); ALBUMIN 2.2 g/dL (3.5-5.0); ALT/SGPT 23 U/L (9-52); AST/SGOT 32 U/L (14-36); BLOOD UREA NITROGEN 28 mg/dl (7-17); CALCIUM 8.3 mg/dL (8.4-10.2); GFR NON-AFRICAN AMERICAN > 60
--- NOTE | 2018-06-20 09:49 | RAD ---
Date of service: 06/20/2018 HISTORY: vented COMPARISON: Yesterday FINDINGS: LUNGS: Mild patchy volume loss is seen at the lung bases. No new infiltrate is seen. Visualized tubes and lines are grossly stable in position from the prior exam. PLEURA: No new pleural effusion or pneumothorax. CARDIOVASCULAR: Stable OSSEOUS STRUCTURES: No significant abnormalities. VISUALIZED UPPER ABDOMEN: Normal. OTHER FINDINGS: None. IMPRESSION: No interval change from prior examination.
--- NOTE | 2018-06-20 10:17 | CP.CCUPN ---
CCU Subjective - Physician Review Events Since Last Encounter (Free Text): 06/20/18 10:15 Has been on AC, was on CPAP for less than two hours last night and did not tolerate, no sedation overnight but needed ativan this AM, for being very agitated. CCU Objective - Vital Signs / Intake & Output Vital Signs (Last 4 hours): Vital Signs Temp Pulse Resp BP Pulse Ox 06/20/18 08:00 97.7 F 66 16 169/89 H 100 Intake and Output (Last 8hrs): Intake & Output 06/19/18 06/20/18 06/20/18 22:59 06:59 14:59 Intake Total 1075 784 90 Output Total 650 700 Balance 425 84 90 Weight 104 lb 12.8 oz Intake: IV 10 24 Intake, Piggyback 450 250 Tube Feeding 315 360 90 Free Water Flush 300 150 Output: Urine 650 700 Urethral (Suggs) 650 700 Other: # Bowel Movements 1 - Physical Exam Narrative Physical Exam (Free Text): 06/20/18 10:16 P/E Neck: No jvd Lungs: no ronchi or crackles Abdomen: Soft Ext; No edema Neuro; sedated, Head: Positive for: Atraumatic, Normocephalic Pupils: Positive for: PERRL Extroacular Muscles: Positive for: EOMI Conjunctiva: Positive for: Normal Mouth: Positive for: Moist Mucous Membranes Nose (Internal): Positive for: Normal Inspection Neck: Positive for: Normal Range of Motion, Trachea Midline. Negative for: Meningeal Signs, MIDLINE TENDERNESS, Paraspinal Tenderness, JVD, Lymphadenopathy , Bruit, Other Respiratory/Chest: Positive for: Clear to Auscultation, Good Air Exchange. Negative for: Respiratory Distress, Accessory Muscle Use Cardiovascular: Positive for: Regular Rate and Rhythm, Normal S1, S2, Peripheal Pulses Present Abdomen: Positive for: Normal Bowel Sounds. Negative for: Tenderness, Distention Upper Extremity: Positive for: Normal Inspection Lower Extremity: Positive for: Normal Inspection Psychiatric: Positive for: Alert - Medications Active Medications: Active Medications Generic Name Dose Route Start Last Admin Trade Name Freq PRN Reason Stop Dose Admin Acetaminophen 650 mg 06/14/18 22:30 Tylenol 325mg Tab PO Q6H PRN Pain, Mild (1-3) Acetaminophen 650 mg 06/14/18 22:30 Tylenol 325mg Tab PO Q6H PRN Fever >100.4 F Albuterol/Ipratropium 3 ml 06/15/18 02:00 06/20/18 08:15 Duoneb 3 Mg/0.5 Mg (3 Ml) Ud INH 3 ml RQ6 [facility] Administration Aspirin 81 mg 06/15/18 09:00 06/20/18 08:03 Aspirin Chewable PO 81 mg DAILY [facility] Administration Atorvastatin Calcium 20 mg 06/15/18 22:00 06/19/18 22:33 Lipitor PO 20 mg HS [facility] Administration Benztropine Mesylate 2 mg 06/15/18 09:00 06/20/18 08:03 Cogentin PO 2 mg BID [facility] Administration Clonidine HCl 0.1 mg 06/15/18 09:00 Catapres PO BID [facility] Dextrose 0 ml 06/14/18 22:30 06/16/18 17:08 Dextrose 50% Inj IV 50 ml STAT PRN Administration Hypoglycemia Protocol Protocol Dextrose 0 gm 06/14/18 22:30 Glutose 15 PO ONCE PRN Hypoglycemia Protocol Protocol Diltiazem HCl 120 mg 06/15/18 09:00 Cardizem Cd PO DAILY [facility] Dimethicone 1 applic 06/19/18 11:45 06/20/18 08:04 Proshield Plus Skin Protectant TOP 1 applic Q8 [facility] Administration Divalproex Sodium 750 mg 06/15/18 09:00 06/19/18 08:12 Rodo Santana(*Bid*) PO 750 mg BID [facility] Administration Gabapentin 800 mg 06/15/18 09:00 Neurontin PO TID [facility] Gabapentin 600 mg 06/15/18 22:00 Neurontin PO HS [facility] Glucagon 0 mg 06/14/18 22:30 Glucagen Diagnostic Kit IM STAT PRN Hypoglycemia Protocol Protocol Piperacillin Sod/Tazobactam 100 mls @ 100 mls/hr 06/15/18 22:00 06/20/18 09: 43 Sod 3.375 gm/ Sodium Chloride IVPB 100 mls/hr Q6 [facility] Administration Protocol Vancomycin HCl 750 mg/ Sodium 250 mls @ 250 mls/hr 06/16/18 04:15 06/20/18 05 :36 Chloride IVPB 250 mls/hr Q12H [facility] Administration Protocol Insulin Human Regular 0 units 06/15/18 18:00 06/20/18 05:55 Humulin R SC Not Given Q6H [facility] Lorazepam 1 mg 06/19/18 17:56 06/20/18 09:43 Ativan IVP 1 mg Q6 PRN Administration Agitation Nystatin 1 applic 06/15/18 09:00 06/20/18 08:03 Nystop Topical Powder TOP 1 applic TID [facility] Administration Quetiapine Fumarate 25 mg 06/15/18 22:00 Seroquel PO HS [facility] - Patient Studies Lab Studies: Lab Studies 06/20/18 06/20/18 06/20/18 Range/Units 05:41 05:41 05:41 WBC 6.0 (4.8-10.8) K/uL RBC 3.16 L (3.80-5.20) Mil/uL Hgb 9.9 L (12.0-16.0) g/dL Hct 30.0 L (34.0-47.0) % MCV 95.1 (81.0-99.0) fl MCH 31.2 H (27.0-31.0) pg MCHC 32.8 L (33.0-37.0) g/dL RDW 15.8 H (11.5-14.5) % Plt Count 71 L (130-400) K/uL pCO2 (35-45) mm/Hg pO2 (80-100) mm/Hg HCO3 (21-28) mmol/L ABG pH (7.35-7.45) ABG Total CO2 (22-28) mmol/L ABG O2 Saturation (95-98) % ABG O2 Content (15-23) ML/dL ABG Base Excess (-2.0-3.0) mmol/L ABG Hemoglobin (11.7-17.4) g/dL ABG Carboxyhemoglobin (0.5-1.5) % POC ABG HHb (Measured) (0.0-5.0) % ABG Methemoglobin (0.0-3.0) % ABG O2 Capacity (16-24) mL/dL Sincere Test A-a O2 Difference mm/Hg Hgb O2 Saturation (95.0-98.0) % Vent Mode Mechanical Rate FiO2 % Tidal Volume PEEP Sodium 145 (132-148) mmol/l Potassium 3.6 (3.6-5.0) MMOL/L Chloride 111 H (98-107) mmol/L Carbon Dioxide 32 H (22-30) mmol/L Anion Gap 6 L (10-20) BUN 28 H (7-17) mg/dl Creatinine 0.9 (0.7-1.2) mg/dl Est GFR ( Amer) > 60 Est GFR (Non-Af Amer) > 60 POC Glucose (mg/dL) (65-110) mg/dL Random Glucose 209 H (65-105) mg/dL Calcium 8.3 L (8.4-10.2) mg/dL Total Bilirubin 0.2 (0.2-1.3) mg/dl AST 32 (14-36) U/L ALT 23 (9-52) U/L Alkaline Phosphatase 67 (38-126) U/L Total Protein 5.5 L (6.3-8.2) G/DL Albumin 2.2 L (3.5-5.0) g/dL Globulin 3.3 (2.2-3.9) gm/dL Albumin/Globulin Ratio 0.7 L (1.0-2.1) Vancomycin Trough 19.0 H (5.0-10.0) ug/mL 06/20/18 06/20/18 06/19/18 Range/Units 05:21 05:21 20:27 WBC (4.8-10.8) K/uL RBC (3.80-5.20) Mil/uL Hgb (12.0-16.0) g/dL Hct (34.0-47.0) % MCV (81.0-99.0) fl MCH (27.0-31.0) pg MCHC (33.0-37.0) g/dL RDW (11.5-14.5) % Plt Count (130-400) K/uL pCO2 45 (35-45) mm/Hg pO2 140 H (80-100) mm/Hg HCO3 30.6 H (21-28) mmol/L ABG pH 7.46 H (7.35-7.45) ABG Total CO2 33.4 H (22-28) mmol/L ABG O2 Saturation 100.0 H (95-98) % ABG O2 Content 14.5 L (15-23) ML/dL ABG Base Excess 7.3 H (-2.0-3.0) mmol/L ABG Hemoglobin 10.4 L (11.7-17.4) g/dL ABG Carboxyhemoglobin 1.4 (0.5-1.5) % POC ABG HHb (Measured) 0.0 (0.0-5.0) % ABG Methemoglobin 1.3 (0.0-3.0) % ABG O2 Capacity 14.5 L (16-24) mL/dL Sincere Test Yes A-a O2 Difference 89.0 mm/Hg Hgb O2 Saturation 97.3 (95.0-98.0) % Vent Mode A/c Mechanical Rate 14 FiO2 40.0 % Tidal Volume 400 PEEP 5 Sodium (132-148) mmol/l Potassium (3.6-5.0) MMOL/L Chloride (98-107) mmol/L Carbon Dioxide (22-30) mmol/L Anion Gap (10-20) BUN (7-17) mg/dl Creatinine (0.7-1.2) mg/dl Est GFR ( Amer) Est GFR (Non-Af Amer) POC Glucose (mg/dL) 213 H 312 H (65-110) mg/dL Random Glucose (65-105) mg/dL Calcium (8.4-10.2) mg/dL Total Bilirubin (0.2-1.3) mg/dl AST (14-36) U/L ALT (9-52) U/L Alkaline Phosphatase (38-126) U/L Total Protein (6.3-8.2) G/DL Albumin (3.5-5.0) g/dL Globulin (2.2-3.9) gm/dL Albumin/Globulin Ratio (1.0-2.1) Vancomycin Trough (5.0-10.0) ug/mL 06/19/18 Range/Units 15:37 WBC (4.8-10.8) K/uL RBC (3.80-5.20) Mil/uL Hgb (12.0-16.0) g/dL Hct (34.0-47.0) % MCV (81.0-99.0) fl MCH (27.0-31.0) pg MCHC (33.0-37.0) g/dL RDW (11.5-14.5) % Plt Count (130-400) K/uL pCO2 (35-45) mm/Hg pO2 (80-100) mm/Hg HCO3 (21-28) mmol/L ABG pH (7.35-7.45) ABG Total CO2 (22-28) mmol/L ABG O2 Saturation (95-98) % ABG O2 Content (15-23) ML/dL ABG Base Excess (-2.0-3.0) mmol/L ABG Hemoglobin (11.7-17.4) g/dL ABG Carboxyhemoglobin (0.5-1.5) % POC ABG HHb (Measured) (0.0-5.0) % ABG Methemoglobin (0.0-3.0) % ABG O2 Capacity (16-24) mL/dL Sincere Test A-a O2 Difference mm/Hg Hgb O2 Saturation (95.0-98.0) % Vent Mode Mechanical Rate FiO2 % Tidal Volume PEEP Sodium (132-148) mmol/l Potassium (3.6-5.0) MMOL/L Chloride (98-107) mmol/L Carbon Dioxide (22-30) mmol/L Anion Gap (10-20) BUN (7-17) mg/dl Creatinine (0.7-1.2) mg/dl Est GFR ( Amer) Est GFR (Non-Af Amer) POC Glucose (mg/dL) 262 H (65-110) mg/dL Random Glucose (65-105) mg/dL Calcium (8.4-10.2) mg/dL Total Bilirubin (0.2-1.3) mg/dl AST (14-36) U/L ALT (9-52) U/L Alkaline Phosphatase (38-126) U/L Total Protein (6.3-8.2) G/DL Albumin (3.5-5.0) g/dL Globulin (2.2-3.9) gm/dL Albumin/Globulin Ratio (1.0-2.1) Vancomycin Trough (5.0-10.0) ug/mL Laboratory Results - last 24 hr 06/19/18 06/19/18 06/20/18 15:37 20:27 05:21 WBC RBC Hgb Hct MCV MCH MCHC RDW Plt Count pCO2 45 pO2 140 H HCO3 30.6 H ABG pH 7.46 H ABG Total CO2 33.4 H ABG O2 Saturation 100.0 H ABG O2 Content 14.5 L ABG Base Excess 7.3 H ABG Hemoglobin 10.4 L ABG Carboxyhemoglobin 1.4 POC ABG HHb (Measured) 0.0 ABG Methemoglobin 1.3 ABG O2 Capacity 14.5 L Sincere Test Yes A-a O2 Difference 89.0 Hgb O2 Saturation 97.3 Vent Mode A/c Mechanical Rate 14 FiO2 40.0 Tidal Volume 400 PEEP 5 Sodium Potassium Chloride Carbon Dioxide Anion Gap BUN Creatinine Est GFR ( Amer) Est GFR (Non-Af Amer) POC Glucose (mg/dL) 262 H 312 H Random Glucose Calcium Total Bilirubin AST ALT Alkaline Phosphatase Total Protein Albumin Globulin Albumin/Globulin Ratio Vancomycin Trough 06/20/18 06/20/18 06/20/18 05:21 05:41 05:41 WBC 6.0 RBC 3.16 L Hgb 9.9 L Hct 30.0 L MCV 95.1 MCH 31.2 H MCHC 32.8 L RDW 15.8 H Plt Count 71 L pCO2 pO2 HCO3 ABG pH ABG Total CO2 ABG O2 Saturation ABG O2 Content ABG Base Excess ABG Hemoglobin ABG Carboxyhemoglobin POC ABG HHb (Measured) ABG Methemoglobin ABG O2 Capacity Sincere Test A-a O2 Difference Hgb O2 Saturation Vent Mode Mechanical Rate FiO2 Tidal Volume PEEP Sodium Potassium Chloride Carbon Dioxide Anion Gap BUN Creatinine Est GFR ( Amer) Est GFR (Non-Af Amer) POC Glucose (mg/dL) 213 H Random Glucose Calcium Total Bilirubin AST ALT Alkaline Phosphatase Total Protein Albumin Globulin Albumin/Globulin Ratio Vancomycin Trough 19.0 H 06/20/18 05:41 WBC RBC Hgb Hct MCV MCH MCHC RDW Plt Count pCO2 pO2 HCO3 ABG pH ABG Total CO2 ABG O2 Saturation ABG O2 Content ABG Base Excess ABG Hemoglobin ABG Carboxyhemoglobin POC ABG HHb (Measured) ABG Methemoglobin ABG O2 Capacity [place] Test A-a O2 Difference Hgb O2 Saturation Vent Mode Mechanical Rate FiO2 Tidal Volume PEEP Sodium 145 Potassium 3.6 Chloride 111 H Carbon Dioxide 32 H Anion Gap 6 L BUN 28 H Creatinine 0.9 Est GFR ( Amer) > 60 Est GFR (Non-Af Amer) > 60 POC Glucose (mg/dL) Random Glucose 209 H Calcium 8.3 L Total Bilirubin 0.2 AST 32 ALT 23 Alkaline Phosphatase 67 Total Protein 5.5 L Albumin 2.2 L Globulin 3.3 Albumin/Globulin Ratio 0.7 L Vancomycin Trough Fingerstick Blood Sugar Results: 213 Assessment/Plan - Assessment and Plan (Free Text) Assessment: IMPRESSION / MAJOR PROBLEMS NOW: 1. Acute Stroke, L Thalamic area. 2. s/p Acute resp insuff 2 Acute Pulm edema; intubated on 06/14 , pulm congestion has improved but still not ready for extubation or SBT 3. Mild Delirium- unclear mental status baseline. 4. Chronic A Fib on AC with Xarelto 5. DM II-uncontrolled PLAN: 1. Still lethargic and restless at time . Now on decreased Cogentin, Depakote held , decrease Nicotine patch dose, Minimum use of sedation including Ativan , Haldol on hold , Seroquel on hold for now. Neuroogy following . 2. SBTs As tolerated if she awakens more and follows commands. 3. Decrease FiO2 to 35%. 4. Empiric Zosyn / Vanco 5. Watch Plt counts, no active bleeding, Hgb stable.
--- NOTE | 2018-06-20 15:56 | PN ---
DATE: 06/20/2018 ENDO FOLLOWUP NOTE LOCATION: In room 422 ICU. SUBJECTIVE: This is a 72-year-old female with recent uncontrolled type 2 insulin-requiring diabetes, now being followed closely for metabolic management. Her glycemic levels continued to be persistently elevated and fluctuating as noted for the last 48 hours. Her primary physician has opted to stop all the basal insulin despite the glycemic fluctuations and accelerations as noted. Her glucose values overnight have ranged from 213 to 312 mg/dL. LABORATORY DATA: Her latest chemistry showed a BUN of 28, sodium 145, potassium 3.6, chloride 111, CO2 of 32, glucose 209, and creatinine 0.9. ASSESSMENT AND PLAN: So at this time, we would highly recommend the initiation of basal insulin given as Levemir at least at 4 units subcutaneously every 12 hours at 10:00 a.m. and 10:00 p.m. daily as given. We will continue the low-dose correction scale using Humalog insulin as ordered. We will obtain serial chemistries and supplement accordingly as needed. We will follow. Nevin Chen MD
[2018-06-21] MEDS: Insulin Regular 100 units/ml SC SCH ×5 (00:08→23:06)
[2018-06-21] MEDS: Proshield Plus GEL TOP SCH ×3 (00:10→16:15)
[2018-06-21] MEDS: Albuterol-Ipratrop 3 mg / 0.5 (3 ml) UD INH SCH ×4 (02:52→19:42)
[2018-06-21 05:49] LABS: ABG ALLEN TEST YES; ARTERIAL BLOOD GAS HCO3 30.9 mmol/L (21-28); ARTERIAL BLOOD GAS HEMOGLOBIN 10.9 g/dL (11.7-17.4); ARTERIAL BLOOD GAS O2 CONTENT 14.8 ML/dL (15-23); ARTERIAL BLOOD GAS O2 SAT 98.8 % (95-98); ARTERIAL BLOOD GAS PCO2 43 mm/Hg (35-45); ARTERIAL BLOOD GAS PH 7.48 (7.35-7.45); ARTERIAL BLOOD GAS PO2 87 mm/Hg (80-100); ARTERIAL BLOOD GAS TCO2 33.3 mmol/L (22-28)
[2018-06-21 07:41] LABS: HEMOGLOBIN 10.7 g/dL (12.0-16.0); MEAN CELL VOLUME 93.9 fl (81.0-99.0); MEAN CORPUSCULAR HEMOGLOBIN 31.8 pg (27.0-31.0); MEAN CORPUSCULAR HGB CONC 33.8 g/dL (33.0-37.0); RBC 3.38 Mil/uL (3.80-5.20); RED CELL DISTRIBUTION WIDTH 15.4 % (11.5-14.5); WHITE BLOOD COUNT 7.4 K/uL (4.8-10.8)
--- NOTE | 2018-06-21 08:52 | CP.CCUPN ---
CCU Subjective - Physician Review Events Since Last Encounter (Free Text): 06/21/18 08:48 Still very confused and restless, requiring Ativan, PRN, BP has been stable. CCU Objective - Vital Signs / Intake & Output Vital Signs (Last 4 hours): Vital Signs Temp Pulse Resp BP Pulse Ox 06/21/18 08:00 97.9 F 82 23 155/79 H 100 06/21/18 06:00 74 18 117/71 100 Intake and Output (Last 8hrs): Intake & Output 06/20/18 06/21/18 06/21/18 22:59 06:59 14:59 Intake Total 1280 600 195 Output Total 735 315 275 Balance 545 285 -80 Intake: Intake, Piggyback 550 250 Tube Feeding 430 350 45 Free Water Flush 300 150 Output: Urine 735 315 275 Urethral (Suggs) 735 315 275 Other: # Bowel Movements 1 2 - Physical Exam Narrative Physical Exam (Free Text): 06/21/18 08:49 P/E Neck: No JVD 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 Head: Positive for: Atraumatic, Normocephalic Pupils: Positive for: PERRL Extroacular Muscles: Positive for: EOMI Conjunctiva: Positive for: Normal Mouth: Positive for: Moist Mucous Membranes Nose (Internal): Positive for: Normal Inspection Neck: Positive for: Normal Range of Motion, Trachea Midline. Negative for: Meningeal Signs, MIDLINE TENDERNESS, Paraspinal Tenderness, JVD, Lymphadenopathy , Bruit, Other Respiratory/Chest: Positive for: Clear to Auscultation, Good Air Exchange. Negative for: Respiratory Distress, Accessory Muscle Use Cardiovascular: Positive for: Regular Rate and Rhythm, Normal S1, S2, Peripheal Pulses Present Abdomen: Positive for: Normal Bowel Sounds. Negative for: Tenderness, Distention Upper Extremity: Positive for: Normal Inspection Lower Extremity: Positive for: Normal Inspection Psychiatric: Positive for: Alert - Medications Active Medications: Active Medications Generic Name Dose Route Start Last Admin Trade Name Freq PRN Reason Stop Dose Admin Acetaminophen 650 mg 06/14/18 22:30 Tylenol 325mg Tab PO Q6H PRN Pain, Mild (1-3) Acetaminophen 650 mg 06/14/18 22:30 Tylenol 325mg Tab PO Q6H PRN Fever >100.4 F Albuterol/Ipratropium 3 ml 06/15/18 02:00 06/21/18 07:42 Duoneb 3 Mg/0.5 Mg (3 Ml) Ud INH 3 ml RQ6 JULIETA Administration Aspirin 81 mg 06/15/18 09:00 06/21/18 08:00 Aspirin Chewable PO 81 mg DAILY JULIETA Administration Atorvastatin Calcium 20 mg 06/15/18 22:00 06/20/18 22:03 Lipitor PO 20 mg HS JULIETA Administration Benztropine Mesylate 2 mg 06/15/18 09:00 06/21/18 08:00 Cogentin PO 2 mg BID JULIETA Administration Clonidine HCl 0.1 mg 06/15/18 09:00 Catapres PO BID JULIETA Dextrose 0 ml 06/14/18 22:30 06/16/18 17:08 Dextrose 50% Inj IV 50 ml STAT PRN Administration Hypoglycemia Protocol Protocol Dextrose 0 gm 06/14/18 22:30 Glutose 15 PO ONCE PRN Hypoglycemia Protocol Protocol Diltiazem HCl 120 mg 06/15/18 09:00 Cardizem Cd PO DAILY JULIETA Dimethicone 1 applic 06/19/18 11:45 06/21/18 08:00 Proshield Plus Skin Protectant TOP 1 applic Q8 JULIETA Administration Divalproex Sodium 750 mg 06/15/18 09:00 06/19/18 08:12 Rodo Santana(*Bid*) PO 750 mg BID JUILETA Administration Gabapentin 800 mg 06/15/18 09:00 Neurontin PO TID JULIETA Gabapentin 600 mg 06/15/18 22:00 Neurontin PO HS JULIETA Glucagon 0 mg 06/14/18 22:30 Glucagen Diagnostic Kit IM STAT PRN Hypoglycemia Protocol Protocol Insulin Human Regular 0 units 06/15/18 18:00 06/21/18 05:44 Humulin R SC Not Given Q6H JULIETA Lorazepam 1 mg 06/19/18 17:56 06/21/18 07:35 Ativan IVP 1 mg Q6 PRN Administration Agitation Nystatin 1 applic 06/15/18 09:00 06/21/18 08:00 Nystop Topical Powder TOP 1 applic TID JULIETA Administration Quetiapine Fumarate 25 mg 06/15/18 22:00 Seroquel PO HS JULIETA - Patient Studies Lab Studies: Lab Studies 06/21/18 06/20/18 Range/Units 07:15 11:50 WBC 7.4 (4.8-10.8) K/uL RBC 3.38 L (3.80-5.20) Mil/uL Hgb 10.7 L (12.0-16.0) g/dL Hct 31.7 L (34.0-47.0) % MCV 93.9 (81.0-99.0) fl MCH 31.8 H (27.0-31.0) pg MCHC 33.8 (33.0-37.0) g/dL RDW 15.4 H (11.5-14.5) % Plt Count 87 L (130-400) K/uL POC Glucose (mg/dL) 249 H (65-110) mg/dL Laboratory Results - last 24 hr 06/20/18 06/21/18 11:50 07:15 WBC 7.4 RBC 3.38 L Hgb 10.7 L Hct 31.7 L MCV 93.9 MCH 31.8 H MCHC 33.8 RDW 15.4 H Plt Count 87 L POC Glucose (mg/dL) 249 H Fingerstick Blood Sugar Results: 196 Assessment/Plan - Assessment and Plan (Free Text) Assessment: IMPRESSION / MAJOR PROBLEMS NOW: 1. Acute Stroke, L Thalamic area. 2. s/p Acute resp insuff 2 Acute Pulm edema; intubated on 06/14 , pulm congestion has improved but still not ready for extubation , 3. Mild Delirium- unclear mental status baseline. 4. Chronic A Fib on AC with Xarelto 5. DM II-uncontrolled PLAN: 1. Still lethargic and restless at time . Now on decreased Cogentin, Depakote held , decrease Nicotine patch dose, Continue to require Ativan, PRN , Haldol on hold , Seroquel on hold for now. Neuroogy following . 2. Did not tolerate PSV for more than two hours on Friday, trying again today , just put her on PSV, PS10 PEEP: 5 Fio: 0.30 3. Decrease FiO2 to 30%. 4. Not renewing Empiric Zosyn / Vanco , was started emperically, , no fever , no leukocytosis 5. Monitoring Plt counts, no active bleeding, Hgb stable.
--- NOTE | 2018-06-21 08:58 | RAD ---
Date of service: 06/21/2018 PROCEDURE: CHEST RADIOGRAPH, 1 VIEW HISTORY: intubated COMPARISON: Yesterday FINDINGS: LUNGS: There is some mild increase in hazy alveolar density at the lung bases suggesting increased atelectasis and/or small effusions. Endotracheal tube and NG tube are unchanged as well as right PICC line catheter. No new upper lobe infiltrate is seen. Vasculature is unchanged. PLEURA: No pneumothorax. Mild increase in pleural fluid and/or atelectasis at the costophrenic angle regions. CARDIOVASCULAR: Stable OSSEOUS STRUCTURES: No significant abnormalities. VISUALIZED UPPER ABDOMEN: Normal. OTHER FINDINGS: None. IMPRESSION: Mild increase in hazy density at the lung bases suggesting mild increased atelectasis and/or effusions.
[2018-06-21 10:28] LABS: BLOOD UREA NITROGEN 19 mg/dl (7-17); CALCIUM 8.2 mg/dL (8.4-10.2); GFR NON-AFRICAN AMERICAN > 60
[2018-06-21] MEDS ORDERED: Albuterol-Ipratrop 3 mg / 0.5 (3 ml) UD INH PRN (12:05)
[2018-06-21] MEDS: Piperacillin/Tazobact 3.375 GM in Sodium Chloride 0.9% 100 ML IVPB SCH ×2 (16:15→21:48)
--- NOTE | 2018-06-21 16:56 | PN ---
DATE: 06/21/2018 ENDO FOLLOWUP NOTE LOCATION: ICU, room 422. SUBJECTIVE: This is a 72-year-old female with recent acute CVA and intracranial hemorrhage, and developed supervening acute respiratory failure, currently endotracheally intubated, and is now being followed closely for metabolic management. The patient remains endotracheally intubated at this time with glycemic fluctuations as observed and we will continue the every 4 hourly glucose monitoring as ordered, and also obtain serial chemistries and supplement accordingly as needed. We will continue the addition of basal insulin at 4 units subcutaneously at bedtime daily as given. We will obtain serial chemistries and supplement accordingly as needed. We will follow. Nevin Chen MD
[2018-06-22] MEDS: Albuterol-Ipratrop 3 mg / 0.5 (3 ml) UD INH SCH (01:05)
[2018-06-22] MEDS: Piperacillin/Tazobact 3.375 GM in Sodium Chloride 0.9% 100 ML IVPB SCH ×4 (03:38→21:02)
[2018-06-22 04:11] LABS: ABG ALLEN TEST YES; ARTERIAL BLOOD GAS HCO3 30.4 mmol/L (21-28); ARTERIAL BLOOD GAS HEMOGLOBIN 11.5 g/dL (11.7-17.4); ARTERIAL BLOOD GAS O2 CAPACITY 15.6 mL/dL (16-24); ARTERIAL BLOOD GAS O2 CONTENT 15.4 ML/dL (15-23); ARTERIAL BLOOD GAS O2 SAT 98.7 % (95-98); ARTERIAL BLOOD GAS PCO2 35 mm/Hg (35-45); ARTERIAL BLOOD GAS PH 7.54 (7.35-7.45); ARTERIAL BLOOD GAS PO2 74 mm/Hg (80-100)
[2018-06-22 05:29] LABS: HEMOGLOBIN 11.1 g/dL (12.0-16.0); MEAN CELL VOLUME 93.7 fl (81.0-99.0); MEAN CORPUSCULAR HEMOGLOBIN 30.9 pg (27.0-31.0); MEAN CORPUSCULAR HGB CONC 32.9 g/dL (33.0-37.0); RBC 3.61 Mil/uL (3.80-5.20); RED CELL DISTRIBUTION WIDTH 15.5 % (11.5-14.5); WHITE BLOOD COUNT 11.9 K/uL (4.8-10.8)
[2018-06-22 06:06] LABS: BLOOD UREA NITROGEN 23 mg/dl (7-17); CALCIUM 8.3 mg/dL (8.4-10.2); GFR NON-AFRICAN AMERICAN > 60
[2018-06-22] MEDS: Insulin Regular 100 units/ml SC SCH ×4 (06:57→23:06)
--- NOTE | 2018-06-22 07:51 | CP.PCM.PN ---
Subjective - Date & Time of Evaluation Date of Evaluation: 06/20/18 Time of Evaluation: 10:00 - Subjective Subjective: Weaning was tried on patient but had poor tolerance . Has no fever BP remains low normal. Labs are stable Hgb 9 plus. Objective - Vital Signs/Intake and Output Vital Signs (last 24 hours): Temp Pulse Resp BP Pulse Ox 99.5 F 104 H 15 109/60 99 06/22/18 04:26 06/22/18 06:00 06/22/18 06:00 06/22/18 06:00 06/22/18 06:00 Intake and Output: 06/22/18 06/22/18 06:59 18:59 Intake Total 1200 Output Total 200 Balance 1000 - Medications Medications: Current Medications Acetaminophen (Tylenol 325mg Tab) 650 mg PO Q6H PRN PRN Reason: Pain, Mild (1-3) Acetaminophen (Tylenol 325mg Tab) 650 mg PO Q6H PRN PRN Reason: Fever >100.4 F Albuterol/Ipratropium (Duoneb 3 Mg/0.5 Mg (3 Ml) Ud) 3 ml INH RQ6 PRN PRN Reason: Shortness of Breath Aspirin (Aspirin Chewable) 81 mg PO DAILY [facility] Last Admin: 06/21/18 08:00 Dose: 81 mg Atorvastatin Calcium (Lipitor) 20 mg PO HS [facility] Last Admin: 06/21/18 21:49 Dose: 20 mg Benztropine Mesylate (Cogentin) 2 mg PO BID [facility] Last Admin: 06/21/18 16:15 Dose: 2 mg Clonidine HCl (Catapres) 0.1 mg PO BID [facility] Dextrose (Dextrose 50% Inj) 0 ml IV STAT PRN; Protocol PRN Reason: Hypoglycemia Protocol Last Admin: 06/16/18 17:08 Dose: 50 ml Dextrose (Glutose 15) 0 gm PO ONCE PRN; Protocol PRN Reason: Hypoglycemia Protocol Diltiazem HCl (Cardizem Cd) 120 mg PO DAILY [facility] Dimethicone (Proshield Plus Skin Protectant) 1 applic TOP Q8 [facility] Last Admin: 06/21/18 16:15 Dose: 1 applic Divalproex Sodium (Depakote Dr(*Bid*)) 750 mg PO BID [facility] Last Admin: 06/19/18 08:12 Dose: 750 mg Gabapentin (Neurontin) 800 mg PO TID [facility] Gabapentin (Neurontin) 600 mg PO HS [facility] Glucagon (Glucagen Diagnostic Kit) 0 mg IM STAT PRN; Protocol PRN Reason: Hypoglycemia Protocol Vancomycin HCl 750 mg/ Sodium (Chloride) 250 mls @ 250 mls/hr IVPB Q12H JULIETA PRN Reason: Protocol Last Admin: 06/21/18 23:04 Dose: 250 mls/hr Piperacillin Sod/Tazobactam (Sod 3.375 gm/ Sodium Chloride) 100 mls @ 100 mls/ hr IVPB Q6 JULIETA PRN Reason: Protocol Last Admin: 06/22/18 03:38 Dose: 100 mls/hr Insulin Human Regular (Humulin R) 0 units SC Q6H JULIETA Last Admin: 06/22/18 06:57 Dose: Not Given Lorazepam (Ativan) 1 mg IVP Q6 PRN PRN Reason: Agitation Last Admin: 06/22/18 04:25 Dose: 1 mg Nystatin (Nystop Topical Powder) 1 applic TOP TID [facility] Last Admin: 06/21/18 16:15 Dose: 1 applic Quetiapine Fumarate (Seroquel) 25 mg PO HS [facility] - Labs Labs: 06/22/18 04:20 06/22/18 04:20 PT 9.2 Seconds (9.8-13.1) L 06/05/18 19:25 INR 0.8 06/05/18 19:25 APTT 27.0 Seconds (25.6-37.1) 06/05/18 19:25 - Respiratory Exam Respiratory Exam: Decreased Breath Sounds - Cardiovascular Exam Cardiovascular Exam: Bradycardia - GI/Abdominal Exam GI & Abdominal Exam: Normal Bowel Sounds - Neurological Exam Neurological Exam: Altered Assessment and Plan (1) COPD (chronic obstructive pulmonary disease) Status: Acute (2) Restless leg syndrome Status: Acute (3) Diabetes mellitus type 2, uncontrolled Status: Chronic (4) Hypertension Status: Chronic (5) Atrial fibrillation Status: Resolved (6) Anxiety Status: Acute (7) Depression Status: Acute (8) Hypoglycemia Status: Acute (9) Thalamic infarct, acute Status: Acute (10) Acute respiratory failure with hypoxia Status: Acute (11) Altered mental status Status: Acute (12) Oyqkuz-yd-uhwaiwfjg syndrome Status: Acute - Assessment and Plan (Free Text) Plan: Cont meds Cont resp support Insulin covergae cont vent weaning
--- NOTE | 2018-06-22 07:55 | CP.PCM.PN ---
Subjective - Date & Time of Evaluation Date of Evaluation: 06/21/18 Time of Evaluation: 13:00 - Subjective Subjective: Patient is much more awake today Has no fever weaning was tried but failed. CBC and CMP are stable. Objective - Vital Signs/Intake and Output Vital Signs (last 24 hours): Temp Pulse Resp BP Pulse Ox 99.5 F 104 H 15 109/60 99 06/22/18 04:26 06/22/18 06:00 06/22/18 06:00 06/22/18 06:00 06/22/18 06:00 Intake and Output: 06/22/18 06/22/18 06:59 18:59 Intake Total 1200 Output Total 200 Balance 1000 - Medications Medications: Current Medications Acetaminophen (Tylenol 325mg Tab) 650 mg PO Q6H PRN PRN Reason: Pain, Mild (1-3) Acetaminophen (Tylenol 325mg Tab) 650 mg PO Q6H PRN PRN Reason: Fever >100.4 F Albuterol/Ipratropium (Duoneb 3 Mg/0.5 Mg (3 Ml) Ud) 3 ml INH RQ6 PRN PRN Reason: Shortness of Breath Aspirin (Aspirin Chewable) 81 mg PO DAILY [facility] Last Admin: 06/21/18 08:00 Dose: 81 mg Atorvastatin Calcium (Lipitor) 20 mg PO HS [facility] Last Admin: 06/21/18 21:49 Dose: 20 mg Benztropine Mesylate (Cogentin) 2 mg PO BID [facility] Last Admin: 06/21/18 16:15 Dose: 2 mg Clonidine HCl (Catapres) 0.1 mg PO BID [facility] Dextrose (Dextrose 50% Inj) 0 ml IV STAT PRN; Protocol PRN Reason: Hypoglycemia Protocol Last Admin: 06/16/18 17:08 Dose: 50 ml Dextrose (Glutose 15) 0 gm PO ONCE PRN; Protocol PRN Reason: Hypoglycemia Protocol Diltiazem HCl (Cardizem Cd) 120 mg PO DAILY [facility] Dimethicone (Proshield Plus Skin Protectant) 1 applic TOP Q8 [facility] Last Admin: 06/21/18 16:15 Dose: 1 applic Divalproex Sodium (Depakote Dr(*Bid*)) 750 mg PO BID [facility] Last Admin: 06/19/18 08:12 Dose: 750 mg Gabapentin (Neurontin) 800 mg PO TID [facility] Gabapentin (Neurontin) 600 mg PO HS [facility] Glucagon (Glucagen Diagnostic Kit) 0 mg IM STAT PRN; Protocol PRN Reason: Hypoglycemia Protocol Vancomycin HCl 750 mg/ Sodium (Chloride) 250 mls @ 250 mls/hr IVPB Q12H JULIETA PRN Reason: Protocol Last Admin: 06/21/18 23:04 Dose: 250 mls/hr Piperacillin Sod/Tazobactam (Sod 3.375 gm/ Sodium Chloride) 100 mls @ 100 mls/ hr IVPB Q6 JULIETA PRN Reason: Protocol Last Admin: 06/22/18 03:38 Dose: 100 mls/hr Insulin Human Regular (Humulin R) 0 units SC Q6H [facility] Last Admin: 06/22/18 06:57 Dose: Not Given Lorazepam (Ativan) 1 mg IVP Q6 PRN PRN Reason: Agitation Last Admin: 06/22/18 04:25 Dose: 1 mg Nystatin (Nystop Topical Powder) 1 applic TOP TID [facility] Last Admin: 06/21/18 16:15 Dose: 1 applic Quetiapine Fumarate (Seroquel) [address] [facility] - Labs Labs: 06/22/18 04:20 06/22/18 04:20 PT 9.2 Seconds (9.8-13.1) L 06/05/18 19:25 INR 0.8 06/05/18 19:25 APTT 27.0 Seconds (25.6-37.1) 06/05/18 19:25 - Head Exam Head Exam: NORMAL INSPECTION - Eye Exam Eye Exam: Normal appearance - Respiratory Exam Respiratory Exam: Decreased Breath Sounds - Cardiovascular Exam Cardiovascular Exam: REGULAR RHYTHM - GI/Abdominal Exam GI & Abdominal Exam: Normal Bowel Sounds - Neurological Exam Neurological Exam: Altered Assessment and Plan (1) COPD (chronic obstructive pulmonary disease) Status: Acute (2) Restless leg syndrome Status: Acute (3) Diabetes mellitus type 2, uncontrolled Status: Chronic (4) Hypertension Status: Chronic (5) Atrial fibrillation Status: Resolved (6) Anxiety Status: Acute (7) Depression Status: Acute (8) Hypoglycemia Status: Acute (9) Thalamic infarct, acute Status: Acute (10) Acute respiratory failure with hypoxia Status: Acute (11) Altered mental status Status: Acute (12) Jnfypb-de-pkrhyizhy syndrome Status: Acute - Assessment and Plan (Free Text) Plan: Cont meds Cont tx Cont vent weaning. monitor cbc cmp.
--- NOTE | 2018-06-22 08:01 | RAD ---
Date of service: 06/22/2018 HISTORY: intubated COMPARISON: Single frontal portable chest 06/21/2018. FINDINGS: LUNGS: Endotracheal and nasogastric tubes do not appear simply changed in position with right PICC stable as well. The right base appears clear. Minimal hazy density seen in the left base likely reflecting trace atelectasis or infiltrate. PLEURA: No right pleural effusion. Minimal left pleural effusion suggested. No pneumothorax bilaterally. CARDIOVASCULAR: Normal. OSSEOUS STRUCTURES: No significant abnormalities. VISUALIZED UPPER ABDOMEN: Normal. OTHER FINDINGS: None. IMPRESSION: Improved aeration bilaterally with resolution patchiness in the right base and minimal residual patchy density at the left. Trace left pleural effusion in question.
[2018-06-22] MEDS: Proshield Plus GEL TOP SCH ×2 (08:50→16:16)
--- NOTE | 2018-06-22 21:33 | PN ---
DATE: 06/22/2018 ENDO FOLLOWUP NOTE ROOM: 435, ICU. SUBJECTIVE: This is a 72-year-old female with known history of uncontrolled type 2 insulin-requiring diabetes with extremes of glycemic fluctuations and presented here with an intracranial hemorrhage and developed supervening acute respiratory failure and has been endotracheally intubated to the present time as noted. Her glycemic levels are fluctuating but improved, and the glucose values have ranged from 248 to 250 mg/dL. LABORATORY DATA: Her latest chemistry showed a BUN of 23, sodium 143, potassium 3.8, chloride 107, CO2 of 31, glucose 250 and creatinine 0.9. ASSESSMENT AND PLAN: So at this time, we will continue the low-dose correction scale using regular insulin as given. Would suggest a very low dose of basal insulin given as Levemir at 4 units subcutaneously every 12 hours if hyperglycemic levels persist at this time. We will obtain serial chemistries and supplement accordingly as needed. We will follow. Nevin Chen MD
--- NOTE | 2018-06-22 22:30 | PN ---
DATE: 06/22/2018 CRITICAL CARE PROGRESS NOTE LOCATION: ICU, bed 435. TIME SPENT: 40 minutes. The patient is seen and evaluated at the bedside. Past medical, surgical and social history reviewed as noted in H and P. Case discussed in multidisciplinary ICU rounds this morning. SUBJECTIVE: A 72-year-old female with past medical history significant for hypertension, hyperlipidemia, diabetes mellitus type 2, paroxysmal atrial fibrillation on Xarelto, diabetic neuropathy, peripheral vascular disease, status post left below-knee amputation, anxiety, COPD, sleep apnea, hypothyroidism, paranoia and depression, recently started on Lexapro by psychiatric for her major depression, noted to have of worsening of her symptoms related to diabetic neuropathy and/or restless leg syndrome. Clinical course complicated with acute respiratory failure, intubated, placed on mechanical ventilation, currently on AC/PRBC rate 16, tidal volume of 400, FIO2 30%, PEEP of 5, observed rate 19, exhaled tidal volume of 360, minute ventilation 7.8 liters, oxygen saturation 100%, peak airway pressure 29 and tidal CO2 60. Previous weaning attempts unsuccessful as the patient is noted to be very restless and not tolerating reduced pressure support to 5-10 overnight on above setting. PHYSICAL EXAMINATION: VITAL SIGNS: temperature 99.5, heart rate 98 regular, blood pressure 126/85, mean arterial pressure 98, respiratory rate 22, oxygen saturation 100%. Intake 2345, output 770, balance positive 1575. Weight 104 pounds. HEAD, EYES, EARS, NOSE AND THROAT: Pupils are reactive to light and accommodation. Extraocular muscles are intact. Conjunctivae are pink. Sclerae white. NECK: Supple. Trachea midline. CHEST: Bilateral breath sounds, clear to auscultation. HEART: Rhythm regular. S1, S2 normal. ABDOMEN: Bowel sounds are present. Soft. EXTREMITIES: Warm to touch. No palpable cord. DP 2+ bilaterally status post left below-knee amputation. SKIN: Rash on the right dorsal aspect as well as macular rash involving both thigh and inframammary area. CURRENT MEDICATIONS: Tylenol 650 every 6 p.r.n., albuterol/Atrovent inhalation 3 mL via nebulizer every 6 hours p.r.n., aspirin 81 mg daily, atorvastatin 20 mg p.o. at bedtime, Depakote 750 mg p.o. b.i.d. on hold, Neurontin 800 mg p.o. t.i.d. on hold, Seroquel 25 mg p.o. at bedtime on hold, vancomycin 750 mg IV every 12 hours, Zosyn 3.375 gm IV every 6 hours. LABORATORY DATA: WBC is 11.9, hemoglobin 11.1, hematocrit 33.8, platelet count 128. PT 9.2, INR 0.8, PTT 27. ABG, pH 7.54, pCO2 35, pO2 74, oxygen saturation 98.7 on _, PEEP of 5. SMA-7 sodium 143, potassium 3.8, chloride 107, CO2 31, blood urea nitrogen 23, creatinine 0.9, random glucose 250, calcium 8.3. Urinalysis negative. Toxicology screen positive for opiates. Serology, C. diff antigen negative. Microbiology, sputum culture positive for beta hemolytic group B streptococci. Chest x-ray, endotracheal tube in place, no right pleural effusion, minimal left pleural effusion, no pneumothorax, NG tube in place. IMPRESSION: 1. Neuro: Admitted status post fall, history of paroxysmal atrial fibrillation on Xarelto. Initial CT with suspected hemorrhage, subsequent CT and MRI with infarct involving left thalamic area. Remains confused and restless. Current antipsychotic medications on hold. Consider possible withdrawal from benzodiazepines and probable diabetic neuropathy. We will discuss with Neurology and Neurontin. Consider adding Risperdal 0.25 mg NG tube every 12 hour. 2. Pulmonary: Acute respiratory failure, history of chronic obstructive pulmonary disease. Previous attempts from weaning unsuccessful. We will reattempt for extubation once the patient's agitation is under control. 3. Cardiac: History of paroxysmal atrial fibrillation Xarelto on hold given suspected hemorrhage. Neurology on board. Will follow the recommendation. 4. Gastrointestinal: Being fed through the NG tube, tolerating well. No diarrhea noted. Gastroparesis from diabetes. 5. Endocrine: History of diabetes mellitus type 2 with gastroparesis and diabetic neuropathy, frequent fluctuations in the glycemic control. Appreciate recommendation by Endocrine consult. Currently on Accu-Chek with regular insulin coverage. Maintain blood sugar below 180. 6. Renal: No acute issues noted. No electrolyte abnormalities. 7. Infectious disease: Increasing white count with low grade fever on mechanical ventilation since 06/14/2018, rule out vent associated pneumonia. Have skin breakdown on the buttocks dependent from , also rash on the dorsum of the right hand. ID consult requested for further optimization of antibiotic, currently on vancomycin and Zosyn. Keep head off bed 30 degrees up[address] in place for adequate intake output measurement, wound care. Cali Alcala MD [facility]
[2018-06-23] MEDS: Proshield Plus GEL TOP SCH ×3 (00:05→16:06)
[2018-06-23] MEDS: Piperacillin/Tazobact 3.375 GM in Sodium Chloride 0.9% 100 ML IVPB SCH ×4 (03:07→21:48)
[2018-06-23 03:51] LABS: ABG ALLEN TEST YES; ARTERIAL BLOOD GAS HCO3 32.1 mmol/L (21-28); ARTERIAL BLOOD GAS O2 CAPACITY 13.8 mL/dL (16-24); ARTERIAL BLOOD GAS O2 CONTENT 13.5 ML/dL (15-23); ARTERIAL BLOOD GAS O2 SAT 98.1 % (95-98); ARTERIAL BLOOD GAS PCO2 39 mm/Hg (35-45); ARTERIAL BLOOD GAS PH 7.53 (7.35-7.45); ARTERIAL BLOOD GAS PO2 72 mm/Hg (80-100); ARTERIAL BLOOD GAS TCO2 33.8 mmol/L (22-28)
[2018-06-23] MEDS: Insulin Regular 100 units/ml SC SCH ×3 (06:16→18:00)
[2018-06-23 06:42] LABS: HEMOGLOBIN 9.6 g/dL (12.0-16.0); MEAN CELL VOLUME 94.3 fl (81.0-99.0); MEAN CORPUSCULAR HEMOGLOBIN 31.3 pg (27.0-31.0); MEAN CORPUSCULAR HGB CONC 33.2 g/dL (33.0-37.0); RBC 3.08 Mil/uL (3.80-5.20); RED CELL DISTRIBUTION WIDTH 15.3 % (11.5-14.5); WHITE BLOOD COUNT 11.7 K/uL (4.8-10.8)
[2018-06-23 06:43] LABS: BLOOD UREA NITROGEN 25 mg/dl (7-17); CALCIUM 7.8 mg/dL (8.4-10.2); GFR NON-AFRICAN AMERICAN > 60
--- NOTE | 2018-06-23 09:10 | RAD ---
Date of service: 06/23/2018 HISTORY: intubated COMPARISON: 06/22/2018. FINDINGS: The right PICC line terminates at the cavoatrial junction. The nasogastric tube terminates in the stomach. The endotracheal tube terminates 2.2 cm proximal to the filemon. LUNGS: The lungs are well inflated and clear. PLEURA: No significant pleural effusion identified, no pneumothorax apparent. CARDIOVASCULAR: Normal. OSSEOUS STRUCTURES: No significant abnormalities. VISUALIZED UPPER ABDOMEN: Normal. OTHER FINDINGS: None. IMPRESSION: No acute findings. No significant interval change.
[2018-06-23] MEDS ORDERED: Dexmedetomidine Hydrochloride 400 MCG in Sodium Chloride 0.9% 96 ML IV ONE ×2 (09:29→10:30)
--- NOTE | 2018-06-23 10:58 | CP.PCM.CON ---
History of Present Illness - History of Present Illness History of Present Illness: 72 y/o female with MHx sig for A fib on Xarelto, CHF, COPD, DM2, HTN, and RLS. admitted after fall at home and found to have thalamic bleed complicated by resp failure recently spiking fevers and recultured started on IV antibiotics for resp failure / pneumonia ' remains intunbated and lethargic ROS: 14 systems reviewed, negative other than HPI MHx: fib on Xarelto, CHF, COPD, DM2, HTN, RLS, depression/anxiety SHx: L BKA, cholecystectomy Allergies: TUCKER-i, Thiazides Medications: Per med rec Family Hx: Patient cannot provide Social Hx: Lives alone, but has home health for 8 hrs daily, no tobacco, no EtOH Surrogate: Patient cannot provide info at this time Review of Systems - Review of Systems Systems not reviewed;Unavailable: Altered Mental Status Past Patient History - Infectious Disease Hx of Infectious Diseases: None - Tetanus Immunizations Tetanus Immunization: Unknown - Past Medical History & Family History Past Medical History?: Yes - Past Social History Smoking Status: Light Smoker < 10 Cigarettes Daily - CARDIAC Hx Atrial Fibrillation: Yes Hx Cardia Arrhythmia: Yes Hx Congestive Heart Failure: Yes Hx Hypercholesterolemia: Yes Hx Hypertension: Yes - PULMONARY Hx Asthma: Yes Hx Bronchitis: Yes Hx Chronic Obstructive Pulmonary Disease (COPD): Yes Hx Sleep Apnea: Yes - HEENT Hx Difficulty Chewing: Yes - RENAL Hx Chronic Kidney Disease: No Other/Comment: INCONTINENT - ENDOCRINE/METABOLIC Hx Diabetes Mellitus Type 2: Yes Hx Hypothyroidism: Yes - HEMATOLOGICAL/ONCOLOGICAL Hx Blood Disorders: No - INTEGUMENTARY Hx Eczema: Yes - MUSCULOSKELETAL/RHEUMATOLOGICAL Hx Falls: Yes - GASTROINTESTINAL Hx Gastritis: Yes - GENITOURINARY/GYNECOLOGICAL Hx Genitourinary Disorders: No - PSYCHIATRIC Hx Anxiety: Yes Hx Depression: Yes Hx Paranoia: Yes Hx Post Traumatic Stress Disorder: Yes Hx Substance Use: No - SURGICAL HISTORY Hx Cholecystectomy: Yes Other/Comment: LEFT BKA - ANESTHESIA Hx Anesthesia: Yes Hx Anesthesia Reactions: No Hx Malignant Hyperthermia: No Meds Allergies/Adverse Reactions: Allergies Allergy/AdvReac Type Severity Reaction Status Date / Time TUCKER Inhibitors Allergy Severe COUGH Verified 12/28/17 04:05 Thiazides Allergy RASH Verified 12/28/17 04:05 - Medications Medications: Current Medications Acetaminophen (Tylenol 325mg Tab) 650 mg PO Q6H PRN PRN Reason: Pain, Mild (1-3) Acetaminophen (Tylenol 325mg Tab) 650 mg PO Q6H PRN PRN Reason: Fever >100.4 F Albuterol/Ipratropium (Duoneb 3 Mg/0.5 Mg (3 Ml) Ud) 3 ml INH RQ6 PRN PRN Reason: Shortness of Breath Aspirin (Aspirin Chewable) 81 mg PO DAILY [facility] Last Admin: 06/23/18 08:42 Dose: 81 mg Atorvastatin Calcium (Lipitor) 20 mg PO HS [facility] Last Admin: 06/22/18 21:03 Dose: 20 mg Benztropine Mesylate (Cogentin) 2 mg PO BID [facility] Last Admin: 06/23/18 08:42 Dose: 2 mg Clonidine HCl (Catapres) 0.1 mg PO BID [facility] Dextrose (Dextrose 50% Inj) 0 ml IV STAT PRN; Protocol PRN Reason: Hypoglycemia Protocol Last Admin: 06/16/18 17:08 Dose: 50 ml Dextrose (Glutose 15) 0 gm PO ONCE PRN; Protocol PRN Reason: Hypoglycemia Protocol Diltiazem HCl (Cardizem Cd) 120 mg PO DAILY [facility] Dimethicone (Proshield Plus Skin Protectant) 1 applic TOP Q8 [facility] Last Admin: 06/23/18 08:43 Dose: 1 applic Divalproex Sodium (Depakote Dr(*Bid*)) 750 mg PO BID [facility] Last Admin: 06/19/18 08:12 Dose: 750 mg Gabapentin (Neurontin) 800 mg PO TID [facility] Last Admin: 06/23/18 08:43 Dose: 800 mg Glucagon (Glucagen Diagnostic Kit) 0 mg IM STAT PRN; Protocol PRN Reason: Hypoglycemia Protocol Vancomycin HCl 750 mg/ Sodium (Chloride) 250 mls @ 250 mls/hr IVPB Q12H [facility] PRN Reason: Protocol Last Admin: 06/22/18 22:59 Dose: 250 mls/hr Piperacillin Sod/Tazobactam (Sod 3.375 gm/ Sodium Chloride) 100 mls @ 100 mls/ hr IVPB Q6 [facility] PRN Reason: Protocol Last Admin: 06/23/18 09:00 Dose: 100 mls/hr Dexmedetomidine HCl 400 mcg/ (Sodium Chloride) 100 mls @ 2.37 mls/hr IV .Q24H ONE; 0.2 MCG/KG/HR PRN Reason: Protocol Stop: 06/24/18 10:29 Insulin Human Regular (Humulin R) 0 units SC Q6H [facility] Last Admin: 06/23/18 06:16 Dose: 3 units Lorazepam (Ativan) 1 mg IVP Q6H PRN PRN Reason: Agitation Last Admin: 06/23/18 08:57 Dose: 1 mg Nystatin (Nystop Topical Powder) 1 applic TOP TID [facility] Last Admin: 06/23/18 08:43 Dose: 1 applic Pantoprazole Sodium (Protonix Susp) 40 mg JT DAILY [facility] Quetiapine Fumarate (Seroquel) 25 mg PO HS [facility] Physical Exam - Constitutional Appears: Cachectic, Chronically Ill - Head Exam Head Exam: NORMOCEPHALIC - Eye Exam Eye Exam: absent: Scleral icterus - ENT Exam ENT Exam: Mucous Membranes Dry - Neck Exam Neck exam: Negative for: Lymphadenopathy - Respiratory Exam Respiratory Exam: Decreased Breath Sounds, Rales, Rhonchi - Cardiovascular Exam Cardiovascular Exam: Irregular Rhythm, REGULAR RHYTHM, +S1, +S2 - GI/Abdominal Exam GI & Abdominal Exam: Diminished Bowel Sounds, Soft. absent: Tenderness - Rectal Exam Rectal Exam: Deferred - Exam Exam: NORMAL INSPECTION - Extremities Exam Extremities exam: Positive for: pedal edema. Negative for: calf tenderness, tenderness, pedal pulses present Additional comments: left BKA - Back Exam Back exam: absent: CVA tenderness (L), CVA tenderness (R) - Neurological Exam Neurological exam: Alert, Altered, CN II-XII Intact - Psychiatric Exam Psychiatric exam: Depressed - Skin Skin Exam: Dry Results - Vital Signs Recent Vital Signs: Last Vital Signs Temp 98.4 F 06/23/18 08:00 Pulse 88 06/23/18 10:00 Resp 16 06/23/18 10:00 BP 117/58 L 06/23/18 10:00 Pulse Ox 100 06/23/18 10:00 - Labs Result Diagrams: 06/23/18 06:00 06/23/18 06:00 Labs: Laboratory Results - last 24 hr 06/23/18 06/23/18 06/23/18 03:40 06:00 06:00 WBC 11.7 H RBC 3.08 L Hgb 9.6 L Hct 29.0 L MCV 94.3 MCH 31.3 H MCHC 33.2 RDW 15.3 H Plt Count 149 pCO2 39 pO2 72 L HCO3 32.1 H ABG pH 7.53 H ABG Total CO2 33.8 H ABG O2 Saturation 98.1 H ABG O2 Content 13.5 L ABG Base Excess 9.2 H ABG Hemoglobin 10.0 L ABG Carboxyhemoglobin 1.6 H POC ABG HHb (Measured) 1.8 ABG Methemoglobin 1.4 ABG O2 Capacity 13.8 L Sincere Test Yes A-a O2 Difference 93.0 Hgb O2 Saturation 95.2 Vent Mode Prvc ac Mechanical Rate 16 FiO2 30.0 Tidal Volume 400 PEEP 5 Sodium 142 Potassium 3.9 Chloride 107 Carbon Dioxide 35 H Anion Gap 4 L BUN 25 H Creatinine 0.8 Est GFR ( Amer) > 60 Est GFR (Non-Af Amer) > 60 Random Glucose 235 H Calcium 7.8 L Assessment & Plan (1) Acute respiratory failure with hypoxia Status: Acute Priority: High (2) Altered mental status Status: Acute Priority: High (3) COPD (chronic obstructive pulmonary disease) Status: Acute Priority: Medium (4) Depression Status: Acute (5) Intracranial hemorrhage Status: Acute Priority: High (6) Thalamic infarct, acute Status: Acute (7) CHF (congestive heart failure) Status: Chronic Priority: Medium (8) Acute respiratory failure Status: Acute Priority: High (9) COPD exacerbation Status: Acute Priority: High - Assessment and Plan (Free Text) Assessment: recultured CXR unchanged IV antibiotics reordered
[2018-06-23] MEDS: Pantoprazole 40 mg Susp UD JT SCH (12:01)
--- NOTE | 2018-06-23 14:11 | CP.CCUPN ---
CCU Subjective - Physician Review Subjective (Free Text): 06/16/18 11:21 The patient was Seen and examined by me at the bedside during ICU round, Medical records reviewed and Management issues were discussed and formulated with the house staff. Events reviewed Mrs Arreaga is a 72 Years old Female with PMHx of HTN, Hypercholesterolemia, Diabetes, left BKA, Anxiety, Arthritis, COPD, Asthma, Sleep Apnea, Bronchitis, chronic Atrial Fibrillation, CHF, COPD, Depression, Gastritis, Hypothyroidism, Paranoia, depression and Post-Traumatic Stress Disorder Patient Initially presents to the Emergency department 06/05 with restless left leg ongoing for several days, Patient states she had been put on a new medication for her RLS and that was making symptoms worse over past several days, She called her psychiatrist Dr. Villatoro, and was told to come to the ER. Pt. also states she fell out this afternoon but does not remember hitting her head. Denies headache, LOC, neck pain. She was admitted to the ICU with Intraparenchymal hyperattenuation conforming to the right lentiform nucleus, suggestive of acute intracranial hemorrhage. Also management of left thalamic stroke Her Condition stabilized and was transferred out of ICU to telemetry. Patient returned back to ICU on 05/14 after SENIOR SYSTEMS ADMINISTRATOR called for altered mental status , she was found unresponsive and accucheck 20 (2 amp of D50 given) BP 110/53 Hr 53 RR 16 t 96.3 o2Sat 97 5 on 3 L O2 via NC ABG showed PCO2 57 PO 149 ph 7.4 HCO3 31 on 3 L O2 via NC She was intially Placed on BIPAP 12/5/35%/14 and ordered repeat ABG in 1 hour On the telemetry, she was noted with worsening mental status, continued to be lethargic after dextrose administration, So she was transferred to the ICU and urgently orally intubated. CXR revealed Left LL infilterate/effusion, and she was started on Emperic coverage with IV Vanco and zosyn All insulin orders held for now (premix 75/25 12 units before breakfast, premix 75/25 8 units before dinner) This morning she is drowsy, minimally responsive Orally intubated and sedated on Precedex ( initially started for agitations, However discontinues since she is lethergic ) Afebrile, NSR on the monitor Last 24H 2280/600 BG better today, hemodynamically improved No Vasopressors Bilateral venodyne boots intact. This morning labs revealed persistant Leucocytosis to K11, improved renal function BUN/Cr up to 25/0.8 CXR revealed improved Left LL infilterate/effusion, almost completely resolved Critical Care Time Spent (in minutes): 38 CCU Objective - Vital Signs / Intake & Output Vital Signs (Last 4 hours): Vital Signs Temp Pulse Resp BP Pulse Ox 06/23/18 12:00 98.2 F 69 16 85/45 L 100 Intake and Output (Last 8hrs): Intake & Output 06/22/18 06/23/18 06/23/18 22:59 06:59 14:59 Intake Total 800 665 815 Output Total 105 200 250 Balance 695 465 565 Intake: IV 200 0 Intake, Piggyback 225 100 350 Tube Feeding 225 315 315 Free Water Flush 150 250 150 Output: Urine 105 200 250 Urethral (Suggs) 105 200 250 Other: # Bowel Movements 1 1 - Physical Exam Head: Positive for: Atraumatic, Normocephalic Pupils: Positive for: PERRL Extroacular Muscles: Positive for: EOMI Conjunctiva: Positive for: Normal Mouth: Positive for: Moist Mucous Membranes Nose (Internal): Positive for: Normal Inspection Neck: Positive for: Normal Range of Motion, Trachea Midline. Negative for: Meningeal Signs, MIDLINE TENDERNESS, Paraspinal Tenderness, JVD, Lymphadenopathy , Bruit, Other Respiratory/Chest: Positive for: Clear to Auscultation, Good Air Exchange. Negative for: Respiratory Distress, Accessory Muscle Use Cardiovascular: Positive for: Regular Rate and Rhythm, Normal S1, S2, Peripheal Pulses Present Abdomen: Positive for: Normal Bowel Sounds. Negative for: Tenderness, Distention Upper Extremity: Positive for: Normal Inspection Lower Extremity: Positive for: Normal Inspection Psychiatric: Positive for: Alert - Medications Active Medications: Active Medications Generic Name Dose Route Start Last Admin Trade Name Freq PRN Reason Stop Dose Admin Acetaminophen 650 mg 06/14/18 22:30 Tylenol 325mg Tab PO Q6H PRN Pain, Mild (1-3) Acetaminophen 650 mg 06/14/18 22:30 Tylenol 325mg Tab PO Q6H PRN Fever >100.4 F Albuterol/Ipratropium 3 ml 06/21/18 12:05 Duoneb 3 Mg/0.5 Mg (3 Ml) Ud INH RQ6 PRN Shortness of Breath Aspirin 81 mg 06/15/18 09:00 06/23/18 08:42 Aspirin Chewable PO 81 mg DAILY [facility] Administration Atorvastatin Calcium 20 mg 06/15/18 22:00 06/22/18 21:03 Lipitor PO 20 mg HS [facility] Administration Benztropine Mesylate 2 mg 06/15/18 09:00 06/23/18 08:42 Cogentin PO 2 mg BID [facility] Administration Clonidine HCl 0.1 mg 06/15/18 09:00 Catapres PO BID [facility] Dextrose 0 ml 06/14/18 22:30 06/16/18 17:08 Dextrose 50% Inj IV 50 ml STAT PRN Administration Hypoglycemia Protocol Protocol Dextrose 0 gm 06/14/18 22:30 Glutose 15 PO ONCE PRN Hypoglycemia Protocol Protocol Diltiazem HCl 120 mg 06/15/18 09:00 Cardizem Cd PO DAILY [facility] Dimethicone 1 applic 06/19/18 11:45 06/23/18 08:43 Proshield Plus Skin Protectant TOP 1 applic Q8 [facility] Administration Divalproex Sodium 750 mg 06/15/18 09:00 06/19/18 08:12 Deppasquale Santana(*Bid*) PO 750 mg BID [facility] Administration Gabapentin 800 mg 06/23/18 09:00 06/23/18 12:00 Neurontin PO 800 mg TID [facility] Administration Glucagon 0 mg 06/14/18 22:30 Glucagen Diagnostic Kit IM STAT PRN Hypoglycemia Protocol Protocol Vancomycin HCl 750 mg/ Sodium 250 mls @ 250 mls/hr 06/21/18 11:45 06/23/18 11 :57 Chloride IVPB 250 mls/hr Q12H [facility] Administration Protocol Piperacillin Sod/Tazobactam 100 mls @ 100 mls/hr 06/21/18 16:00 06/23/18 09: 00 Sod 3.375 gm/ Sodium Chloride IVPB 100 mls/hr Q6 [facility] Administration Protocol Dexmedetomidine HCl 400 mcg/ 100 mls @ 2.37 mls/hr 06/23/18 10:30 06/23/18 12 :13 Sodium Chloride IV 06/24/18 10:29 0.1 mcg/kg/hr .Q24H ONE 1.18 mls/hr Protocol Titration 0.2 MCG/KG/HR Insulin Human Regular 0 units 06/15/18 18:00 06/23/18 11:59 Humulin R SC Not Given Q6H [facility] Lorazepam 1 mg 06/23/18 00:41 06/23/18 08:57 Ativan IVP 1 mg Q6H PRN Administration Agitation Nystatin 1 applic 06/15/18 09:00 06/23/18 12:00 Nystop Topical Powder TOP 1 applic TID [facility] Administration Pantoprazole Sodium 40 mg 06/23/18 09:30 06/23/18 12:01 Protonix Susp JT 40 mg DAILY [facility] Administration Quetiapine Fumarate 25 mg 06/15/18 22:00 Seroquel PO HS [facility] - Patient Studies Lab Studies: Lab Studies 06/23/18 06/23/18 06/23/18 Range/Units 06:00 06:00 03:40 WBC 11.7 H (4.8-10.8) K/uL RBC 3.08 L (3.80-5.20) Mil/uL Hgb 9.6 L (12.0-16.0) g/dL Hct 29.0 L (34.0-47.0) % MCV 94.3 (81.0-99.0) fl MCH 31.3 H (27.0-31.0) pg MCHC 33.2 (33.0-37.0) g/dL RDW 15.3 H (11.5-14.5) % Plt Count 149 (130-400) K/uL pCO2 39 (35-45) mm/Hg pO2 72 L (80-100) mm/Hg HCO3 32.1 H (21-28) mmol/L ABG pH 7.53 H (7.35-7.45) ABG Total CO2 33.8 H (22-28) mmol/L ABG O2 Saturation 98.1 H (95-98) % ABG O2 Content 13.5 L (15-23) ML/dL ABG Base Excess 9.2 H (-2.0-3.0) mmol/L ABG Hemoglobin 10.0 L (11.7-17.4) g/dL ABG Carboxyhemoglobin 1.6 H (0.5-1.5) % POC ABG HHb (Measured) 1.8 (0.0-5.0) % ABG Methemoglobin 1.4 (0.0-3.0) % ABG O2 Capacity 13.8 L (16-24) mL/dL Sincere Test Yes A-a O2 Difference 93.0 mm/Hg Hgb O2 Saturation 95.2 (95.0-98.0) % Vent Mode Prvc ac Mechanical Rate 16 FiO2 30.0 % Tidal Volume 400 PEEP 5 Sodium 142 (132-148) mmol/l Potassium 3.9 (3.6-5.0) MMOL/L Chloride 107 (98-107) mmol/L Carbon Dioxide 35 H (22-30) mmol/L Anion Gap 4 L (10-20) BUN 25 H (7-17) mg/dl Creatinine 0.8 (0.7-1.2) mg/dl Est GFR ( Amer) > 60 Est GFR (Non-Af Amer) > 60 Random Glucose 235 H (65-105) mg/dL Calcium 7.8 L (8.4-10.2) mg/dL Laboratory Results - last 24 hr 06/23/18 06/23/18 06/23/18 03:40 06:00 06:00 WBC 11.7 H RBC 3.08 L Hgb 9.6 L Hct 29.0 L MCV 94.3 MCH 31.3 H MCHC 33.2 RDW 15.3 H Plt Count 149 pCO2 39 pO2 72 L HCO3 32.1 H ABG pH 7.53 H ABG Total CO2 33.8 H ABG O2 Saturation 98.1 H ABG O2 Content 13.5 L ABG Base Excess 9.2 H ABG Hemoglobin 10.0 L ABG Carboxyhemoglobin 1.6 H POC ABG HHb (Measured) 1.8 ABG Methemoglobin 1.4 ABG O2 Capacity 13.8 L Sincere Test Yes A-a O2 Difference 93.0 Hgb O2 Saturation 95.2 Vent Mode Prvc ac Mechanical Rate 16 FiO2 30.0 Tidal Volume 400 PEEP 5 Sodium 142 Potassium 3.9 Chloride 107 Carbon Dioxide 35 H Anion Gap 4 L BUN 25 H Creatinine 0.8 Est GFR ( Amer) > 60 Est GFR (Non-Af Amer) > 60 Random Glucose 235 H Calcium 7.8 L Fingerstick Blood Sugar Results: 190 Assessment/Plan (1) Acute respiratory failure with hypoxia Current Visit: Yes Status: Acute Priority: High Comment: CXR revealed improved Left LL infilterate/effusion, Pt was start patient on Emperic coverage with IV Vanco and zosyn Aggressive pulmonary toilet, chest PT, suctioning Sedation vacation today, will D/C Precedix Vent weaning in progress Daily CAT/SBT IV antibiotics Albuterol/Ipratropium (Duoneb) INH RQ6 JULIETA (2) Intracranial hemorrhage Current Visit: Yes Status: Acute Priority: High Comment: Stable on repeat CT Brain 06/11 (3) Altered mental status Current Visit: Yes Status: Acute Priority: High Comment: S/P hypoglycemic episode S/P Dextrose 5%/0.45% Ns @ 80 mls/hr All insulin orders held for now (premix 75/25 12 units before breakfast, premix 75/25 8 units before dinner) frequent acchu check monitoring Wean of sedation, neurocheck (4) COPD (chronic obstructive pulmonary disease) Current Visit: Yes Status: Acute Priority: Medium Comment: Continue bronchodilators q6hr Nicotine (Nicoderm Cq) 1 patch TD DAILY [facility] (5) CHF (congestive heart failure) Current Visit: Yes Status: Chronic Priority: Medium Comment: Chronic diastolic heart failure (EF >55%), Pt allergic to ACEI A-Fib HR, B controlled with oral Cardizem, Clonidine Not on AC or ASA sec to ICH. - Assessment and Plan (Free Text) Assessment: Total critical care time 38 minutes
--- NOTE | 2018-06-23 20:58 | PN ---
DATE: 06/23/2018 ENDO FOLLOWUP NOTE LOCATION: In room 435 ICU. SUBJECTIVE: This is a 72-year-old female with recent uncontrolled type 2 insulin-requiring diabetes, now being followed closely for metabolic management. Her glycemic levels are fluctuating as noted and the glucose levels overnight have ranged from 225 to 250 mg/dL. LABORATORY DATA: Her latest chemistry showed a BUN of 25, sodium 142, potassium 3.9, chloride 107, CO2 of 35, glucose 235, and creatinine 0.8. ASSESSMENT AND PLAN: As recommended, we would highly suggest a very low dose of basal insulin given at least every 12 hours as ordered with a dose of only Levemir 4 units subcutaneously at 10:00 a.m. and 10:00 p.m. daily as given. We will continue also the low-dose correction scale using Humalog insulin as ordered. We will obtain serial chemistries and supplement accordingly as needed. She also remains endotracheally intubated at this time with the recent development of acute respiratory failure as noted. We will follow. Nevin Chen MD
[2018-06-24] MEDS: Proshield Plus GEL TOP SCH ×3 (00:25→16:29)
[2018-06-24] MEDS: Insulin Regular 100 units/ml SC SCH ×4 (00:57→17:26)
[2018-06-24] MEDS: Piperacillin/Tazobact 3.375 GM in Sodium Chloride 0.9% 100 ML IVPB SCH ×4 (04:33→21:20)
[2018-06-24 05:53] LABS: ABG ALLEN TEST YES; ARTERIAL BLOOD GAS HCO3 29.5 mmol/L (21-28); ARTERIAL BLOOD GAS HEMOGLOBIN 10.2 g/dL (11.7-17.4); ARTERIAL BLOOD GAS O2 CAPACITY 13.9 mL/dL (16-24); ARTERIAL BLOOD GAS O2 CONTENT 13.4 ML/dL (15-23); ARTERIAL BLOOD GAS O2 SAT 96.2 % (95-98); ARTERIAL BLOOD GAS PCO2 44 mm/Hg (35-45); ARTERIAL BLOOD GAS PH 7.45 (7.35-7.45); ARTERIAL BLOOD GAS PO2 65 mm/Hg (80-100)
[2018-06-24 06:16] LABS: BASO # 0.1 K/uL (0.0-0.2); BASO % 0.7 % (0.0-2.0); EOS # 0.2 K/uL (0.0-0.7); EOS % 1.2 % (0.0-4.0); HEMOGLOBIN 9.8 g/dL (12.0-16.0); LYMPH # 2.5 K/uL (1.0-4.3); LYMPH % 19.1 % (20.0-40.0); MEAN CELL VOLUME 94.7 fl (81.0-99.0); MEAN CORPUSCULAR HEMOGLOBIN 31.3 pg (27.0-31.0); MEAN PLATELET VOLUME 11.1 fl (7.2-11.7); MONO # 1.7 K/uL (0.0-0.8); MONO % 13.3 % (0.0-10.0); NEUT # 8.6 K/uL (1.8-7.0); NEUT % 65.7 % (50.0-75.0); RBC 3.13 Mil/uL (3.80-5.20); RED CELL DISTRIBUTION WIDTH 15.5 % (11.5-14.5)
[2018-06-24 06:20] LABS: ALB/GLOB RATIO 0.6 (1.0-2.1); ALBUMIN 2.1 g/dL (3.5-5.0); CALCIUM 7.6 mg/dL (8.4-10.2)
--- NOTE | 2018-06-24 06:57 | CP.PCM.PN ---
Subjective - Date & Time of Evaluation Date of Evaluation: 06/22/18 Time of Evaluation: 11:00 - Subjective Subjective: Patient continues to have difficulty with weaning from vent. afebrile BP has been stable. Has good urine output. Objective - Vital Signs/Intake and Output Vital Signs (last 24 hours): Temp Pulse Resp BP Pulse Ox 98.1 F 79 16 104/53 L 100 06/24/18 04:00 06/24/18 06:00 06/24/18 06:00 06/24/18 06:00 06/24/18 06:00 Intake and Output: 06/23/18 06/24/18 18:59 06:59 Intake Total 1245 1153 Output Total 320 200 Balance 925 953 - Medications Medications: Current Medications Acetaminophen (Tylenol 325mg Tab) 650 mg PO Q6H PRN PRN Reason: Pain, Mild (1-3) Acetaminophen (Tylenol 325mg Tab) 650 mg PO Q6H PRN PRN Reason: Fever >100.4 F Albuterol/Ipratropium (Duoneb 3 Mg/0.5 Mg (3 Ml) Ud) 3 ml INH RQ6 PRN PRN Reason: Shortness of Breath Aspirin (Aspirin Chewable) 81 mg PO DAILY [facility] Last Admin: 06/23/18 08:42 Dose: 81 mg Atorvastatin Calcium (Lipitor) 20 mg PO HS [facility] Last Admin: 06/23/18 21:49 Dose: 20 mg Benztropine Mesylate (Cogentin) 2 mg PO BID [facility] Last Admin: 06/23/18 16:03 Dose: 2 mg Clonidine HCl (Catapres) 0.1 mg PO BID [facility] Dextrose (Dextrose 50% Inj) 0 ml IV STAT PRN; Protocol PRN Reason: Hypoglycemia Protocol Last Admin: 06/16/18 17:08 Dose: 50 ml Dextrose (Glutose 15) 0 gm PO ONCE PRN; Protocol PRN Reason: Hypoglycemia Protocol Diltiazem HCl (Cardizem Cd) 120 mg PO DAILY [facility] Dimethicone (Proshield Plus Skin Protectant) 1 applic TOP Q8 [facility] Last Admin: 06/24/18 00:25 Dose: 1 applic Divalproex Sodium (Depakote Dr(*Bid*)) 750 mg PO BID [facility] Last Admin: 06/19/18 08:12 Dose: 750 mg Gabapentin (Neurontin) 800 mg PO TID [facility] Last Admin: 06/23/18 16:03 Dose: Not Given Glucagon (Glucagen Diagnostic Kit) 0 mg IM STAT PRN; Protocol PRN Reason: Hypoglycemia Protocol Vancomycin HCl 750 mg/ Sodium (Chloride) 250 mls @ 250 mls/hr IVPB Q12H [facility] PRN Reason: Protocol Last Admin: 06/24/18 00:26 Dose: 250 mls/hr Piperacillin Sod/Tazobactam (Sod 3.375 gm/ Sodium Chloride) 100 mls @ 100 mls/ hr IVPB Q6 [facility]A PRN Reason: Protocol Last Admin: 06/24/18 04:33 Dose: 100 mls/hr Dexmedetomidine HCl 400 mcg/ (Sodium Chloride) 100 mls @ 2.37 mls/hr IV .Q24H ONE; 0.2 MCG/KG/HR PRN Reason: Protocol Stop: 06/24/18 10:29 Last Titration: 06/23/18 14:14 Dose: 0 mcg/kg/hr, 0 mls/hr Insulin Human Regular (Humulin R) 0 units SC Q6H [facility] Last Admin: 06/24/18 06:41 Dose: 3 units Lorazepam (Ativan) 1 mg IVP Q6H PRN PRN Reason: Agitation Last Admin: 06/24/18 00:39 Dose: 1 mg Nystatin (Nystop Topical Powder) 1 applic TOP TID [facility] Last Admin: 06/23/18 16:04 Dose: 1 applic Pantoprazole Sodium (Protonix Susp) 40 mg JT DAILY [facility] Last Admin: 06/23/18 12:01 Dose: 40 mg Quetiapine Fumarate (Seroquel) 25 mg PO HS [facility] - Labs Labs: 06/24/18 05:45 06/24/18 05:45 PT 9.2 Seconds (9.8-13.1) L 06/05/18 19:25 INR 0.8 06/05/18 19:25 APTT 27.0 Seconds (25.6-37.1) 06/05/18 19:25 - Head Exam Head Exam: NORMAL INSPECTION - Eye Exam Eye Exam: Normal appearance - ENT Exam ENT Exam: Mucous Membranes Moist - Respiratory Exam Respiratory Exam: NORMAL BREATHING PATTERN - GI/Abdominal Exam GI & Abdominal Exam: Normal Bowel Sounds Assessment and Plan (1) COPD (chronic obstructive pulmonary disease) Status: Acute (2) Restless leg syndrome Status: Acute (3) Diabetes mellitus type 2, uncontrolled Status: Chronic (4) Hypertension Status: Chronic (5) Atrial fibrillation Status: Resolved (6) Anxiety Status: Acute (7) Depression Status: Acute (8) Hypoglycemia Status: Acute (9) Thalamic infarct, acute Status: Acute (10) Acute respiratory failure with hypoxia Status: Acute (11) Altered mental status Status: Acute (12) Intracranial hemorrhage Status: Acute (13) Acute respiratory failure Status: Acute - Assessment and Plan (Free Text) Plan: Cont meds Cont resp support poor prognosis
--- NOTE | 2018-06-24 07:02 | CP.PCM.PN ---
Subjective - Date & Time of Evaluation Date of Evaluation: 06/23/18 Time of Evaluation: 11:25 - Subjective Subjective: Patient remains on vent Could not tolerate weaning Has no fever. WBC 11 Objective - Vital Signs/Intake and Output Vital Signs (last 24 hours): Temp Pulse Resp BP Pulse Ox 98.1 F 79 16 104/53 L 100 06/24/18 04:00 06/24/18 06:00 06/24/18 06:00 06/24/18 06:00 06/24/18 06:00 Intake and Output: 06/24/18 06/24/18 06:59 18:59 Intake Total 1153 Output Total 200 Balance 953 - Medications Medications: Current Medications Acetaminophen (Tylenol 325mg Tab) 650 mg PO Q6H PRN PRN Reason: Pain, Mild (1-3) Acetaminophen (Tylenol 325mg Tab) 650 mg PO Q6H PRN PRN Reason: Fever >100.4 F Albuterol/Ipratropium (Duoneb 3 Mg/0.5 Mg (3 Ml) Ud) 3 ml INH RQ6 PRN PRN Reason: Shortness of Breath Aspirin (Aspirin Chewable) 81 mg PO DAILY [facility] Last Admin: 06/23/18 08:42 Dose: 81 mg Atorvastatin Calcium (Lipitor) 20 mg PO HS [facility] Last Admin: 06/23/18 21:49 Dose: 20 mg Benztropine Mesylate (Cogentin) 2 mg PO BID [facility] Last Admin: 06/23/18 16:03 Dose: 2 mg Clonidine HCl (Catapres) 0.1 mg PO BID [facility] Dextrose (Dextrose 50% Inj) 0 ml IV STAT PRN; Protocol PRN Reason: Hypoglycemia Protocol Last Admin: 06/16/18 17:08 Dose: 50 ml Dextrose (Glutose 15) 0 gm PO ONCE PRN; Protocol PRN Reason: Hypoglycemia Protocol Diltiazem HCl (Cardizem Cd) 120 mg PO DAILY [facility] Dimethicone (Proshield Plus Skin Protectant) 1 applic TOP Q8 [facility] Last Admin: 06/24/18 00:25 Dose: 1 applic Divalproex Sodium (Depakote Dr(*Bid*)) 750 mg PO BID [facility] Last Admin: 06/19/18 08:12 Dose: 750 mg Gabapentin (Neurontin) 800 mg PO TID [facility] Last Admin: 06/23/18 16:03 Dose: Not Given Glucagon (Glucagen Diagnostic Kit) 0 mg IM STAT PRN; Protocol PRN Reason: Hypoglycemia Protocol Vancomycin HCl 750 mg/ Sodium (Chloride) 250 mls @ 250 mls/hr IVPB Q12H [facility] PRN Reason: Protocol Last Admin: 06/24/18 00:26 Dose: 250 mls/hr Piperacillin Sod/Tazobactam (Sod 3.375 gm/ Sodium Chloride) 100 mls @ 100 mls/ hr IVPB Q6 [facility] PRN Reason: Protocol Last Admin: 06/24/18 04:33 Dose: 100 mls/hr Dexmedetomidine HCl 400 mcg/ (Sodium Chloride) 100 mls @ 2.37 mls/hr IV .Q24H ONE; 0.2 MCG/KG/HR PRN Reason: Protocol Stop: 06/24/18 10:29 Last Titration: 06/23/18 14:14 Dose: 0 mcg/kg/hr, 0 mls/hr Insulin Human Regular (Humulin R) 0 units SC Q6H [facility] Last Admin: 06/24/18 06:41 Dose: 3 units Lorazepam (Ativan) 1 mg IVP Q6H PRN PRN Reason: Agitation Last Admin: 06/24/18 00:39 Dose: 1 mg Nystatin (Nystop Topical Powder) 1 applic TOP TID [facility] Last Admin: 06/23/18 16:04 Dose: 1 applic Pantoprazole Sodium (Protonix Susp) 40 mg JT DAILY [facility] Last Admin: 06/23/18 12:01 Dose: 40 mg Quetiapine Fumarate (Seroquel) 25 mg PO HS [facility] - Labs Labs: 06/24/18 05:45 06/24/18 05:45 PT 9.2 Seconds (9.8-13.1) L 06/05/18 19:25 INR 0.8 06/05/18 19:25 APTT 27.0 Seconds (25.6-37.1) 06/05/18 19:25 - Head Exam Head Exam: NORMAL INSPECTION - Eye Exam Eye Exam: Normal appearance - Respiratory Exam Respiratory Exam: Clear to Ausculation Bilateral - Cardiovascular Exam Cardiovascular Exam: REGULAR RHYTHM - GI/Abdominal Exam GI & Abdominal Exam: Normal Bowel Sounds Assessment and Plan (1) COPD (chronic obstructive pulmonary disease) Status: Acute (2) Restless leg syndrome Status: Acute (3) Diabetes mellitus type 2, uncontrolled Status: Chronic (4) Hypertension Status: Chronic (5) Atrial fibrillation Status: Resolved (6) Anxiety Status: Acute (7) Depression Status: Acute (8) Hypoglycemia Status: Acute (9) Thalamic infarct, acute Status: Acute (10) Acute respiratory failure with hypoxia Status: Acute (11) Altered mental status Status: Acute (12) Intracranial hemorrhage Status: Acute (13) Acute respiratory failure Status: Acute - Assessment and Plan (Free Text) Plan: Cont meds Con ttx Cont to try to wean
[2018-06-24] MEDS: Pantoprazole 40 mg Susp UD JT SCH (08:02)
--- NOTE | 2018-06-24 08:43 | PCM.PROC ---
Procedures Attestation:: I certify that I have explained the specified Operation(s) or Procedure(s), risks, benefits and reasonable alternatives to the Patient and/or other person responsible. The opportunity was given to ask questions and all questions answered - Extubation Clinical Parameters: Resolution/Stabilization of disease process, Hemodynamically Stable, Intact Cough/Gag Reflex, Spontaneous Respirations, Acceptable Vent Settings (FIO2<50%, PEEP<8, PaO2>75, pH>7.25) Weaning Criteria Met: Yes General Weaning Approaches: Pressure Support Ventilation (PSV) Weaning Patient Condition: Patient has been successfully extubated and assessed Oxygen Therapy: O2 via Venti Mask Patient Tolerated Procedure: Well
--- NOTE | 2018-06-24 10:27 | RAD ---
Date of service: 06/24/2018 HISTORY: intubated COMPARISON: 06/23/2018. FINDINGS: Endotracheal tube terminates in the mid trachea. The nasogastric tube terminates in the stomach. The right PICC line terminates at the cavoatrial junction. LUNGS: The lungs are hyperinflated and there is peribronchial thickening with chronic changes in both lungs. No focal consolidation. PLEURA: No significant pleural effusion identified, no pneumothorax apparent. CARDIOVASCULAR: Normal. OSSEOUS STRUCTURES: No significant abnormalities. VISUALIZED UPPER ABDOMEN: Normal. OTHER FINDINGS: None. IMPRESSION: No acute findings. No significant interval change.
--- NOTE | 2018-06-24 11:32 | CP.PCM.PN ---
Subjective - Date & Time of Evaluation Date of Evaluation: 06/24/18 Objective - Vital Signs/Intake and Output Vital Signs (last 24 hours): Temp Pulse Resp BP Pulse Ox 98.0 F 86 24 179/73 H 100 06/24/18 08:00 06/24/18 10:00 06/24/18 10:00 06/24/18 10:00 06/24/18 10:00 Intake and Output: 06/24/18 06/24/18 06:59 18:59 Intake Total 1153 295 Output Total 200 30 Balance 953 265 - Medications Medications: Current Medications Acetaminophen (Tylenol 325mg Tab) 650 mg PO Q6H PRN PRN Reason: Pain, Mild (1-3) Acetaminophen (Tylenol 325mg Tab) 650 mg PO Q6H PRN PRN Reason: Fever >100.4 F Albuterol/Ipratropium (Duoneb 3 Mg/0.5 Mg (3 Ml) Ud) 3 ml INH RQ6 PRN PRN Reason: Shortness of Breath Aspirin (Aspirin Chewable) 81 mg PO DAILY [facility] Last Admin: 06/24/18 08:00 Dose: 81 mg Atorvastatin Calcium (Lipitor) 20 mg PO HS [facility] Last Admin: 06/23/18 21:49 Dose: 20 mg Benztropine Mesylate (Cogentin) 2 mg PO BID [facility] Last Admin: 06/24/18 08:10 Dose: Not Given Clonidine HCl (Catapres) 0.1 mg PO BID [facility] Dextrose (Dextrose 50% Inj) 0 ml IV STAT PRN; Protocol PRN Reason: Hypoglycemia Protocol Last Admin: 06/16/18 17:08 Dose: 50 ml Dextrose (Glutose 15) 0 gm PO ONCE PRN; Protocol PRN Reason: Hypoglycemia Protocol Diltiazem HCl (Cardizem Cd) 120 mg PO DAILY [facility] Dimethicone (Proshield Plus Skin Protectant) 1 applic TOP Q8 [facility] Last Admin: 06/24/18 08:01 Dose: 1 applic Divalproex Sodium (Depakote Dr(*Bid*)) 750 mg PO BID [facility] Last Admin: 06/19/18 08:12 Dose: 750 mg Gabapentin (Neurontin) 800 mg PO TID [facility] Last Admin: 06/24/18 08:01 Dose: Not Given Glucagon (Glucagen Diagnostic Kit) 0 mg IM STAT PRN; Protocol PRN Reason: Hypoglycemia Protocol Vancomycin HCl 750 mg/ Sodium (Chloride) 250 mls @ 250 mls/hr IVPB Q12H [facility] PRN Reason: Protocol Last Admin: 06/24/18 00:26 Dose: 250 mls/hr Piperacillin Sod/Tazobactam (Sod 3.375 gm/ Sodium Chloride) 100 mls @ 100 mls/ hr IVPB Q6 [facility] PRN Reason: Protocol Last Admin: 06/24/18 09:34 Dose: 100 mls/hr Insulin Human Regular (Humulin R) 0 units SC Q6H [facility] Last Admin: 06/24/18 06:41 Dose: 3 units Lorazepam (Ativan) 1 mg IVP Q6H PRN PRN Reason: Agitation Last Admin: 06/24/18 00:39 Dose: 1 mg Nystatin (Nystop Topical Powder) 1 applic TOP TID [facility] Last Admin: 06/24/18 08:01 Dose: 1 applic Pantoprazole Sodium (Protonix Susp) 40 mg JT DAILY [facility] Last Admin: 06/24/18 08:02 Dose: 40 mg Quetiapine Fumarate (Seroquel) 25 mg PO HS [facility] - Labs Labs: 06/24/18 05:45 06/24/18 05:45 PT 9.2 Seconds (9.8-13.1) L 06/05/18 19:25 INR 0.8 06/05/18 19:25 APTT 27.0 Seconds (25.6-37.1) 06/05/18 19:25 Assessment and Plan (1) Acute respiratory failure with hypoxia Status: Acute (2) Altered mental status Status: Acute (3) COPD (chronic obstructive pulmonary disease) Status: Acute (4) Depression Status: Acute (5) Intracranial hemorrhage Status: Acute (6) Thalamic infarct, acute Status: Acute (7) CHF (congestive heart failure) Status: Chronic (8) Acute respiratory failure Status: Acute (9) COPD exacerbation Status: Acute
--- NOTE | 2018-06-24 13:29 | CP.PCM.PN ---
Subjective - Date & Time of Evaluation Date of Evaluation: 06/24/18 Time of Evaluation: 08:00 - Subjective Subjective: Pt seen and examined with Dr. Nichols at the bedside. Extubated this morning and currently on Nasal Cannula. Responds to pain only. No overnight events. Objective - Vital Signs/Intake and Output Vital Signs (last 24 hours): Temp Pulse Resp BP Pulse Ox 98.3 F 83 37 H 125/59 L 100 06/24/18 12:00 06/24/18 12:00 06/24/18 12:00 06/24/18 12:00 06/24/18 12:00 Intake and Output: 06/24/18 06/24/18 06:59 18:59 Intake Total 1153 295 Output Total 200 60 Balance 953 235 - Medications Medications: Current Medications Acetaminophen (Tylenol 325mg Tab) 650 mg PO Q6H PRN PRN Reason: Pain, Mild (1-3) Acetaminophen (Tylenol 325mg Tab) 650 mg PO Q6H PRN PRN Reason: Fever >100.4 F Albuterol/Ipratropium (Duoneb 3 Mg/0.5 Mg (3 Ml) Ud) 3 ml INH RQ6 PRN PRN Reason: Shortness of Breath Aspirin (Aspirin Chewable) 81 mg PO DAILY [facility] Last Admin: 06/24/18 08:00 Dose: 81 mg Atorvastatin Calcium (Lipitor) 20 mg PO HS [facility] Last Admin: 06/23/18 21:49 Dose: 20 mg Benztropine Mesylate (Cogentin) 2 mg PO BID [facility] Last Admin: 06/24/18 08:10 Dose: Not Given Clonidine HCl (Catapres) 0.1 mg PO BID [facility] Dextrose (Dextrose 50% Inj) 0 ml IV STAT PRN; Protocol PRN Reason: Hypoglycemia Protocol Last Admin: 06/16/18 17:08 Dose: 50 ml Dextrose (Glutose 15) 0 gm PO ONCE PRN; Protocol PRN Reason: Hypoglycemia Protocol Diltiazem HCl (Cardizem Cd) 120 mg PO DAILY [facility] Dimethicone (Proshield Plus Skin Protectant) 1 applic TOP Q8 [facility] Last Admin: 06/24/18 08:01 Dose: 1 applic Divalproex Sodium (Depakote Dr(*Bid*)) 750 mg PO BID [facility] Last Admin: 06/19/18 08:12 Dose: 750 mg Gabapentin (Neurontin) 800 mg PO TID [facility] Last Admin: 06/24/18 12:06 Dose: Not Given Glucagon (Glucagen Diagnostic Kit) 0 mg IM STAT PRN; Protocol PRN Reason: Hypoglycemia Protocol Piperacillin Sod/Tazobactam (Sod 3.375 gm/ Sodium Chloride) 100 mls @ 100 mls/ hr IVPB Q6 [facility] PRN Reason: Protocol Last Admin: 06/24/18 09:34 Dose: 100 mls/hr Insulin Human Regular (Humulin R) 0 units SC Q6H [facility] Last Admin: 06/24/18 11:38 Dose: 3 units Lorazepam (Ativan) 1 mg IVP Q6H PRN PRN Reason: Agitation Last Admin: 06/24/18 00:39 Dose: 1 mg Nystatin (Nystop Topical Powder) 1 applic TOP TID [facility] Last Admin: 06/24/18 12:06 Dose: 1 applic Pantoprazole Sodium (Protonix Susp) 40 mg JT DAILY [facility] Last Admin: 06/24/18 08:02 Dose: 40 mg Quetiapine Fumarate (Seroquel) 25 mg PO HS [facility] - Labs Labs: 06/24/18 05:45 06/24/18 05:45 PT 9.2 Seconds (9.8-13.1) L 06/05/18 19:25 INR 0.8 06/05/18 19:25 APTT 27.0 Seconds (25.6-37.1) 06/05/18 19:25 - Constitutional Appears: Chronically Ill - Head Exam Head Exam: NORMAL INSPECTION - Eye Exam Eye Exam: Normal appearance, PERRL - Respiratory Exam Respiratory Exam: Clear to Ausculation Bilateral - Cardiovascular Exam Cardiovascular Exam: REGULAR RHYTHM. absent: Murmur - GI/Abdominal Exam GI & Abdominal Exam: Normal Bowel Sounds Assessment and Plan (1) Acute respiratory failure with hypoxia Status: Resolved (2) Altered mental status Assessment & Plan: Extubated, now on nasal cannula Status: Acute (3) COPD (chronic obstructive pulmonary disease) Status: Acute (4) Depression Status: Acute (5) Hypoglycemia Status: Acute (6) Intracranial hemorrhage Status: Acute (7) Restless leg syndrome Status: Acute (8) Hypertension Status: Chronic (9) Atrial fibrillation Status: Resolved (10) Diabetes mellitus with hyperosmolarity without hyperglycemic hyperosmolar nonketotic coma Status: Acute - Assessment and Plan (Free Text) Assessment: 72 y/o female with MHx sig for A fib on Xarelto, CHF, COPD, DM2, HTN, and RLS admitted after fall at home and found to have thalamic bleed complicated by resp failure. Extubated this am and breathing comfortably on nasal cannula. -Cont w/ meds as ordered -Will attempt to wean sedation as per ICU management -poor prognosis Discussed case with Dr. Nichols. Mireille Hays, PGY2
[2018-06-24] MEDS: Albuterol-Ipratrop 3 mg / 0.5 (3 ml) UD INH SCH ×2 (15:44→19:00)
--- NOTE | 2018-06-24 16:21 | CP.PCM.PN ---
Subjective - Date & Time of Evaluation Date of Evaluation: 06/24/18 Time of Evaluation: 07:00 - Subjective Subjective: Extubated this morning and currently on Nasal Cannula. Responds to pain only. No overnight events. Objective - Vital Signs/Intake and Output Vital Signs (last 24 hours): Temp Pulse Resp BP Pulse Ox 98.3 F 83 23 135/72 100 06/24/18 16:00 06/24/18 16:00 06/24/18 16:00 06/24/18 16:00 06/24/18 16:00 Intake and Output: 06/24/18 06/24/18 06:59 18:59 Intake Total 1153 295 Output Total 200 135 Balance 953 160 - Medications Medications: Current Medications Acetaminophen (Tylenol 325mg Tab) 650 mg PO Q6H PRN PRN Reason: Pain, Mild (1-3) Acetaminophen (Tylenol 325mg Tab) 650 mg PO Q6H PRN PRN Reason: Fever >100.4 F Albuterol/Ipratropium (Duoneb 3 Mg/0.5 Mg (3 Ml) Ud) 3 ml INH RQ6 [facility] Last Admin: 06/24/18 15:44 Dose: 3 ml Aspirin (Aspirin Chewable) 81 mg PO DAILY [facility] Last Admin: 06/24/18 08:00 Dose: 81 mg Atorvastatin Calcium (Lipitor) 20 mg PO HS [facility] Last Admin: 06/23/18 21:49 Dose: 20 mg Benztropine Mesylate (Cogentin) 2 mg PO BID [facility] Last Admin: 06/24/18 08:10 Dose: Not Given Clonidine HCl (Catapres) 0.1 mg PO BID [facility] Dextrose (Dextrose 50% Inj) 0 ml IV STAT PRN; Protocol PRN Reason: Hypoglycemia Protocol Last Admin: 06/16/18 17:08 Dose: 50 ml Dextrose (Glutose 15) 0 gm PO ONCE PRN; Protocol PRN Reason: Hypoglycemia Protocol Diltiazem HCl (Cardizem Cd) 120 mg PO DAILY [facility] Dimethicone (Proshield Plus Skin Protectant) 1 applic TOP Q8 [facility] Last Admin: 06/24/18 08:01 Dose: 1 applic Divalproex Sodium (Depakote Dr(*Bid*)) 750 mg PO BID [facility] Last Admin: 06/19/18 08:12 Dose: 750 mg Gabapentin (Neurontin) 800 mg PO TID [facility] Last Admin: 06/24/18 12:06 Dose: Not Given Glucagon (Glucagen Diagnostic Kit) 0 mg IM STAT PRN; Protocol PRN Reason: Hypoglycemia Protocol Piperacillin Sod/Tazobactam (Sod 3.375 gm/ Sodium Chloride) 100 mls @ 100 mls/ hr IVPB Q6 [facility] PRN Reason: Protocol Last Admin: 06/24/18 09:34 Dose: 100 mls/hr Insulin Human Regular (Humulin R) 0 units SC Q6H [facility] Last Admin: 06/24/18 11:38 Dose: 3 units Lorazepam (Ativan) 1 mg IVP Q6H PRN PRN Reason: Agitation Last Admin: 06/24/18 00:39 Dose: 1 mg Nystatin (Nystop Topical Powder) 1 applic TOP TID [facility] Last Admin: 06/24/18 12:06 Dose: 1 applic Quetiapine Fumarate (Seroquel) 25 mg PO HS [facility] - Labs Labs: 06/24/18 05:45 06/24/18 05:45 PT 9.2 Seconds (9.8-13.1) L 06/05/18 19:25 INR 0.8 06/05/18 19:25 APTT 27.0 Seconds (25.6-37.1) 06/05/18 19:25 - Constitutional Appears: Non-toxic, Confused, Chronically Ill - Head Exam Head Exam: NORMOCEPHALIC - Eye Exam Eye Exam: PERRL. absent: Scleral icterus - ENT Exam ENT Exam: Mucous Membranes Dry, Normal External Ear Exam - Neck Exam Neck Exam: absent: Lymphadenopathy - Respiratory Exam Respiratory Exam: Decreased Breath Sounds, Rhonchi - Cardiovascular Exam Cardiovascular Exam: REGULAR RHYTHM, +S1, +S2 - GI/Abdominal Exam GI & Abdominal Exam: Distended, Soft. absent: Tenderness - Rectal Exam Rectal Exam: Deferred - Exam Exam: NORMAL INSPECTION - Extremities Exam Extremities Exam: absent: Pedal Edema - Back Exam Back Exam: absent: CVA tenderness (L), CVA tenderness (R), paraspinal tenderness - Neurological Exam Neurological Exam: Altered, CN II-XII Intact - Psychiatric Exam Psychiatric exam: Depressed - Skin Skin Exam: Dry Assessment and Plan (1) Acute respiratory failure with hypoxia Status: Resolved (2) Altered mental status Status: Acute (3) COPD (chronic obstructive pulmonary disease) Status: Acute (4) Depression Status: Acute (5) Intracranial hemorrhage Status: Acute (6) Thalamic infarct, acute Status: Acute (7) CHF (congestive heart failure) Status: Chronic (8) Acute respiratory failure Status: Acute (9) COPD exacerbation Status: Acute - Assessment and Plan (Free Text) Assessment: cont empiric IV antibiotics poor prognosis
--- NOTE | 2018-06-24 18:42 | CP.CCUPN ---
CCU Subjective - Physician Review Subjective (Free Text): Events over the last 4 days reviewed since my last exam: awake and alert this AM , very slight agitation noted, but not disabling and follows commands. Yesterday s events on Precedex noted. Last dose of Ativan given overnight at approx midnight. [id number] tolerance on low level CPAP PS and decision made to trial extubation today. ETT removed without difficulty and no immediate complications noted post-extubation. Other vitals and I/O's reviewed. No fever spikes last 24H. BP 122/78, HR 86, RR 23 post extub, SPO2 100% on 40% VM ROS: No other pertinent negs or positives on 10+ system review. PMSFH: All other Nursing and physician documentation reviewed to date; no new pertinent info noted relevant to current medical problems. EXAM- HEENT: no icterus, no gaze preference, pupils equal and reactive NECK: No JVD visible, supple, carotids equal upstroke bilat/no bruits CHEST: decreased BS bases, no wheezes audible HEART: regular, distant S1S2, no rubs ABD: soft, no increased distention, no tympany, no focal tenderness, BS hypoactive, no rebound. EXT: no peripheral/ digital cyanosis, no calf tenderness or palpable cords, distal pulses intact and symmetrical. Left BKA intact, stump wound well healed. NEURO: no gross focal motor deficits. SKIN: no new rashes, otherwise warm and dry. LABS: WBC= 13.0 HGB= 9.8 PLTs= 176K Hy=558 K= 3.9 CL= 106 HCO3= 32 BUN/Cr= 27/1.1 BS= 267 CXR (my interp): ETT position near filemon, no new consolidation. IMPRESSION / MAJOR PROBLEMS NOW: 1. Acute Stroke, L Thalamic area. 2. s/p Acute resp insuff 2 Acute Pulm edema; intubated on 06/14 for mild hypercarbia 3. Mild Delirium- unclear mental status baseline. 4. Chronic A Fib on AC with Xarelto 5. DM II-uncontrolled PLAN: 1. Extubated today, will try to mobilize OOB with PT assistance as tolerated. 2. Will hold all meds with BONE CRUSHER effects. 3. Levemir remains on hold. 4. Platelet counts improved. 5. Only empiric Zosyn noted now. Was on Vanco last week: reached renew stop date on 06/21/18. Will not renew at this time unless there is suspicion of new infection.
--- NOTE | 2018-06-24 20:01 | PN ---
DATE: 06/24/2018 ENDO FOLLOWUP NOTE LOCATION: In room 435 ICU. SUBJECTIVE: This is a 72-year-old female with recent acute respiratory failure, currently endotracheally intubated and is now being followed closely for metabolic management. Her glycemic levels are fluctuating, but improved and the latest chemistries today showed a BUN of 27, sodium 140, potassium 3.9, chloride 106, CO2 of 32, glucose 267, and creatinine 1.1. ASSESSMENT AND PLAN: We would still recommend a very low dose of basal insulin given every 12 hours as ordered. We will continue the low-dose correction scale using regular insulin as given every 6 hours. We will obtain serial chemistries and supplement accordingly as needed. We will follow. Nevin Chen MD
[2018-06-25] MEDS: Proshield Plus GEL TOP SCH ×3 (00:30→16:10)
[2018-06-25] MEDS: Albuterol-Ipratrop 3 mg / 0.5 (3 ml) UD INH SCH ×4 (01:00→20:00)
[2018-06-25] MEDS: Piperacillin/Tazobact 3.375 GM in Sodium Chloride 0.9% 100 ML IVPB SCH ×4 (04:59→21:21)
[2018-06-25] MEDS: Insulin Regular 100 units/ml SC SCH ×4 (06:00→18:13)
[2018-06-25 06:16] LABS: BASO # 0.1 K/uL (0.0-0.2); BASO % 0.9 % (0.0-2.0); EOS # 0.1 K/uL (0.0-0.7); EOS % 0.9 % (0.0-4.0); HEMOGLOBIN 8.9 g/dL (12.0-16.0); LYMPH # 1.6 K/uL (1.0-4.3); LYMPH % 13.9 % (20.0-40.0); MEAN CELL VOLUME 93.5 fl (81.0-99.0); MEAN CORPUSCULAR HEMOGLOBIN 31.4 pg (27.0-31.0); MEAN CORPUSCULAR HGB CONC 33.6 g/dL (33.0-37.0); MEAN PLATELET VOLUME 10.4 fl (7.2-11.7); MONO # 1.2 K/uL (0.0-0.8); MONO % 10.3 % (0.0-10.0); NEUT # 8.4 K/uL (1.8-7.0); RBC 2.85 Mil/uL (3.80-5.20); WHITE BLOOD COUNT 11.4 K/uL (4.8-10.8)
[2018-06-25 06:28] LABS: ALB/GLOB RATIO 0.6 (1.0-2.1); ALBUMIN 2.1 g/dL (3.5-5.0); ALT/SGPT 24 U/L (9-52); AST/SGOT 25 U/L (14-36); BLOOD UREA NITROGEN 22 mg/dl (7-17); CALCIUM 7.9 mg/dL (8.4-10.2); GFR NON-AFRICAN AMERICAN > 60
--- NOTE | 2018-06-25 13:23 | PQF ---
PROVIDER RESPONSE TEXT: Provider was unable to determine a response for this query. REVIEWER QUERY TEXT: Pressure Ulcer Type Pressure ulcer ( DTI Deep tissue injury ) on the sacrum is documented in the Medical Record on by the chart computer. Please specify the location,and stage if you concur or other explanation of clinical findings. Location and laterality of pressure ulcer(s): Stage of each pressure ulcer (National Pressure Ulcer Advisory Panel definitions): -- Stage I: Intact skin with non-blanchable redness of a localized area -- Stage II: Partial thickness skin loss involving dermis with a shallow open ulcer or an open serum -filled blister -- Stage III: Full thickness skin loss involving damage or necrosis of subcutaneous tissue -- Stage IV: Full thickness skin loss with exposed bone, tendon or muscle -- Unstageable: Full thickness tissue loss in which the base of the ulcer is covered by slough and/o r eschar in the wound bed The patient's Clinical Indicators include: Pressure ulcer ( DTI Deep tissue injury ) on the sacrum is documented in the Medical Record on by the chart computer Query created by: Dolores Benoit on 06/23/2018 10:57 AM Electronically signed by: Mireille Hays 06/25/2018 1:20 PM
--- NOTE | 2018-06-25 13:42 | CP.PCM.PN ---
Subjective - Date & Time of Evaluation Date of Evaluation: 06/25/18 Time of Evaluation: 07:00 - Subjective Subjective: Pt seen and examined with Dr. Salazar at the bedside. Breathing comfortably on nasal cannula. Pt is more alert and verbally responsive today. Denied pain. Objective - Vital Signs/Intake and Output Vital Signs (last 24 hours): Temp Pulse Resp BP Pulse Ox 98.6 F 96 H 16 161/95 H 100 06/25/18 12:00 06/25/18 12:00 06/25/18 12:00 06/25/18 12:00 06/25/18 12:00 Intake and Output: 06/25/18 06/25/18 06:59 18:59 Intake Total 214 110 Output Total 250 Balance -36 110 - Medications Medications: Current Medications Acetaminophen (Tylenol 325mg Tab) 650 mg PO Q6H PRN PRN Reason: Pain, Mild (1-3) Acetaminophen (Tylenol 325mg Tab) 650 mg PO Q6H PRN PRN Reason: Fever >100.4 F Albuterol/Ipratropium (Duoneb 3 Mg/0.5 Mg (3 Ml) Ud) 3 ml INH RQ6 [facility] Last Admin: 06/25/18 13:20 Dose: 3 ml Aspirin (Aspirin Chewable) 81 mg PO DAILY [facility] Last Admin: 06/25/18 09:43 Dose: Not Given Atorvastatin Calcium (Lipitor) 20 mg PO HS [facility] Last Admin: 06/23/18 21:49 Dose: 20 mg Benztropine Mesylate (Cogentin) 2 mg PO BID [facility] Last Admin: 06/24/18 08:10 Dose: Not Given Clonidine HCl (Catapres) 0.1 mg PO BID [facility] Dextrose (Dextrose 50% Inj) 0 ml IV STAT PRN; Protocol PRN Reason: Hypoglycemia Protocol Last Admin: 06/16/18 17:08 Dose: 50 ml Dextrose (Glutose 15) 0 gm PO ONCE PRN; Protocol PRN Reason: Hypoglycemia Protocol Diltiazem HCl (Cardizem Cd) 120 mg PO DAILY [facility] Dimethicone (Proshield Plus Skin Protectant) 1 applic TOP Q8 [facility] Last Admin: 06/25/18 09:46 Dose: 1 applic Divalproex Sodium (Depakote Dr(*Bid*)) 750 mg PO BID [facility] Last Admin: 06/19/18 08:12 Dose: 750 mg Gabapentin (Neurontin) 800 mg PO TID [facility] Last Admin: 06/25/18 09:44 Dose: Not Given Glucagon (Glucagen Diagnostic Kit) 0 mg IM STAT PRN; Protocol PRN Reason: Hypoglycemia Protocol Piperacillin Sod/Tazobactam (Sod 3.375 gm/ Sodium Chloride) 100 mls @ 100 mls/ hr IVPB Q6 [facility] PRN Reason: Protocol Last Admin: 06/25/18 09:52 Dose: 100 mls/hr Insulin Human Regular (Humulin R) 0 units SC Q6H [facility] Last Admin: 06/25/18 06:00 Dose: Not Given Nystatin (Nystop Topical Powder) 1 applic TOP TID [facility] Last Admin: 06/25/18 09:46 Dose: 1 applic Quetiapine Fumarate (Seroquel) 25 mg PO HS [facility] - Labs Labs: 06/25/18 05:45 06/25/18 05:45 PT 9.2 Seconds (9.8-13.1) L 06/05/18 19:25 INR 0.8 06/05/18 19:25 APTT 27.0 Seconds (25.6-37.1) 06/05/18 19:25 - Constitutional Appears: No Acute Distress (+restless legs movements), Chronically Ill - Head Exam Head Exam: ATRAUMATIC - Eye Exam Eye Exam: Normal appearance - ENT Exam ENT Exam: Mucous Membranes Moist - Neck Exam Neck Exam: Full ROM - Respiratory Exam Respiratory Exam: Clear to Ausculation Bilateral - Cardiovascular Exam Cardiovascular Exam: REGULAR RHYTHM - GI/Abdominal Exam GI & Abdominal Exam: Soft, Normal Bowel Sounds - Extremities Exam Extremities Exam: absent: Pedal Edema Additional comments: Left BKA stump - Neurological Exam Neurological Exam: Alert, Awake - Skin Skin Exam: Warm Assessment and Plan (1) Acute respiratory failure with hypoxia Status: Resolved (2) Altered mental status Status: Acute (3) COPD (chronic obstructive pulmonary disease) Status: Acute (4) Depression Status: Acute (5) Hypoglycemia Status: Acute (6) Intracranial hemorrhage Status: Acute (7) Restless leg syndrome Status: Acute (8) Hypertension Status: Chronic (9) Atrial fibrillation Status: Resolved (10) Diabetes mellitus with hyperosmolarity without hyperglycemic hyperosmolar nonketotic coma Status: Acute - Assessment and Plan (Free Text) Assessment: 72 y/o female with MHx sig for A fib on Xarelto, CHF, COPD, DM2, HTN, and RLS admitted after fall at home and found to have thalamic bleed complicated by resp failure. Extubated this am and breathing comfortably on nasal cannula. -Off sedative medication -Cont w/ meds as ordered -poor prognosis Discussed case with Dr. Salazar. Mireille Hays, PGY2
--- NOTE | 2018-06-25 14:11 | CP.CCUPN ---
CCU Subjective - Physician Review Subjective (Free Text): Stable resp status since extubation yesterday, on NC with 100% SPO2. Intermittently agitated and again swinging legs especially left leg/stump. Denies any new discomfort, no SOB or chest discomfort. No other obvious distress. Other vitals and I/O's reviewed. No fever spikes last 1 week. BP 160/78, HR 96 , RR 16 to 25, SPO2 100% on NC. ROS: No other pertinent negs or positives on 10+ system review. PMSFH: All other Nursing and physician documentation reviewed to date; no new pertinent info noted relevant to current medical problems. EXAM- HEENT: no icterus, no gaze preference, pupils equal and reactive NECK: No JVD visible, supple, carotids equal upstroke bilat/no bruits CHEST: decreased BS bases, no wheezes audible HEART: regular, distant S1S2, no rubs ABD: soft, no increased distention, no tympany, no focal tenderness, BS hypoactive, no rebound. EXT: no peripheral/ digital cyanosis, no calf tenderness or palpable cords, distal pulses intact and symmetrical. Left BKA intact, stump wound well healed. NEURO: no gross focal motor deficits. SKIN: no new rashes, otherwise warm and dry. LABS: WBC= 11.8 HGB= 8.9 PLTs= 270K Qj=112 K= 3.4 CL= 108 HCO3= 31 BUN/Cr= 22/0.9 BS= 215 IMPRESSION / MAJOR PROBLEMS NOW: 1. Acute Stroke, L Thalamic area. 2. s/p Acute resp insuff 2 Acute Pulm edema; intubated on 06/14 for mild hypercarbia 3. Mild Delirium- unclear mental status baseline. 4. Chronic A Fib on AC with Xarelto 5. DM II-uncontrolled PLAN: 1. Extubated yesterday, will try to mobilize OOB with PT assistance as tolerated. 2. Held all meds with TOOLING INSPECTOR effects recently, will consider resumption of anti- psychotics one-by-one to avoid any excess sedative effects. For today, Depakote via IV route (PO route deemed unsafe as per Speech/Swallow Therapist). 3. Levemir remains on hold. Swallow eval noted, PO intake remains sub par. 4. Platelet counts improving. 5. Only empiric Zosyn noted now. Was on Vanco last week: reached renew stop date on 06/21/18. Will not renew at this time unless there is suspicion of new infection. 6. Pulm Sport bed / low air loss mattress.
[2018-06-25] MEDS: Valproate 250 MG in Sodium Chloride 0.9% 100 ML IVPB SCH ×2 (16:07→21:21)
[2018-06-25] MEDS: Potassium Chl 20 mEq in D5-NS 1,000 ML IV SCH (16:07)
--- NOTE | 2018-06-26 00:28 | PN ---
DATE: 06/25/2018 ENDO FOLLOWUP NOTE LOCATION: In room 435, ICU. This is a 72-year-old female with recent acute respiratory failure and eventual intubation, and is now also being followed closely for metabolic management. Her glycemic levels are fluctuating as noted, and the repeat chemistries today showed a BUN of 22, sodium 141, potassium 3.4, chloride 108, CO2 of 31, glucose 215, and creatinine 0.9. We will continue the same low-dose correction scale using regular insulin given every 6 hours as ordered. We have held off on the basal insulin per the request of the primary physician, although she continues to have hyperglycemic fluctuations as expected with the hypercatabolic state and also with the increased physical stressors thereof. She would benefit actually from a very low dose of basal insulin given as Levemir at 4 units every 12 hours as ordered. We will obtain serial chemistries and supplement accordingly as needed. We will follow. Nevin Chen MD
[2018-06-26] MEDS: Insulin Regular 100 units/ml SC SCH ×4 (00:59→23:15)
[2018-06-26] MEDS: Albuterol-Ipratrop 3 mg / 0.5 (3 ml) UD INH SCH ×4 (01:00→19:13)
[2018-06-26] MEDS: Proshield Plus GEL TOP SCH ×3 (01:00→16:12)
[2018-06-26] MEDS: Piperacillin/Tazobact 3.375 GM in Sodium Chloride 0.9% 100 ML IVPB SCH ×4 (05:00→21:46)
[2018-06-26] MEDS: Potassium Chl 20 mEq in D5-NS 1,000 ML IV SCH (05:13)
[2018-06-26] MEDS: Valproate 250 MG in Sodium Chloride 0.9% 100 ML IVPB SCH ×4 (05:35→21:45)
[2018-06-26 05:43] LABS: BASO # 0.1 K/uL (0.0-0.2); BASO % 1.2 % (0.0-2.0); EOS # 0.2 K/uL (0.0-0.7); EOS % 1.5 % (0.0-4.0); HEMOGLOBIN 9.3 g/dL (12.0-16.0); LYMPH # 1.9 K/uL (1.0-4.3); LYMPH % 17.2 % (20.0-40.0); MEAN CELL VOLUME 93.4 fl (81.0-99.0); MEAN CORPUSCULAR HEMOGLOBIN 31.2 pg (27.0-31.0); MEAN CORPUSCULAR HGB CONC 33.4 g/dL (33.0-37.0); MEAN PLATELET VOLUME 9.9 fl (7.2-11.7); MONO # 1.2 K/uL (0.0-0.8); MONO % 10.8 % (0.0-10.0); NEUT # 7.5 K/uL (1.8-7.0); NEUT % 69.3 % (50.0-75.0); RBC 2.99 Mil/uL (3.80-5.20); RED CELL DISTRIBUTION WIDTH 14.7 % (11.5-14.5); WHITE BLOOD COUNT 10.8 K/uL (4.8-10.8)
[2018-06-26 06:26] LABS: BLOOD UREA NITROGEN 16 mg/dl (7-17); GFR NON-AFRICAN AMERICAN > 60
[2018-06-26 06:27] LABS: ALB/GLOB RATIO 0.6 (1.0-2.1); ALBUMIN 2.2 g/dL (3.5-5.0); ALT/SGPT 27 U/L (9-52); AST/SGOT 33 U/L (14-36)
--- NOTE | 2018-06-26 07:29 | CP.CCUPN ---
CCU Subjective - Physician Review Subjective (Free Text): Stable resp status since extubation, on NC with 100% SPO2. Intermittently agitated and again swinging legs especially left leg/stump, last dose of IV Ativan at midnite overnight. Sleeping now, easily awakens to verbal stimuli. No other obvious distress. Other vitals and I/O's reviewed. No fever spikes last 1 week. BP 158/87, HR 81 , RR 21, SPO2 100% on NC. ROS: No other pertinent negs or positives on 10+ system review. PMSFH: All other Nursing and physician documentation reviewed to date; no new pertinent info noted relevant to current medical problems. EXAM- HEENT: no icterus, no gaze preference, pupils equal and reactive NECK: No JVD visible, supple, carotids equal upstroke bilat/no bruits CHEST: decreased BS bases, no wheezes audible HEART: regular, distant S1S2, no rubs ABD: soft, no increased distention, no tympany, no focal tenderness, BS hypoactive, no rebound. EXT: no peripheral/ digital cyanosis, no calf tenderness or palpable cords, distal pulses intact and symmetrical. Left BKA intact, stump wound well healed. NEURO: no gross focal motor deficits. SKIN: no new rashes, otherwise warm and dry. LABS: WBC= 10.8 HGB= 9.3 PLTs= 434K Vy=347 K= 3.3 CL= 110 HCO3= 31 BUN/Cr= 16/0.7 BS= 224 IMPRESSION / MAJOR PROBLEMS NOW: 1. Acute Stroke, L Thalamic area. 2. s/p Acute resp insuff 2 Acute Pulm edema; intubated on 06/14 for mild hypercarbia 3. Mild Delirium- unclear mental status baseline. 4. Chronic A Fib on AC with Xarelto 5. DM II-uncontrolled PLAN: 1. Extubated 2 DAYS AGO, will try to mobilize OOB with PT assistance as tolerated. 2. Held all meds with BLOCK STACKER effects recently, will consider resumption of anti- psychotics one-by-one to avoid any excess sedative effects. For today, Depakote via IV route (PO route deemed unsafe as per Speech/Swallow Therapist). 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 3. Levemir remains on hold. Failed Swallow eval yesterday, PO intake remains sub par. Re-eval today. 4. Platelet counts normalized. 5. Only empiric Zosyn noted now. Was on Vanco last week: reached renew stop date on 06/21/18. Will not renew at this time unless there is suspicion of new infection. 6. Pulm Sport bed / low air loss mattress. 7. Could resume AC for chronic A Fib.
[2018-06-26] MEDS: Potassium CL 10mEq/100ml 100 ML IVPB SCH ×4 (09:57→13:25)
[2018-06-26] MEDS: Metoprolol 1 mg/ml Inj IVP SCH ×3 (11:15→21:52)
--- NOTE | 2018-06-26 13:37 | CP.PCM.CON ---
History of Present Illness - History of Present Illness History of Present Illness: WEAK BEDRIDDEN AFEB Review of Systems - Review of Systems All systems: reviewed and no additional remarkable complaints except Past Patient History - Infectious Disease Hx of Infectious Diseases: None - Tetanus Immunizations Tetanus Immunization: Unknown - Past Medical History & Family History Past Medical History?: Yes - Past Social History Smoking Status: Light Smoker < 10 Cigarettes Daily - CARDIAC Hx Atrial Fibrillation: Yes Hx Cardia Arrhythmia: Yes Hx Congestive Heart Failure: Yes Hx Hypercholesterolemia: Yes Hx Hypertension: Yes - PULMONARY Hx Asthma: Yes Hx Bronchitis: Yes Hx Chronic Obstructive Pulmonary Disease (COPD): Yes Hx Sleep Apnea: Yes - HEENT Hx Difficulty Chewing: Yes - RENAL Hx Chronic Kidney Disease: No Other/Comment: INCONTINENT - ENDOCRINE/METABOLIC Hx Diabetes Mellitus Type 2: Yes Hx Hypothyroidism: Yes - HEMATOLOGICAL/ONCOLOGICAL Hx Blood Disorders: No - INTEGUMENTARY Hx Eczema: Yes - MUSCULOSKELETAL/RHEUMATOLOGICAL Hx Falls: Yes - GASTROINTESTINAL Hx Gastritis: Yes - GENITOURINARY/GYNECOLOGICAL Hx Genitourinary Disorders: No - PSYCHIATRIC Hx Anxiety: Yes Hx Depression: Yes Hx Paranoia: Yes Hx Post Traumatic Stress Disorder: Yes Hx Substance Use: No - SURGICAL HISTORY Hx Cholecystectomy: Yes Other/Comment: LEFT BKA - ANESTHESIA Hx Anesthesia: Yes Hx Anesthesia Reactions: No Hx Malignant Hyperthermia: No Meds Allergies/Adverse Reactions: Allergies Allergy/AdvReac Type Severity Reaction Status Date / Time TUCKER Inhibitors Allergy Severe COUGH Verified 12/28/17 04:05 Thiazides Allergy RASH Verified 12/28/17 04:05 - Medications Medications: Current Medications Acetaminophen (Tylenol 325mg Tab) 650 mg PO Q6H PRN PRN Reason: Pain, Mild (1-3) Acetaminophen (Tylenol 325mg Tab) 650 mg PO Q6H PRN PRN Reason: Fever >100.4 F Albuterol/Ipratropium (Duoneb 3 Mg/0.5 Mg (3 Ml) Ud) 3 ml INH RQ6 [facility] Last Admin: 06/26/18 13:31 Dose: 3 ml Aspirin (Aspirin Chewable) 81 mg PO DAILY [facility] Last Admin: 06/26/18 08:28 Dose: Not Given Atorvastatin Calcium (Lipitor) 20 mg PO HS [facility] Last Admin: 06/23/18 21:49 Dose: 20 mg Benztropine Mesylate (Cogentin) 2 mg PO BID [facility] Last Admin: 06/24/18 08:10 Dose: Not Given Clonidine HCl (Catapres) 0.1 mg PO BID [facility] Dextrose (Dextrose 50% Inj) 0 ml IV STAT PRN; Protocol PRN Reason: Hypoglycemia Protocol Last Admin: 06/16/18 17:08 Dose: 50 ml Dextrose (Glutose 15) 0 gm PO ONCE PRN; Protocol PRN Reason: Hypoglycemia Protocol Diltiazem HCl (Cardizem Cd) 120 mg PO DAILY [facility] Dimethicone (Proshield Plus Skin Protectant) 1 applic TOP Q8 [facility] Last Admin: 06/26/18 08:30 Dose: 1 applic Divalproex Sodium (Depakote Dr(*Bid*)) 750 mg PO BID [facility] Last Admin: 06/19/18 08:12 Dose: 750 mg Gabapentin (Neurontin) 800 mg PO TID [facility] Last Admin: 06/26/18 12:16 Dose: Not Given Glucagon (Glucagen Diagnostic Kit) 0 mg IM STAT PRN; Protocol PRN Reason: Hypoglycemia Protocol Piperacillin Sod/Tazobactam (Sod 3.375 gm/ Sodium Chloride) 100 mls @ 100 mls/ hr IVPB Q6 [facility] PRN Reason: Protocol Last Admin: 06/26/18 09:59 Dose: 100 mls/hr Valproate Sodium 250 mg/ (Sodium Chloride) 102.5 mls @ 100 mls/hr IVPB Q6 [facility] Last Admin: 06/26/18 09:59 Dose: 100 mls/hr Potassium Chloride/Dextrose/Sod Cl (Potassium Chl 20 Meq In D5-Ns) 1,000 mls @ 84 mls/hr IV .[id number] [facility] Stop: 06/26/18 15:12 Last Admin: 06/26/18 05:13 Dose: 84 mls/hr Insulin Human Regular (Humulin R) 0 units SC Q6H [facility] Last Admin: 06/26/18 12:17 Dose: Not Given Lorazepam (Ativan) 1 mg IVP Q6 PRN PRN Reason: Agitation Last Admin: 06/26/18 08:27 Dose: 1 mg Metoprolol Tartrate (Lopressor) 5 mg IVP Q6 [facility] Last Admin: 06/26/18 11:15 Dose: 5 mg Nystatin (Nystop Topical Powder) 1 applic TOP TID [facility] Last Admin: 06/26/18 12:18 Dose: 1 applic Quetiapine Fumarate (Seroquel) 25 mg PO HS [facility] Physical Exam - Constitutional Appears: Chronically Ill - Head Exam Head Exam: NORMAL INSPECTION - Eye Exam Eye Exam: absent: Scleral icterus - ENT Exam ENT Exam: Mucous Membranes Dry - Neck Exam Neck exam: Negative for: Lymphadenopathy - Respiratory Exam Respiratory Exam: Decreased Breath Sounds - Cardiovascular Exam Cardiovascular Exam: REGULAR RHYTHM - GI/Abdominal Exam GI & Abdominal Exam: Diminished Bowel Sounds - Rectal Exam Rectal Exam: Deferred - Exam Exam: NORMAL INSPECTION - Extremities Exam Additional comments: BKA - Back Exam Back exam: absent: CVA tenderness (L), CVA tenderness (R) - Neurological Exam Neurological exam: Alert, Altered, CN II-XII Intact Results - Vital Signs Recent Vital Signs: Last Vital Signs Temp 97.6 F 06/26/18 12:00 Pulse 83 06/26/18 12:00 Resp 36 H 06/26/18 12:00 BP 144/89 06/26/18 12:00 Pulse Ox 100 06/26/18 12:00 - Labs Result Diagrams: 06/26/18 04:20 06/26/18 04:20 Labs: Laboratory Results - last 24 hr 06/20/18 06/21/18 06/21/18 17:52 00:06 05:13 WBC RBC Hgb Hct MCV MCH MCHC RDW Plt Count MPV Neut % (Auto) Lymph % (Auto) Johnson % (Auto) Eos % (Auto) Baso % (Auto) Neut # (Auto) Lymph # (Auto) Johnson # (Auto) Eos # (Auto) Baso # (Auto) Sodium Potassium Chloride Carbon Dioxide Anion Gap BUN Creatinine Est GFR ( Amer) Est GFR (Non-Af Amer) POC Glucose (mg/dL) 248 H 256 H 193 H Random Glucose Calcium Total Bilirubin AST ALT Alkaline Phosphatase Total Protein Albumin Globulin Albumin/Globulin Ratio 06/21/18 06/21/18 06/21/18 11:31 17:47 21:52 WBC RBC Hgb Hct MCV MCH MCHC RDW Plt Count MPV Neut % (Auto) Lymph % (Auto) Johnson % (Auto) Eos % (Auto) Baso % (Auto) Neut # (Auto) Lymph # (Auto) Johnson # (Auto) Eos # (Auto) Baso # (Auto) Sodium Potassium Chloride Carbon Dioxide Anion Gap BUN Creatinine Est GFR ( Amer) Est GFR (Non-Af Amer) POC Glucose (mg/dL) 269 H 269 H 180 H Random Glucose Calcium Total Bilirubin AST ALT Alkaline Phosphatase Total Protein Albumin Globulin Albumin/Globulin Ratio 06/22/18 06/22/18 06/22/18 04:20 11:41 17:43 WBC RBC Hgb Hct MCV MCH MCHC RDW Plt Count MPV Neut % (Auto) Lymph % (Auto) Johnson % (Auto) Eos % (Auto) Baso % (Auto) Neut # (Auto) Lymph # (Auto) Johnson # (Auto) Eos # (Auto) Baso # (Auto) Sodium Potassium Chloride Carbon Dioxide Anion Gap BUN Creatinine Est GFR ( Amer) Est GFR (Non-Af Amer) POC Glucose (mg/dL) 250 H 304 H 274 H Random Glucose Calcium Total Bilirubin AST ALT Alkaline Phosphatase Total Protein Albumin Globulin Albumin/Globulin Ratio 06/22/18 06/23/18 06/23/18 23:05 05:05 11:16 WBC RBC Hgb Hct MCV MCH MCHC RDW Plt Count MPV Neut % (Auto) Lymph % (Auto) Johnson % (Auto) Eos % (Auto) Baso % (Auto) Neut # (Auto) Lymph # (Auto) Johnson # (Auto) Eos # (Auto) Baso # (Auto) Sodium Potassium Chloride Carbon Dioxide Anion Gap BUN Creatinine Est GFR ( Amer) Est GFR (Non-Af Amer) POC Glucose (mg/dL) 235 H 264 H 190 H Random Glucose Calcium Total Bilirubin AST ALT Alkaline Phosphatase Total Protein Albumin Globulin Albumin/Globulin Ratio 06/23/18 06/24/18 06/24/18 17:54 00:50 06:04 WBC RBC Hgb Hct MCV MCH MCHC RDW Plt Count MPV Neut % (Auto) Lymph % (Auto) Johnson % (Auto) Eos % (Auto) Baso % (Auto) Neut # (Auto) Lymph # (Auto) Johnson # (Auto) Eos # (Auto) Baso # (Auto) Sodium Potassium Chloride Carbon Dioxide Anion Gap BUN Creatinine Est GFR ( Amer) Est GFR (Non-Af Amer) POC Glucose (mg/dL) 283 H 260 H 277 H Random Glucose Calcium Total Bilirubin AST ALT Alkaline Phosphatase Total Protein Albumin Globulin Albumin/Globulin Ratio 06/24/18 06/24/18 06/25/18 11:32 17:24 05:34 WBC RBC Hgb Hct MCV MCH MCHC RDW Plt Count MPV Neut % (Auto) Lymph % (Auto) Johnson % (Auto) Eos % (Auto) Baso % (Auto) Neut # (Auto) Lymph # (Auto) Johnson # (Auto) Eos # (Auto) Baso # (Auto) Sodium Potassium Chloride Carbon Dioxide Anion Gap BUN Creatinine Est GFR ( Amer) Est GFR (Non-Af Amer) POC Glucose (mg/dL) 274 H 154 H 211 H Random Glucose Calcium Total Bilirubin AST ALT Alkaline Phosphatase Total Protein Albumin Globulin Albumin/Globulin Ratio 06/25/18 06/25/18 06/25/18 11:31 17:48 22:03 WBC RBC Hgb Hct MCV MCH MCHC RDW Plt Count MPV Neut % (Auto) Lymph % (Auto) Johnson % (Auto) Eos % (Auto) Baso % (Auto) Neut # (Auto) Lymph # (Auto) Johnson # (Auto) Eos # (Auto) Baso # (Auto) Sodium Potassium Chloride Carbon Dioxide Anion Gap BUN Creatinine Est GFR ( Amer) Est GFR (Non-Af Amer) POC Glucose (mg/dL) 263 H 290 H 189 H Random Glucose Calcium Total Bilirubin AST ALT Alkaline Phosphatase Total Protein Albumin Globulin Albumin/Globulin Ratio 06/26/18 06/26/18 06/26/18 04:20 04:20 05:30 WBC 10.8 RBC 2.99 L Hgb 9.3 L Hct 27.9 L MCV 93.4 MCH 31.2 H MCHC 33.4 RDW 14.7 H Plt Count 434 H D MPV 9.9 Neut % (Auto) 69.3 Lymph % (Auto) 17.2 L Johnson % (Auto) 10.8 H Eos % (Auto) 1.5 Baso % (Auto) 1.2 Neut # (Auto) 7.5 H Lymph # (Auto) 1.9 Johnson # (Auto) 1.2 H Eos # (Auto) 0.2 Baso # (Auto) 0.1 Sodium 143 Potassium 3.3 L Chloride 110 H Carbon Dioxide 31 H Anion Gap 5 L BUN 16 Creatinine 0.7 Est GFR ( Amer) > 60 Est GFR (Non-Af Amer) > 60 POC Glucose (mg/dL) 220 H Random Glucose 224 H Calcium 8.0 L Total Bilirubin 0.2 AST 33 ALT 27 Alkaline Phosphatase 64 Total Protein 5.7 L Albumin 2.2 L Globulin 3.5 Albumin/Globulin Ratio 0.6 L Assessment & Plan (1) Acute respiratory failure with hypoxia Status: Resolved Priority: High (2) Altered mental status Status: Acute Priority: High (3) COPD (chronic obstructive pulmonary disease) Status: Acute Priority: Medium (4) Depression Status: Acute (5) Intracranial hemorrhage Status: Acute Priority: High (6) Thalamic infarct, acute Status: Acute (7) CHF (congestive heart failure) Status: Chronic Priority: Medium (8) Acute respiratory failure Status: Acute Priority: High (9) COPD exacerbation Status: Acute Priority: High - Assessment and Plan (Free Text) Assessment: POOR PROGNOSIS
--- NOTE | 2018-06-26 14:44 | CP.PCM.PN ---
Subjective - Date & Time of Evaluation Date of Evaluation: 06/26/18 Time of Evaluation: 08:00 - Subjective Subjective: Pt seen and examined this morning. Seems more alert, still agitated, moving left limb/stump. When asked if shes in pain, pt says shakes head no. Received Ativan overnight for agitation. Objective - Vital Signs/Intake and Output Vital Signs (last 24 hours): Temp Pulse Resp BP Pulse Ox 97.6 F 83 36 H 144/89 100 06/26/18 12:00 06/26/18 12:00 06/26/18 12:00 06/26/18 12:00 06/26/18 12:00 Intake and Output: 06/26/18 06/26/18 06:59 18:59 Intake Total 1056 1100 Output Total 800 Balance 256 1100 - Medications Medications: Current Medications Acetaminophen (Tylenol 325mg Tab) 650 mg PO Q6H PRN PRN Reason: Pain, Mild (1-3) Acetaminophen (Tylenol 325mg Tab) 650 mg PO Q6H PRN PRN Reason: Fever >100.4 F Albuterol/Ipratropium (Duoneb 3 Mg/0.5 Mg (3 Ml) Ud) 3 ml INH RQ6 [facility] Last Admin: 06/26/18 13:31 Dose: 3 ml Aspirin (Aspirin Chewable) 81 mg PO DAILY [facility] Last Admin: 06/26/18 08:28 Dose: Not Given Atorvastatin Calcium (Lipitor) 20 mg PO HS [facility] Last Admin: 06/23/18 21:49 Dose: 20 mg Benztropine Mesylate (Cogentin) 2 mg PO BID [facility] Last Admin: 06/24/18 08:10 Dose: Not Given Clonidine HCl (Catapres) 0.1 mg PO BID [facility] Dextrose (Dextrose 50% Inj) 0 ml IV STAT PRN; Protocol PRN Reason: Hypoglycemia Protocol Last Admin: 06/16/18 17:08 Dose: 50 ml Dextrose (Glutose 15) 0 gm PO ONCE PRN; Protocol PRN Reason: Hypoglycemia Protocol Diltiazem HCl (Cardizem Cd) 120 mg PO DAILY [facility] Dimethicone (Proshield Plus Skin Protectant) 1 applic TOP Q8 [facility] Last Admin: 06/26/18 08:30 Dose: 1 applic Divalproex Sodium (Depakote Dr(*Bid*)) 750 mg PO BID [facility] Last Admin: 06/19/18 08:12 Dose: 750 mg Gabapentin (Neurontin) 800 mg PO TID [facility] Last Admin: 06/26/18 12:16 Dose: Not Given Glucagon (Glucagen Diagnostic Kit) 0 mg IM STAT PRN; Protocol PRN Reason: Hypoglycemia Protocol Piperacillin Sod/Tazobactam (Sod 3.375 gm/ Sodium Chloride) 100 mls @ 100 mls/ hr IVPB Q6 JULIETA PRN Reason: Protocol Last Admin: 06/26/18 09:59 Dose: 100 mls/hr Valproate Sodium 250 mg/ (Sodium Chloride) 102.5 mls @ 100 mls/hr IVPB Q6 [facility] Last Admin: 06/26/18 09:59 Dose: 100 mls/hr Potassium Chloride/Dextrose/Sod Cl (Potassium Chl 20 Meq In D5-Ns) 1,000 mls @ 84 mls/hr IV .[id number] [facility] Stop: 06/26/18 15:12 Last Admin: 06/26/18 05:13 Dose: 84 mls/hr Insulin Human Regular (Humulin R) 0 units SC Q6H [facility] Last Admin: 06/26/18 12:17 Dose: Not Given Lorazepam (Ativan) 1 mg IVP Q6 PRN PRN Reason: Agitation Last Admin: 06/26/18 08:27 Dose: 1 mg Metoprolol Tartrate (Lopressor) 5 mg IVP Q6 [facility] Last Admin: 06/26/18 11:15 Dose: 5 mg Nystatin (Nystop Topical Powder) 1 applic TOP TID [facility] Last Admin: 06/26/18 12:18 Dose: 1 applic Quetiapine Fumarate (Seroquel) 25 mg PO HS [facility] - Labs Labs: 06/26/18 04:20 06/26/18 04:20 PT 9.2 Seconds (9.8-13.1) L 06/05/18 19:25 INR 0.8 06/05/18 19:25 APTT 27.0 Seconds (25.6-37.1) 06/05/18 19:25 - Constitutional Appears: No Acute Distress - Head Exam Head Exam: NORMAL INSPECTION - Eye Exam Eye Exam: Normal appearance - ENT Exam ENT Exam: Mucous Membranes Moist - Neck Exam Neck Exam: Full ROM - Respiratory Exam Respiratory Exam: Decreased Breath Sounds. absent: Rales, Wheezes - Cardiovascular Exam Cardiovascular Exam: REGULAR RHYTHM, +S1, +S2. absent: Murmur - GI/Abdominal Exam GI & Abdominal Exam: Soft, Normal Bowel Sounds - Extremities Exam Additional comments: Left BKA w/ stump, skin normal - Neurological Exam Neurological Exam: Alert, Awake. absent: Oriented x3 (unable to assess orientation as patient is non verbal) - Psychiatric Exam Psychiatric exam: Anxious - Skin Skin Exam: Normal Color Assessment and Plan (1) Acute respiratory failure with hypoxia Status: Resolved (2) Altered mental status Status: Acute (3) COPD (chronic obstructive pulmonary disease) Status: Acute (4) Depression Status: Acute (5) Hypoglycemia Status: Acute (6) Intracranial hemorrhage Status: Acute (7) Restless leg syndrome Status: Acute (8) Hypertension Status: Chronic (9) Atrial fibrillation Status: Resolved (10) Diabetes mellitus with hyperosmolarity without hyperglycemic hyperosmolar nonketotic coma Status: Acute - Assessment and Plan (Free Text) Assessment: 72 y/o female with MHx sig for A fib on Xarelto, CHF, COPD, DM2, HTN, and RLS admitted after fall at home and found to have thalamic bleed complicated by resp failure and severe restless leg syndrome. Currently breathing independently on nasal cannula. Mild left leg agitation -Off sedative medication. More alert w/ mild agitation. -Failed Speech/Swallow on two attempts. Will speak with family when possible regarding need for PEG for oral nutrition. -Cont w/ meds as ordered -poor prognosis Discussed case with Dr. Salazar. Mireille Hays, PGY2
[2018-06-27] MEDS: Proshield Plus GEL TOP SCH ×3 (00:07→16:45)
[2018-06-27] MEDS: Albuterol-Ipratrop 3 mg / 0.5 (3 ml) UD INH SCH ×4 (02:02→19:10)
--- NOTE | 2018-06-27 02:27 | PN ---
DATE: 06/26/2018 LOCATION: Room 432, ICU. SUBJECTIVE: This is a 72-year-old female with recent uncontrolled type 2 insulin-requiring diabetes, currently endotracheally intubated from a recent acute respiratory failure with concomitant intracranial hemorrhage and is now being followed closely for metabolic management. Her glycemic levels are fluctuating with glucose values ranging from 189-220 and 290 mg/dL. LABORATORY DATA: Her latest chemistry showed a BUN of 16, sodium 143, potassium 3.3, chloride 110, CO2 of 31, glucose 224 and creatinine 0.7. ASSESSMENT AND PLAN: We will continue at this time the same every 6 hourly fingerstick glucose testing with Humalog coverage as ordered. We will obtain serial chemistries and supplement accordingly as needed. The primary physician has opted not to give any kind of basal insulin for now as noted. We will obtain serial chemistries and supplement accordingly as needed. We will follow. Nevin Chen MD
[2018-06-27] MEDS: Piperacillin/Tazobact 3.375 GM in Sodium Chloride 0.9% 100 ML IVPB SCH ×2 (03:00→09:03)
[2018-06-27] MEDS ORDERED: Potassium Chl 20mEq & D5W 1,000 ML IV SCH (03:00)
[2018-06-27] MEDS ORDERED: Potassium Chl 20 mEq in D5-NS 1,000 ML IV SCH (04:00)
[2018-06-27] MEDS: Valproate 250 MG in Sodium Chloride 0.9% 100 ML IVPB SCH ×4 (04:09→22:07)
[2018-06-27 04:42] LABS: ABG ALLEN TEST YES; ARTERIAL BLOOD GAS HCO3 29.5 mmol/L (21-28); ARTERIAL BLOOD GAS O2 CAPACITY 13.7 mL/dL (16-24); ARTERIAL BLOOD GAS O2 CONTENT 13.2 ML/dL (15-23); ARTERIAL BLOOD GAS O2 SAT 96.4 % (95-98); ARTERIAL BLOOD GAS PCO2 39 mm/Hg (35-45); ARTERIAL BLOOD GAS PH 7.49 (7.35-7.45); ARTERIAL BLOOD GAS PO2 64 mm/Hg (80-100); ARTERIAL BLOOD GAS TCO2 30.9 mmol/L (22-28)
[2018-06-27] MEDS: Metoprolol 1 mg/ml Inj IVP SCH ×4 (04:45→22:08)
[2018-06-27 06:14] LABS: HEMOGLOBIN 10.6 g/dL (12.0-16.0); MEAN CELL VOLUME 93.9 fl (81.0-99.0); MEAN CORPUSCULAR HEMOGLOBIN 31.5 pg (27.0-31.0); MEAN CORPUSCULAR HGB CONC 33.5 g/dL (33.0-37.0); RBC 3.36 Mil/uL (3.80-5.20); RED CELL DISTRIBUTION WIDTH 14.9 % (11.5-14.5)
[2018-06-27 06:22] LABS: BLOOD UREA NITROGEN 10 mg/dl (7-17); CALCIUM 8.1 mg/dL (8.4-10.2); GFR NON-AFRICAN AMERICAN > 60
[2018-06-27] MEDS: Insulin Regular 100 units/ml SC SCH ×3 (06:55→18:40)
--- NOTE | 2018-06-27 08:29 | CP.CCUPN ---
CCU Subjective - Physician Review Events Since Last Encounter (Free Text): Patient awake, lethergic, on O2 supplement, no pressors, no fever, events reviewed CCU Objective - Vital Signs / Intake & Output Vital Signs (Last 4 hours): Vital Signs Pulse Resp BP Pulse Ox 06/27/18 06:00 82 21 159/94 H 100 06/27/18 04:45 141/82 Intake and Output (Last 8hrs): Intake & Output 06/26/18 06/27/18 06/27/18 22:59 06:59 14:59 Intake Total 896 692 Output Total 750 750 Balance 146 -58 Intake: IV 496 492 Intake, Piggyback 400 200 Output: Urine 750 750 Urethral (Suggs) 750 750 - Physical Exam Head: Positive for: Atraumatic, Normocephalic Pupils: Positive for: PERRL Conjunctiva: Positive for: Normal Mouth: Positive for: Moist Mucous Membranes Nose (Internal): Positive for: Normal Inspection Neck: Positive for: Normal Range of Motion, JVD, Trachea Midline. Negative for : Meningeal Signs Respiratory/Chest: Positive for: Rhonchi Cardiovascular: Positive for: Regular Rate and Rhythm, Normal S1, S2, Peripheal Pulses Present Abdomen: Positive for: Normal Bowel Sounds. Negative for: Tenderness, Distention Upper Extremity: Positive for: Normal Inspection Neurological: Positive for: Other (lethergic) - Medications Active Medications: Active Medications Generic Name Dose Route Start Last Admin Trade Name Freq PRN Reason Stop Dose Admin Acetaminophen 650 mg 06/14/18 22:30 Tylenol 325mg Tab PO Q6H PRN Pain, Mild (1-3) Acetaminophen 650 mg 06/14/18 22:30 Tylenol 325mg Tab PO Q6H PRN Fever >100.4 F Albuterol/Ipratropium 3 ml 06/24/18 15:00 06/27/18 07:11 Duoneb 3 Mg/0.5 Mg (3 Ml) Ud INH 3 ml RQ6 JULIETA Administration Aspirin 81 mg 06/15/18 09:00 06/26/18 08:28 Aspirin Chewable PO Not Given DAILY JULIETA Atorvastatin Calcium 20 mg 06/15/18 22:00 06/23/18 21:49 Lipitor PO 20 mg HS JULIETA Administration Benztropine Mesylate 2 mg 06/15/18 09:00 09/19/18 08:10 Cogentin PO Not Given BID JULIETA Clonidine HCl 0.1 mg 06/15/18 09:00 Catapres PO BID JULIETA Dextrose 0 ml 06/14/18 22:30 06/16/18 17:08 Dextrose 50% Inj IV 50 ml STAT PRN Administration Hypoglycemia Protocol Protocol Dextrose 0 gm 06/14/18 22:30 Glutose 15 PO ONCE PRN Hypoglycemia Protocol Protocol Diltiazem HCl 120 mg 06/15/18 09:00 Cardizem Cd PO DAILY JULIETA Dimethicone 1 applic 06/19/18 11:45 06/27/18 00:07 Proshield Plus Skin Protectant TOP 1 applic Q8 JULIETA Administration Divalproex Sodium 750 mg 06/15/18 09:00 06/19/18 08:12 Rodo Santana(*Bid*) PO 750 mg BID JULIETA Administration Gabapentin 800 mg 06/23/18 09:00 06/26/18 16:11 Neurontin PO Not Given TID JULIETA Glucagon 0 mg 06/14/18 22:30 Glucagen Diagnostic Kit IM STAT PRN Hypoglycemia Protocol Protocol Piperacillin Sod/Tazobactam 100 mls @ 100 mls/hr 06/21/18 16:00 06/27/18 03: 00 Sod 3.375 gm/ Sodium Chloride IVPB 100 mls/hr Q6 JULIETA Administration Protocol Valproate Sodium 250 mg/ 102.5 mls @ 100 mls/hr 06/25/18 16:00 06/27/18 04:09 Sodium Chloride IVPB 100 mls/hr Q6 JULIETA Administration Potassium Chloride/Dextrose/Sod Cl 1,000 mls @ 84 mls/hr 06/27/18 04:00 06/27 04:09 Potassium Chl 20 Meq In D5-Ns IV 06/28/18 03:03 84 mls/hr .[id number] JULIETA Administration Insulin Human Regular 0 units 06/15/18 18:00 06/27/18 06:55 Humulin R SC Not Given Q6H JULIETA Lorazepam 1 mg 06/25/18 17:45 06/27/18 00:51 Ativan IVP 1 mg Q6 PRN Administration Agitation Metoprolol Tartrate 5 mg 06/26/18 11:00 06/27/18 04:45 Lopressor IVP 5 mg Q6 JULIETA Administration Nystatin 1 applic 06/15/18 09:00 06/26/18 16:11 Nystop Topical Powder TOP 1 applic TID JULIETA Administration Quetiapine Fumarate 25 mg 06/15/18 22:00 Seroquel PO HS JULIETA - Patient Studies Lab Studies: Lab Studies 06/27/18 06/27/18 06/27/18 Range/Units 05:52 05:30 05:30 WBC 9.0 (4.8-10.8) K/uL RBC 3.36 L (3.80-5.20) Mil/uL Hgb 10.6 L (12.0-16.0) g/dL Hct 31.5 L (34.0-47.0) % MCV 93.9 (81.0-99.0) fl MCH 31.5 H (27.0-31.0) pg MCHC 33.5 (33.0-37.0) g/dL RDW 14.9 H (11.5-14.5) % Plt Count 576 H D (130-400) K/uL pCO2 (35-45) mm/Hg pO2 (80-100) mm/Hg HCO3 (21-28) mmol/L ABG pH (7.35-7.45) ABG Total CO2 (22-28) mmol/L ABG O2 Saturation (95-98) % ABG O2 Content (15-23) ML/dL ABG Base Excess (-2.0-3.0) mmol/L ABG Hemoglobin (11.7-17.4) g/dL ABG Carboxyhemoglobin (0.5-1.5) % POC ABG HHb (Measured) (0.0-5.0) % ABG Methemoglobin (0.0-3.0) % ABG O2 Capacity (16-24) mL/dL Sincere Test A-a O2 Difference mm/Hg Hgb O2 Saturation (95.0-98.0) % FiO2 % Sodium 144 (132-148) mmol/l Potassium 3.7 (3.6-5.0) MMOL/L Chloride 111 H (98-107) mmol/L Carbon Dioxide 30 (22-30) mmol/L Anion Gap 7 L (10-20) BUN 10 (7-17) mg/dl Creatinine 0.7 (0.7-1.2) mg/dl Est GFR ( Amer) > 60 Est GFR (Non-Af Amer) > 60 POC Glucose (mg/dL) 224 H (65-110) mg/dL Random Glucose 231 H (65-105) mg/dL Calcium 8.1 L (8.4-10.2) mg/dL C. difficile Ag & Toxin (NEGATIVE) 06/27/18 06/26/18 06/26/18 Range/Units 04:38 22:16 17:33 WBC (4.8-10.8) K/uL RBC (3.80-5.20) Mil/uL Hgb (12.0-16.0) g/dL Hct (34.0-47.0) % MCV (81.0-99.0) fl MCH (27.0-31.0) pg MCHC (33.0-37.0) g/dL RDW (11.5-14.5) % Plt Count (130-400) K/uL pCO2 39 (35-45) mm/Hg pO2 64 L (80-100) mm/Hg HCO3 29.5 H (21-28) mmol/L ABG pH 7.49 H (7.35-7.45) ABG Total CO2 30.9 H (22-28) mmol/L ABG O2 Saturation 96.4 (95-98) % ABG O2 Content 13.2 L (15-23) ML/dL ABG Base Excess 5.9 H (-2.0-3.0) mmol/L ABG Hemoglobin 10.0 L (11.7-17.4) g/dL ABG Carboxyhemoglobin 1.8 H (0.5-1.5) % POC ABG HHb (Measured) 3.5 (0.0-5.0) % ABG Methemoglobin 1.4 (0.0-3.0) % ABG O2 Capacity 13.7 L (16-24) mL/dL Sincere Test Yes A-a O2 Difference 87.0 mm/Hg Hgb O2 Saturation 93.3 L (95.0-98.0) % FiO2 28.0 % Sodium (132-148) mmol/l Potassium (3.6-5.0) MMOL/L Chloride (98-107) mmol/L Carbon Dioxide (22-30) mmol/L Anion Gap (10-20) BUN (7-17) mg/dl Creatinine (0.7-1.2) mg/dl Est GFR ( Amer) Est GFR (Non-Af Amer) POC Glucose (mg/dL) 269 H (65-110) mg/dL Random Glucose (65-105) mg/dL Calcium (8.4-10.2) mg/dL C. difficile Ag & Toxin Negative (NEGATIVE) 06/26/18 06/26/18 06/26/18 Range/Units 17:12 11:24 05:30 WBC (4.8-10.8) K/uL RBC (3.80-5.20) Mil/uL Hgb (12.0-16.0) g/dL Hct (34.0-47.0) % MCV (81.0-99.0) fl MCH (27.0-31.0) pg MCHC (33.0-37.0) g/dL RDW (11.5-14.5) % Plt Count (130-400) K/uL pCO2 (35-45) mm/Hg pO2 (80-100) mm/Hg HCO3 (21-28) mmol/L ABG pH (7.35-7.45) ABG Total CO2 (22-28) mmol/L ABG O2 Saturation (95-98) % ABG O2 Content (15-23) ML/dL ABG Base Excess (-2.0-3.0) mmol/L ABG Hemoglobin (11.7-17.4) g/dL ABG Carboxyhemoglobin (0.5-1.5) % POC ABG HHb (Measured) (0.0-5.0) % ABG Methemoglobin (0.0-3.0) % ABG O2 Capacity (16-24) mL/dL Sincere Test A-a O2 Difference mm/Hg Hgb O2 Saturation (95.0-98.0) % FiO2 % Sodium (132-148) mmol/l Potassium (3.6-5.0) MMOL/L Chloride (98-107) mmol/L Carbon Dioxide (22-30) mmol/L Anion Gap (10-20) BUN (7-17) mg/dl Creatinine (0.7-1.2) mg/dl Est GFR ( Amer) Est GFR (Non-Af Amer) POC Glucose (mg/dL) 216 H 233 H 220 H (65-110) mg/dL Random Glucose (65-105) mg/dL Calcium (8.4-10.2) mg/dL C. difficile Ag & Toxin (NEGATIVE) 06/25/18 06/25/18 06/25/18 Range/Units 22:03 17:48 11:31 WBC (4.8-10.8) K/uL RBC (3.80-5.20) Mil/uL Hgb (12.0-16.0) g/dL Hct (34.0-47.0) % MCV (81.0-99.0) fl MCH (27.0-31.0) pg MCHC (33.0-37.0) g/dL RDW (11.5-14.5) % Plt Count (130-400) K/uL pCO2 (35-45) mm/Hg pO2 (80-100) mm/Hg HCO3 (21-28) mmol/L ABG pH (7.35-7.45) ABG Total CO2 (22-28) mmol/L ABG O2 Saturation (95-98) % ABG O2 Content (15-23) ML/dL ABG Base Excess (-2.0-3.0) mmol/L ABG Hemoglobin (11.7-17.4) g/dL ABG Carboxyhemoglobin (0.5-1.5) % POC ABG HHb (Measured) (0.0-5.0) % ABG Methemoglobin (0.0-3.0) % ABG O2 Capacity (16-24) mL/dL Sincere Test A-a O2 Difference mm/Hg Hgb O2 Saturation (95.0-98.0) % FiO2 % Sodium (132-148) mmol/l Potassium (3.6-5.0) MMOL/L Chloride (98-107) mmol/L Carbon Dioxide (22-30) mmol/L Anion Gap (10-20) BUN (7-17) mg/dl Creatinine (0.7-1.2) mg/dl Est GFR ( Amer) Est GFR (Non-Af Amer) POC Glucose (mg/dL) 189 H 290 H 263 H (65-110) mg/dL Random Glucose (65-105) mg/dL Calcium (8.4-10.2) mg/dL C. difficile Ag & Toxin (NEGATIVE) 06/25/18 06/24/18 06/24/18 Range/Units 05:34 17:24 11:32 WBC (4.8-10.8) K/uL RBC (3.80-5.20) Mil/uL Hgb (12.0-16.0) g/dL Hct (34.0-47.0) % MCV (81.0-99.0) fl MCH (27.0-31.0) pg MCHC (33.0-37.0) g/dL RDW (11.5-14.5) % Plt Count (130-400) K/uL pCO2 (35-45) mm/Hg pO2 (80-100) mm/Hg HCO3 (21-28) mmol/L ABG pH (7.35-7.45) ABG Total CO2 (22-28) mmol/L ABG O2 Saturation (95-98) % ABG O2 Content (15-23) ML/dL ABG Base Excess (-2.0-3.0) mmol/L ABG Hemoglobin (11.7-17.4) g/dL ABG Carboxyhemoglobin (0.5-1.5) % POC ABG HHb (Measured) (0.0-5.0) % ABG Methemoglobin (0.0-3.0) % ABG O2 Capacity (16-24) mL/dL Sincere Test A-a O2 Difference mm/Hg Hgb O2 Saturation (95.0-98.0) % FiO2 % Sodium (132-148) mmol/l Potassium (3.6-5.0) MMOL/L Chloride (98-107) mmol/L Carbon Dioxide (22-30) mmol/L Anion Gap (10-20) BUN (7-17) mg/dl Creatinine (0.7-1.2) mg/dl Est GFR ( Amer) Est GFR (Non-Af Amer) POC Glucose (mg/dL) 211 H 154 H 274 H (65-110) mg/dL Random Glucose (65-105) mg/dL Calcium (8.4-10.2) mg/dL C. difficile Ag & Toxin (NEGATIVE) 06/24/18 06/24/18 06/23/18 Range/Units 06:04 00:50 17:54 WBC (4.8-10.8) K/uL RBC (3.80-5.20) Mil/uL Hgb (12.0-16.0) g/dL Hct (34.0-47.0) % MCV (81.0-99.0) fl MCH (27.0-31.0) pg MCHC (33.0-37.0) g/dL RDW (11.5-14.5) % Plt Count (130-400) K/uL pCO2 (35-45) mm/Hg pO2 (80-100) mm/Hg HCO3 (21-28) mmol/L ABG pH (7.35-7.45) ABG Total CO2 (22-28) mmol/L ABG O2 Saturation (95-98) % ABG O2 Content (15-23) ML/dL ABG Base Excess (-2.0-3.0) mmol/L ABG Hemoglobin (11.7-17.4) g/dL ABG Carboxyhemoglobin (0.5-1.5) % POC ABG HHb (Measured) (0.0-5.0) % ABG Methemoglobin (0.0-3.0) % ABG O2 Capacity (16-24) mL/dL Sincere Test A-a O2 Difference mm/Hg Hgb O2 Saturation (95.0-98.0) % FiO2 % Sodium (132-148) mmol/l Potassium (3.6-5.0) MMOL/L Chloride (98-107) mmol/L Carbon Dioxide (22-30) mmol/L Anion Gap (10-20) BUN (7-17) mg/dl Creatinine (0.7-1.2) mg/dl Est GFR ( Amer) Est GFR (Non-Af Amer) POC Glucose (mg/dL) 277 H 260 H 283 H (65-110) mg/dL Random Glucose (65-105) mg/dL Calcium (8.4-10.2) mg/dL C. difficile Ag & Toxin (NEGATIVE) 06/23/18 06/23/18 06/22/18 Range/Units 11:16 05:05 23:05 WBC (4.8-10.8) K/uL RBC (3.80-5.20) Mil/uL Hgb (12.0-16.0) g/dL Hct (34.0-47.0) % MCV (81.0-99.0) fl MCH (27.0-31.0) pg MCHC (33.0-37.0) g/dL RDW (11.5-14.5) % Plt Count (130-400) K/uL pCO2 (35-45) mm/Hg pO2 (80-100) mm/Hg HCO3 (21-28) mmol/L ABG pH (7.35-7.45) ABG Total CO2 (22-28) mmol/L ABG O2 Saturation (95-98) % ABG O2 Content (15-23) ML/dL ABG Base Excess (-2.0-3.0) mmol/L ABG Hemoglobin (11.7-17.4) g/dL ABG Carboxyhemoglobin (0.5-1.5) % POC ABG HHb (Measured) (0.0-5.0) % ABG Methemoglobin (0.0-3.0) % ABG O2 Capacity (16-24) mL/dL Sincere Test A-a O2 Difference mm/Hg Hgb O2 Saturation (95.0-98.0) % FiO2 % Sodium (132-148) mmol/l Potassium (3.6-5.0) MMOL/L Chloride (98-107) mmol/L Carbon Dioxide (22-30) mmol/L Anion Gap (10-20) BUN (7-17) mg/dl Creatinine (0.7-1.2) mg/dl Est GFR ( Amer) Est GFR (Non-Af Amer) POC Glucose (mg/dL) 190 H 264 H 235 H (65-110) mg/dL Random Glucose (65-105) mg/dL Calcium (8.4-10.2) mg/dL C. difficile Ag & Toxin (NEGATIVE) 06/22/18 06/22/18 06/22/18 Range/Units 17:43 11:41 04:20 WBC (4.8-10.8) K/uL RBC (3.80-5.20) Mil/uL Hgb (12.0-16.0) g/dL Hct (34.0-47.0) % MCV (81.0-99.0) fl MCH (27.0-31.0) pg MCHC (33.0-37.0) g/dL RDW (11.5-14.5) % Plt Count (130-400) K/uL pCO2 (35-45) mm/Hg pO2 (80-100) mm/Hg HCO3 (21-28) mmol/L ABG pH (7.35-7.45) ABG Total CO2 (22-28) mmol/L ABG O2 Saturation (95-98) % ABG O2 Content (15-23) ML/dL ABG Base Excess (-2.0-3.0) mmol/L ABG Hemoglobin (11.7-17.4) g/dL ABG Carboxyhemoglobin (0.5-1.5) % POC ABG HHb (Measured) (0.0-5.0) % ABG Methemoglobin (0.0-3.0) % ABG O2 Capacity (16-24) mL/dL Sincere Test A-a O2 Difference mm/Hg Hgb O2 Saturation (95.0-98.0) % FiO2 % Sodium (132-148) mmol/l Potassium (3.6-5.0) MMOL/L Chloride (98-107) mmol/L Carbon Dioxide (22-30) mmol/L Anion Gap (10-20) BUN (7-17) mg/dl Creatinine (0.7-1.2) mg/dl Est GFR ( Amer) Est GFR (Non-Af Amer) POC Glucose (mg/dL) 274 H 304 H 250 H (65-110) mg/dL Random Glucose (65-105) mg/dL Calcium (8.4-10.2) mg/dL C. difficile Ag & Toxin (NEGATIVE) 06/21/18 06/21/18 06/21/18 Range/Units 21:52 17:47 11:31 WBC (4.8-10.8) K/uL RBC (3.80-5.20) Mil/uL Hgb (12.0-16.0) g/dL Hct (34.0-47.0) % MCV (81.0-99.0) fl MCH (27.0-31.0) pg MCHC (33.0-37.0) g/dL RDW (11.5-14.5) % Plt Count (130-400) K/uL pCO2 (35-45) mm/Hg pO2 (80-100) mm/Hg HCO3 (21-28) mmol/L ABG pH (7.35-7.45) ABG Total CO2 (22-28) mmol/L ABG O2 Saturation (95-98) % ABG O2 Content (15-23) ML/dL ABG Base Excess (-2.0-3.0) mmol/L ABG Hemoglobin (11.7-17.4) g/dL ABG Carboxyhemoglobin (0.5-1.5) % POC ABG HHb (Measured) (0.0-5.0) % ABG Methemoglobin (0.0-3.0) % ABG O2 Capacity (16-24) mL/dL Sincere Test A-a O2 Difference mm/Hg Hgb O2 Saturation (95.0-98.0) % FiO2 % Sodium (132-148) mmol/l Potassium (3.6-5.0) MMOL/L Chloride (98-107) mmol/L Carbon Dioxide (22-30) mmol/L Anion Gap (10-20) BUN (7-17) mg/dl Creatinine (0.7-1.2) mg/dl Est GFR ( Amer) Est GFR (Non-Af Amer) POC Glucose (mg/dL) 180 H 269 H 269 H (65-110) mg/dL Random Glucose (65-105) mg/dL Calcium (8.4-10.2) mg/dL C. difficile Ag & Toxin (NEGATIVE) 06/21/18 06/21/18 06/20/18 Range/Units 05:13 00:06 17:52 WBC (4.8-10.8) K/uL RBC (3.80-5.20) Mil/uL Hgb (12.0-16.0) g/dL Hct (34.0-47.0) % MCV (81.0-99.0) fl MCH (27.0-31.0) pg MCHC (33.0-37.0) g/dL RDW (11.5-14.5) % Plt Count (130-400) K/uL pCO2 (35-45) mm/Hg pO2 (80-100) mm/Hg HCO3 (21-28) mmol/L ABG pH (7.35-7.45) ABG Total CO2 (22-28) mmol/L ABG O2 Saturation (95-98) % ABG O2 Content (15-23) ML/dL ABG Base Excess (-2.0-3.0) mmol/L ABG Hemoglobin (11.7-17.4) g/dL ABG Carboxyhemoglobin (0.5-1.5) % POC ABG HHb (Measured) (0.0-5.0) % ABG Methemoglobin (0.0-3.0) % ABG O2 Capacity (16-24) mL/dL Sincere Test A-a O2 Difference mm/Hg Hgb O2 Saturation (95.0-98.0) % FiO2 % Sodium (132-148) mmol/l Potassium (3.6-5.0) MMOL/L Chloride (98-107) mmol/L Carbon Dioxide (22-30) mmol/L Anion Gap (10-20) BUN (7-17) mg/dl Creatinine (0.7-1.2) mg/dl Est GFR ( Amer) Est GFR (Non-Af Amer) POC Glucose (mg/dL) 193 H 256 H 248 H (65-110) mg/dL Random Glucose (65-105) mg/dL Calcium (8.4-10.2) mg/dL C. difficile Ag & Toxin (NEGATIVE) Laboratory Results - last 24 hr 06/20/18 06/21/18 06/21/18 17:52 00:06 05:13 WBC RBC Hgb Hct MCV MCH MCHC RDW Plt Count pCO2 pO2 HCO3 ABG pH ABG Total CO2 ABG O2 Saturation ABG O2 Content ABG Base Excess ABG Hemoglobin ABG Carboxyhemoglobin POC ABG HHb (Measured) ABG Methemoglobin ABG O2 Capacity Sincere Test A-a O2 Difference Hgb O2 Saturation FiO2 Sodium Potassium Chloride Carbon Dioxide Anion Gap BUN Creatinine Est GFR ( Amer) Est GFR (Non-Af Amer) POC Glucose (mg/dL) 248 H 256 H 193 H Random Glucose Calcium C. difficile Ag & Toxin 06/21/18 06/21/18 06/21/18 11:31 17:47 21:52 WBC RBC Hgb Hct MCV MCH MCHC RDW Plt Count pCO2 pO2 HCO3 ABG pH ABG Total CO2 ABG O2 Saturation ABG O2 Content ABG Base Excess ABG Hemoglobin ABG Carboxyhemoglobin POC ABG HHb (Measured) ABG Methemoglobin ABG O2 Capacity Sincere Test A-a O2 Difference Hgb O2 Saturation FiO2 Sodium Potassium Chloride Carbon Dioxide Anion Gap BUN Creatinine Est GFR ( Amer) Est GFR (Non-Af Amer) POC Glucose (mg/dL) 269 H 269 H 180 H Random Glucose Calcium C. difficile Ag & Toxin 06/22/18 06/22/18 06/22/18 04:20 11:41 17:43 WBC RBC Hgb Hct MCV MCH MCHC RDW Plt Count pCO2 pO2 HCO3 ABG pH ABG Total CO2 ABG O2 Saturation ABG O2 Content ABG Base Excess ABG Hemoglobin ABG Carboxyhemoglobin POC ABG HHb (Measured) ABG Methemoglobin ABG O2 Capacity Sincere Test A-a O2 Difference Hgb O2 Saturation FiO2 Sodium Potassium Chloride Carbon Dioxide Anion Gap BUN Creatinine Est GFR ( Amer) Est GFR (Non-Af Amer) POC Glucose (mg/dL) 250 H 304 H 274 H Random Glucose Calcium C. difficile Ag & Toxin 06/22/18 06/23/18 06/23/18 23:05 05:05 11:16 WBC RBC Hgb Hct MCV MCH MCHC RDW Plt Count pCO2 pO2 HCO3 ABG pH ABG Total CO2 ABG O2 Saturation ABG O2 Content ABG Base Excess ABG Hemoglobin ABG Carboxyhemoglobin POC ABG HHb (Measured) ABG Methemoglobin ABG O2 Capacity Sincere Test A-a O2 Difference Hgb O2 Saturation FiO2 Sodium Potassium Chloride Carbon Dioxide Anion Gap BUN Creatinine Est GFR ( Amer) Est GFR (Non-Af Amer) POC Glucose (mg/dL) 235 H 264 H 190 H Random Glucose Calcium C. difficile Ag & Toxin 06/23/18 06/24/18 06/24/18 17:54 00:50 06:04 WBC RBC Hgb Hct MCV MCH MCHC RDW Plt Count pCO2 pO2 HCO3 ABG pH ABG Total CO2 ABG O2 Saturation ABG O2 Content ABG Base Excess ABG Hemoglobin ABG Carboxyhemoglobin POC ABG HHb (Measured) ABG Methemoglobin ABG O2 Capacity Sincere Test A-a O2 Difference Hgb O2 Saturation FiO2 Sodium Potassium Chloride Carbon Dioxide Anion Gap BUN Creatinine Est GFR ( Amer) Est GFR (Non-Af Amer) POC Glucose (mg/dL) 283 H 260 H 277 H Random Glucose Calcium C. difficile Ag & Toxin 06/24/18 06/24/18 06/25/18 11:32 17:24 05:34 WBC RBC Hgb Hct MCV MCH MCHC RDW Plt Count pCO2 pO2 HCO3 ABG pH ABG Total CO2 ABG O2 Saturation ABG O2 Content ABG Base Excess ABG Hemoglobin ABG Carboxyhemoglobin POC ABG HHb (Measured) ABG Methemoglobin ABG O2 Capacity Sincere Test A-a O2 Difference Hgb O2 Saturation FiO2 Sodium Potassium Chloride Carbon Dioxide Anion Gap BUN Creatinine Est GFR ( Amer) Est GFR (Non-Af Amer) POC Glucose (mg/dL) 274 H 154 H 211 H Random Glucose Calcium C. difficile Ag & Toxin 06/25/18 06/25/18 06/25/18 11:31 17:48 22:03 WBC RBC Hgb Hct MCV MCH MCHC RDW Plt Count pCO2 pO2 HCO3 ABG pH ABG Total CO2 ABG O2 Saturation ABG O2 Content ABG Base Excess ABG Hemoglobin ABG Carboxyhemoglobin POC ABG HHb (Measured) ABG Methemoglobin ABG O2 Capacity Sincere Test A-a O2 Difference Hgb O2 Saturation FiO2 Sodium Potassium Chloride Carbon Dioxide Anion Gap BUN Creatinine Est GFR ( Amer) Est GFR (Non-Af Amer) POC Glucose (mg/dL) 263 H 290 H 189 H Random Glucose Calcium C. difficile Ag & Toxin 06/26/18 06/26/18 06/26/18 05:30 11:24 17:12 WBC RBC Hgb Hct MCV MCH MCHC RDW Plt Count pCO2 pO2 HCO3 ABG pH ABG Total CO2 ABG O2 Saturation ABG O2 Content ABG Base Excess ABG Hemoglobin ABG Carboxyhemoglobin POC ABG HHb (Measured) ABG Methemoglobin ABG O2 Capacity Sincere Test A-a O2 Difference Hgb O2 Saturation FiO2 Sodium Potassium Chloride Carbon Dioxide Anion Gap BUN Creatinine Est GFR ( Amer) Est GFR (Non-Af Amer) POC Glucose (mg/dL) 220 H 233 H 216 H Random Glucose Calcium C. difficile Ag & Toxin 06/26/18 06/26/18 06/27/18 17:33 22:16 04:38 WBC RBC Hgb Hct MCV MCH MCHC RDW Plt Count pCO2 39 pO2 64 L HCO3 29.5 H ABG pH 7.49 H ABG Total CO2 30.9 H ABG O2 Saturation 96.4 ABG O2 Content 13.2 L ABG Base Excess 5.9 H ABG Hemoglobin 10.0 L ABG Carboxyhemoglobin 1.8 H POC ABG HHb (Measured) 3.5 ABG Methemoglobin 1.4 ABG O2 Capacity 13.7 L Sincere Test Yes A-a O2 Difference 87.0 Hgb O2 Saturation 93.3 L FiO2 28.0 Sodium Potassium Chloride Carbon Dioxide Anion Gap BUN Creatinine Est GFR ( Amer) Est GFR (Non-Af Amer) POC Glucose (mg/dL) 269 H Random Glucose Calcium C. difficile Ag & Toxin Negative 06/27/18 06/27/18 06/27/18 05:30 05:30 05:52 WBC 9.0 RBC 3.36 L Hgb 10.6 L Hct 31.5 L MCV 93.9 MCH 31.5 H MCHC 33.5 RDW 14.9 H Plt Count 576 H D pCO2 pO2 HCO3 ABG pH ABG Total CO2 ABG O2 Saturation ABG O2 Content ABG Base Excess ABG Hemoglobin ABG Carboxyhemoglobin POC ABG HHb (Measured) ABG Methemoglobin ABG O2 Capacity Sincere Test A-a O2 Difference Hgb O2 Saturation FiO2 Sodium 144 Potassium 3.7 Chloride 111 H Carbon Dioxide 30 Anion Gap 7 L BUN 10 Creatinine 0.7 Est GFR ( Amer) > 60 Est GFR (Non-Af Amer) > 60 POC Glucose (mg/dL) 224 H Random Glucose 231 H Calcium 8.1 L C. difficile Ag & Toxin Fingerstick Blood Sugar Results: 224 Assessment/Plan - Assessment and Plan (Free Text) Assessment: A/P Respiratory insufficiency, CVA, HTN, CHF, delirum, DM, h/o A Fib - O2 supplement - BIPAP a needed - BP control - Continue meds - Lasix as needed
[2018-06-27] MEDS ORDERED: Nitroglycerin 2% 15 INCH/30 GM TUBE TOP STA (08:32)
[2018-06-27] MEDS ORDERED: Nitroglycerin 2% Ointment Foilpak UD TOP STA (09:34)
--- NOTE | 2018-06-27 14:56 | PN ---
DATE: 06/27/2018 ENDO FOLLOWUP NOTE LOCATION: In room 432, ICU. SUBJECTIVE: This is a 72-year-old female with recent uncontrolled type 2 insulin-requiring diabetes with recent acute respiratory failure and endotracheal intubation and is now being followed closely for metabolic management. Her glycemic levels are fluctuating as noted and the glucose values have ranged from 224 to 269 mg overnight as noted. Her latest chemistries shows a BUN of 10, sodium 144, potassium 3.7, chloride 111, CO2 30, glucose 231 and creatinine 0.7. So at this time, we will continue the low-dose correction scale using regular insulin as given every 6 hours as ordered. We would re-recommend the low-dose basal insulin of Levemir given only at 4 units every 12 hours if the primary physician agrees. We will obtain serial chemistries and supplement accordingly as needed. We will follow. Nevin Chen MD
--- NOTE | 2018-06-27 20:28 | CP.PCM.PN ---
Subjective - Date & Time of Evaluation Date of Evaluation: 06/27/18 Time of Evaluation: 09:00 - Subjective Subjective: patient seen and examined at bedside this AM. on bipap. prognosis remains poor. events overnight noted. ativan given prn for agitation. Objective - Vital Signs/Intake and Output Vital Signs (last 24 hours): Temp Pulse Resp BP Pulse Ox 97.1 F L 86 17 169/89 H 100 06/27/18 16:00 06/27/18 19:10 06/27/18 18:00 06/27/18 18:00 06/27/18 18:00 Intake and Output: 06/27/18 06/28/18 18:59 06:59 Intake Total 1056 Balance 1056 - Medications Medications: Current Medications Acetaminophen (Tylenol 325mg Tab) 650 mg PO Q6H PRN PRN Reason: Pain, Mild (1-3) Acetaminophen (Tylenol 325mg Tab) 650 mg PO Q6H PRN PRN Reason: Fever >100.4 F Albuterol/Ipratropium (Duoneb 3 Mg/0.5 Mg (3 Ml) Ud) 3 ml INH RQ6 [facility] Last Admin: 06/27/18 19:10 Dose: 3 ml Aspirin (Aspirin Chewable) 81 mg PO DAILY [facility] Last Admin: 06/27/18 08:52 Dose: Not Given Atorvastatin Calcium (Lipitor) 20 mg PO HS [facility] Last Admin: 06/23/18 21:49 Dose: 20 mg Benztropine Mesylate (Cogentin) 2 mg PO BID [facility] Last Admin: 06/24/18 08:10 Dose: Not Given Clonidine HCl (Catapres) 0.1 mg PO BID [facility] Dextrose (Dextrose 50% Inj) 0 ml IV STAT PRN; Protocol PRN Reason: Hypoglycemia Protocol Last Admin: 06/16/18 17:08 Dose: 50 ml Dextrose (Glutose 15) 0 gm PO ONCE PRN; Protocol PRN Reason: Hypoglycemia Protocol Diltiazem HCl (Cardizem Cd) 120 mg PO DAILY [facility] Dimethicone (Proshield Plus Skin Protectant) 1 applic TOP Q8 [facility] Last Admin: 06/27/18 16:45 Dose: 1 applic Divalproex Sodium (Depakote Dr(*Bid*)) 750 mg PO BID [facility] Last Admin: 06/19/18 08:12 Dose: 750 mg Gabapentin (Neurontin) 800 mg PO TID [facility] Last Admin: 06/27/18 16:40 Dose: Not Given Glucagon (Glucagen Diagnostic Kit) 0 mg IM STAT PRN; Protocol PRN Reason: Hypoglycemia Protocol Valproate Sodium 250 mg/ (Sodium Chloride) 102.5 mls @ 100 mls/hr IVPB Q6 [facility] Last Admin: 06/27/18 16:40 Dose: 100 mls/hr Potassium Chloride/Dextrose/Sod Cl (Potassium Chl 20 Meq In D5-Ns) 1,000 mls @ 84 mls/hr IV .[id number] [facility] Stop: 06/28/18 03:03 Last Admin: 06/27/18 04:09 Dose: 84 mls/hr Insulin Human Regular (Humulin R) 0 units SC Q6H [facility] Last Admin: 06/27/18 18:40 Dose: Not Given Lorazepam (Ativan) 1 mg IVP Q6 PRN PRN Reason: Agitation Last Admin: 06/27/18 00:51 Dose: 1 mg Metoprolol Tartrate (Lopressor) 5 mg IVP Q6 [facility] Last Admin: 06/27/18 16:39 Dose: 5 mg Nystatin (Nystop Topical Powder) 1 applic TOP TID [facility] Last Admin: 06/27/18 16:45 Dose: 1 applic Quetiapine Fumarate (Seroquel) 25 mg PO HS [facility] - Labs Labs: 06/27/18 05:30 06/27/18 05:30 PT 9.2 Seconds (9.8-13.1) L 06/05/18 19:25 INR 0.8 06/05/18 19:25 APTT 27.0 Seconds (25.6-37.1) 06/05/18 19:25 - Constitutional Appears: Chronically Ill - Head Exam Head Exam: NORMAL INSPECTION - Eye Exam Eye Exam: Normal appearance - Neck Exam Neck Exam: Normal Inspection - Respiratory Exam Respiratory Exam: Rhonchi - Cardiovascular Exam Cardiovascular Exam: REGULAR RHYTHM, RRR, +S1, +S2 - GI/Abdominal Exam GI & Abdominal Exam: Soft. absent: Tenderness - Extremities Exam Additional comments: Left BKA - Neurological Exam Neurological Exam: Awake - Skin Skin Exam: Dry, Normal Color Assessment and Plan - Assessment and Plan (Free Text) Assessment: 72 y/o female with PMHx sig for A fib on Xarelto, CHF, COPD, DM2, HTN, and RLS admitted after fall at home and found to have thalamic bleed complicated by resp failure and severe restless leg syndrome. Now on bipap. More alert w/ mild agitation at times controlled with ativan -Failed Speech/Swallow multiple times -may need for PEG -Cont w/ meds as ordered -continues to have a poor prognosis
[2018-06-28] MEDS: Albuterol-Ipratrop 3 mg / 0.5 (3 ml) UD INH SCH ×4 (01:00→19:13)
[2018-06-28] MEDS: Insulin Regular 100 units/ml SC SCH ×4 (01:17→18:47)
[2018-06-28] MEDS: Proshield Plus GEL TOP SCH ×3 (01:31→17:09)
[2018-06-28] MEDS: Valproate 250 MG in Sodium Chloride 0.9% 100 ML IVPB SCH ×4 (05:26→22:16)
[2018-06-28] MEDS: Metoprolol 1 mg/ml Inj IVP SCH ×4 (05:27→22:17)
[2018-06-28 07:06] LABS: HEMOGLOBIN 9.7 g/dL (12.0-16.0); MEAN CELL VOLUME 93.6 fl (81.0-99.0); MEAN CORPUSCULAR HEMOGLOBIN 30.9 pg (27.0-31.0); MEAN CORPUSCULAR HGB CONC 33.1 g/dL (33.0-37.0); RBC 3.14 Mil/uL (3.80-5.20); RED CELL DISTRIBUTION WIDTH 14.7 % (11.5-14.5); WHITE BLOOD COUNT 8.1 K/uL (4.8-10.8)
--- NOTE | 2018-06-28 07:27 | CP.CCUPN ---
CCU Subjective - Physician Review Events Since Last Encounter (Free Text): Patient awake, lethergic, on BPAP, no pressors, no fever, events reviewed CCU Objective - Vital Signs / Intake & Output Vital Signs (Last 4 hours): Vital Signs Temp Pulse Resp BP Pulse Ox 06/28/18 06:00 64 24 147/91 H 100 06/28/18 05:27 89 147/91 H 06/28/18 04:04 87 06/28/18 04:00 97.9 F 88 14 100 Intake and Output (Last 8hrs): Intake & Output 06/27/18 06/28/18 06/28/18 22:59 06:59 14:59 Intake Total 788 604 Output Total 1000 Balance 788 -396 Intake: IV 588 504 Intake, Piggyback 200 100 Output: Urine 1000 Urethral (Suggs) 1000 Other: # Bowel Movements 1 - Physical Exam Head: Positive for: Atraumatic, Normocephalic Pupils: Positive for: PERRL Extroacular Muscles: Positive for: EOMI Conjunctiva: Positive for: Normal Mouth: Positive for: Moist Mucous Membranes Nose (Internal): Positive for: Normal Inspection Neck: Positive for: Normal Range of Motion, JVD, Trachea Midline. Negative for : Meningeal Signs Respiratory/Chest: Positive for: Rhonchi Cardiovascular: Positive for: Regular Rate and Rhythm, Normal S1, S2, Peripheal Pulses Present Abdomen: Positive for: Normal Bowel Sounds. Negative for: Tenderness, Distention Upper Extremity: Positive for: Normal Inspection Lower Extremity: Positive for: Normal Inspection Neurological: Positive for: Other (lethergic) Psychiatric: Positive for: Alert - Medications Active Medications: Active Medications Generic Name Dose Route Start Last Admin Trade Name Freq PRN Reason Stop Dose Admin Acetaminophen 650 mg 06/14/18 22:30 Tylenol 325mg Tab PO Q6H PRN Pain, Mild (1-3) Acetaminophen 650 mg 06/14/18 22:30 Tylenol 325mg Tab PO Q6H PRN Fever >100.4 F Albuterol/Ipratropium 3 ml 06/24/18 15:00 06/28/18 01:00 Duoneb 3 Mg/0.5 Mg (3 Ml) Ud INH 3 ml RQ6 [facility] Administration Aspirin 81 mg 06/15/18 09:00 06/27/18 08:52 Aspirin Chewable PO Not Given DAILY [facility] Atorvastatin Calcium 20 mg 06/15/18 22:00 06/23/18 21:49 Lipitor PO 20 mg HS [facility] Administration Benztropine Mesylate 2 mg 06/15/18 09:00 06/24/18 08:10 Cogentin PO Not Given BID [facility] Clonidine HCl 0.1 mg 06/15/18 09:00 Catapres PO BID [facility] Dextrose 0 ml 06/14/18 22:30 06/16/18 17:08 Dextrose 50% Inj IV 50 ml STAT PRN Administration Hypoglycemia Protocol Protocol Dextrose 0 gm 06/14/18 22:30 Glutose 15 PO ONCE PRN Hypoglycemia Protocol Protocol Diltiazem HCl 120 mg 06/15/18 09:00 Cardizem Cd PO DAILY [facility] Dimethicone 1 applic 06/19/18 11:45 06/28/18 01:31 Proshield Plus Skin Protectant TOP 1 applic Q8 [facility] Administration Divalproex Sodium 750 mg 06/15/18 09:00 06/19/18 08:12 Rodo Santana(*Bid*) PO 750 mg BID [facility] Administration Gabapentin 800 mg 06/23/18 09:00 06/27/18 16:40 Neurontin PO Not Given TID [facility] Glucagon 0 mg 06/14/18 22:30 Glucagen Diagnostic Kit IM STAT PRN Hypoglycemia Protocol Protocol Valproate Sodium 250 mg/ 102.5 mls @ 100 mls/hr 06/25/18 16:00 06/28/18 05:26 Sodium Chloride IVPB 100 mls/hr Q6 [facility] Administration Insulin Human Regular 0 units 06/15/18 18:00 06/28/18 06:45 Humulin R SC Not Given Q6H [facility] Lorazepam 1 mg 06/25/18 17:45 06/27/18 22:51 Ativan IVP 1 mg Q6 PRN Administration Agitation Metoprolol Tartrate 5 mg 06/26/18 11:00 06/28/18 05:27 Lopressor IVP 5 mg Q6 [facility] Administration Nystatin 1 applic 06/15/18 09:00 06/27/18 16:45 Nystop Topical Powder TOP 1 applic TID [facility] Administration Quetiapine Fumarate 25 mg 06/15/18 22:00 Seroquel PO HS [facility] - Patient Studies Lab Studies: Lab Studies 06/28/18 06/28/18 06/27/18 Range/Units 05:43 05:20 23:05 WBC 8.1 (4.8-10.8) K/uL RBC 3.14 L (3.80-5.20) Mil/uL Hgb 9.7 L (12.0-16.0) g/dL Hct 29.4 L (34.0-47.0) % MCV 93.6 (81.0-99.0) fl MCH 30.9 (27.0-31.0) pg MCHC 33.1 (33.0-37.0) g/dL RDW 14.7 H (11.5-14.5) % Plt Count 566 H (130-400) K/uL POC Glucose (mg/dL) 167 H 164 H (65-110) mg/dL 06/27/18 06/27/18 Range/Units 18:20 12:41 WBC (4.8-10.8) K/uL RBC (3.80-5.20) Mil/uL Hgb (12.0-16.0) g/dL Hct (34.0-47.0) % MCV (81.0-99.0) fl MCH (27.0-31.0) pg MCHC (33.0-37.0) g/dL RDW (11.5-14.5) % Plt Count (130-400) K/uL POC Glucose (mg/dL) 134 H 265 H (65-110) mg/dL Laboratory Results - last 24 hr 06/27/18 06/27/18 06/27/18 12:41 18:20 23:05 WBC RBC Hgb Hct MCV MCH MCHC RDW Plt Count POC Glucose (mg/dL) 265 H 134 H 164 H 06/28/18 06/28/18 05:20 05:43 WBC 8.1 RBC 3.14 L Hgb 9.7 L Hct 29.4 L MCV 93.6 MCH 30.9 MCHC 33.1 RDW 14.7 H Plt Count 566 H POC Glucose (mg/dL) 167 H Fingerstick Blood Sugar Results: 167 Assessment/Plan - Assessment and Plan (Free Text) Assessment: A/P Respiratory insufficiency, CVA, HTN, CHF, delirum, DM, h/o A Fib - O2 supplement - BIPAP a needed - BP control - Continue meds - Lasix as needed
[2018-06-28 07:28] LABS: BLOOD UREA NITROGEN 7 mg/dl (7-17); CALCIUM 8.4 mg/dL (8.4-10.2); GFR NON-AFRICAN AMERICAN > 60
[2018-06-28] MEDS: Potassium CL 10 MEQ/50 ML 50 ML IVPB SCH ×4 (08:18→12:43)
--- NOTE | 2018-06-28 14:45 | CP.PCM.PN ---
Subjective - Date & Time of Evaluation Date of Evaluation: 06/28/18 Time of Evaluation: 08:00 - Subjective Subjective: 72 y/o female with PMHx sig for A fib on Xarelto, CHF, COPD, DM2, HTN, and RLS admitted after fall at home and found to have thalamic bleed complicated by resp failure and severe restless leg syndrome. Now on bipap. More alert w/ mild agitation at times controlled with ativan cdiff neg x 2 Objective - Vital Signs/Intake and Output Vital Signs (last 24 hours): Temp Pulse Resp BP Pulse Ox 97.1 F L 69 27 H 171/81 H 100 06/28/18 08:00 06/28/18 10:00 06/28/18 10:00 06/28/18 10:00 06/28/18 10:00 Intake and Output: 06/28/18 06/28/18 06:59 18:59 Intake Total 1040 400 Output Total 1000 Balance 40 400 - Medications Medications: Current Medications Acetaminophen (Tylenol 325mg Tab) 650 mg PO Q6H PRN PRN Reason: Pain, Mild (1-3) Acetaminophen (Tylenol 325mg Tab) 650 mg PO Q6H PRN PRN Reason: Fever >100.4 F Albuterol/Ipratropium (Duoneb 3 Mg/0.5 Mg (3 Ml) Ud) 3 ml INH RQ6 [facility] Last Admin: 06/28/18 13:24 Dose: 3 ml Aspirin (Aspirin Chewable) 81 mg PO DAILY [facility] Last Admin: 06/28/18 08:26 Dose: Not Given Atorvastatin Calcium (Lipitor) 20 mg PO HS [facility] Last Admin: 06/23/18 21:49 Dose: 20 mg Benztropine Mesylate (Cogentin) 2 mg PO BID [facility] Last Admin: 06/24/18 08:10 Dose: Not Given Clonidine HCl (Catapres) 0.1 mg PO BID [facility] Dextrose (Dextrose 50% Inj) 0 ml IV STAT PRN; Protocol PRN Reason: Hypoglycemia Protocol Last Admin: 06/16/18 17:08 Dose: 50 ml Dextrose (Glutose 15) 0 gm PO ONCE PRN; Protocol PRN Reason: Hypoglycemia Protocol Diltiazem HCl (Cardizem Cd) 120 mg PO DAILY [facility] Dimethicone (Proshield Plus Skin Protectant) 1 applic TOP Q8 [facility] Last Admin: 06/28/18 08:24 Dose: 1 applic Divalproex Sodium (Depakote Dr(*Bid*)) 750 mg PO BID [facility] Last Admin: 06/19/18 08:12 Dose: 750 mg Gabapentin (Neurontin) 800 mg PO TID [facility] Last Admin: 06/28/18 12:41 Dose: Not Given Glucagon (Glucagen Diagnostic Kit) 0 mg IM STAT PRN; Protocol PRN Reason: Hypoglycemia Protocol Valproate Sodium 250 mg/ (Sodium Chloride) 102.5 mls @ 100 mls/hr IVPB Q6 [facility] Last Admin: 06/28/18 09:03 Dose: 100 mls/hr Insulin Human Regular (Humulin R) 0 units SC Q6H [facility] Last Admin: 06/28/18 12:40 Dose: Not Given Lorazepam (Ativan) 1 mg IVP Q6 PRN PRN Reason: Agitation Last Admin: 06/28/18 11:45 Dose: 1 mg Metoprolol Tartrate (Lopressor) 5 mg IVP Q6 [facility] Last Admin: 06/28/18 09:02 Dose: 5 mg Nystatin (Nystop Topical Powder) 1 applic TOP TID [facility] Last Admin: 06/28/18 12:42 Dose: 1 applic Quetiapine Fumarate (Seroquel) 25 mg PO HS [facility] - Labs Labs: 06/28/18 05:20 06/28/18 05:20 PT 9.2 Seconds (9.8-13.1) L 06/05/18 19:25 INR 0.8 06/05/18 19:25 APTT 27.0 Seconds (25.6-37.1) 06/05/18 19:25 - Constitutional Appears: Non-toxic, No Acute Distress, Confused, Chronically Ill - Head Exam Head Exam: ATRAUMATIC, NORMOCEPHALIC - Eye Exam Eye Exam: absent: Scleral icterus Pupil Exam: NORMAL ACCOMODATION - ENT Exam ENT Exam: Mucous Membranes Dry - Neck Exam Neck Exam: absent: Lymphadenopathy - Respiratory Exam Respiratory Exam: Decreased Breath Sounds - Cardiovascular Exam Cardiovascular Exam: REGULAR RHYTHM - GI/Abdominal Exam GI & Abdominal Exam: Distended, Soft - Rectal Exam Rectal Exam: Deferred - Exam Exam: NORMAL INSPECTION - Extremities Exam Extremities Exam: absent: Pedal Edema Additional comments: right BKA + - Back Exam Back Exam: absent: CVA tenderness (L), CVA tenderness (R) - Neurological Exam Neurological Exam: Altered - Psychiatric Exam Psychiatric exam: Depressed - Skin Skin Exam: Dry Assessment and Plan (1) Acute respiratory failure with hypoxia Status: Resolved (2) Altered mental status Status: Acute (3) COPD (chronic obstructive pulmonary disease) Status: Acute (4) Depression Status: Acute (5) Intracranial hemorrhage Status: Acute (6) Thalamic infarct, acute Status: Acute (7) CHF (congestive heart failure) Status: Chronic (8) Acute respiratory failure Status: Acute (9) COPD exacerbation Status: Acute - Assessment and Plan (Free Text) Assessment: 2 y/o female with PMHx sig for A fib on Xarelto, CHF, COPD, DM2, HTN, and RLS admitted after fall at home and found to have thalamic bleed complicated by resp failure and severe restless leg syndrome. Now on bipap. More alert w/ mild agitation at times controlled with ativan -Failed Speech/Swallow multiple times -may need for PEG cont rx as ordered
--- NOTE | 2018-06-28 15:16 | PN ---
DATE: 06/28/2018 ENDO FOLLOWUP LOCATION: In room 432 ICU. SUBJECTIVE: This is a 72-year-old female with recent uncontrolled type 2 insulin-requiring diabetes, now being followed closely for metabolic management. Her glycemic levels have improved overnight as noted with glucose values ranging from 134 to 164 and 167 mg/dL. LABORATORY DATA: Her latest chemistry showed a BUN of 7, sodium 145, potassium 3.2, chloride 109, CO2 of 35, glucose 146, and creatinine 0.7. ASSESSMENT AND PLAN: So at this time, we will continue the low-dose correction scale using regular insulin as given. We will hold off basal insulin for now as her glucose values have improved accordingly. We will obtain serial chemistries and supplement accordingly as needed. We will follow. Nevin Chen MD
--- NOTE | 2018-06-28 15:57 | CP.PCM.PN ---
Subjective - Date & Time of Evaluation Date of Evaluation: 06/28/18 Time of Evaluation: 10:00 - Subjective Subjective: patient seen and examined at bedside this AM. on bipap. prognosis remains poor. essentially unchanged from yesterday. Objective - Vital Signs/Intake and Output Vital Signs (last 24 hours): Temp Pulse Resp BP Pulse Ox 98.2 F 96 H 18 172/89 H 100 06/28/18 12:00 06/28/18 15:42 06/28/18 14:00 06/28/18 14:00 06/28/18 14:00 Intake and Output: 06/28/18 06/28/18 06:59 18:59 Intake Total 1040 500 Output Total 1000 Balance 40 500 - Medications Medications: Current Medications Acetaminophen (Tylenol 325mg Tab) 650 mg PO Q6H PRN PRN Reason: Pain, Mild (1-3) Acetaminophen (Tylenol 325mg Tab) 650 mg PO Q6H PRN PRN Reason: Fever >100.4 F Albuterol/Ipratropium (Duoneb 3 Mg/0.5 Mg (3 Ml) Ud) 3 ml INH RQ6 [facility] Last Admin: 06/28/18 13:24 Dose: 3 ml Aspirin (Aspirin Chewable) 81 mg PO DAILY [facility] Last Admin: 06/28/18 08:26 Dose: Not Given Atorvastatin Calcium (Lipitor) 20 mg PO HS [facility] Last Admin: 06/23/18 21:49 Dose: 20 mg Benztropine Mesylate (Cogentin) 2 mg PO BID [facility] Last Admin: 06/24/18 08:10 Dose: Not Given Clonidine HCl (Catapres) 0.1 mg PO BID [facility] Dextrose (Dextrose 50% Inj) 0 ml IV STAT PRN; Protocol PRN Reason: Hypoglycemia Protocol Last Admin: 06/16/18 17:08 Dose: 50 ml Dextrose (Glutose 15) 0 gm PO ONCE PRN; Protocol PRN Reason: Hypoglycemia Protocol Diltiazem HCl (Cardizem Cd) 120 mg PO DAILY [facility] Dimethicone (Proshield Plus Skin Protectant) 1 applic TOP Q8 [facility] Last Admin: 06/28/18 08:24 Dose: 1 applic Divalproex Sodium (Depakote Dr(*Bid*)) 750 mg PO BID [facility] Last Admin: 06/19/18 08:12 Dose: 750 mg Gabapentin (Neurontin) 800 mg PO TID [facility] Last Admin: 06/28/18 12:41 Dose: Not Given Glucagon (Glucagen Diagnostic Kit) 0 mg IM STAT PRN; Protocol PRN Reason: Hypoglycemia Protocol Valproate Sodium 250 mg/ (Sodium Chloride) 102.5 mls @ 100 mls/hr IVPB Q6 [facility] Last Admin: 06/28/18 09:03 Dose: 100 mls/hr Insulin Human Regular (Humulin R) 0 units SC Q6H [facility] Last Admin: 06/28/18 12:40 Dose: Not Given Lorazepam (Ativan) 1 mg IVP Q6 PRN PRN Reason: Agitation Last Admin: 06/28/18 11:45 Dose: 1 mg Metoprolol Tartrate (Lopressor) 5 mg IVP Q6 [facility] Last Admin: 06/28/18 09:02 Dose: 5 mg Nystatin (Nystop Topical Powder) 1 applic TOP TID [facility] Last Admin: 06/28/18 12:42 Dose: 1 applic Quetiapine Fumarate (Seroquel) 25 mg PO [facility] - Labs Labs: 06/28/18 05:20 06/28/18 05:20 PT 9.2 Seconds (9.8-13.1) L 06/05/18 19:25 INR 0.8 06/05/18 19:25 APTT 27.0 Seconds (25.6-37.1) 06/05/18 19:25 - Additional Findings Additional findings: - Constitutional Appears: Chronically Ill - Head Exam Head Exam: NORMAL INSPECTION - Eye Exam Eye Exam: Normal appearance - Neck Exam Neck Exam: Normal Inspection - Respiratory Exam Respiratory Exam: Rhonchi - Cardiovascular Exam Cardiovascular Exam: REGULAR RHYTHM, RRR, +S1, +S2 - GI/Abdominal Exam GI & Abdominal Exam: Soft. absent: Tenderness - Extremities Exam Additional comments: Left BKA - Neurological Exam Neurological Exam: Awake - Skin Skin Exam: Dry, Normal Color Assessment and Plan - Assessment and Plan (Free Text) Assessment: 72 y/o female with PMHx sig for A fib on Xarelto, CHF, COPD, DM2, HTN, and RLS admitted after fall at home and found to have thalamic bleed complicated by resp failure and severe restless leg syndrome. Now on bipap. More alert w/ mild agitation at times controlled with ativan -Failed Speech/Swallow multiple times -may need for PEG, family decision needed -Cont w/ meds as ordered -continues to have a poor prognosis
[2018-06-29] MEDS: Insulin Regular 100 units/ml SC SCH ×4 (00:20→18:41)
[2018-06-29] MEDS: Albuterol-Ipratrop 3 mg / 0.5 (3 ml) UD INH SCH ×4 (01:22→19:01)
[2018-06-29] MEDS: Proshield Plus GEL TOP SCH ×4 (01:30→16:34)
[2018-06-29] MEDS: Valproate 250 MG in Sodium Chloride 0.9% 100 ML IVPB SCH ×4 (05:50→21:42)
[2018-06-29] MEDS: Metoprolol 1 mg/ml Inj IVP SCH ×4 (05:51→22:12)
[2018-06-29 06:41] LABS: HEMOGLOBIN 10.6 g/dL (12.0-16.0); MEAN CELL VOLUME 94.1 fl (81.0-99.0); MEAN CORPUSCULAR HEMOGLOBIN 31.9 pg (27.0-31.0); MEAN CORPUSCULAR HGB CONC 33.9 g/dL (33.0-37.0); RBC 3.31 Mil/uL (3.80-5.20); RED CELL DISTRIBUTION WIDTH 14.9 % (11.5-14.5); WHITE BLOOD COUNT 7.1 K/uL (4.8-10.8)
[2018-06-29 07:21] LABS: BLOOD UREA NITROGEN 9 mg/dl (7-17); CALCIUM 8.4 mg/dL (8.4-10.2); GFR NON-AFRICAN AMERICAN > 60
--- NOTE | 2018-06-29 11:29 | CP.PCM.PN ---
Subjective - Date & Time of Evaluation Date of Evaluation: 06/29/18 Time of Evaluation: 10:00 - Subjective Subjective: patient seen and examined at bedside this AM. on bipap. prognosis remains poor. essentially unchanged from yesterday. Objective - Vital Signs/Intake and Output Vital Signs (last 24 hours): Temp Pulse Resp BP Pulse Ox 96.9 F L 56 L 28 H 182/91 H 100 06/29/18 07:59 06/29/18 09:54 06/29/18 07:59 06/29/18 09:54 06/29/18 07:59 Intake and Output: 06/29/18 06/29/18 06:59 18:59 Intake Total 100 Output Total 350 Balance -250 - Medications Medications: Current Medications Acetaminophen (Tylenol 325mg Tab) 650 mg PO Q6H PRN PRN Reason: Pain, Mild (1-3) Acetaminophen (Tylenol 325mg Tab) 650 mg PO Q6H PRN PRN Reason: Fever >100.4 F Albuterol/Ipratropium (Duoneb 3 Mg/0.5 Mg (3 Ml) Ud) 3 ml INH RQ6 [facility] Last Admin: 06/29/18 07:25 Dose: 3 ml Aspirin (Aspirin Chewable) 81 mg PO DAILY [facility] Last Admin: 06/29/18 08:59 Dose: Not Given Atorvastatin Calcium (Lipitor) 20 mg PO HS [facility] Last Admin: 06/23/18 21:49 Dose: 20 mg Benztropine Mesylate (Cogentin) 2 mg PO BID [facility] Last Admin: 06/24/18 08:10 Dose: Not Given Clonidine HCl (Catapres) 0.1 mg PO BID [facility] Dextrose (Dextrose 50% Inj) 0 ml IV STAT PRN; Protocol PRN Reason: Hypoglycemia Protocol Last Admin: 06/16/18 17:08 Dose: 50 ml Dextrose (Glutose 15) 0 gm PO ONCE PRN; Protocol PRN Reason: Hypoglycemia Protocol Diltiazem HCl (Cardizem Cd) 120 mg PO DAILY [facility] Dimethicone (Proshield Plus Skin Protectant) 1 applic TOP Q8 [facility] Last Admin: 06/29/18 09:03 Dose: 1 applic Divalproex Sodium (Depakote Dr(*Bid*)) 750 mg PO BID [facility] Last Admin: 06/19/18 08:12 Dose: 750 mg Gabapentin (Neurontin) 800 mg PO TID [facility] Last Admin: 06/29/18 09:02 Dose: Not Given Glucagon (Glucagen Diagnostic Kit) 0 mg IM STAT PRN; Protocol PRN Reason: Hypoglycemia Protocol Valproate Sodium 250 mg/ (Sodium Chloride) 102.5 mls @ 100 mls/hr IVPB Q6 [facility] Last Admin: 06/29/18 09:00 Dose: 100 mls/hr Insulin Human Regular (Humulin R) 0 units SC Q6H [facility] Last Admin: 06/28/18 18:47 Dose: Not Given Lorazepam (Ativan) 1 mg IVP Q6 PRN PRN Reason: Agitation Last Admin: 06/28/18 19:39 Dose: 1 mg Metoprolol Tartrate (Lopressor) 5 mg IVP Q6 [facility] Last Admin: 06/29/18 09:54 Dose: Not Given Nystatin (Nystop Topical Powder) 1 applic TOP TID [facility] Last Admin: 06/29/18 09:03 Dose: 1 applic Quetiapine Fumarate (Seroquel) 25 mg PO [facility] - Labs Labs: 06/29/18 05:45 06/29/18 05:45 PT 9.2 Seconds (9.8-13.1) L 06/05/18 19:25 INR 0.8 06/05/18 19:25 APTT 27.0 Seconds (25.6-37.1) 06/05/18 19:25 - Additional Findings Additional findings: - Constitutional Appears: Chronically Ill - Head Exam Head Exam: NORMAL INSPECTION - Eye Exam Eye Exam: Normal appearance - Neck Exam Neck Exam: Normal Inspection - Respiratory Exam Respiratory Exam: Rhonchi - Cardiovascular Exam Cardiovascular Exam: REGULAR RHYTHM, RRR, +S1, +S2 - GI/Abdominal Exam GI & Abdominal Exam: Soft. absent: Tenderness - Extremities Exam Additional comments: Left BKA - Neurological Exam Neurological Exam: Awake - Skin Skin Exam: Dry, Normal Color Assessment and Plan - Assessment and Plan (Free Text) Assessment: 72 y/o female with PMHx sig for A fib on Xarelto, CHF, COPD, DM2, HTN, and RLS admitted after fall at home and found to have thalamic bleed complicated by resp failure and severe restless leg syndrome. requiring bipap. -Failed Speech/Swallow multiple times -may need for PEG, family decision/meeting needed for goals of care -Cont w/ meds as ordered -continues to have a poor prognosis
[2018-06-29] MEDS ORDERED: Sodium Chloride 0.9% 500 ML IV ONE (14:00)
--- NOTE | 2018-06-29 14:35 | CP.CCUPN ---
CCU Subjective - Physician Review Subjective (Free Text): 06/29/18 16:38 The patient was Seen and examined by me at the bedside during ICU round, Medical records reviewed and Management issues were discussed and formulated with the house staff. Events reviewed Mrs Arreaga is a 72 Years old Female with PMHx of HTN, Hypercholesterolemia, Diabetes, left BKA, Anxiety, Arthritis, COPD, Asthma, Sleep Apnea, Bronchitis, chronic Atrial Fibrillation, CHF, COPD, Depression, Gastritis, Hypothyroidism, Paranoia, depression and Post-Traumatic Stress Disorder Patient Initially presents to the Emergency department 06/05 with restless left leg ongoing for several days, Patient states she had been put on a new medication for her RLS and that was making symptoms worse over past several days, She called her psychiatrist Dr. Villatoro, and was told to come to the ER. Pt. also states she fell out this afternoon but does not remember hitting her head. Denies headache, LOC, neck pain. She was admitted to the ICU with Intraparenchymal hyperattenuation conforming to the right lentiform nucleus, suggestive of acute intracranial hemorrhage. Also management of left thalamic stroke Her Condition stabilized and was transferred out of ICU to telemetry. Patient returned back to ICU on 05/14 after AUTOMOTIVE SERVICE TECHNICIAN called for altered mental status , she was found unresponsive and accucheck 20 (2 amp of D50 given) BP 110/53 Hr 53 RR 16 t 96.3 o2Sat 97 5 on 3 L O2 via NC ABG showed PCO2 57 PO 149 ph 7.4 HCO3 31 on 3 L O2 via NC She was intially Placed on BIPAP 12/5/35%/14 and ordered repeat ABG in 1 hour On the telemetry, she was noted with worsening mental status, continued to be lethargic after dextrose administration, So she was transferred to the ICU and urgently orally intubated. CXR revealed Left LL infilterate/effusion, and she was started on Emperic coverage with IV Vanco and zosyn All insulin orders held for now (premix 75/25 12 units before breakfast, premix 75/25 8 units before dinner) Patient successfully extubated 06/24 This morning she is awake, responsive, follows some commands Afebrile, NSR on the monitor Last 24H 600/750 BG better today, hemodynamically improved No Vasopressors Bilateral venodyne boots intact. This morning labs revealed no Leucocytosis, stable renal function BUN/Cr 9/0.7 CXR revealed improved B/L LL infilterate/effusion CCU Objective - Vital Signs / Intake & Output Vital Signs (Last 4 hours): Vital Signs Temp Pulse Resp Pulse Ox 06/29/18 12:55 100 H 06/29/18 12:00 97.1 F L 102 H 26 H 100 Intake and Output (Last 8hrs): Intake & Output 06/28/18 06/29/18 06/29/18 22:59 06:59 14:59 Intake Total 100 0 Output Total 400 350 Balance -300 -350 Intake: IV 0 Intake, Piggyback 100 Oral 0 0 Output: Urine 400 350 Urethral (Suggs) 400 350 - Physical Exam Head: Positive for: Atraumatic, Normocephalic Pupils: Positive for: PERRL Extroacular Muscles: Positive for: EOMI Conjunctiva: Positive for: Normal Mouth: Positive for: Moist Mucous Membranes Nose (Internal): Positive for: Normal Inspection Neck: Positive for: Normal Range of Motion, JVD, Trachea Midline. Negative for : Meningeal Signs Respiratory/Chest: Positive for: Rhonchi Cardiovascular: Positive for: Regular Rate and Rhythm, Normal S1, S2, Peripheal Pulses Present Abdomen: Positive for: Normal Bowel Sounds. Negative for: Tenderness, Distention Upper Extremity: Positive for: Normal Inspection Lower Extremity: Positive for: Normal Inspection Neurological: Positive for: Other (lethergic) Psychiatric: Positive for: Alert - Medications Active Medications: Active Medications Generic Name Dose Route Start Last Admin Trade Name Freq PRN Reason Stop Dose Admin Acetaminophen 650 mg 06/14/18 22:30 Tylenol 325mg Tab PO Q6H PRN Pain, Mild (1-3) Acetaminophen 650 mg 06/14/18 22:30 Tylenol 325mg Tab PO Q6H PRN Fever >100.4 F Albuterol/Ipratropium 3 ml 06/24/18 15:00 06/29/18 12:59 Duoneb 3 Mg/0.5 Mg (3 Ml) Ud INH 3 ml RQ6 JULIETA Administration Aspirin 81 mg 06/15/18 09:00 06/29/18 08:59 Aspirin Chewable PO Not Given DAILY JULIETA Atorvastatin Calcium 20 mg 06/15/18 22:00 06/23/18 21:49 Lipitor PO 20 mg HS JULIETA Administration Benztropine Mesylate 2 mg 09/10/18 09:00 06/24/18 08:10 Cogentin PO Not Given BID JULIETA Clonidine HCl 0.1 mg 06/15/18 09:00 Catapres PO BID JULIETA Dextrose 0 ml 06/14/18 22:30 06/16/18 17:08 Dextrose 50% Inj IV 50 ml STAT PRN Administration Hypoglycemia Protocol Protocol Dextrose 0 gm 06/14/18 22:30 Glutose 15 PO ONCE PRN Hypoglycemia Protocol Protocol Diltiazem HCl 120 mg 06/15/18 09:00 Cardizem Cd PO DAILY JULIETA Dimethicone 1 applic 06/19/18 11:45 06/29/18 09:03 Proshield Plus Skin Protectant TOP 1 applic Q8 JULIETA Administration Divalproex Sodium 750 mg 06/15/18 09:00 06/19/18 08:12 Deppasquale Santana(*Bid*) PO 750 mg BID JULIETA Administration Gabapentin 800 mg 06/23/18 09:00 06/29/18 09:02 Neurontin PO Not Given TID JULIETA Glucagon 0 mg 06/14/18 22:30 Glucagen Diagnostic Kit IM STAT PRN Hypoglycemia Protocol Protocol Valproate Sodium 250 mg/ 102.5 mls @ 100 mls/hr 06/25/18 16:00 06/29/18 09:00 Sodium Chloride IVPB 100 mls/hr Q6 JULIETA Administration Insulin Human Regular 0 units 06/15/18 18:00 06/28/18 18:47 Humulin R SC Not Given Q6H JUL[facility]A Lorazepam 1 mg 06/25/18 17:45 06/28/18 19:39 Ativan IVP 1 mg Q6 PRN Administration Agitation Metoprolol Tartrate 5 mg 06/26/18 11:00 06/29/18 09:54 Lopressor IVP Not Given Q6 JULIETA Nystatin 1 applic 06/15/18 09:00 06/29/18 09:03 Nystop Topical Powder TOP 1 applic TID JULIETA Administration Quetiapine Fumarate 25 mg 06/15/18 22:00 Seroquel PO HS JULIETA - Patient Studies Lab Studies: Lab Studies 06/29/18 06/29/18 06/29/18 Range/Units 05:45 05:45 05:32 WBC 7.1 (4.8-10.8) K/uL RBC 3.31 L (3.80-5.20) Mil/uL Hgb 10.6 L (12.0-16.0) g/dL Hct 31.2 L (34.0-47.0) % MCV 94.1 (81.0-99.0) fl MCH 31.9 H (27.0-31.0) pg MCHC 33.9 (33.0-37.0) g/dL RDW 14.9 H (11.5-14.5) % Plt Count 436 H D (130-400) K/uL Sodium 143 (132-148) mmol/l Potassium 3.8 (3.6-5.0) MMOL/L Chloride 111 H (98-107) mmol/L Carbon Dioxide 31 H (22-30) mmol/L Anion Gap 5 L (10-20) BUN 9 (7-17) mg/dl Creatinine 0.7 (0.7-1.2) mg/dl Est GFR ( Amer) > 60 Est GFR (Non-Af Amer) > 60 POC Glucose (mg/dL) 121 H (65-110) mg/dL Random Glucose 117 H (65-105) mg/dL Calcium 8.4 (8.4-10.2) mg/dL 06/29/18 06/28/18 06/28/18 Range/Units 00:19 17:38 12:03 WBC (4.8-10.8) K/uL RBC (3.80-5.20) Mil/uL Hgb (12.0-16.0) g/dL Hct (34.0-47.0) % MCV (81.0-99.0) fl MCH (27.0-31.0) pg MCHC (33.0-37.0) g/dL RDW (11.5-14.5) % Plt Count (130-400) K/uL Sodium (132-148) mmol/l Potassium (3.6-5.0) MMOL/L Chloride (98-107) mmol/L Carbon Dioxide (22-30) mmol/L Anion Gap (10-20) BUN (7-17) mg/dl Creatinine (0.7-1.2) mg/dl Est GFR ( Amer) Est GFR (Non-Af Amer) POC Glucose (mg/dL) 128 H 128 H 136 H (65-110) mg/dL Random Glucose (65-105) mg/dL Calcium (8.4-10.2) mg/dL Laboratory Results - last 24 hr 06/28/18 06/28/18 06/29/18 12:03 17:38 00:19 WBC RBC Hgb Hct MCV MCH MCHC RDW Plt Count Sodium Potassium Chloride Carbon Dioxide Anion Gap BUN Creatinine Est GFR ( Amer) Est GFR (Non-Af Amer) POC Glucose (mg/dL) 136 H 128 H 128 H Random Glucose Calcium 06/29/18 06/29/18 06/29/18 05:32 05:45 05:45 WBC 7.1 RBC 3.31 L Hgb 10.6 L Hct 31.2 L MCV 94.1 MCH 31.9 H MCHC 33.9 RDW 14.9 H Plt Count 436 H D Sodium 143 Potassium 3.8 Chloride 111 H Carbon Dioxide 31 H Anion Gap 5 L BUN 9 Creatinine 0.7 Est GFR ( Amer) > 60 Est GFR (Non-Af Amer) > 60 POC Glucose (mg/dL) 121 H Random Glucose 117 H Calcium 8.4 Fingerstick Blood Sugar Results: 121 Review of Systems - Review of Systems Systems not reviewed;Unavailable: Altered Mental Status Assessment/Plan (1) Acute respiratory failure with hypoxia Current Visit: Yes Status: Resolved Priority: High Comment: Patient successfully extubated 06/24 CXR revealed improved Left LL infilterate/effusion, Pt was start patient on Emperic coverage with IV Vanco and zosyn Aggressive pulmonary toilet, chest PT, suctioning IV antibiotics Albuterol/Ipratropium (Duoneb) INH RQ6 JULIETA (2) Intracranial hemorrhage Current Visit: Yes Status: Acute Priority: High Comment: Stable on repeat CT Brain 06/11 (3) Altered mental status Current Visit: Yes Status: Acute Priority: High Comment: ABG 7.39/45/76/28/97% S/P hypoglycemic episode Dextrose/0.9% NS at 30 ml/H All insulin orders held for now (premix 75/25 12 units before breakfast, premix 75/25 8 units before dinner) Frequent acchu check monitoring Frequent neurocheck (4) COPD (chronic obstructive pulmonary disease) Current Visit: Yes Status: Acute Priority: Medium Comment: Continue bronchodilators q6hr Nicotine (Nicoderm Cq) 1 patch TD DAILY JULIETA (5) CHF (congestive heart failure) Current Visit: Yes Status: Chronic Priority: Medium Comment: Chronic diastolic heart failure (EF >55%), Pt allergic to ACEI A-Fib HR, B controlled with oral Cardizem, Clonidine Not on AC or ASA sec to ICH.
[2018-06-29 14:45] LABS: ABG ALLEN TEST YES; ARTERIAL BLOOD GAS HCO3 26.3 mmol/L (21-28); ARTERIAL BLOOD GAS HEMOGLOBIN 11.5 g/dL (11.7-17.4); ARTERIAL BLOOD GAS O2 CAPACITY 15.7 mL/dL (16-24); ARTERIAL BLOOD GAS O2 CONTENT 15.3 ML/dL (15-23); ARTERIAL BLOOD GAS O2 SAT 97.5 % (95-98); ARTERIAL BLOOD GAS PCO2 45 mm/Hg (35-45); ARTERIAL BLOOD GAS PH 7.39 (7.35-7.45); ARTERIAL BLOOD GAS PO2 76 mm/Hg (80-100); ARTERIAL BLOOD GAS TCO2 28.6 mmol/L (22-28)
--- NOTE | 2018-06-29 15:01 | RAD ---
Date of service: 06/29/2018 PROCEDURE: CHEST RADIOGRAPH, 1 VIEW HISTORY: pneumonia COMPARISON: Chest radiograph dated 06/24/2018 FINDINGS: LUNGS: Pulmonary vascular congestion. Bibasilar atelectasis PLEURA: Small bilateral pleural effusions. No appreciable pneumothorax. CARDIOVASCULAR: Atherosclerotic aortic calcifications. Cardiomediastinal silhouette within normal limits. OSSEOUS STRUCTURES: Unchanged. VISUALIZED UPPER ABDOMEN: Normal. OTHER FINDINGS: Removal of endotracheal and enteric tubes. Right upper extremity PICC, unchanged. IMPRESSION: Removal of endotracheal and enteric tubes. Pulmonary vascular congestion small bilateral pleural effusions.
[2018-06-29] MEDS ORDERED: Dextrose 5%/0.9% NS 1,000 ML IV SCH (17:00)
--- NOTE | 2018-06-29 19:52 | PN ---
DATE: 06/29/2018 ENDO FOLLOWUP NOTE LOCATION: In room 432, ICU. SUBJECTIVE: This is a 72-year-old female with recent uncontrolled type 2 insulin-requiring diabetes, now being followed closely for metabolic management. She remains endotracheally intubated with recent acute respiratory failure as noted. Her glycemic levels are much improved as noted overnight and have ranged from 121 to 128 mg/dL. LABORATORY DATA: Her latest chemistry showed a BUN of 9, sodium 143, potassium 3.8, chloride 111, CO2 of 31, glucose 117, and creatinine 0.7. ASSESSMENT AND PLAN: So at this time, we will continue only the low-dose correction scale using regular insulin every 4 hours as ordered. We will obtain serial chemistries and supplement accordingly as needed. We will follow. Nevin Chen MD
[2018-06-30] MEDS: Insulin Regular 100 units/ml SC SCH ×2 (01:06→17:03)
[2018-06-30] MEDS: Proshield Plus GEL TOP SCH ×3 (02:00→16:46)
[2018-06-30] MEDS: Albuterol-Ipratrop 3 mg / 0.5 (3 ml) UD INH SCH ×3 (02:40→19:22)
[2018-06-30] MEDS: Valproate 250 MG in Sodium Chloride 0.9% 100 ML IVPB SCH ×3 (04:00→21:00)
--- NOTE | 2018-06-30 12:14 | CP.PCM.PN ---
Subjective - Date & Time of Evaluation Date of Evaluation: 06/30/18 Time of Evaluation: 08:00 - Subjective Subjective: No acute overnight events. Pt seen and examined this am. On BIPAP. Minimally responsive to painful stimulus. Objective - Vital Signs/Intake and Output Vital Signs (last 24 hours): Temp Pulse Resp BP Pulse Ox 97.6 F 93 H 37 H 98/57 L 95 06/30/18 08:00 06/30/18 10:00 06/30/18 10:00 06/30/18 10:00 06/30/18 10:00 Intake and Output: 06/30/18 06/30/18 06:59 18:59 Intake Total 500 Output Total 100 Balance 400 - Medications Medications: Current Medications Albuterol/Ipratropium (Duoneb 3 Mg/0.5 Mg (3 Ml) Ud) 3 ml INH RQ6 [facility] Last Admin: 06/30/18 07:25 Dose: 3 ml Atorvastatin Calcium (Lipitor) 20 mg PO HS [facility] Last Admin: 06/23/18 21:49 Dose: 20 mg Benztropine Mesylate (Cogentin) 2 mg PO BID [facility] Last Admin: 06/24/18 08:10 Dose: Not Given Diltiazem HCl (Cardizem Cd) 120 mg PO DAILY [facility] Dimethicone (Proshield Plus Skin Protectant) 1 applic TOP Q8 [facility] Last Admin: 06/30/18 09:05 Dose: 1 applic Divalproex Sodium (Depakote Dr(*Bid*)) 750 mg PO BID [facility] Last Admin: 06/19/18 08:12 Dose: 750 mg Gabapentin (Neurontin) 800 mg PO TID [facility] Last Admin: 06/30/18 09:03 Dose: Not Given Valproate Sodium 250 mg/ (Sodium Chloride) 102.5 mls @ 100 mls/hr IVPB Q6 [facility] Last Admin: 06/30/18 04:00 Dose: 100 mls/hr Dextrose/Sodium Chloride (Dextrose 5%/0.9% Ns 1000 Ml) 1,000 mls @ 30 mls/hr IV .Q24H [facility] Stop: 06/30/18 16:52 Last Admin: 06/29/18 17:15 Dose: 30 mls/hr Insulin Human Regular (Humulin R) 0 units SC Q6H [facility] Last Admin: 09/25/18 01:06 Dose: Not Given Lorazepam (Ativan) 1 mg IVP Q6 PRN PRN Reason: Agitation Last Admin: 06/30/18 09:08 Dose: 1 mg Metoprolol Tartrate (Lopressor) 5 mg IVP Q6 [facility] Last Admin: 06/29/18 22:12 Dose: 5 mg Quetiapine Fumarate (Seroquel) 25 mg PO HS JULIETA - Labs Labs: 06/29/18 05:45 06/30/18 05:45 PT 9.2 Seconds (9.8-13.1) L 06/05/18 19:25 INR 0.8 06/05/18 19:25 APTT 27.0 Seconds (25.6-37.1) 06/05/18 19:25 - Constitutional Appears: No Acute Distress - Head Exam Head Exam: ATRAUMATIC - Eye Exam Eye Exam: Normal appearance, PERRL - ENT Exam ENT Exam: Mucous Membranes Moist - Neck Exam Neck Exam: Full ROM - Respiratory Exam Respiratory Exam: Rhonchi. absent: Rales, Wheezes - Cardiovascular Exam Cardiovascular Exam: REGULAR RHYTHM - GI/Abdominal Exam GI & Abdominal Exam: Normal Bowel Sounds - Extremities Exam Extremities Exam: Normal Capillary Refill. absent: Pedal Edema Additional comments: Left BKA, skin normal - Neurological Exam Neurological Exam: Reflexes Normal - Skin Skin Exam: Normal Color Assessment and Plan (1) Acute respiratory failure with hypoxia Status: Resolved (2) Altered mental status Status: Acute (3) COPD (chronic obstructive pulmonary disease) Status: Acute (4) Depression Status: Acute (5) Hypoglycemia Status: Acute (6) Intracranial hemorrhage Status: Acute (7) Restless leg syndrome Status: Acute (8) Hypertension Status: Chronic (9) Atrial fibrillation Status: Resolved (10) Diabetes mellitus with hyperosmolarity without hyperglycemic hyperosmolar nonketotic coma Status: Acute - Assessment and Plan (Free Text) Assessment: 72 y/o female with PMHx sig for A fib on Xarelto, CHF, COPD, DM2, HTN, and RLS admitted after fall at home and found to have thalamic bleed complicated by resp failure and severe restless leg syndrome. requiring bipap. -Failed Speech/Swallow multiple times; GI consulted for PEG. Called next of kin, son Dillon, for consent, not answering. -Respiratory failure, on BIPAP -Restless leg syndrome, Ativan prn (has been receiving 2-3/day) -Cont w/ meds as ordered -continues to have a poor prognosis -Management as per ICU Discussed case with Dr. Martin Hays PGY2
[2018-06-30 14:57] LABS: BLOOD UREA NITROGEN 19 mg/dl (7-17); GFR NON-AFRICAN AMERICAN 55
[2018-06-30 14:58] LABS: ALB/GLOB RATIO 0.6 (1.0-2.1); ALBUMIN 2.4 g/dL (3.5-5.0); ALT/SGPT 26 U/L (9-52); AST/SGOT 44 U/L (14-36); CALCIUM 8.6 mg/dL (8.4-10.2)
--- NOTE | 2018-06-30 15:04 | CP.PCM.CON ---
History of Present Illness - History of Present Illness History of Present Illness: THE FOLLOWING OBTAINED FROM CHART REVIEW AND HOSPITAL STAFF DUE TO PT CLINICAL CONDITION Pt is a 72 yo WF with extensive medical history including but not limited to COPD, CHF, Afib (on AC), RLS, DM, HTN, ELISA who was admitted on 06/05/18 for intracranial hemorrhage and CVA. Her hospital stay had been complicated by acute hypoxic respiratory failure requiring intubation. She was extubated on 06/24 to BiPAP but has not since been completely liberated from positive pressure ventilation. She has failed/not been eligible for speech therapy evaluations. Therefore, GI consulted for PEG tube evaluation. Unable to obtain ROS due clinical condition MHx: See above SurgHx: L BKA Meds: Reviewed in MAR/chart FamHx: Unable to obtain SocHx: Unable to obtain All: Reviewed, TUCKER-I, TZD Past Patient History - Infectious Disease Hx of Infectious Diseases: None - Tetanus Immunizations Tetanus Immunization: Unknown - Past Medical History & Family History Past Medical History?: Yes - Past Social History Smoking Status: Light Smoker < 10 Cigarettes Daily - CARDIAC Hx Atrial Fibrillation: Yes Hx Cardia Arrhythmia: Yes Hx Congestive Heart Failure: Yes Hx Hypercholesterolemia: Yes Hx Hypertension: Yes - PULMONARY Hx Asthma: Yes Hx Bronchitis: Yes Hx Chronic Obstructive Pulmonary Disease (COPD): Yes Hx Sleep Apnea: Yes - HEENT Hx Difficulty Chewing: Yes - RENAL Hx Chronic Kidney Disease: No Other/Comment: INCONTINENT - ENDOCRINE/METABOLIC Hx Diabetes Mellitus Type 2: Yes Hx Hypothyroidism: Yes - HEMATOLOGICAL/ONCOLOGICAL Hx Blood Disorders: No - INTEGUMENTARY Hx Eczema: Yes - MUSCULOSKELETAL/RHEUMATOLOGICAL Hx Falls: Yes - GASTROINTESTINAL Hx Gastritis: Yes - GENITOURINARY/GYNECOLOGICAL Hx Genitourinary Disorders: No - PSYCHIATRIC Hx Anxiety: Yes Hx Depression: Yes Hx Paranoia: Yes Hx Post Traumatic Stress Disorder: Yes Hx Substance Use: No - SURGICAL HISTORY Hx Cholecystectomy: Yes Other/Comment: LEFT BKA - ANESTHESIA Hx Anesthesia: Yes Hx Anesthesia Reactions: No Hx Malignant Hyperthermia: No Meds Allergies/Adverse Reactions: Allergies Allergy/AdvReac Type Severity Reaction Status Date / Time TUCKER Inhibitors Allergy Severe COUGH Verified 12/28/17 04:05 Thiazides Allergy RASH Verified 12/28/17 04:05 - Medications Medications: Current Medications Albuterol/Ipratropium (Duoneb 3 Mg/0.5 Mg (3 Ml) Ud) 3 ml INH RQ6 [facility] Last Admin: 06/30/18 07:25 Dose: 3 ml Atorvastatin Calcium (Lipitor) 20 mg PO HS [facility] Last Admin: 06/23/18 21:49 Dose: 20 mg Benztropine Mesylate (Cogentin) 2 mg PO BID [facility] Last Admin: 06/24/18 08:10 Dose: Not Given Diltiazem HCl (Cardizem Cd) 120 mg PO DAILY [facility] Dimethicone (Proshield Plus Skin Protectant) 1 applic TOP Q8 [facility] Last Admin: 06/30/18 09:05 Dose: 1 applic Divalproex Sodium (Depakote Dr(*Bid*)) 750 mg PO BID [facility] Last Admin: 06/19/18 08:12 Dose: 750 mg Gabapentin (Neurontin) 800 mg PO TID [facility] Last Admin: 06/30/18 09:03 Dose: Not Given Valproate Sodium 250 mg/ (Sodium Chloride) 102.5 mls @ 100 mls/hr IVPB Q6 [facility] Last Admin: 06/30/18 04:00 Dose: 100 mls/hr Dextrose/Sodium Chloride (Dextrose 5%/0.9% Ns 1000 Ml) 1,000 mls @ 30 mls/hr IV .Q24H [facility] Stop: 06/30/18 16:52 Last Admin: 06/29/18 17:15 Dose: 30 mls/hr Insulin Human Regular (Humulin R) 0 units SC Q6H [facility] Last Admin: 06/30/18 01:06 Dose: Not Given Lorazepam (Ativan) 1 mg IVP Q6 PRN PRN Reason: Agitation Last Admin: 06/30/18 09:08 Dose: 1 mg Metoprolol Tartrate (Lopressor) 5 mg IVP Q6 [facility] Last Admin: 06/29/18 22:12 Dose: 5 mg Quetiapine Fumarate (Seroquel) 25 mg PO HS [facility] Physical Exam - Constitutional Appears: In Acute Distress, Unkempt, Confused, Cachectic, Chronically Ill - Head Exam Head Exam: ATRAUMATIC, NORMAL INSPECTION - Eye Exam Eye Exam: absent: Conjunctival injection, Periorbital swelling, Scleral icterus - ENT Exam ENT Exam: Mucous Membranes Dry. absent: Mucous Membranes Moist Additional comments: wearing BiPAP - Respiratory Exam Respiratory Exam: Accessory Muscle Use, Wheezes, Respiratory Distress. absent: NORMAL BREATHING PATTERN - Cardiovascular Exam Cardiovascular Exam: Tachycardia. absent: Bradycardia - GI/Abdominal Exam GI & Abdominal Exam: Normal Bowel Sounds, Soft. absent: Bruit, Diminished Bowel Sounds, Distended, Firm, Guarding, Hernia, Hyperactive Bowel Sounds, Hypoactive Bowel Sounds, Mass, Organomegaly, Pulsatile Mass, Rebound, Rigid, Tenderness - Rectal Exam Rectal Exam: Deferred - Extremities Exam Extremities exam: Negative for: pedal edema Additional comments: L BKA with healthy appearing stump - Neurological Exam Additional comments: Not alert, not conversive, eyes open staring off - Psychiatric Exam Additional comments: unable to assess due clinical condition - Skin Skin Exam: Dry, Warm Results - Vital Signs Recent Vital Signs: Last Vital Signs Temp 97.6 F 06/30/18 08:00 Pulse 80 06/30/18 14:00 Resp 27 H 06/30/18 14:00 BP 151/66 H 06/30/18 14:00 Pulse Ox 100 06/30/18 14:00 - Labs Result Diagrams: 06/29/18 05:45 06/30/18 13:00 Labs: Laboratory Results - last 24 hr 06/29/18 06/29/18 06/29/18 11:59 14:16 18:10 Sodium Potassium Chloride Carbon Dioxide Anion Gap BUN Creatinine Est GFR ( Amer) Est GFR (Non-Af Amer) POC Glucose (mg/dL) 119 H 115 H 125 H Random Glucose Calcium Total Bilirubin AST ALT Alkaline Phosphatase Total Protein Albumin Globulin Albumin/Globulin Ratio 06/30/18 06/30/18 06/30/18 01:04 05:45 05:55 Sodium Cancelled Potassium Cancelled Chloride Cancelled Carbon Dioxide Cancelled Anion Gap Cancelled BUN Cancelled Creatinine Cancelled Est GFR ( Amer) Cancelled Est GFR (Non-Af Amer) Cancelled POC Glucose (mg/dL) 137 H 152 H Random Glucose Cancelled Calcium Cancelled Total Bilirubin AST ALT Alkaline Phosphatase Total Protein Albumin Globulin Albumin/Globulin Ratio 06/30/18 13:00 Sodium 145 Potassium 4.0 Chloride 113 H Carbon Dioxide 28 Anion Gap 8 L BUN 19 H Creatinine 1.0 Est GFR ( Amer) > 60 Est GFR (Non-Af Amer) 55 POC Glucose (mg/dL) Random Glucose 178 H Calcium 8.6 Total Bilirubin 0.2 AST 44 H D ALT 26 Alkaline Phosphatase 68 Total Protein 6.2 L Albumin 2.4 L Globulin 3.8 Albumin/Globulin Ratio 0.6 L Assessment & Plan - Assessment and Plan (Free Text) Assessment: 72 yo WF with Afib, DM, CHF, COPD, ELISA admitted on 06/05 for ICH, CVA and later Acute Hypoxic Respiratory Failure. GI consulted for possible PEG tube placement. # PEG tube placement: Pt with prolonged critical illness and failed speech attempts for PO intake. However, given tenuous respiratory status (on BiPAP) PEG placement cannot be safely done at this time. Ideally, needs to have permanent/stable airway whether that be intubation, tracheostomy or other kind of supplemental O2 source that is not positive pressure ventilation. Furthermore, and more importantly, need to reach family/HCPOA to discuss goals of care and prognosis. Plan: - Contact family for goals of care discussion and prognosis - Needs stable airway; cannot perform PEG when intermittently on BiPAP/CPAP (see above) Thank you for the consult. Please page if questions. Pt seen and examined with Dr. Garcia. See attestation for further recs/changes.
[2018-06-30] MEDS: Metoprolol 1 mg/ml Inj IVP SCH ×2 (16:45→21:01)
[2018-06-30] MEDS ORDERED: Sodium Chloride 0.9% 250 ML IV SCH (17:00)
[2018-06-30] MEDS ORDERED: Dextrose 5%/0.9% NS 1,000 ML IV SCH (17:30)
--- NOTE | 2018-06-30 20:14 | PN ---
DATE: 06/30/2018 ENDO FOLLOWUP NOTE LOCATION: In room 432, ICU. SUBJECTIVE: This is a 72-year-old female with recent uncontrolled type 2 insulin-requiring diabetes, now being followed closely for metabolic management. Her glycemic levels are fluctuating, but improved at this time and the glucose values overnight have ranged from 137 to 152 mg/dL. LABORATORY DATA: Her latest chemistry showed a BUN of 19, sodium 145, potassium 4, chloride 113, CO2 of 28, glucose 178, and creatinine 1. ASSESSMENT AND PLAN: So at this time, we will continue the low-dose correction scale using regular insulin as given every 6 hours as ordered. We will obtain serial chemistries and supplement accordingly as needed. We will continue also the serial chemistries as ordered and supplement accordingly as needed. We will hold off the initiation of basal insulin at this time as noted. We will follow. Nevin Chen MD
[2018-07-01] MEDS: Insulin Regular 100 units/ml SC SCH ×3 (00:33→17:06)
[2018-07-01] MEDS: Proshield Plus GEL TOP SCH ×3 (00:34→17:24)
[2018-07-01] MEDS: Albuterol-Ipratrop 3 mg / 0.5 (3 ml) UD INH SCH ×4 (02:25→19:03)
[2018-07-01] MEDS: Valproate 250 MG in Sodium Chloride 0.9% 100 ML IVPB SCH ×4 (03:30→21:08)
--- NOTE | 2018-07-01 04:02 | PN ---
DATE: 06/30/2018 CRITICAL CARE PROGRESS NOTE LOCATION: The patient in ICU, bed 432. TIME SPENT: 35 minutes. The patient is seen and evaluated at the bedside. Past medical, surgical, social history reviewed. Case was discussed in multidisciplinary ICU rounds this morning. SUBJECTIVE: A 72-year-old female with a past medical history significant for hypertension, hyperlipidemia, diabetes mellitus type 2, paroxysmal atrial fibrillation, diabetic neuropathy, peripheral vascular disease, status post left below-knee amputation, anxiety, COPD, sleep apnea, hypothyroidism, paranoia, and depression. Recently started on Lexapro by psychiatry consult for her major depression. Admitted with worsening of her symptoms related to diabetic neuropathy and/or restless legs syndrome. Clinical course is complicated with acute respiratory failure. Intubated, placed on mechanical ventilation, extubated on 06/24/2018 on BiPAP. Remains lethargic, but arousable. No acute distress noted. PHYSICAL EXAMINATION: CURRENT VITAL SIGNS: Temperature 97.6, heart rate 80 to 93, blood pressure 151/66, mean arterial pressure 94, saturation 100%. Intake 1238, output 300, positive balance 938. HEAD, EARS, EYES, NOSE AND THROAT: Pupils are reactive. Conjunctivae pink. Extraocular muscles are intact. NECK: Supple. Trachea midline. CHEST: Bilateral breath sounds. Scattered rhonchi. HEART: Rhythm regular. S1, S2 normal. ABDOMEN: Bowel sounds present. Soft. EXTREMITIES: Warm to touch. No palpable cord. DP, 2+ bilaterally. Status post left below-knee amputation. SKIN: Reduced rash on the right dorsal aspect. CURRENT MEDICATIONS: Include albuterol/Atrovent 3 mL via nebulizer every 6 hours, Lipitor 20 mg p.o. at night, Cogentin 2 mg b.i.d., Cardizem CD 120 mg p.o. daily, Proshield Plus skin protectant one application topically every 8 hours, Depakote 750 mg twice daily, Neurontin 800 mg p.o. three times daily, Accu-Chek with regular insulin coverage, Ativan 1 mg IV every 6 hours p.r.n. for agitation, Lopressor 5 mg IV every 6 hours, Seroquel 25 mg p.o. at bedtime, Depakote 250 mg every 6 hours. LABORATORY DATA: WBC 7.1, hemoglobin 10.6, hematocrit 31.2, platelet count 436. PT 9.2, INR 0.8, PTT 27. ABG: The pH of 7.39, pCO2 of 45, pO2 of 76, saturation 97.5, on BiPAP 40%. SMA-7: Sodium 145, potassium 4, chloride 113, CO2 of 28, blood urea nitrogen 19, creatinine 1, random glucose 178, calcium 8.6. Total bilirubin 0.2, AST 44, ALT 26, alkaline phosphatase 68, total protein 6.2, albumin 2.4, A/G ratio 0.6. Urinalysis: Rbc 1, wbc's 2, urine bacteria rare, hyaline cast 6 to 10. Toxicology: Urine pH positive. Serology: C. difficile negative. Microbiology: Sputum culture, beta hemolytic Streptococcus group B. IMPRESSION AND PLAN: 1. Neuro: Acute stroke involving left thalamic area, mild delirium, unclear mental status baseline. 2. Pulmonary: Status post acute respiratory insufficiency secondary to pulmonary edema, extubated on 06/24/2018, remains on bilevel positive airway pressure with mild hypercarbia. 3. Cardiac: Chronic atrial fibrillation, on anticoagulation with Xarelto. 4. Endocrine: Diabetes mellitus type 2, on Levemir. Levemir on hold. Failed swallow evaluation. Oral intake remains suboptimal. Being seen by Gastroenterology for possible percutaneous endoscopic gastrostomy insertion. 5. Infectious Disease: On Zosyn empirically for aspiration. Pulmonary support bed. Low air mattress. Keep the head of bed 30 degrees up. Deep venous thrombosis and gastrointestinal prophylaxis. Closely monitor respiratory status. Continue current medications. Cali Alcala MD
[2018-07-01] MEDS: Metoprolol 1 mg/ml Inj IVP SCH ×4 (05:39→21:09)
[2018-07-01 06:09] LABS: HEMOGLOBIN 10.2 g/dL (12.0-16.0); MEAN CELL VOLUME 94.3 fl (81.0-99.0); MEAN CORPUSCULAR HEMOGLOBIN 31.7 pg (27.0-31.0); MEAN CORPUSCULAR HGB CONC 33.7 g/dL (33.0-37.0); RBC 3.22 Mil/uL (3.80-5.20); RED CELL DISTRIBUTION WIDTH 15.7 % (11.5-14.5)
[2018-07-01 08:21] LABS: CALCIUM 8.2 mg/dL (8.4-10.2)
[2018-07-01] MEDS ORDERED: Sodium Chloride 0.9% 500 ML IV ONE (09:58)
--- NOTE | 2018-07-01 11:07 | CP.PCM.PN ---
Subjective - Date & Time of Evaluation Date of Evaluation: 07/01/18 Time of Evaluation: 08:00 - Subjective Subjective: afebrile on CPAP agitated NAD Objective - Vital Signs/Intake and Output Vital Signs (last 24 hours): Temp Pulse Resp BP Pulse Ox 97.9 F 94 H 31 H 176/76 H 99 07/01/18 08:00 07/01/18 09:51 07/01/18 09:51 07/01/18 09:51 07/01/18 09:51 Intake and Output: 07/01/18 07/01/18 06:59 18:59 Intake Total 760 600 Output Total 150 Balance 610 600 - Medications Medications: Current Medications Albuterol/Ipratropium (Duoneb 3 Mg/0.5 Mg (3 Ml) Ud) 3 ml INH RQ6 [facility] Last Admin: 07/01/18 08:11 Dose: 3 ml Atorvastatin Calcium (Lipitor) 20 mg PO HS [facility] Last Admin: 06/23/18 21:49 Dose: 20 mg Benztropine Mesylate (Cogentin) 2 mg PO BID [facility] Last Admin: 06/24/18 08:10 Dose: Not Given Diltiazem HCl (Cardizem Cd) 120 mg PO DAILY [facility] Dimethicone (Proshield Plus Skin Protectant) 1 applic TOP Q8 [facility] Last Admin: 07/01/18 08:40 Dose: 1 applic Divalproex Sodium (Depakote Dr(*Bid*)) 750 mg PO BID [facility] Last Admin: 06/19/18 08:12 Dose: 750 mg Gabapentin (Neurontin) 800 mg PO TID [facility] Last Admin: 07/01/18 08:40 Dose: Not Given Valproate Sodium 250 mg/ (Sodium Chloride) 102.5 mls @ 100 mls/hr IVPB Q6 [facility] Last Admin: 07/01/18 09:17 Dose: 100 mls/hr Sodium Chloride (Sodium Chloride 0.9%) 250 mls @ 0 mls/hr IV .Q0M [facility] Stop: 07/01/18 17:00 Last Admin: 06/30/18 17:16 Dose: 250 mls/hr Dextrose/Sodium Chloride (Dextrose 5%/0.9% Ns 1000 Ml) 1,000 mls @ 60 mls/hr IV .[id number] [facility] Stop: 09/26/18 17:27 Insulin Human Regular (Humulin R) 0 units SC Q6H [facility] Last Admin: 07/01/18 00:33 Dose: Not Given Lorazepam (Ativan) 1 mg IVP Q6H PRN PRN Reason: agitation and anxiety Last Admin: 07/01/18 03:02 Dose: 1 mg Metoprolol Tartrate (Lopressor) 5 mg IVP Q6 [facility] Last Admin: 07/01/18 09:24 Dose: Not Given - Labs Labs: 07/01/18 06:00 07/01/18 06:00 PT 9.2 Seconds (9.8-13.1) L 06/05/18 19:25 INR 0.8 06/05/18 19:25 APTT 27.0 Seconds (25.6-37.1) 06/05/18 19:25 - Constitutional Appears: Confused, Cachectic, Chronically Ill - Head Exam Head Exam: NORMOCEPHALIC - Eye Exam Eye Exam: PERRL - ENT Exam ENT Exam: Mucous Membranes Dry - Neck Exam Neck Exam: absent: Lymphadenopathy - Respiratory Exam Respiratory Exam: Decreased Breath Sounds - Cardiovascular Exam Cardiovascular Exam: REGULAR RHYTHM - GI/Abdominal Exam GI & Abdominal Exam: Distended - Rectal Exam Rectal Exam: Deferred - Exam Exam: NORMAL INSPECTION - Extremities Exam Extremities Exam: absent: Pedal Edema - Back Exam Back Exam: absent: CVA tenderness (L), CVA tenderness (R) - Neurological Exam Neurological Exam: Altered, Motor Sensory Deficit - Psychiatric Exam Psychiatric exam: Depressed Assessment and Plan (1) Acute respiratory failure with hypoxia Status: Resolved (2) Altered mental status Status: Acute (3) COPD (chronic obstructive pulmonary disease) Status: Acute (4) Depression Status: Acute (5) Intracranial hemorrhage Status: Acute (6) Thalamic infarct, acute Status: Acute (7) CHF (congestive heart failure) Status: Chronic (8) Acute respiratory failure Status: Acute (9) COPD exacerbation Status: Acute - Assessment and Plan (Free Text) Assessment: poor prognosis needs PEG no new + cultures
--- NOTE | 2018-07-01 13:09 | CP.PCM.PN ---
Subjective - Date & Time of Evaluation Date of Evaluation: 07/01/18 Time of Evaluation: 08:00 - Subjective Subjective: No acute overnight events. Pt seen and examined this am. On BIPAP. Minimally responsive to painful stimulus. Objective - Vital Signs/Intake and Output Vital Signs (last 24 hours): Temp Pulse Resp BP Pulse Ox 97.1 F L 79 28 H 130/54 L 100 07/01/18 12:00 07/01/18 12:00 07/01/18 12:00 07/01/18 12:00 07/01/18 12:00 Intake and Output: 07/01/18 07/01/18 06:59 18:59 Intake Total 760 600 Output Total 150 Balance 610 600 - Medications Medications: Current Medications Albuterol/Ipratropium (Duoneb 3 Mg/0.5 Mg (3 Ml) Ud) 3 ml INH RQ6 [facility] Last Admin: 07/01/18 08:11 Dose: 3 ml Atorvastatin Calcium (Lipitor) 20 mg PO HS [facility] Last Admin: 06/23/18 21:49 Dose: 20 mg Benztropine Mesylate (Cogentin) 2 mg PO BID [facility] Last Admin: 06/24/18 08:10 Dose: Not Given Diltiazem HCl (Cardizem Cd) 120 mg PO DAILY [facility] Dimethicone (Proshield Plus Skin Protectant) 1 applic TOP Q8 [facility] Last Admin: 07/01/18 08:40 Dose: 1 applic Divalproex Sodium (Depakote Dr(*Bid*)) 750 mg PO BID [facility] Last Admin: 06/19/18 08:12 Dose: 750 mg Gabapentin (Neurontin) 800 mg PO TID [facility] Last Admin: 07/01/18 12:17 Dose: Not Given Valproate Sodium 250 mg/ (Sodium Chloride) 102.5 mls @ 100 mls/hr IVPB Q6 [facility] Last Admin: 07/01/18 09:17 Dose: 100 mls/hr Sodium Chloride (Sodium Chloride 0.9%) 250 mls @ 0 mls/hr IV .Q0M [facility] Stop: 07/01/18 17:00 Last Admin: 06/30/18 17:16 Dose: 250 mls/hr Dextrose/Sodium Chloride (Dextrose 5%/0.9% Ns 1000 Ml) 1,000 mls @ 60 mls/hr IV .[id number] [facility] Stop: 07/01/18 17:27 Insulin Human Regular (Humulin R) 0 units SC Q6H [facility] Last Admin: 07/01/18 12:17 Dose: Not Given Lorazepam (Ativan) 1 mg IVP Q6H PRN PRN Reason: agitation and anxiety Last Admin: 07/01/18 03:02 Dose: 1 mg Metoprolol Tartrate (Lopressor) 5 mg IVP Q6 [facility] Last Admin: 07/01/18 09:24 Dose: Not Given - Labs Labs: 07/01/18 06:00 07/01/18 06:00 PT 9.2 Seconds (9.8-13.1) L 06/05/18 19:25 INR 0.8 06/05/18 19:25 APTT 27.0 Seconds (25.6-37.1) 06/05/18 19:25 - Constitutional Appears: No Acute Distress - Head Exam Head Exam: NORMAL INSPECTION - Eye Exam Eye Exam: PERRL - ENT Exam ENT Exam: Mucous Membranes Moist - Neck Exam Neck Exam: Full ROM - Respiratory Exam Respiratory Exam: Decreased Breath Sounds - Cardiovascular Exam Cardiovascular Exam: REGULAR RHYTHM - GI/Abdominal Exam GI & Abdominal Exam: Soft - Extremities Exam Extremities Exam: absent: Pedal Edema Additional comments: Left BKA - Neurological Exam Neurological Exam: absent: Altered (unreponsive) - Skin Skin Exam: Normal Color Assessment and Plan (1) Acute respiratory failure with hypoxia Status: Resolved (2) Altered mental status Status: Acute (3) COPD (chronic obstructive pulmonary disease) Status: Acute (4) Depression Status: Acute (5) Hypoglycemia Status: Acute (6) Intracranial hemorrhage Status: Acute (7) Restless leg syndrome Status: Acute (8) Hypertension Status: Chronic (9) Atrial fibrillation Status: Resolved (10) Diabetes mellitus with hyperosmolarity without hyperglycemic hyperosmolar nonketotic coma Status: Acute - Assessment and Plan (Free Text) Assessment: 72 y/o female with PMHx sig for A fib on Xarelto, CHF, COPD, DM2, HTN, and RLS admitted after fall at home and found to have thalamic bleed complicated by resp failure and severe restless leg syndrome. requiring bipap. -Family discussion needed regarding goals of care -Respiratory failure, on BIPAP -Needs PEG once pt's airway is stable. Failed Speech/Swallow multiple times -Restless leg syndrome, Ativan prn (has been receiving 2-3/day) -Cont w/ meds as ordered -continues to have a poor prognosis -Management as per ICU Discussed case with Dr. Simone Hays PGY2
--- NOTE | 2018-07-01 16:44 | CP.CCUPN ---
CCU Subjective - Physician Review Subjective (Free Text): On BIPAP support overnight, intermittently agitated with brief 1-2 hours of sleeping noted, but when aroused, does not appear focused nor interactive to verbal commands. No other distress noted, on BiPAP (07/10, 40% set RR 14, breathing 24, avg TV 331ml, SPO2 100%. On D5NS at 60 cc/hr. Other vitals and I/O's reviewed. No fever spikes last 1 week. SBP 130-170s, period of hypotension recorded this AM may be relatively inaccurate due to BP cuff misalignment, HR 79, RR 24, SPO2 100%. ROS: No other pertinent negs or positives on system review. PMSFH: All other Nursing and physician documentation reviewed to date; no new pertinent info noted relevant to current medical problems. EXAM- HEENT: no icterus, no gaze preference, pupils equal and reactive NECK: No JVD visible, supple, carotids equal upstroke bilat/no bruits CHEST: decreased BS bases, no wheezes audible HEART: regular, distant S1S2, no rubs ABD: soft, no increased distention, no tympany, no focal tenderness, BS hypoactive, no rebound. EXT: no peripheral/ digital cyanosis, no calf tenderness or palpable cords, distal pulses intact and symmetrical. Left BKA intact, stump wound well healed. NEURO: no gross focal motor deficits. SKIN: no new rashes, otherwise warm and dry. LABS: WBC= 5.0 HGB= 10.2 PLTs= 438K Eq=776 K= 3.6 CL= 114 HCO3= 28 BUN/Cr= 22/1.1 BS= 212 IMPRESSION / MAJOR PROBLEMS NOW: 1. Acute Stroke, L Thalamic area. 2. s/p Acute resp insuff 2 Acute Pulm edema; intubated on 06/14 for mild hypercarbia 3. Mild Delirium- unclear mental status baseline. 4. Chronic A Fib on AC with Xarelto 5. DM II-uncontrolled PLAN: 1. Only Anxiolytic now has been Ativan IV PRN and IV Valproate. May add Haldol for any increase in psychomotor agitation. Consider Psychiatry re-eval. 2. Levemir remains on hold. Failed Swallow re-eval. Eval for PEG placement for enteral nutritional support. 3. Becoming hyperchloremic on NSS IVFs, will switch to D5LR. 4. Both Zosyn and Vanco: reached renew stop date on 06/21/18 and 06/27, respectively. Will not renew at this time unless there is suspicion of new infection. 5. Pulm Sport bed / low air loss mattress. 6. Could resume AC for chronic A Fib. VR better controlled on IV scheduled Lopressor. 7. Re-discuss Advance Directives with family. CCU Objective - Physical Exam Respiratory/Chest: Positive for: Rhonchi Neurological: Positive for: Other (lethergic)
[2018-07-01] MEDS ORDERED: Lactated Ringer's 500 ML IV SCH (17:15)
[2018-07-01] MEDS ORDERED: Albuterol-Ipratrop 3 mg / 0.5 (3 ml) UD ONE (18:48)
--- NOTE | 2018-07-01 19:54 | PN ---
DATE: 07/01/2018 ENDO FOLLOWUP NOTE LOCATION: In room 432 ICU. SUBJECTIVE: This is a 72-year-old female with recent acute respiratory failure and has been extubated, currently on a BiPAP mask and is now being followed closely also for metabolic management. Her glycemic levels are fluctuating, but improved and the glucose values have ranged from 152 to 178 and 212 mg/dL. LABORATORY DATA: Her latest chemistry showed a BUN of 22, sodium 148, potassium 3.6, chloride 114, CO2 of 28, glucose 212, and creatinine 1.1. ASSESSMENT AND PLAN: So at this time, we will continue the low-dose correction scale using regular insulin every 6 hours as ordered. We will hold off the resumption of basal insulin as indicated. We will obtain serial chemistries and supplement accordingly as needed. We will follow. Nevin Chen MD
[2018-07-02] MEDS: Proshield Plus GEL TOP SCH ×3 (00:09→16:52)
[2018-07-02] MEDS: Insulin Regular 100 units/ml SC SCH ×4 (00:09→20:00)
[2018-07-02] MEDS: Valproate 250 MG in Sodium Chloride 0.9% 100 ML IVPB SCH ×5 (04:45→23:13)
[2018-07-02 05:53] LABS: HEMOGLOBIN 9.4 g/dL (12.0-16.0); MEAN CORPUSCULAR HEMOGLOBIN 31.8 pg (27.0-31.0); MEAN CORPUSCULAR HGB CONC 33.5 g/dL (33.0-37.0); RBC 2.95 Mil/uL (3.80-5.20); RED CELL DISTRIBUTION WIDTH 16.2 % (11.5-14.5); WHITE BLOOD COUNT 3.8 K/uL (4.8-10.8)
[2018-07-02 05:55] LABS: BLOOD UREA NITROGEN 18 mg/dl (7-17); CALCIUM 8.2 mg/dL (8.4-10.2); GFR NON-AFRICAN AMERICAN > 60
[2018-07-02] MEDS: Metoprolol 1 mg/ml Inj IVP SCH ×4 (06:25→23:13)
[2018-07-02] MEDS: Potassium CL 10 MEQ/50 ML 50 ML IVPB SCH ×3 (09:02→11:09)
--- NOTE | 2018-07-02 14:26 | CP.CCUPN ---
CCU Subjective - Physician Review Subjective (Free Text): On BIPAP support, trial reprieve given today off BiPAP and not tolerated due to quick desaturation. Still intermittently agitated, noted RUE not spontaneously moving as compared to previous activity level. Other vitals and I/O's reviewed. No fever spikes last 1 week. ROS: No other pertinent negs or positives on 10+ system review. PMSFH: All other Nursing and physician documentation reviewed to date; no new pertinent info noted relevant to current medical problems. EXAM- HEENT: no icterus, no gaze preference, pupils equal and reactive NECK: No JVD visible, supple, carotids equal upstroke bilat/no bruits CHEST: decreased BS bases, no wheezes audible HEART: regular, distant S1S2, no rubs ABD: soft, no increased distention, no tympany, no focal tenderness, BS hypoactive, no rebound. EXT: no peripheral/ digital cyanosis, no calf tenderness or palpable cords, distal pulses intact and symmetrical. Left BKA intact, stump wound well healed. NEURO: + RUE Tone, motor 3/5. Moves other extremities spontaneously. SKIN: no new rashes, otherwise warm and dry. LABS: WBC= 3.8 HGB= 9.4 PLTs= 353K Dn=726 K= 3.3 CL= 116 HCO3= 31 BUN/Cr= 18/0.9 BS= 234 IMPRESSION / MAJOR PROBLEMS NOW: 1. Acute Stroke, L Thalamic area. 2. s/p Acute resp insuff 2 Acute Pulm edema; intubated on 06/14 for mild hypercarbia 3. Delirium- r/o new stroke event 4. Chronic A Fib on AC with Xarelto 5. DM II-uncontrolled PLAN: 1. Ativan continuation prn with IV VAlproate. Haldol added prn if Atvan ineffective. 2. Discussed wit Family: Son and anesthesiologist. Will repeat Brain MRI to r/o new stroke given present neuro status. So far, family wants all aggressive measures performed. Full Code. 3. Off Abx since 06/27. Will not renew at this time unless there is suspicion of new infection. Check repeat CXR. 4. AC for chronic A Fib has been held due to patient's occasional thrashing and agitative movements in bed and risk of falls. 5. PEG unable to be placed at this time due to BiPAP support. 6. IVFs switched to LR. CCU Objective - Vital Signs / Intake & Output Vital Signs (Last 4 hours): Vital Signs Temp Pulse Resp BP Pulse Ox 07/02/18 12:00 98.5 F 77 15 175/66 H 97 Intake and Output (Last 8hrs): Intake & Output 07/01/18 07/02/18 07/02/18 22:59 06:59 14:59 Intake Total 1300 480 490 Output Total 100 600 Balance 1200 -120 490 Intake: IV 1300 480 240 Intake, Piggyback 250 Output: Urine 100 600 Urethral (Suggs) 100 600
[2018-07-02] MEDS ORDERED: Labetalol 5 mg/ml Inj 20ML IVP PRN (15:31)
[2018-07-02] MEDS ORDERED: Nicardipine 20 MG/200 ML 20 MG/200 ML BAG IV SCH ×2 (15:48→16:15)
--- NOTE | 2018-07-02 19:03 | PN ---
DATE: 07/02/2018 LOCATION: Room 432, ICU. SUBJECTIVE: This is a 72-year-old female with recent uncontrolled type 2 insulin-requiring diabetes now being followed closely for metabolic management. Her glycemic levels are fluctuating, but improved and the latest glucose levels today have ranged from 212-234 mg/dL. LABORATORY DATA: Her latest chemistry showed a BUN of 18, sodium 149, potassium 3.3, chloride 116, CO2 of 31, glucose 234 and creatinine 0.9. ASSESSMENT AND PLAN: So at this time, we will continue the low-dose correction scale using Humalog insulin as given and hold off on any basal insulin for now glycemic fluctuations otherwise. She developed she was recently extubated after a bout of acute respiratory failure and is currently tolerating her BiPAP device as given. We will obtain serial chemistries and supplement accordingly as needed. We will follow. Nevin Chen MD
--- NOTE | 2018-07-02 23:49 | CP.PCM.PN ---
Subjective - Date & Time of Evaluation Date of Evaluation: 07/02/18 Time of Evaluation: 09:10 - Subjective Subjective: no overnight events Objective - Vital Signs/Intake and Output Vital Signs (last 24 hours): Temp Pulse Resp BP Pulse Ox 96.4 F L 63 18 107/78 100 07/02/18 20:00 07/02/18 23:21 07/02/18 22:00 07/02/18 22:00 07/02/18 22:00 Intake and Output: 07/02/18 07/03/18 18:59 06:59 Intake Total 1190 340 Output Total 800 Balance 390 340 - Medications Medications: Current Medications Atorvastatin Calcium (Lipitor) 20 mg PO HS [facility] Last Admin: 06/23/18 21:49 Dose: 20 mg Benztropine Mesylate (Cogentin) 2 mg PO BID [facility] Last Admin: 06/24/18 08:10 Dose: Not Given Diltiazem HCl (Cardizem Cd) 120 mg PO DAILY [facility] Dimethicone (Proshield Plus Skin Protectant) 1 applic TOP Q8 [facility] Last Admin: 07/02/18 16:52 Dose: 1 applic Divalproex Sodium (Depakote Dr(*Bid*)) 750 mg PO BID [facility] Last Admin: 06/19/18 08:12 Dose: 750 mg Gabapentin (Neurontin) 800 mg PO TID [facility] Last Admin: 07/02/18 16:52 Dose: Not Given Valproate Sodium 250 mg/ (Sodium Chloride) 102.5 mls @ 100 mls/hr IVPB Q6 [facility] Last Admin: 07/02/18 23:13 Dose: Not Given Nicardipine HCl (Cardene Iv Premix) 20 mg in 200 mls @ 50 mls/hr IV .Q4H [facility]; Protocol Last Titration: 07/02/18 20:19 Dose: 0 mg/hr, 0 mls/hr Insulin Human Regular (Humulin R) 0 units SC Q6H [facility] Last Admin: 07/02/18 20:00 Dose: Not Given Lorazepam (Ativan) 1 mg IVP Q6H PRN PRN Reason: agitation and anxiety Last Admin: 07/02/18 10:16 Dose: 1 mg Metoprolol Tartrate (Lopressor) 5 mg IVP Q6 [facility] Last Admin: 07/02/18 23:13 Dose: Not Given - Labs Labs: 07/02/18 04:40 07/02/18 04:40 PT 9.2 Seconds (9.8-13.1) L 06/05/18 19:25 INR 0.8 06/05/18 19:25 APTT 27.0 Seconds (25.6-37.1) 06/05/18 19:25 - Respiratory Exam Respiratory Exam: Rales - Cardiovascular Exam Cardiovascular Exam: REGULAR RHYTHM - GI/Abdominal Exam GI & Abdominal Exam: Soft, Normal Bowel Sounds Assessment and Plan - Assessment and Plan (Free Text) Assessment: 72 yo female with dysphagia respriratory distress off bipap clarify goals of care peg once resp status improved
[2018-07-03] MEDS: Proshield Plus GEL TOP SCH ×3 (01:00→16:31)
[2018-07-03] MEDS: Valproate 250 MG in Sodium Chloride 0.9% 100 ML IVPB SCH ×4 (04:30→22:18)
[2018-07-03 05:49] LABS: HEMOGLOBIN 9.9 g/dL (12.0-16.0); MEAN CELL VOLUME 96.1 fl (81.0-99.0); MEAN CORPUSCULAR HEMOGLOBIN 32.1 pg (27.0-31.0); MEAN CORPUSCULAR HGB CONC 33.4 g/dL (33.0-37.0); RBC 3.09 Mil/uL (3.80-5.20); WHITE BLOOD COUNT 4.7 K/uL (4.8-10.8)
[2018-07-03 05:58] LABS: BLOOD UREA NITROGEN 15 mg/dl (7-17); CALCIUM 8.5 mg/dL (8.4-10.2); GFR NON-AFRICAN AMERICAN > 60
[2018-07-03] MEDS: Metoprolol 1 mg/ml Inj IVP SCH ×4 (05:58→22:00)
[2018-07-03] MEDS: Insulin Regular 100 units/ml SC SCH ×4 (05:59→18:45)
--- NOTE | 2018-07-03 07:30 | CP.CCUPN ---
CCU Subjective - Physician Review Subjective (Free Text): Extremely lethargic on BiPAP, average TV 275ml, after temporary settings to increase IPAP, TV donald to 333ml but no improvement in overall neuromental status. Last anxioloytic given at 10PM last evening. Opens eyes to pain, abdominal breathing pattern noted. Other vitals and I/O's reviewed. No fever spikes last 1 week. HR 83, BP 103/63, Spo2 94% SPO2 on 40% oxygen on 07/10 BiPAP. ROS: No other pertinent negs or positives on 10+ system review. PMSFH: All other Nursing and physician documentation reviewed to date; no new pertinent info noted relevant to current medical problems. EXAM- HEENT: no icterus, no gaze preference, pupils equal and reactive NECK: No JVD visible, supple, carotids equal upstroke bilat/no bruits CHEST: decreased BS bases, no wheezes audible HEART: regular, distant S1S2, no rubs ABD: soft, no increased distention, no tympany, no focal tenderness, BS hypoactive, no rebound. EXT: no peripheral/ digital cyanosis, no calf tenderness or palpable cords, distal pulses intact and symmetrical. Left BKA intact, stump wound well healed. NEURO: + RUE Tone, motor 3/5. Moves other extremities spontaneously. SKIN: no new rashes, otherwise warm and dry. LABS: WBC=4.7 HGB= 9.9 PLTs= 288K Za=672 K= 3.5 CL= 118 HCO3= 30 BUN/Cr= 15/0.8 BS= 231 AB.32/57/31, Lactate = 1.0 IMPRESSION / MAJOR PROBLEMS NOW: 1. Acute Stroke, L Thalamic area. 2. s/p Acute resp insuff 2 Acute Pulm edema; intubated on 06/14 for mild hypercarbia 3. Delirium- r/o new stroke event 4. Chronic A Fib on AC with Xarelto 5. DM II-uncontrolled PLAN: 1. ABG may have been a venous sample. However, now too lethargic, is hypercapneic as well as exhibiting an abnormal breathing pattern on BiPAP to continue, necessitates consideration for MV support, unless family decides otherwise. Will dicuss with PMD with need to clarify any Advance Directives. 2. Repeat Brain MRI done for suspicion of possible new CVA, official results reviewed: old L thalamic infarct seen and new possible area involving R lentiform nucleus. 3. Further addition of psychotropics stopped for now over concern of over- sedation. 4. Cautious IVfs to avoid further hypernatremia. 5. Overall, discussed present condition with Son and Anesthesiologist yesterday who stated "the patient is very strong and would want a chance to keep on fighting."
[2018-07-03 07:52] LABS: ABG ALLEN TEST YES; ARTERIAL BLOOD GAS HCO3 26.2 mmol/L (21-28); ARTERIAL BLOOD GAS O2 SAT 63.5 % (95-98); ARTERIAL BLOOD GAS PCO2 57 mm/Hg (35-45); ARTERIAL BLOOD GAS PH 7.32 (7.35-7.45); ARTERIAL BLOOD GAS PO2 31 mm/Hg (80-100); ARTERIAL BLOOD GAS TCO2 31.1 mmol/L (22-28)
[2018-07-03 07:53] LABS: ARTERIAL BLOOD GAS FIO2 40 %
--- NOTE | 2018-07-03 10:27 | CP.PCM.PN ---
Subjective - Date & Time of Evaluation Date of Evaluation: 07/03/18 Time of Evaluation: 08:00 - Subjective Subjective: Pt seen and examined, still unresponsive. On BIPAP. ABG completed this morning demonstrates acidosis and CO2 retention. May likely need to be intubated for protection of airways. Brain MRI report reviewed, no showing a new R. Lentiform stroke. I called next of kin, Dillon Arreaga, to update him on his mother's respiratory status as well as Brain MRI report and re-discuss goals of care. No answer but message left to call back. Discussed case with Dr. Nichols and Dr. Clark. Objective - Vital Signs/Intake and Output Vital Signs (last 24 hours): Temp Pulse Resp BP Pulse Ox 98.6 F 101 H 38 H 189/74 H 93 L 07/03/18 08:00 07/03/18 10:03 07/03/18 08:00 07/03/18 10:03 07/03/18 08:00 Intake and Output: 07/03/18 07/03/18 06:59 18:59 Intake Total 820 220 Output Total 200 Balance 620 220 - Medications Medications: Current Medications Atorvastatin Calcium (Lipitor) 20 mg PO HS [facility] Last Admin: 06/23/18 21:49 Dose: 20 mg Benztropine Mesylate (Cogentin) 2 mg PO BID [facility] Last Admin: 06/24/18 08:10 Dose: Not Given Diltiazem HCl (Cardizem Cd) 120 mg PO DAILY [facility] Dimethicone (Proshield Plus Skin Protectant) 1 applic TOP Q8 [facility] Last Admin: 07/03/18 10:09 Dose: 1 applic Divalproex Sodium (Depakote Dr(*Bid*)) 750 mg PO BID [facility] Last Admin: 06/19/18 08:12 Dose: 750 mg Gabapentin (Neurontin) 800 mg PO TID [facility] Last Admin: 07/03/18 09:51 Dose: Not Given Valproate Sodium 250 mg/ (Sodium Chloride) 102.5 mls @ 100 mls/hr IVPB Q6 [facility] Last Admin: 07/03/18 09:50 Dose: 100 mls/hr Nicardipine HCl (Cardene Iv Premix) 20 mg in 200 mls @ 50 mls/hr IV .Q4H [facility]; P rotocol Last Titration: 07/02/18 20:19 Dose: 0 mg/hr, 0 mls/hr Insulin Human Regular (Humulin R) 0 units SC Q6H [facility] Last Admin: 07/03/18 05:59 Dose: Not Given Lorazepam (Ativan) 1 mg IVP Q6H PRN PRN Reason: agitation and anxiety Last Admin: 07/02/18 10:16 Dose: 1 mg Metoprolol Tartrate (Lopressor) 5 mg IVP Q6 [facility] Last Admin: 07/03/18 10:03 Dose: 5 mg - Labs Labs: 07/03/18 04:20 07/03/18 04:20 PT 9.2 Seconds (9.8-13.1) L 06/05/18 19:25 INR 0.8 06/05/18 19:25 APTT 27.0 Seconds (25.6-37.1) 06/05/18 19:25 - Constitutional Appears: No Acute Distress, In Acute Distress (labored breathing on BIPAP), Chronically Ill - Head Exam Head Exam: ATRAUMATIC - Eye Exam Eye Exam: Normal appearance, PERRL - ENT Exam ENT Exam: Mucous Membranes Moist - Neck Exam Neck Exam: Full ROM - Respiratory Exam Respiratory Exam: Accessory Muscle Use - Cardiovascular Exam Cardiovascular Exam: Tachycardia - GI/Abdominal Exam GI & Abdominal Exam: Hypoactive Bowel Sounds - Extremities Exam Additional comments: Left BKA, not agitated this morning - Neurological Exam Neurological Exam: absent: Altered (unresponsive to painful stimulus) - Psychiatric Exam Psychiatric exam: absent: Agitated (sedated) - Skin Skin Exam: Pallor Assessment and Plan (1) Acute respiratory failure with hypoxia Status: Resolved (2) Altered mental status Status: Acute (3) COPD (chronic obstructive pulmonary disease) Status: Acute (4) Depression Status: Acute (5) Hypoglycemia Status: Acute (6) Intracranial hemorrhage Status: Acute (7) Restless leg syndrome Status: Acute (8) Hypertension Status: Chronic (9) Atrial fibrillation Status: Resolved (10) Diabetes mellitus with hyperosmolarity without hyperglycemic hyperosmolar nonketotic coma Status: Acute - Assessment and Plan (Free Text) Assessment: 72 y/o female with PMHx sig for A fib on Xarelto, CHF, COPD, DM2, HTN, and RLS admitted after fall at home and found to have thalamic bleed complicated by resp failure and severe restless leg syndrome. Requiring bipap, Not ventilating well as per am ABG, will likely need to be on mechanical ventilation pending discussion with son on pt's goals of care. -Family discussion needed regarding goals of care in light of recent Brain MRI and worsening respiratory status -Respiratory failure, on BIPAP -Needs PEG once pt's airway is stable. Failed Speech/Swallow multiple times -Restless leg syndrome, Ativan prn (has been receiving 2-3/day) -Cont w/ meds as ordered -continues to have a poor prognosis -Management as per ICU Discussed case with Dr. Simone Hays PGY2
--- NOTE | 2018-07-03 11:07 | RAD ---
Date of service: 07/03/2018 HISTORY: resp failure COMPARISON: 06/29/2018 FINDINGS: LUNGS: No definite infiltrate. Opacity at right base may reflect dependent pleural fluid. PLEURA: Bilateral small to moderate pleural effusions unchanged. CARDIOVASCULAR: Normal heart size. Right PICC catheter again noted without interval change. OSSEOUS STRUCTURES: No significant abnormalities. VISUALIZED UPPER ABDOMEN: Normal. OTHER FINDINGS: Bilateral calcified breast prostheses are noted IMPRESSION: Bilateral pleural effusion grossly unchanged. No definite infiltrate.
--- NOTE | 2018-07-03 13:04 | MRI ---
Date of service: 07/02/2018 PROCEDURE: MRI BRAIN WITHOUT CONTRAST HISTORY: r/o new CVA COMPARISON: Prior brain MRI 06/09/2018 as well as prior head CT examinations 06/14/2018, 06/11/2018 and 06/05/2018. TECHNIQUE: Multiplanar, multisequence MR images of the brain were obtained without intravenous contrast enhancement. FINDINGS: Limitations: Extensive motion artifact. HEMORRHAGE: Hemosiderin is identified mildly at the right globus pallidus with increased long TR signal identified at the caudate head and medial portion of the globus pallidus compatible with likely chronic hemorrhage at this point. The finding is barely visible on CT exam 06/14/2018, more clearly evident on prior head CT 06/05/2018. Higher soft tissue resolution on MRI makes the finding significantly more conspicuous. DWI: Punctate infarction identified on acute or subacute basis at the inferior right vermis and at the lateral left thalamus with no lobar infarction appreciated at this time. BRAIN PARENCHYMA: Diffuse cerebral atrophy and chronic microangiopathy are reiterated with posterior fossa contents appearing stable. VENTRICLES: Unremarkable. No hydrocephalus. CRANIUM: Unremarkable. ORBITS: Grossly unremarkable. PARANASAL SINUSES/MASTOIDS: Clear VASCULAR SYSTEM: Skull base flow voids intact. OTHER FINDINGS: None. IMPRESSION: Nearly punctate acute subacute infarcts are identified with one at the inferior right vermis and a 2nd at the lateral left thalamus. No acute or subacute lobar brain infarction appreciable. Chronic hemorrhagic products are identified at the right basal ganglia as discussed above. Follow-up CT can confirm. Age-related neuro degenerative changes are reiterated.
--- NOTE | 2018-07-03 13:44 | CP.PCM.PN ---
Subjective - Date & Time of Evaluation Date of Evaluation: 07/03/18 Time of Evaluation: 08:00 - Subjective Subjective: on nasal canula NAD Objective - Vital Signs/Intake and Output Vital Signs (last 24 hours): Temp Pulse Resp BP Pulse Ox 97.7 F 82 35 H 150/100 H 100 07/03/18 12:00 07/03/18 12:00 07/03/18 12:04 07/03/18 12:00 07/03/18 12:00 Intake and Output: 07/03/18 07/03/18 06:59 18:59 Intake Total 820 340 Output Total 200 Balance 620 340 - Medications Medications: Current Medications Atorvastatin Calcium (Lipitor) 20 mg PO HS [facility] Last Admin: 06/23/18 21:49 Dose: 20 mg Benztropine Mesylate (Cogentin) 2 mg PO BID [facility] Last Admin: 06/24/18 08:10 Dose: Not Given Diltiazem HCl (Cardizem Cd) 120 mg PO DAILY [facility] Dimethicone (Proshield Plus Skin Protectant) 1 applic TOP Q8 [facility] Last Admin: 07/03/18 10:09 Dose: 1 applic Divalproex Sodium (Depakote Dr(*Bid*)) 750 mg PO BID [facility] Last Admin: 06/19/18 08:12 Dose: 750 mg Gabapentin (Neurontin) 800 mg PO TID [facility] Last Admin: 07/03/18 09:51 Dose: Not Given Valproate Sodium 250 mg/ (Sodium Chloride) 102.5 mls @ 100 mls/hr IVPB Q6 [facility] Last Admin: 07/03/18 09:50 Dose: 100 mls/hr Nicardipine HCl (Cardene Iv Premix) 20 mg in 200 mls @ 50 mls/hr IV .Q4H [facility]; Protocol Last Titration: 07/02/18 20:19 Dose: 0 mg/hr, 0 mls/hr Insulin Human Regular (Humulin R) 0 units SC Q6H [facility] Last Admin: 07/03/18 11:23 Dose: 3 units Lorazepam (Ativan) 1 mg IVP Q6H PRN PRN Reason: agitation and anxiety Last Admin: 07/02/18 10:16 Dose: 1 mg Metoprolol Tartrate (Lopressor) 5 mg IVP Q6 [facility] Last Admin: 07/03/18 10:03 Dose: 5 mg - Labs Labs: 07/03/18 04:20 07/03/18 04:20 PT 9.2 Seconds (9.8-13.1) L 06/05/18 19:25 INR 0.8 06/05/18 19:25 APTT 27.0 Seconds (25.6-37.1) 06/05/18 19:25 - Constitutional Appears: Non-toxic, Cachectic, Chronically Ill - Head Exam Head Exam: NORMOCEPHALIC - Eye Exam Eye Exam: absent: Scleral icterus - ENT Exam ENT Exam: Mucous Membranes Dry - Neck Exam Neck Exam: absent: Lymphadenopathy - Respiratory Exam Respiratory Exam: Decreased Breath Sounds - Cardiovascular Exam Cardiovascular Exam: REGULAR RHYTHM - GI/Abdominal Exam GI & Abdominal Exam: Distended, Soft - Rectal Exam Rectal Exam: Deferred - Exam Exam: NORMAL INSPECTION - Extremities Exam Extremities Exam: absent: Pedal Edema Additional comments: + Right BKA - Back Exam Back Exam: absent: CVA tenderness (L), CVA tenderness (R) - Neurological Exam Neurological Exam: Altered - Psychiatric Exam Psychiatric exam: Depressed Assessment and Plan (1) Acute respiratory failure with hypoxia Status: Resolved (2) Altered mental status Status: Acute (3) COPD (chronic obstructive pulmonary disease) Status: Acute (4) Depression Status: Acute (5) Intracranial hemorrhage Status: Acute (6) Thalamic infarct, acute Status: Acute (7) CHF (congestive heart failure) Status: Chronic (8) Acute respiratory failure Status: Acute (9) COPD exacerbation Status: Acute - Assessment and Plan (Free Text) Assessment: cont rx as ordered rx renewed
--- NOTE | 2018-07-03 19:57 | CP.PCM.PN ---
Subjective - Date & Time of Evaluation Date of Evaluation: 07/03/18 Time of Evaluation: 19:54 - Subjective Subjective: Discussed with family and surrogate decision extensively. Patient acutely became tachypneic, demonstrating increased work of breathing, not tracking, minimally responsive. Patient family and surrogate decision maker requests patient to be DNR/DNI, hospice, no aggressive measures. Objective - Vital Signs/Intake and Output Vital Signs (last 24 hours): Temp Pulse Resp BP Pulse Ox 97.2 F L 87 22 155/55 H 96 07/03/18 16:00 07/03/18 18:00 07/03/18 19:02 07/03/18 18:00 07/03/18 18:00 Intake and Output: 07/03/18 07/04/18 18:59 06:59 Intake Total 920 Output Total 200 Balance 720 - Medications Medications: Current Medications Atorvastatin Calcium (Lipitor) 20 mg PO HS [facility] Last Admin: 06/23/18 21:49 Dose: 20 mg Benztropine Mesylate (Cogentin) 2 mg PO BID [facility] Last Admin: 06/24/18 08:10 Dose: Not Given Diltiazem HCl (Cardizem Cd) 120 mg PO DAILY [facility] Dimethicone (Proshield Plus Skin Protectant) 1 applic TOP Q8 [facility] Last Admin: 07/03/18 16:31 Dose: 1 applic Divalproex Sodium (Depakote Dr(*Bid*)) 750 mg PO BID [facility] Last Admin: 06/19/18 08:12 Dose: 750 mg Gabapentin (Neurontin) 800 mg PO TID [facility] Last Admin: 07/03/18 16:31 Dose: Not Given Valproate Sodium 250 mg/ (Sodium Chloride) 102.5 mls @ 100 mls/hr IVPB Q6 [facility] Last Admin: 07/03/18 16:30 Dose: 100 mls/hr Nicardipine HCl (Cardene Iv Premix) 20 mg in 200 mls @ 50 mls/hr IV .Q4H [facility]; Protocol Last Titration: 07/02/18 20:19 Dose: 0 mg/hr, 0 mls/hr Insulin Human Regular (Humulin R) 0 units SC Q6H [facility] Last Admin: 07/03/18 18:45 Dose: Not Given Lorazepam (Ativan) 1 mg IVP Q6H PRN PRN Reason: agitation and anxiety Last Admin: 07/02/18 10:16 Dose: 1 mg Metoprolol Tartrate (Lopressor) 5 mg IVP Q6 [facility] Last Admin: 07/03/18 16:31 Dose: Not Given - Labs Labs: 07/03/18 04:20 07/03/18 04:20 PT 9.2 Seconds (9.8-13.1) L 06/05/18 19:25 INR 0.8 06/05/18 19:25 APTT 27.0 Seconds (25.6-37.1) 06/05/18 19:25
[2018-07-03 20:40] VITALS: TEMP 95.2
--- NOTE | 2018-07-03 22:10 | PN ---
DATE: 07/03/2018 LOCATION: Room 432 ICU. This is a 72-year-old female with recent uncontrolled type 2 insulin-requiring diabetes, now being followed closely for metabolic management. Her glycemic levels are fluctuating but improved, and the glucose values overnight have ranged from 167 to 176 and 237 mg/dL. The chemistries today showed a BUN of 15, sodium 149, potassium 3.5, chloride 118, CO2 of 30, glucose 231, and creatinine 0.8. So at this time, we will continue the low-dose correction scale using regular insulin every 6 hours as ordered. We would also recommend a small dose of basal insulin overnight as indicated. We will obtain serial chemistries and supplement accordingly needed. We will follow with you. Nevin Chen MD
--- NOTE | 2018-07-04 | CP.PCM.PRO ---
Pronouncement of Note - Clinical Findings Physical Exam: No Response Verbal/Painful Stimuli, Absent Peripheral Puls es{Carotid & Femoral}, Absent Heart & Breath Sounds, No Pupillary Light Reflex, No Corneal Reflex, Pupils Fixed & Dilated, Absence of Vital Signs - Pronouncement Time Time of Pronouncement of : 23:55 - Notifications Pronouncement Notifications: Family Notified, Atending Notified Health Assessment And Treatment Teacher Notified: No - Autopsy Autopsy Requested: No [place] [id number]
[2018-07-04 00:15] VITALS: BP 57/29
[2018-07-04 00:16] VITALS: PULSE 0; RESP 0; O2SAT 0
== END 2018-07-04 01:30 | DRG 64 ==
LOC: H.ER 16:35 → H.ERHOLD 20:46 → H.ICU/CCU 23:18 → H.TEL 06-13 13:26 → H.ICU/CCU 06-14 22:11
PROVIDERS: ADMIT Family Medicine; ATTEND Family Medicine
PROC: 0BH17EZ Insertion of Endotracheal Airway into Trachea, Via Natural or Artificial Opening (ICD-10-PCS; principal; 2018-06-14)
PROC: 5A1955Z Respiratory Ventilation, Greater than 96 Consecutive Hours (ICD-10-PCS; 2018-06-14)
PROC: 02HV33Z Insertion of Infusion Device into Superior Vena Cava, Percutaneous Approach (ICD-10-PCS; 2018-06-17)
DX: I63.9 Cerebral infarction, unspecified (principal); J96.01 Acute respiratory failure with hypoxia; E11.00 Type 2 diabetes mellitus with hyperosmolarity without nonketotic hyperglycemic-hyperosmolar coma (NKHHC); I50.32 Chronic diastolic (congestive) heart failure; F05 Delirium due to known physiological condition; J44.1 Chronic obstructive pulmonary disease with (acute) exacerbation; Z89.512 Acquired absence of left leg below knee; Z79.01 Long term (current) use of anticoagulants; I48.0 Paroxysmal atrial fibrillation; G25.81 Restless legs syndrome; I11.0 Hypertensive heart disease with heart failure; E11.649 Type 2 diabetes mellitus with hypoglycemia without coma; E11.65 Type 2 diabetes mellitus with hyperglycemia; E11.319 Type 2 diabetes mellitus with unspecified diabetic retinopathy without macular edema; E11.42 Type 2 diabetes mellitus with diabetic polyneuropathy; E11.51 Type 2 diabetes mellitus with diabetic peripheral angiopathy without gangrene; E78.00 Pure hypercholesterolemia, unspecified; E78.5 Hyperlipidemia, unspecified; E03.9 Hypothyroidism, unspecified; G47.33 Obstructive sleep apnea (adult) (pediatric); I48.2 Chronic atrial fibrillation; Z66 Do not resuscitate; Z79.4 Long term (current) use of insulin; F03.90 Unspecified dementia, unspecified severity, without behavioral disturbance, psychotic disturbance, mood disturbance, and anxiety; K29.70 Gastritis, unspecified, without bleeding; F17.210 Nicotine dependence, cigarettes, uncomplicated; E86.0 Dehydration; E11.21 Type 2 diabetes mellitus with diabetic nephropathy; F43.10 Post-traumatic stress disorder, unspecified; F41.1 Generalized anxiety disorder; F32.9 Major depressive disorder, single episode, unspecified; E11.43 Type 2 diabetes mellitus with diabetic autonomic (poly)neuropathy; K31.84 Gastroparesis; R13.10 Dysphagia, unspecified; Z74.01 Bed confinement status; T43.225A Adverse effect of selective serotonin reuptake inhibitors, initial encounter; Z78.1 Physical restraint status